=== PATIENT | female | born 1980 | race Two or more races ===

== ENCOUNTER → 2020-05-14 10:15 | Outpatient (BNVA) | payer OTHER, SELFPAY | PROVIDERS: PCP Internal Medicine; Referring Provider Internal Medicine; Visit Provider Internal Medicine Gastroenterology | DX: Z11.0 Encounter for screening for intestinal infectious diseases (principal) | CPT/HCPCS: 99211 ==

== ENCOUNTER 2020-05-15 18:23 | Outpatient (REF) | payer OTHER, SELFPAY ==
[2020-05-18 13:08] LABS: H Pylori Breath Test DETECTED (NOT DETECTED)
== END 2020-05-15 18:24 | disposition home or self-care (01) ==
LOC: HO.LNP 18:23
PROVIDERS: Visit Provider Internal Medicine Gastroenterology
DX: Z11.0 Encounter for screening for intestinal infectious diseases (principal)
CPT/HCPCS: 83013

== ENCOUNTER 2020-06-02 08:08 | Outpatient (REF) | payer OTHER, SELFPAY ==
--- NOTE | 2020-06-02 13:46 | FL_ITS ---
EXAMINATION: XR FLUOROSCOPY WITH IMAGES CLINICAL INFORMATION: M53.3 - Sacrococcygeal disorders, not elsewhere classified COMPARISON: Radiographs sacrum/coccyx 07/29/2019 TECHNIQUE: Fluoroscopy performed by Kaya Galindo NP. Fluoroscopy time: 0.5 minutes DAP: 9.7 Gycm2 Images: 2 FINDINGS: There is a spinal needle overlying lower coccyx with tip just anterior to the lower coccyx. There is contrast in the precoccygeal soft tissues. No visible vascular communication. FL/FL guidance in treatment room IMPRESSION: Fluoroscopy for pain management procedure.
== END 2020-06-02 08:09 | disposition home or self-care (01) ==
LOC: HO.RADIR 08:08
PROVIDERS: Visit Provider Anesthesiology
DX: M53.3 Sacrococcygeal disorders, not elsewhere classified (principal)
CPT/HCPCS: 64999; J3300; Q9967

== ENCOUNTER 2020-06-15 14:04 | Outpatient (REF) | payer OTHER, SELFPAY ==
[2020-06-16 02:30] LABS: CT PCR NOT DETECTED (Not Detect.); NG PCR NOT DETECTED (Not Detect.)
[2020-06-16 09:31] LABS: BV Int Neg Control Negative (Negative); BV Int Pos Control Positive (Positive)
== END 2020-06-15 14:05 | disposition home or self-care (01) ==
LOC: HO.LAB 14:04
PROVIDERS: PCP Internal Medicine; Visit Provider Advanced Practice Midwife
DX: Z01.419 Encounter for gynecological examination (general) (routine) without abnormal findings (principal); Z20.2 Contact with and (suspected) exposure to infections with a predominantly sexual mode of transmission; Z11.3 Encounter for screening for infections with a predominantly sexual mode of transmission; N90.89 Other specified noninflammatory disorders of vulva and perineum; Z00.00 Encounter for general adult medical examination without abnormal findings
CPT/HCPCS: 87480; 87491; 87510; 87591; 87660

== ENCOUNTER 2020-08-26 10:09 | Outpatient (REF) | payer OTHER, SELFPAY ==
--- NOTE | 2020-08-26 10:00 | EMG_ITS ---
HISTORY OF PRESENT ILLNESS: This is a 40-year-old woman with a history of fibromyalgia, who comes in with bilateral upper extremity pain and numbness for 14 years. Recently, she has had some physical therapy and using splints at night, which helped. Her symptoms of pain, numb, and tingling, left more than right. CURRENT MEDICATION: Nabumetone 750, Cymbalta 60 mg, baclofen 10 mg, tizanidine 4 mg p.r.n., and vitamins. PHYSICAL EXAMINATION: On examination, she is alert and oriented with cranial nerves II through XII are normal. Muscle tone and strength are normal in all 4 extremities. Deep tendon reflexes symmetrical. No Tinel or Phalen sign. IMPRESSION: Rule out carpal tunnel syndrome. Nerve conduction EMG study: Early carpal tunnel syndrome on the right, otherwise normal study. Normal EMG of the C5 through T1 innervated muscles bilaterally. MD ALLEN Pina/LAURYN / [phone]
== END 2020-08-26 10:10 | disposition home or self-care (01) ==
LOC: HO.NEURO 10:09
PROVIDERS: Visit Provider Internal Medicine
DX: R20.0 Anesthesia of skin (principal); M25.532 Pain in left wrist; M25.531 Pain in right wrist
CPT/HCPCS: 95886; 95913

== ENCOUNTER → 2020-10-26 15:29 | Outpatient (BNVA) | payer OTHER, SELFPAY | PROVIDERS: Visit Provider Anesthesiology ==

== ENCOUNTER → 2020-11-12 14:46 | Outpatient (BNVA) | payer OTHER, SELFPAY | PROVIDERS: Visit Provider Anesthesiology | DX: M53.3 Sacrococcygeal disorders, not elsewhere classified (principal) | CPT/HCPCS: 99212 ==

== ENCOUNTER 2020-11-24 10:03 | Outpatient (REF) | payer OTHER, SELFPAY ==
--- NOTE | ~2020-11-24 | CT_ITS ---
EXAMINATION: CT PELVIS WITHOUT CONTRAST CLINICAL INFORMATION: Sacrococcygeal disorders. COMPARISON: Sacrum and coccyx radiographs dated 07/29/2019. MR pelvis dated 04/24/2018. TECHNIQUE: Helical scanning was performed with submillimeter collimation through the pelvis. Sagittal and coronal multiplanar 2-D reconstructions were obtained. This CT examination was performed using dose optimization techniques as appropriate, variously including the following: *Automated exposure control *Adjustment of mA and/or kV according to patient size (this includes techniques or standardized protocols for targeted exams where dose is matched to indication/reason for exam; i.e. extremities or head) *Use of iterative reconstruction technique DLP: 409 mGy-cm FINDINGS: PELVIS: No concerning intrapelvic mass or fluid collection. Left adnexal simple cyst measuring 4 cm. Findings are almost certainly benign and no follow-up imaging is recommended. IUD within the uterus. Unremarkable right adnexa. The visualized pelvic bowel loops are unremarkable without wall thickening or associated inflammatory change. No pelvic bowel obstruction. Unremarkable appendix. Nondistended urinary bladder. The distal ureters are unremarkable. OSSEOUS STRUCTURES: Minimal subchondral sclerosis at the right sacroiliac joint inferiorly. Tiny inferior marginal osteophytes at the right and left sacroiliac joint. No osseous erosion. No associated osseous bridging. No concerning lytic or blastic osseous lesion. No acute fracture or dislocation. CT/CT pelvis wo con IMPRESSION: 1. Minimal bilateral sacroiliac degenerative arthritis. 2. Simple left adnexal cyst measuring 4 cm. Findings are almost certainly benign and no follow-up imaging is recommended. IUD in appropriate position.
== END 2020-11-24 10:04 | disposition home or self-care (01) ==
LOC: HO.CT 10:03
PROVIDERS: Visit Provider Anesthesiology
DX: M53.3 Sacrococcygeal disorders, not elsewhere classified (principal)
CPT/HCPCS: 72192

== ENCOUNTER 2020-12-08 06:06 | Outpatient (REF) | payer OTHER, SELFPAY ==
--- NOTE | ~2020-12-08 | FL_ITS ---
EXAMINATION: XR FLUOROSCOPY WITH IMAGES CLINICAL INFORMATION: M53.3 - Sacrococcygeal disorders COMPARISON: CT pelvis 11/24/2020 TECHNIQUE: Fluoroscopy performed by Kyaa Galindo NP. Fluoroscopy time: 1.2 minutes DAP: 17.56 Gycm2 Images: 5 FINDINGS: There is a needle seen with tip overlying the anterior aspect distal coccyx and contrast in the presacral coccygeal soft tissues. There is another spot view with spinal needle ascending the sacral hiatus and epidural contrast present. There is an IUD again noted overlying the mid pelvis. The SI joints and pubis are unremarkable. FL/FL guidance in treatment room IMPRESSION: Fluoroscopy for pain management procedures.
== END 2020-12-08 06:07 | disposition home or self-care (01) ==
LOC: HO.RADIR 06:06
PROVIDERS: Visit Provider Anesthesiology
DX: M53.3 Sacrococcygeal disorders, not elsewhere classified (principal)
CPT/HCPCS: 62323; 64999; J3300; Q9967

== ENCOUNTER 2020-12-26 16:59 | Emergency (ER) | payer OTHER, SELFPAY ==
--- NOTE | ~2020-12-26 | CT_ITS ---
EXAMINATION: CT ABDOMEN AND PELVIS WITHOUT CONTRAST CLINICAL INFORMATION: Right flank pain. Rule out stone COMPARISON: None TECHNIQUE: Multidetector volumetric imaging was performed from the superior aspect of the liver through the pubic symphysis. Sagittal and coronal reformatted images were obtained on the technologist's workstation. This CT examination was performed using dose optimization techniques as appropriate, variously including the following: *Automated exposure control *Adjustment of mA and/or kV according to patient size (this includes techniques or standardized protocols for targeted exams where dose is matched to indication/reason for exam; i.e. extremities or head) *Use of iterative reconstruction technique DLP: 664 mGy-cm FINDINGS: The lack of intravenous contrast limits evaluation of the solid visceral organs including the liver, spleen, pancreas, and kidneys. LUNG BASES: The visualized lung bases are unremarkable. LIVER, GALLBLADDER, AND BILIARY TREE: Limited non-contrast evaluation is normal. No gross focal hepatic lesion. Normal liver size and contour. No gross biliary ductal dilation. The gallbladder is unremarkable with no evidence of radiopaque gallstones, gallbladder wall thickening, or obvious pericholecystic inflammatory changes. PANCREAS: Limited non-contrast evaluation is normal. No marc-pancreatic fluid. SPLEEN: Limited non-contrast evaluation is normal. ADRENAL GLANDS: Normal; no adrenal mass. KIDNEYS AND URETERS: Limited non-contrast evaluation is normal. No hydronephrosis, hydroureter, or calculi seen. No perinephric stranding. GASTROINTESTINAL TRACT: Small bowel and colon are non-dilated. No bowel wall thickening. No pericolonic inflammatory changes to suggest colitis or diverticulitis. ABDOMINAL WALL: No hernia seen. LYMPH NODES: No pathologically enlarged lymph nodes in the abdomen or pelvis. VASCULAR: Normal caliber abdominal aorta. BLADDER: Unremarkable. PELVIC VISCERA: Normal noncontrast appearance of the uterus and ovaries. An IUD is seen centrally in the uterus. OSSEOUS STRUCTURES: No acute or suspicious osseous abnormalities. CT/CT abdomen pelvis wo con IMPRESSION: No acute CT findings. No radiopaque urolithiasis.
[2020-12-26 17:05] VITALS: BP 105/69; PULSE 83; RESP 16; TEMP 36.1; O2SAT 99; BMI 34.6
[2020-12-26 20:00] VITALS: BP 109/70; PULSE 81; RESP 16; TEMP 37.1; O2SAT 100
[2020-12-26 20:19] LABS: MANUAL DIFF FLAG NO
[2020-12-26 20:22] LABS: Basophils Percent Auto 0.2 % (0-2); Eosinophils Absolute Auto 0.1 X10*3/uL (0.0-0.4); Eosinophils Percent Auto 1.4 % (0-4); Hematocrit 38.1 % (37-47); Hemoglobin 12.5 g/dl (12.0-16.0); Imm Gran Abs Auto 0.04 X10*3/uL (0.00-0.03); Imm Gran Pct Auto 0.4 % (0.0-0.4); Lymphocytes Absolute Auto 2.1 X10*3/uL (1.2-4.9); Lymphocytes Percent Auto 21.8 % (20-40); Mean Corpuscular HGB Conc 32.8 g/dl (31.0-35.0); Mean Corpuscular Hemoglobin 29.2 pg (27.0-33.0); Monocytes Absolute Auto 0.7 X10*3/uL (0.1-1.2); Monocytes Percent Auto 7.4 % (2-11); Neutrophils Absolute Auto 6.6 X10*3/uL (2.0-8.3); Neutrophils Percent Auto 68.8 % (45-73); Platelet Count 304 X10*3/uL (160-400); Red Blood Count 4.28 X10*6/uL (4.20-5.50); Red Cell Distribution Width 14.2 % (11.0-16.0); White Blood Count 9.7 X10*3/uL (4.8-10.8)
--- NOTE | 2020-12-26 20:26 | ED_ITS ---
HPI - Abdominal Pain General Chief Complaint: Abdominal Pain Stated Complaint: Flank pain Time Seen by Provider: 12/26/20 17:03 Source: patient Mode of arrival: ambulatory Limitations: no limitations History of Present Illness HPI narrative: R flank pain with spotting and some dysuria MD elicited complaint: abdominal pain and flank pain Onset (ago): day(s) (1) Pain Consistency: constant Location: R flank Severity: moderate Quality: stabbing Radiation: none Migration to: no migration Exacerbating factors: nothing Relieving factors: nothing Associated symptoms: nausea and dysuria Related Data Home Medications Medication Instructions Recorded Confirmed ammonium lactate 12 % topical cream 1 applic TOPICAL BID 06/15/20 11/03/20 ascorbate calcium (vitamin C) 500 500 mg PO DAILY 06/15/20 11/03/20 mg tablet cholecalciferol (vitamin D3) 50 50 mcg PO DAILY 06/15/20 11/03/20 mcg (2,000 unit) capsule levonorgestrel 20 mcg/24 hours (6 INTRAUTERINE 06/15/20 11/03/20 yrs) 52 mg intrauterine device nabumetone 750 mg tablet 750 mg PO BID 06/15/20 11/03/20 tizanidine 4 mg tablet 4 mg PO BEDTIME 06/15/20 11/03/20 vitamin B complex 1 tab PO DAILY 06/15/20 11/03/20 Previous Rx's Medication Instructions Recorded alprazolam 0.5 mg tablet 0.5 mg PO BID PRN 30 Days #45 tab 07/07/20 fluconazole 150 mg tablet 150 mg PO QWEEK 21 Days #3 tab 09/02/20 terbinafine HCl 1 % topical cream 1 appl TOPICAL BID 30 Days #30 g 09/02/20 mupirocin 2 % topical ointment 1 appl TOPICAL BID 14 Days #15 g 10/22/20 folic acid 1 mg tablet 1 mg PO DAILY 90 Days #90 tab 11/03/20 ondansetron HCl 4 mg tablet 4 mg PO Q8H PRN 30 Days #90 tab 11/03/20 duloxetine 30 mg capsule,delayed 30 mg PO DAILY #30 cap 11/15/20 release Allergies Allergy/AdvReac Type Severity Reaction Status Date / Time No Known Allergies Allergy Unknown NONE Verified 12/26/20 17:07 Review of Systems Review of Systems Constitutional : No Weight loss, No Fever, No Chills ENT/Mouth : No sore throat, No Rhinorrhea Eyes: No Swelling, No Redness Cardiovascular : No Chest Pain, No SOB, NoEdema Respiratory : No Cough, No Sputum, No Wheezing Gastrointestinal : Positive Nausea, no Vomiting, no Diarrhea, positive abdominal Pain, No Hematochezia, No Melena Genitourinary : pos Dysuria, No Urinary Frequency, No Hematuria, No Urgency , pos flank pain Musculoskeletal : No joint pain, No Myalgias, No Joint Swelling Skin : No Skin Lesions, No rash Neuro : No Weakness, No Numbness, No Dizziness, No Headache Psych : No Anxiety/Panic, No Depression Heme/Lymph: No Bruising, No Lymphadenopathy Endocrine : No Polyuria, No Polydipsia All other systems reviewed and are negative. Physical Exam Vital Signs: Vital Signs: Last Vital Signs Temp 98.7 F 12/26/20 20:00 Pulse 81 12/26/20 20:00 Resp 16 12/26/20 20:00 BP 109/70 12/26/20 20:00 Pulse Ox 100 12/26/20 20:00 Body Mass Index 34.6 Appearance: Alert. Oriented X3. No acute distress. Eyes: Pupils equal, round and reactive to light. ENT: Pharynx normal. Neck: Normal inspection. Neck supple. CVS: Normal heart rate and rhythm. Pulses normal. Respiratory: No respiratory distress. Breath sounds normal. Abdomen: Soft and non-tender. Flank: mild R CVA ttp Skin: Skin warm and dry. Normal skin color. Normal skin turgor. Extremities: No lower extremity edema. No calf ttp Neuro: Oriented X 3. No motor deficit. No sensory deficit. Course Course Course Narrative: no acute findings, stable for DC MDM - Abdominal Pain MDM Narrative Medical decision making narrative: 40 yo female with dysuria, some spotting, R flank pain at this time will need labs, CT scan for renal colic, UA, dispo per results and findings. Lab Data Result diagrams: 12/26/20 20:16 12/26/20 20:16 Labs: Lab Results 12/26/20 12/26/20 12/26/20 Range/Units 20:16 20:16 20:16 WBC 9.7 (4.8-10.8) X10*3/uL RBC 4.28 (4.20-5.50) X10*6/uL Hgb 12.5 (12.0-16.0) g/dl Hct 38.1 (37-47) % MCV 89.0 (80-98) fL MCH 29.2 (27.0-33.0) pg MCHC 32.8 (31.0-35.0) g/dl RDW 14.2 (11.0-16.0) % Plt Count 304 (160-400) X10*3/uL MPV 9.0 L (9.4-12.3) fL Immature Gran % (Auto) 0.4 (0.0-0.4) % Neut % (Auto) 68.8 (45-73) % Lymph % (Auto) 21.8 (20-40) % [place] % (Auto) 7.4 (2-11) % Eos % (Auto) 1.4 (0-4) % Baso % (Auto) 0.2 (0-2) % Lymph # (Auto) 2.1 (1.2-4.9) X10*3/uL [place] # (Auto) 0.7 (0.1-1.2) X10*3/uL Eos # (Auto) 0.1 (0.0-0.4) X10*3/uL Baso # (Auto) 0.0 (0.0-0.2) X10*3/uL Abs Immat Gran (auto) 0.04 H (0.00-0.03) X10*3/uL Absolute Neuts (auto) 6.6 (2.0-8.3) X10*3/uL Absolute Nucleated RBC 0.000 (0.0-0.012) X10*3/uL Nucleated RBC % (auto) 0.0 (0.0-0.2) /100WBC Hold Blue Top SEE NOTE Sodium 140 (135-145) mmol/L Potassium 3.4 (3.3-5.1) mmol/L Chloride 105 (96-108) mmol/L Carbon Dioxide 28 (22-29) mmol/L Anion Gap 10 L (12-20) BUN 15 (9-16) mg/dL Creatinine 0.79 (0.5-1.4) mg/dL Estim Creat Clear Calc 78.7 Estimated GFR > 60 Random Glucose 94 (60-115) mg/dL Calcium 8.9 (8.4-10.2) mg/dL Magnesium 2.2 (1.6-2.6) mg/dL Total Bilirubin 0.4 (0.0-1.0) mg/dL Direct Bilirubin < 0.2 (0.0-0.5) mg/dL AST 16 (5-31) U/L ALT 21 (0-31) U/L Alkaline Phosphatase 68 (39-117) U/L Total Protein 6.4 L (6.5-8.0) g/dL Albumin 4.0 (3.5-5.0) g/dL Lipase 60 (8-78) U/L Urine Color Urine Appearance Urine pH (5.0-8.0) Ur Specific [place] (1.005-1.025) Urine Protein (NEG-TRACE) MG/DL Urine Glucose (UA) (NEG) MG/DL Urine Ketones (NEG) MG/DL Urine Blood (NEG) Urine Nitrite (NEG) Ur Leukocyte Esterase (NEG) Urine Test (NEGATIVE) 12/26/20 12/26/20 Range/Units 20:47 20:47 WBC (4.8-10.8) X10*3/uL RBC (4.20-5.50) X10*6/uL Hgb (12.0-16.0) g/dl Hct (37-47) % MCV (80-98) fL MCH (27.0-33.0) pg MCHC (31.0-35.0) g/dl RDW (11.0-16.0) % Plt Count (160-400) X10*3/uL MPV (9.4-12.3) fL Immature Gran % (Auto) (0.0-0.4) % Neut % (Auto) (45-73) % Lymph % (Auto) (20-40) % [place] % (Auto) (2-11) % Eos % (Auto) (0-4) % Baso % (Auto) (0-2) % Lymph # (Auto) (1.2-4.9) X10*3/uL [place] # (Auto) (0.1-1.2) X10*3/uL Eos # (Auto) (0.0-0.4) X10*3/uL Baso # (Auto) (0.0-0.2) X10*3/uL Abs Immat Gran (auto) (0.00-0.03) X10*3/uL Absolute Neuts (auto) (2.0-8.3) X10*3/uL Absolute Nucleated RBC (0.0-0.012) X10*3/uL Nucleated RBC % (auto) (0.0-0.2) /100WBC Hold Blue Top Sodium (135-145) mmol/L Potassium (3.3-5.1) mmol/L Chloride (96-108) mmol/L Carbon Dioxide (22-29) mmol/L Anion Gap (12-20) BUN (9-16) mg/dL Creatinine (0.5-1.4) mg/dL Estim Creat Clear Calc Estimated GFR Random Glucose (60-115) mg/dL Calcium (8.4-10.2) mg/dL Magnesium (1.6-2.6) mg/dL Total Bilirubin (0.0-1.0) mg/dL Direct Bilirubin (0.0-0.5) mg/dL AST (5-31) U/L ALT (0-31) U/L Alkaline Phosphatase (39-117) U/L Total Protein (6.5-8.0) g/dL Albumin (3.5-5.0) g/dL Lipase (8-78) U/L Urine Color STRAW Urine Appearance CLEAR Urine pH 7.5 (5.0-8.0) Ur Specific [place] <= 1.005 (1.005-1.025) Urine Protein NEG (NEG-TRACE) MG/DL Urine Glucose (UA) NEG (NEG) MG/DL Urine Ketones NEG (NEG) MG/DL Urine Blood NEG (NEG) Urine Nitrite NEG (NEG) Ur Leukocyte Esterase NEG (NEG) Urine Test NEGATIVE (NEGATIVE) Discharge Plan Discharge Clinical Impression: Acute flank pain Patient Disposition: Home, Self-Care Instructions: Flank Pain (ED) Additional Instructions: return to ED for any worsening symptoms or concerns Prescriptions: No Action duloxetine 30 mg capsule,delayed release(DR/EC) 30 mg PO DAILY Qty: 30 RF: 3 fluconazole [Diflucan] 150 mg tablet 150 mg PO QWEEK 21 Days Qty: 3 RF: 0 terbinafine HCl [Antifungal (terbinafine)] 1 % cream 1 appl topical BID 30 Days Qty: 30 RF: 0 mupirocin 2 % ointment 1 appl topical BID 14 Days Qty: 15 RF: 0 alprazolam 0.5 mg tablet 0.5 mg PO BID PRN (Reason: anxiety) 30 Days Qty: 45 RF: 0 folic acid 1 mg tablet 1 mg PO DAILY 90 Days Qty: 90 RF: 1 ondansetron HCl 4 mg tablet 4 mg PO Q8H PRN (Reason: nausea and vomiting) 30 Days Qty: 90 RF: 1 nabumetone 750 mg tablet 750 mg PO BID RF: 0 ammonium lactate 12 % cream 1 applic topical BID RF: 0 tizanidine 4 mg tablet 4 mg PO BEDTIME RF: 0 cholecalciferol (vitamin D3) 50 mcg (2,000 unit) capsule 50 mcg PO DAILY RF: 0 Mirena 20 mcg/24 hours (6 yrs) 52 mg intrauterine device intrauterine RF: 0 ascorbate calcium (vitamin C) 500 mg tablet 500 mg PO DAILY RF: 0 vitamin B complex [B Complex-Vitamin B12] Tablet 1 tab PO DAILY RF: 0 Referrals: Abi Gardner MD [Primary Care Provider] - 3 days (if not better) [facility] Past Medical History Attestation statement: The following information was validated with the patient. Medical History Coccydynia Depression with anxiety Family history of fibromyalgia Fibromyalgia History of anemia History of PCOS Hx of hearing loss Hx of tension headache Nose disease Obesity Onychomycosis Simple laceration of nose Surgical History Hx of section Hx of wisdom tooth extraction Family History Family History Father CVD (cardiovascular disease) Mother Rheumatoid arthritis Paternal Aunt Uterine cancer Social History Social History Alcohol intake: never Smoking Status: Former smoker Tobacco Type: Cigarette Advance Directives: No Advance Directives Information Provided: No Sexual orientation: Straight/Heterosexual Gender identity: female
[2020-12-26 20:48] LABS: Alanine Aminotransferase 21 U/L (0-31); Alkaline Phosphatase 68 U/L (39-117); Anion Gap 10 (12-20); Aspartate Amino Transferase 16 U/L (5-31); Bilirubin Direct < 0.2 mg/dL (0.0-0.5); Bilirubin Total 0.4 mg/dL (0.0-1.0); Blood Urea Nitrogen 15 mg/dL (9-16); Calcium 8.9 mg/dL (8.4-10.2); Carbon Dioxide 28 mmol/L (22-29); Chloride 105 mmol/L (96-108); Creatinine Clr Calc Pharmacy 78.7; Estimated Glomerular Filt Rate > 60; Glucose Random 94 mg/dL (60-115); Lipase 60 U/L (8-78); Magnesium 2.2 mg/dL (1.6-2.6); Potassium 3.4 mmol/L (3.3-5.1); Sodium 140 mmol/L (135-145); Total Protein 6.4 g/dL (6.5-8.0)
[2020-12-26 21:07] LABS: Glucose Urine UA NEG (NEG); Leukocyte Esterase Urine NEG (NEG); Nitrite Urine NEG (NEG); PH 7.5 (5.0-8.0); Specific Gravity - Urine <= 1.005 (1.005-1.025); Urine Blood NEG (NEG); Urine Ketones NEG (NEG); Urine Protein NEG (NEG-TRACE)
[2020-12-26 21:08] LABS: Appearance Urine CLEAR; Color Urine STRAW
[2020-12-26 21:09] LABS: UPreg QC Valid YES; Urine Pregnancy NEGATIVE (NEGATIVE)
== END 2020-12-27 00:11 | disposition home or self-care (01) ==
PROVIDERS: Emergency Provider Emergency Medicine; PCP Internal Medicine
DX: R10.9 Unspecified abdominal pain (principal)
CPT/HCPCS: 36415; 74176; 80048; 80076; 81003; 81025; 83690; 83735; 85025; 99284

== ENCOUNTER → 2021-02-03 10:13 | Outpatient (BNVA) | payer OTHER, SELFPAY | PROVIDERS: Visit Provider Anesthesiology | DX: M53.3 Sacrococcygeal disorders, not elsewhere classified (principal) | CPT/HCPCS: 99212 ==

== ENCOUNTER 2021-02-16 08:35 | Outpatient (REF) | payer OTHER, SELFPAY ==
[2021-02-16 09:44] LABS: MANUAL DIFF FLAG NO
[2021-02-16 10:08] LABS: Basophils Percent Auto 0.3 % (0-2); Eosinophils Absolute Auto 0.2 X10*3/uL (0.0-0.4); Eosinophils Percent Auto 1.9 % (0-4); Hematocrit 41.6 % (37-47); Hemoglobin 13.4 g/dl (12.0-16.0); Imm Gran Abs Auto 0.05 X10*3/uL (0.00-0.03); Imm Gran Pct Auto 0.6 % (0.0-0.4); Lymphocytes Absolute Auto 1.6 X10*3/uL (1.2-4.9); Lymphocytes Percent Auto 19.6 % (20-40); Mean Corpuscular HGB Conc 32.2 g/dl (31.0-35.0); Mean Corpuscular Hemoglobin 28.3 pg (27.0-33.0); Mean Corpuscular Volume 87.9 fL (80-98); Mean Platelet Volume 9.4 fL (9.4-12.3); Monocytes Absolute Auto 0.7 X10*3/uL (0.1-1.2); Monocytes Percent Auto 8.4 % (2-11); Neutrophils Absolute Auto 5.5 X10*3/uL (2.0-8.3); Neutrophils Percent Auto 69.2 % (45-73); Platelet Count 355 X10*3/uL (160-400); Red Blood Count 4.73 X10*6/uL (4.20-5.50); Red Cell Distribution Width 13.2 % (11.0-16.0); White Blood Count 7.9 X10*3/uL (4.8-10.8)
[2021-02-16 10:19] LABS: Cholesterol 198 mg/dL; HDL Cholesterol 54 mg/dL; LDL Cholesterol Calculated 107 mg/dl; Triglycerides 188 mg/dL
[2021-02-21 13:32] LABS: Vitamin D 25-OH, D2 <4 ng/mL; Vitamin D 25-OH, D3 29 ng/mL; Vitamin D 25-OH, Total 29 ng/mL (30-100)
== END 2021-02-16 08:36 | disposition home or self-care (01) ==
LOC: HO.LAB 08:35
PROVIDERS: PCP Internal Medicine; Visit Provider Internal Medicine
DX: E78.5 Hyperlipidemia, unspecified (principal); D64.9 Anemia, unspecified; E55.9 Vitamin D deficiency, unspecified
CPT/HCPCS: 36415; 80061; 82306; 85025

== ENCOUNTER 2021-02-25 15:22 | Outpatient (REF) | payer OTHER, SELFPAY | END 2021-02-25 15:23 | disposition home or self-care (01) | LOC: HO.LAB 15:22 | PROVIDERS: PCP Internal Medicine; Visit Provider Internal Medicine | DX: Z20.822 Contact with and (suspected) exposure to COVID-19 (principal) | CPT/HCPCS: C9803; U0003; U0005 ==

== ENCOUNTER 2021-03-16 16:58 | Outpatient (REF) | payer OTHER, SELFPAY ==
--- NOTE | ~2021-03-16 | XR_ITS ---
EXAMINATION: XR KNEE, LEFT CLINICAL INFORMATION: Left knee pain COMPARISON: None TECHNIQUE: Four views of the left knee. FINDINGS: Bones have normal alignment and joint spaces are maintained. No fracture, subluxation or joint effusion. Minimal osteophyte formation at the inner aspect of the medial femoral condyle. Also, there is a small osteophyte at the upper pole of the patella. No abnormal soft tissue calcifications. XR/XR knee LT 4V IMPRESSION: Minimal osteoarthrosis of the patellofemoral and medial tibiofemoral compartments.
== END 2021-03-16 16:59 | disposition home or self-care (01) ==
LOC: HO.XRAY 16:58
PROVIDERS: PCP Internal Medicine; Visit Provider Nurse Practitioner Family
DX: M25.562 Pain in left knee (principal)
CPT/HCPCS: 73564

== ENCOUNTER → 2021-03-29 13:11 | Outpatient (BNVA) | payer OTHER, SELFPAY | PROVIDERS: PCP Internal Medicine; Visit Provider Anesthesiology | DX: M53.3 Sacrococcygeal disorders, not elsewhere classified (principal) | CPT/HCPCS: 99212 ==

== ENCOUNTER 2021-05-07 10:00 | Outpatient (RCR) | payer OTHER, SELFPAY ==
--- NOTE | 2021-04-21 16:35 | MHC.PT.EP ---
[facility] Office [place] Office [place] Office [address] Dulce Acosta [address] [phone] F: [phone] F: [phone] F: [phone] F: [phone] Physical Therapy Plan of Care Date of Evaluation: Date of Surgery: n/a Diagnosis: B knee pain Assessment: Pt is a 40/yo F referred to PT for eval/treat of B knee pain. S/S consistent with B knee dysfunction resulting in decreased tolerance for WB activities such as ambulating, squatting, and negotiating stairs as well as decreased ability to participate in household and recreational activities. Functional limitation mentioned above are secondary to decreased strength, hx of knee injury, OA, TTP of B medial tibiofemoral joint, and pain. pt is deemed appropriate to receive skilled PT to address her physical impairment and improve her functional abilities. Frequency and Duration: The patient will be seen 2x/wk for 5wk Short Term Goals: Initiate HEP I w/ evidence of compliance pt will report pain less than 1/10 at rest Audience Development Manager Goals: pt will be able to negotiate stairs w/ little to no difficulty pt will improve her LEFI score by increment of 2 MDC/MCID; initial score 44/80 pt will be able to walk a mile w/ little to no difficulty Treatment Plan: Modalities to reduce pain, spasms and effusion. Manual therapy to restore motion and function. Therapeutic exercise to improve strength and flexibility. Neuromuscular re-education for posture and balance. Therapeutic activities to return to functional activities of daily living. Electronically signed by: Luke Sanches PT Please sign and return to therapist. Thank you for your referral.
== END 2021-05-07 14:37 | disposition home or self-care (01) ==
LOC: HO.PTCHIC 10:00
PROVIDERS: PCP Internal Medicine; Visit Provider Internal Medicine
DX: M25.561 Pain in right knee (principal); M25.562 Pain in left knee
CPT/HCPCS: 97110; 97161; 97530

== ENCOUNTER 2021-05-18 06:17 | Outpatient (REF) | payer OTHER, SELFPAY ==
--- NOTE | ~2021-05-18 | FL_ITS ---
EXAMINATION: XR FLUOROSCOPY WITH IMAGES CLINICAL INFORMATION: Sacrococcygeal disorders, not elsewhere classified. COMPARISON: None. TECHNIQUE: Fluoroscopy performed by Dr. Beauchamp. Fluoroscopy time: 0.3 minutes DAP: 5.49 Gycm2 Images: 2 FL/FL guidance in treatment room FINDINGS/IMPRESSION: Fluoroscopy was performed for procedural guidance. Please refer to the procedure report for more detailed findings.
== END 2021-05-18 06:18 | disposition home or self-care (01) ==
LOC: HO.RADIR 06:17
PROVIDERS: Visit Provider Anesthesiology
DX: M53.3 Sacrococcygeal disorders, not elsewhere classified (principal)
CPT/HCPCS: 62322; 64999; J3300; Q9967

== ENCOUNTER 2021-05-19 12:45 | Outpatient (REF) | payer OTHER, SELFPAY ==
--- NOTE | ~2021-05-19 | XR_ITS ---
EXAMINATION: XR SHOULDER, RIGHT CLINICAL INFORMATION: Enthesopathy. COMPARISON: None TECHNIQUE: AP external rotation, Grashey, scapular Y, and axillary views of the right shoulder. FINDINGS: The bones and soft tissues are normal. No fracture. Glenohumeral and acromioclavicular alignment is anatomic with normal joint space. No abnormal soft tissue calcifications. XR/XR shoulder RT min 2V IMPRESSION: Unremarkable examination.
== END 2021-05-19 12:46 | disposition home or self-care (01) ==
LOC: HO.XRAY 12:45
PROVIDERS: PCP Internal Medicine; Visit Provider Physician Assistant
DX: M77.8 Other enthesopathies, not elsewhere classified (principal)
CPT/HCPCS: 73030

== ENCOUNTER 2021-06-14 11:00 | Outpatient (RCR) | payer OTHER, SELFPAY | END 2021-06-16 09:51 | disposition home or self-care (01) | LOC: HO.PT 11:00 | PROVIDERS: PCP Internal Medicine | DX: M53.3 Sacrococcygeal disorders, not elsewhere classified (principal) | CPT/HCPCS: 97110; 97112; 97140; 97162; 97530 ==

== ENCOUNTER 2021-06-16 09:25 | Outpatient (REF) | payer OTHER, SELFPAY ==
--- NOTE | ~2021-06-16 | XR_ITS ---
EXAMINATION: XR CERVICAL SPINE CLINICAL INFORMATION: Neck pain COMPARISON: Previous x-ray October 2018 TECHNIQUE: 6 views of the cervical spine, inclusive of flexion and extension views, were obtained. FINDINGS: There is mild curvature of the mid cervical spine to the left. Bone alignment is otherwise normal. No fracture or dislocation is seen. There is mild degenerative spondylosis and disc space narrowing at C5-C6. Disc spaces are otherwise normal. Neural foramen are patent. Prevertebral soft tissues are normal. XR/XR cervical spine min 6V IMPRESSION: Mild degenerative changes at C5-C6 similar to previous exam.
== END 2021-06-16 09:26 | disposition home or self-care (01) ==
LOC: HO.XRAY 09:25
PROVIDERS: PCP Internal Medicine; Visit Provider Anesthesiology
DX: M54.2 Cervicalgia (principal); M53.3 Sacrococcygeal disorders, not elsewhere classified
CPT/HCPCS: 72052; 99212

== ENCOUNTER 2021-07-06 10:31 | Outpatient (REF) | payer OTHER, SELFPAY ==
--- NOTE | ~2021-07-06 | MR_ITS ---
EXAMINATION: MR BRAIN WITHOUT CONTRAST CLINICAL INFORMATION: 40-year-old with new daily persistent headaches. COMPARISON: 12/04/2015 MRI. TECHNIQUE: Multiplanar multisequence MR imaging of the brain was done without IV contrast. FINDINGS: Brain Volume: Within normal limits. Structural: No malformations. Brain and Meninges: DWI sequence demonstrates no restricted diffusion. Specifically, there is no evidence for acute or subacute cerebral ischemia. There is a punctate FLAIR/T2 signal hyperintensity in the subcortical white matter of the right parietal lobe stable from previous exam. Remainder of the brain parenchyma is normal in signal intensity. There is no evidence for hemorrhage, hemosiderin staining or abnormal mineral deposition. No extra-axial fluid collections, space-occupying process or mass effect are identified. Ventricles and Subarachnoid Spaces: The ventricular system and subarachnoid spaces are within normal limits without hydrocephalus, stable in appearance. Orbital Structures: The visualized orbital structures are grossly unremarkable within the limitations of the study. Vascular: Signal voids are noted in the visualized major intracranial vessels. Sinuses and Osseous Structures: Unremarkable. MR/MR head/brain wo con IMPRESSION: 1. No acute intracranial process. No evidence for infarct, extra-axial fluid collection, hemorrhage, space-occupying process, mass effect or hydrocephalus. 2. A single 2 mm subcortical white matter T2 hyperintensity in the right parietal lobe, stable from previous exam is nonspecific.
== END 2021-07-06 10:32 | disposition home or self-care (01) ==
LOC: HO.MRI 10:31
PROVIDERS: Visit Provider Internal Medicine
DX: G44.52 New daily persistent headache (NDPH) (principal)
CPT/HCPCS: 70551

== ENCOUNTER 2021-08-18 10:25 | Outpatient (REF) | payer OTHER, SELFPAY ==
[2021-08-18 14:02] LABS: CT PCR NOT DETECTED (Not Detect.); NG PCR NOT DETECTED (Not Detect.)
[2021-08-19 09:12] LABS: BV Int Neg Control Negative (Negative); BV Int Pos Control Positive (Positive)
== END 2021-08-18 10:26 | disposition home or self-care (01) ==
LOC: HO.LAB 10:25
PROVIDERS: Visit Provider Advanced Practice Midwife
DX: Z01.419 Encounter for gynecological examination (general) (routine) without abnormal findings (principal); Z20.2 Contact with and (suspected) exposure to infections with a predominantly sexual mode of transmission
CPT/HCPCS: 87480; 87491; 87510; 87591; 87660

== ENCOUNTER 2021-08-18 11:00 | Outpatient (REF) | payer OTHER, SELFPAY ==
--- NOTE | ~2021-08-18 | US_ITS ---
EXAMINATION: US PELVIS CLINICAL INFORMATION: Pelvic and perineal pain. COMPARISON: CT scan of the abdomen and pelvis dated 12/26/2020 TECHNIQUE: Ultrasound of the pelvis is performed using both transabdominal and transvaginal transducers along with Doppler. Transvaginal imaging is performed due to inadequate visualization transabdominally. FINDINGS: Uterus: Anteverted/anteflexed, 8.7 x 3.4 x 6.0 cm. IUD within the endometrial canal extending to the level the fundus without abnormality. The endometrial stripe measures up to 0.6 cm at the level the fundus with minimal anechoic fluid within the endometrial canal. Color Doppler showed no abnormal vascular flow. The cervix is closed. Minimal anechoic fluid is seen in the cervical canal. No surrounding abnormality is seen. Minimal free fluid is seen in the cul-de-sac. Right ovary: 2.6 x 2.0 x 2.3 cm with a volume of 6.3 mL. Small anechoic follicles. Color Doppler showed no abnormal vascular flow. Left ovary: 3.8 x 2.3 x 2.4 cm with a volume of 11.0 cm. An anechoic dominant follicle measures 2.0 cm. Color Doppler showed no abnormal vascular flow. US/US pelvic and transvaginal IMPRESSION: 1. IUD in place without overt abnormality. Minimal anechoic fluid within the endometrial canal is likely physiologic. No other significant abnormality.
== END 2021-08-18 11:01 | disposition home or self-care (01) ==
LOC: HO.US 11:00
PROVIDERS: PCP Internal Medicine; Visit Provider Internal Medicine
DX: R10.2 Pelvic and perineal pain (principal); N89.8 Other specified noninflammatory disorders of vagina; Z97.5 Presence of (intrauterine) contraceptive device
CPT/HCPCS: 76830; 76856; 99212

== ENCOUNTER → 2021-10-07 09:50 | Outpatient (BNVA) | payer OTHER, SELFPAY | PROVIDERS: PCP Internal Medicine; Visit Provider Anesthesiology | DX: M47.812 Spondylosis without myelopathy or radiculopathy, cervical region (principal); M53.3 Sacrococcygeal disorders, not elsewhere classified | CPT/HCPCS: 99212 ==

== ENCOUNTER 2021-10-21 14:00 | Outpatient (RCR) | payer OTHER, SELFPAY ==
--- NOTE | 2021-09-08 11:40 | MHC.PT.EP ---
[facility] [place] Office [place] Office [place] Office [address] Dulce Acosta [address] [phone] F: [phone] F: [phone] F: [phone] F: [phone] Physical Therapy Plan of Care Date of Evaluation: Date of Surgery: Diagnosis: RIGHT HIP PAIN Assessment: 41 YO FEMALE REF TO PT FOR EXACRBATION OF RIGHT HIP PAIN AND LUMBOSACRAL PAIN OVER THE LAST FEW MONTHS. SHE NOTES HER LIFE SCHEDULE HAS BEEN HECTIC AND SHE HAD STOPPED PERF HER HEP FROM PT IN 06/2021. UPON EXAM SHE DEMONSTRATES DECREASED HIP ROM/ FLEXIBILITY, ALTERED POSTURE AND PELVIC POSITIONING, ALTERED SOFT TISSUE MOBILITY AND INCREASED PAIN W PALPATION SANDHYA HIPS. FUNCTIONAL LIMITATIONS INCLUDE DECREASED ABILITY TO PERFORM STATIC STANDING, AMBULATION GREATER THAN 10 MINS WITHOUT INCREASED PAIN, DECREASED ABILITY TO PERFORM STAIR NAVIGATION, AND RESUMING STANDING AFTER SQUATTING. Pt WOULD BENEFIT FROM BRIEF PT TO REVISE HEP, ADDRESS SOFT TISSUE IRRIT , AND IMPROVE SELF-SX MGMT STRATEGIES. Frequency and Duration: The patient will be seen 2 X wk X 3 wks Short Term Goals: Pt DEMON PROPER SQUAT IN 1 WK Pt'S HIP PAIN DECREASED TO 2-3/10 IN 2 WKS Pt DEMON WFL AROM / FLEXIBILITY IN HIPS AND RE-INTRO LUMBOPELVIC STAB EXER IN 2 WKS Senior Care Goals: Pt INDEP W HEP PROGRESSION AND SELF-SX MGMT STRATEGIES IN 3 WKS Pt RESUME REG ADLs EVIDENT W IMPROVED LEFI SCORE BY 5-8 POINTS (AT EVAL 25/80 ) IN 3 WKS Pt INCR LE STRENGTH BY 1/2 GRADE IN 3 WKS Treatment Plan: Modalities to reduce pain, spasms and effusion. Manual therapy to restore motion and function. Therapeutic exercise to improve strength and flexibility. Neuromuscular re-education for posture and balance. Therapeutic activities to return to functional activities of daily living. Electronically signed by: Ivonne Morgan,PT Please sign and return to therapist. Thank you for your referral.
--- NOTE | 2021-11-25 13:18 | MHC.PT.DC ---
[facility] [place] Office [place] Office [place] Office [address] Dulce Acosta [address] [phone] F: [phone] F: [phone] F: [phone] F: [phone] Physical Therapy Discharge Report Diagnosis: RIGHT HIP PAIN Date of Surgery: Date of Evaluation: 09/08/21 Date of Discharge: 11/25/21 Treatments to Date: 5 Cancellations to Date: 1 No Shows to Date: Discharge Status: Achieved Goals Improved Function Independent with HEP Patient Elected to Stop Discharge Summary: Pt PROGRESSED NICELY IN PT- HER Rt HIP PAIN HAS RESOLVED, HER HEP COMPLIANCE HAS IMPROVED, AND SHE DEMONSTRATES MORE EFFICIENT FUNCTIONAL MOB. Pt IS D/C FROM PT AT THIS TIME. Electronically signed by: Ivonne Morgan,PT Please sign and return to therapist. Thank you for your referral.
== END 2021-11-25 13:19 | disposition home or self-care (01) ==
LOC: HO.PT 14:00
PROVIDERS: PCP Internal Medicine; Visit Provider Internal Medicine
DX: M25.551 Pain in right hip (principal)
CPT/HCPCS: 97110; 97140; 97161; 97530

== ENCOUNTER → 2021-11-15 11:37 | Outpatient (BNVA) | payer OTHER, SELFPAY | PROVIDERS: PCP Internal Medicine; Referring Provider Internal Medicine; Visit Provider Internal Medicine Gastroenterology | DX: K90.49 Malabsorption due to intolerance, not elsewhere classified (principal); K58.9 Irritable bowel syndrome, unspecified | CPT/HCPCS: 99212 ==

== ENCOUNTER 2021-11-15 18:29 | Outpatient (REF) | payer OTHER, SELFPAY ==
[2021-11-16 11:11] LABS: H Pylori Breath Test Positive (Negative)
== END 2021-11-15 18:30 | disposition home or self-care (01) ==
LOC: HO.LNP 18:29
PROVIDERS: Visit Provider Internal Medicine Gastroenterology
DX: R10.9 Unspecified abdominal pain (principal)
CPT/HCPCS: 83013

== ENCOUNTER 2021-11-16 06:05 | Outpatient (REF) | payer OTHER, SELFPAY ==
--- NOTE | ~2021-11-16 | FL_ITS ---
EXAMINATION: XR FLUOROSCOPY WITH IMAGES CLINICAL INFORMATION: M53.3 - Sacrococcygeal disorders, not elsewhere classified COMPARISON: CT pelvis noncontrast 12/26/2020. TECHNIQUE: Fluoroscopy performed by Dr. Jake Beauchamp. Fluoroscopy time: 0.4 minutes DAP: 0.350 mGycm2 Images: 3 FINDINGS: There is a spinal needle in the sacral hiatus with epidural contrast. No visible vascular communication. There is another fluoroscopic spot view with a spinal needle perpendicular to the lower coccyx and contrast overlying the lower anterior coccygeal margin. FL/FL guidance in treatment room IMPRESSION: Fluoroscopy for pain management procedures.
== END 2021-11-16 06:06 | disposition home or self-care (01) ==
LOC: HO.RADIR 06:05
PROVIDERS: Visit Provider Anesthesiology
DX: M53.3 Sacrococcygeal disorders, not elsewhere classified (principal); M79.7 Fibromyalgia; E55.9 Vitamin D deficiency, unspecified; E66.9 Obesity, unspecified; F41.8 Other specified anxiety disorders; Z68.35 Body mass index [BMI] 35.0-35.9, adult
CPT/HCPCS: 62323; 64999; J3300; Q9967

== ENCOUNTER 2021-12-08 10:00 | Outpatient (RCR) | payer OTHER, SELFPAY | END 2022-02-24 08:35 | disposition home or self-care (01) | LOC: HO.PTWFD 10:00 | PROVIDERS: PCP Internal Medicine; Visit Provider Anesthesiology | DX: M47.812 Spondylosis without myelopathy or radiculopathy, cervical region (principal) | CPT/HCPCS: 97110; 97161; 97535 ==

== ENCOUNTER → 2022-02-14 14:04 | Outpatient (BNVA) | payer OTHER, SELFPAY | PROVIDERS: PCP Internal Medicine; Visit Provider Anesthesiology | DX: M53.3 Sacrococcygeal disorders, not elsewhere classified (principal); M47.812 Spondylosis without myelopathy or radiculopathy, cervical region; M79.18 Myalgia, other site | CPT/HCPCS: 99212 ==

== ENCOUNTER 2022-02-21 09:54 | Outpatient (REF) | payer OTHER, SELFPAY ==
[2022-02-21 11:52] LABS: Alanine Aminotransferase 18 U/L (0-31); Albumin Level 4.4 g/dL (3.5-5.0); Alkaline Phosphatase 81 U/L (39-117); Anion Gap 11 (12-20); Aspartate Amino Transferase 16 U/L (5-31); Bilirubin Total 0.6 mg/dL (0.0-1.0); Blood Urea Nitrogen 11 mg/dL (9-16); Calcium 8.9 mg/dL (8.4-10.2); Carbon Dioxide 26 mmol/L (22-29); Chloride 104 mmol/L (96-108); Cholesterol 212 mg/dL; Estimated Glomerular Filt Rate > 60; Glucose Fasting 122 mg/dL (60-99); HDL Cholesterol 45 mg/dL; LDL Cholesterol Calculated 123 mg/dl; Potassium 4.2 mmol/L (3.3-5.1); Sodium 137 mmol/L (135-145); Total Protein 7.1 g/dL (6.5-8.0); Triglycerides 220 mg/dL
[2022-02-21 12:15] LABS: Thyroid Stimulating Hormone 2.04 uIU/mL (0.32-4.0); Vitamin D 25-OH Total 20.3 ng/mL (>30)
== END 2022-02-21 09:55 | disposition home or self-care (01) ==
LOC: HO.LAB 09:54
PROVIDERS: PCP Internal Medicine; Visit Provider Internal Medicine
DX: Z00.00 Encounter for general adult medical examination without abnormal findings (principal); E66.9 Obesity, unspecified; E55.9 Vitamin D deficiency, unspecified
CPT/HCPCS: 36415; 80053; 80061; 82306; 84443

== ENCOUNTER 2022-03-23 14:57 | Outpatient (REF) | payer OTHER, SELFPAY ==
--- NOTE | ~2022-03-23 | MM_ITS ---
EXAMINATION: MM SCREENING DIGITAL BREAST TOMOSYNTHESIS, BILATERAL CLINICAL INFORMATION: Screening. Asymptomatic. Age 41. No prior breast imaging. The lifetime risk of breast cancer based on the Tyrer-Cuzick Model is 9%. COMPARISON: None (current study represents initial baseline exam). TECHNIQUE: Digital breast tomosynthesis is performed in both the craniocaudal and mediolateral oblique views along with computer-aided detection (CAD). Synthesized 2D images are generated from the tomosynthesis. FINDINGS: There are scattered areas of fibroglandular density (ACR BI-RADS breast composition Category b). There are no significant masses, abnormal calcifications, or other abnormalities. The axilla and skin contours are unremarkable. MM/MM tomosynthesis screening BI IMPRESSION: No mammographic evidence of malignancy. ASSESSMENT: BI-RADS 1: Negative RECOMMENDATION: Routine annual mammography screening. This patient's information was entered into a reminder system with a target due date for their next mammogram.
== END 2022-03-23 14:58 | disposition home or self-care (01) ==
LOC: HO.MAMMO 14:57
PROVIDERS: PCP Internal Medicine; Visit Provider Internal Medicine
DX: Z12.31 Encounter for screening mammogram for malignant neoplasm of breast (principal)
CPT/HCPCS: 77063; 77067

== ENCOUNTER 2022-03-24 17:39 | Outpatient (REF) | payer OTHER, SELFPAY ==
--- NOTE | ~2022-03-24 | MR_ITS ---
EXAMINATION: MR LUMBAR SPINE WITHOUT CONTRAST CLINICAL INFORMATION: 41-year-old with low back pain, unspecified. Self-reported history of coccyx fracture, left leg pain and weakness. COMPARISON: 10/04/2008 MRI. TECHNIQUE: MRI of the lumbar spine was obtained using routine sequences without contrast. FINDINGS: Coronal Alignment: Normal. Sagittal Alignment: Normal. Lumbosacral Junction: Normal. Five nonrib-bearing lumbar-type vertebral bodies. Vertebral Bodies: Normal height. Disc Spaces and Endplates: The intervertebral disc space heights and signal are well maintained, stable in appearance. There is a shallow Schmorl's node along the anterior aspect of the superior endplate of L3 on the current study which is a new finding associated with minor anterior marginal endplate spurring. Otherwise, endplates appear grossly intact with no significant spondylosis. There is mild lower thoracic anterior marginal spondylosis at T11-T12 and T10-T11 which has developed since the previous exam. Spinal Canal: No abnormal developmental findings. Bone Marrow: Mild type I degenerative marrow signal changes are seen along the superior endplates of L4 and L3 asymmetric to the right which are new findings. There is type III degenerative marrow signal change seen along the anterior aspect of the superior endplate of L2 asymmetric to the left. No suspicious marrow-replacing process or other bone marrow edema. Conus Medullaris: Terminates at L1. Morphology and signal is normal. Intradural Nerve Roots: Within normal limits. L5-S1: No disc bulge or herniation. No facet arthrosis, canal or neural foraminal stenosis. L4-L5: No disc bulge or herniation. No facet arthrosis, canal or neural foraminal stenosis. L3-L4: Minimal degrees of lateral foraminal/extraforaminal disc protrusion noted bilaterally, more apparent on current study without significant facet arthrosis, canal or neural foraminal stenosis and no evidence for neural impingement. L2-L3: Minimal right lateral foraminal/extraforaminal disc protrusion without neural impingement, stable in appearance. No significant facet arthrosis, canal or neural foraminal stenosis. L1-L2: Normal disc contour. No facet arthrosis, canal or neural foraminal stenosis. Paraspinal/Retroperitoneal: The paravertebral soft tissues appear unremarkable. MR/MR lumbar spine wo con IMPRESSION: 1. Minor degenerative endplate changes noted along the superior endplates of L4 and L3 on the current study and, to a lesser degree, along the superior endplate of L2 on the left. Minor lateral foraminal/extraforaminal disc protrusions at L3-L4 without neural impingement or spinal stenosis on current exam and minimal right lateral foraminal/extraforaminal disc protrusion at L2-L3 without neural impingement, stable in appearance. 2. Lower thoracic spondylosis noted more prominent on current study.
== END 2022-03-24 17:40 | disposition home or self-care (01) ==
LOC: HO.MRI 17:39
PROVIDERS: Visit Provider Student in an Organized Health Care Education/Training Program
DX: M54.50 Low back pain, unspecified (principal)
CPT/HCPCS: 72148

== ENCOUNTER 2022-04-14 10:33 | Outpatient (REF) | payer OTHER, SELFPAY ==
--- NOTE | 2022-04-14 10:34 | EMG_ITS ---
Bilateral median and ulnar motor and sensory studies were performed. Bilateral radial sensory studies were performed, and paraspinal muscles were tested with needle. IMPRESSION: [id number] right and mild left median neuropathy across carpal tunnel. MD PARMINDER Hargrove/LAURYN / [id number]
== END 2022-04-14 10:34 | disposition home or self-care (01) ==
LOC: HO.NEURO 10:33
PROVIDERS: PCP Internal Medicine; Visit Provider Internal Medicine
DX: R20.0 Anesthesia of skin (principal)
CPT/HCPCS: 95886; 95911

== ENCOUNTER 2022-05-31 06:10 | Outpatient (REF) | payer OTHER, SELFPAY ==
--- NOTE | ~2022-05-31 | FL_ITS ---
EXAMINATION: XR FLUOROSCOPY WITH IMAGES CLINICAL INFORMATION: Sacrococcygeal disorder. COMPARISON: 11/16/2021 TECHNIQUE: Fluoroscopy performed by Dr. Jake Beauchamp. Fluoroscopy time: 0.2 minutes. Cumulative Dose: 22.2 mGy. DAP: 6.06 Gy-cm2. Images: 2. FINDINGS: Two lateral C-arm images performed demonstrating placement of needle overlying the posterior coccyx with some epidural contrast as well as a needle overlying the distal coccyx with contrast overlying the anterior coccyx. FL/FL guidance in treatment room IMPRESSION: Intraoperative fluoroscopy for pain management procedure.
== END 2022-05-31 06:11 | disposition home or self-care (01) ==
LOC: CF 06:10
PROVIDERS: Visit Provider Anesthesiology
DX: M51.26 Other intervertebral disc displacement, lumbar region (principal); M53.3 Sacrococcygeal disorders, not elsewhere classified
CPT/HCPCS: 62323; 64999; J3300

== ENCOUNTER → 2022-06-06 11:01 | Outpatient (BNVA) | payer OTHER, SELFPAY | PROVIDERS: PCP Internal Medicine; Visit Provider Anesthesiology | DX: M53.3 Sacrococcygeal disorders, not elsewhere classified (principal); M47.812 Spondylosis without myelopathy or radiculopathy, cervical region; M47.816 Spondylosis without myelopathy or radiculopathy, lumbar region; M79.18 Myalgia, other site; M51.36 Other intervertebral disc degeneration, lumbar region | CPT/HCPCS: 99212 ==

== ENCOUNTER → 2022-06-20 12:18 | Outpatient (BNVA) | payer OTHER, SELFPAY | PROVIDERS: PCP Internal Medicine; Visit Provider Internal Medicine Gastroenterology | DX: K58.9 Irritable bowel syndrome, unspecified (principal) | CPT/HCPCS: 99212 ==

== ENCOUNTER 2022-08-12 13:59 | Outpatient (REF) | payer OTHER, SELFPAY ==
[2022-08-12 15:26] LABS: Influenza A PCR NEGATIVE (Negative); Influenza B PCR NEGATIVE (Negative); Resp Syncy Virus RNA Qual PCR NEGATIVE (Negative); SARS COV2 PCR INHOUSE NEGATIVE (Negative)
== END 2022-08-12 14:00 | disposition home or self-care (01) ==
LOC: HO.LNP 13:59
PROVIDERS: Visit Provider Emergency Medicine
DX: Z20.822 Contact with and (suspected) exposure to COVID-19 (principal); R68.89 Other general symptoms and signs
CPT/HCPCS: 0241U

== ENCOUNTER → 2022-09-12 09:05 | Outpatient (BNVA) | payer OTHER, SELFPAY | PROVIDERS: PCP Internal Medicine; Visit Provider Nurse Practitioner Family | DX: Z13.89 Encounter for screening for other disorder (principal) ==

== ENCOUNTER → 2022-10-26 15:14 | Outpatient (BNVA) | payer OTHER, MEDICAID, SELFPAY | PROVIDERS: PCP Internal Medicine; Visit Provider Anesthesiology | DX: Z13.89 Encounter for screening for other disorder (principal) ==

== ENCOUNTER → 2022-11-10 14:09 | Outpatient (REF) | payer OTHER, MEDICAID, SELFPAY | LOC: HO.SL 14:09 | PROVIDERS: PCP Internal Medicine; Visit Provider Internal Medicine | DX: R06.83 Snoring (principal); R40.0 Somnolence | CPT/HCPCS: 95806 ==

== ENCOUNTER → 2022-11-11 09:39 | Outpatient (BNVA) | payer OTHER, MEDICAID, SELFPAY | PROVIDERS: PCP Internal Medicine; Visit Provider Internal Medicine Gastroenterology | DX: Z13.89 Encounter for screening for other disorder (principal) ==

== ENCOUNTER 2022-11-11 16:20 | Outpatient (REF) | payer OTHER, MEDICAID, SELFPAY ==
[2022-11-12 11:06] LABS: H Pylori Breath Test Positive (Negative)
== END 2022-11-11 16:21 | disposition home or self-care (01) ==
LOC: HO.LNP 16:20
PROVIDERS: Visit Provider Internal Medicine Gastroenterology
DX: E66.9 Obesity, unspecified (principal)
CPT/HCPCS: 83013

== ENCOUNTER → 2022-11-17 10:23 | Outpatient (BNVA) | payer OTHER, MEDICAID, SELFPAY | PROVIDERS: PCP Internal Medicine; Visit Provider Anesthesiology | DX: Z13.89 Encounter for screening for other disorder (principal) ==

== ENCOUNTER → 2022-12-07 13:02 | Outpatient (BNVA) | payer OTHER, MEDICAID, SELFPAY | PROVIDERS: PCP Internal Medicine; Visit Provider Nurse Practitioner Family ==

== ENCOUNTER 2022-12-09 11:36 | Day surgery (SDC) | payer OTHER, MEDICAID, SELFPAY ==
--- NOTE | 2022-12-08 09:59 | P.CONAN_ITS ---
Documented by User: Nickie Baca NP 12/08/22 10:01 HPI - Anesthesia Eval Consult details Narrative: 42yo F for Ganglion Impar and Caudal Epidural Steroid Injection without catheter PMFSH Active Problems Active Problems: All Active Problems (Updated 12/07/22 @ 13:50 by Jacob Garcia CNP) Loud snoring (Acute) Carpal tunnel syndrome of right wrist (Acute) Daytime somnolence (Acute) Shingles (Acute) Lichen amyloidosis (Acute) Mixed hyperlipidemia (Acute) Impaired glucose tolerance (Acute) Disc degeneration, lumbar (Acute) Spondylosis of lumbar spine (Acute) Ingrowing left great toenail (Acute) Protrusion of lumbar intervertebral disc (Acute) Hand numbness (Acute) Obesity (BMI 35.0-39.9 without comorbidity) (Acute) Polyarthralgia (Acute) Myofascial pain syndrome (Acute) PCOS (polycystic ovarian syndrome) (Acute) Spondylosis of cervical spine (Acute) Bloody stools (Acute) Right hip pain (Acute) Presence of 52 mg levonorgestrel-releasing intrauterine device (IUD) (Acute) Vaginal itching (Acute) Abnormal brain MRI (Acute) Hypovitaminosis D (Acute) Mild recurrent major depression (Acute) Pelvic pain in female (Acute) New persistent daily headache (Acute) Cervicalgia (Acute) Right shoulder tendinitis (Acute) Somatic dysfunction of right sacroiliac joint (Acute) Right knee pain (Acute) Knee pain, left (Acute) Coccydynia (Acute) Fibromyalgia (Acute) Simple laceration of nose (Acute) Onychomycosis (Acute) Obesity (Acute) Depression with anxiety (Acute) Coccydynia (Acute) Past Medical History Medical History (Updated 12/09/22 @ 13:14 by Melissa Swanson RN) Abnormal brain MRI Bloody stools Carpal tunnel syndrome on both sides Cervicalgia Coccydynia Depression with anxiety Family history of fibromyalgia Fibromyalgia History of anemia History of PCOS Hx of hearing loss Hx of tension headache Hypovitaminosis D Knee pain, left Mild recurrent major depression New persistent daily headache Nose disease Obesity Onychomycosis PCOS (polycystic ovarian syndrome) Pelvic pain in female Pre-diabetes Right hip pain Right knee pain Simple laceration of nose Spondylosis of cervical spine Family History Family History Father CVD (cardiovascular disease) Mother Rheumatoid arthritis Mental health disorder Substance use disorder Paternal Aunt Uterine cancer Surgical History Surgical History History of esophagogastroduodenoscopy (EGD) Hx of section Hx of colonoscopy Hx of wisdom tooth extraction Social History Social History Housing: Apartment Alcohol intake: current Alcohol intake frequency: holidays/special occasions only Alcohol type: beer and wine Patient Tobacco Use Status: Former Tobacco user Quit Date: >20 yrs ago Tobacco use type: Cigarette e-Cigarette/Vaping Use: Never Used Second Hand Smoke Exposure: No Use of substances other than those prescribed or required for medical reasons: No Are you DNR?: No Advance Directives: No Advance Directives Information Provided: Yes service: No Current occupational status: employed Current occupational exposures/hazards: No Sexual orientation: Straight/Heterosexual Gender identity: Female Cognitive needs: No Hearing needs: No Vision needs: Yes Meds Allergies Allergy/AdvReac Type Severity Reaction Status Date / Time No Known Allergies Allergy Unknown NONE Verified 12/09/22 13:13 Home Medications Medication Instructions Recorded Confirmed Last Taken Type ammonium lactate 12 % topical cream 1 applic topical BID 06/15/20 12/01/22 Unknown History ascorbate calcium (vitamin C) 500 500 mg PO DAILY 06/15/20 12/01/22 Unknown Hist ory mg tablet levonorgestrel 21 mcg/24 hours (8 intrauterine 06/15/20 12/01/22 Unknown History yrs) 52 mg intrauterine device (Mirena) vitamin B complex (B 1 tab PO DAILY 06/15/20 12/01/22 Unknown History Complex-Vitamin B12 tablet) spironolactone 50 mg tablet 50 mg PO BID 11/15/21 12/01/22 Unknown History tretinoin 0.05 % topical cream appl topical BEDTIME PRN 02/21/22 12/01/22 Unknown History hyperpigmentation triamcinolone acetonide 0.1 % topical 02/21/22 12/01/22 Unknown History topical ointment calcipotriene 0.005 % topical topical BID 06/13/22 12/01/22 Unknown History ointment clobetasol 0.05 % topical cream g topical 06/13/22 12/01/22 Unknown History ketoconazole 2 % shampoo topical 09/12/22 12/01/22 Unknown History semaglutide (weight loss) 0.25 0.25 mg subcut QWEEK 11/11/22 12/01/22 Unknown History mg/0.5 mL subcutaneous pen injector (Wegovy) Exam Exam Date and Time: December 08, 2022 0959 Assessment and Plan Assessment Anesthesia Assessment: Chart Reviewed Documented by User: Krista Hassan MD 12/09/22 15:14 [facility] Past Medical History Medical History (Updated 12/09/22 @ 13:14 by Melissa Swanson RN) Abnormal brain MRI Bloody stools Carpal tunnel syndrome on both sides Cervicalgia Coccydynia Depression with anxiety Family history of fibromyalgia Fibromyalgia History of anemia History of PCOS Hx of hearing loss Hx of tension headache Hypovitaminosis D Knee pain, left Mild recurrent major depression New persistent daily headache Nose disease Obesity Onychomycosis PCOS (polycystic ovarian syndrome) Pelvic pain in female Pre-diabetes Right hip pain Right knee pain Simple laceration of nose Spondylosis of cervical spine Family History Family History Father CVD (cardiovascular disease) Mother Rheumatoid arthritis Mental health disorder Substance use disorder Paternal Aunt Uterine cancer Family history of problems with anesthesia: No Surgical History Surgical History History of esophagogastroduodenoscopy (EGD) Hx of section Hx of colonoscopy Hx of wisdom tooth extraction History of Problems with Anesthesia: No Social History Social History Housing: Apartment Alcohol intake: current Alcohol intake frequency: holidays/special occasions only Alcohol type: beer and wine Patient Tobacco Use Status: Former Tobacco user Quit Date: >20 yrs ago Tobacco use type: Cigarette e-Cigarette/Vaping Use: Never Used Second Hand Smoke Exposure: No Use of substances other than those prescribed or required for medical reasons: No Are you DNR?: No Advance Directives: No Advance Directives Information Provided: Yes service: No Current occupational status: employed Current occupational exposures/hazards: No Sexual orientation: Straight/Heterosexual Gender identity: Female Cognitive needs: No Hearing needs: No Vision needs: Yes Meds Allergies Allergy/AdvReac Type Severity Reaction Status Date / Time No Known Allergies Allergy Unknown NONE Verified 12/09/22 13:13 Home Medications Medication Instructions Recorded Confirmed Last Taken Type ammonium lactate 12 % topical cream 1 applic topical BID 06/15/20 12/01/22 Unknown History ascorbate calcium (vitamin C) 500 500 mg PO DAILY 06/15/20 12/01/22 Unknown History mg tablet levonorgestrel 21 mcg/24 hours (8 intrauterine 06/15/20 12/01/22 Unknown History yrs) 52 mg intrauterine device (Mirena) vitamin B complex (B 1 tab PO DAILY 06/15/20 12/01/22 Unknown History Complex-Vitamin B12 tablet) spironolactone 50 mg tablet 50 mg PO BID 11/15/21 12/01/22 Unknown History tretinoin 0.05 % topical cream appl topical BEDTIME PRN 02/21/22 12/01/22 Unknown History hyperpigmentation triamcinolone acetonide 0.1 % topical 02/21/22 12/01/22 Unknown History topical ointment calcipotriene 0.005 % topical topical BID 06/13/22 12/01/22 Unknown History ointment clobetasol 0.05 % topical cream g topical 06/13/22 12/01/22 Unknown History ketoconazole 2 % shampoo topical 09/12/22 12/01/22 Unknown History semaglutide (weight loss) 0.25 0.25 mg subcut QWEEK 11/11/22 12/01/22 Unknown History mg/0.5 mL subcutaneous pen injector (Wegovy) Exam Airway Mallampati Class: II TM Dist: >3cm Neck ROM: Full Heart: rrr Lungs: cta Assessment and Plan Assessment Anesthesia Assessment: Anesthesia Plan Discussed Final Anesthetic Review Family History of Problems with Anesthesia: No History of Problems with Anesthesia: No NPO: Yes ASA Class: III Final Preanesthetic Review: No Changes in Pt Med Stat, Meds/Allgs Chart Reviewed and Consent Obtained/Reviewed Patient Risk: Intermediate Procedure Risk: Intermediate Anesthetic Plan Anesthetic Plan: MAC: Disposition: Standard PACU
--- NOTE | ~2022-12-09 | FL_ITS ---
EXAMINATION: XR FLUOROSCOPY WITH IMAGES CLINICAL INFORMATION: Pain management; Ganglionic impar and caudal epidural steroid injection. COMPARISON: MR lumbar spine 03/24/2022 TECHNIQUE: Fluoroscopy Supervised By: Dr. Jake Beauchamp. Fluoroscopy Time: 0.2 minutes. Cumulative Dose: 14.5 mGy. DAP: 2.54 Gycm2. Images: 2. FINDINGS: There is a spinal needle at the lower sacral hiatus with contrast seen in the epidural space. No visible vascular communication. Other image shows spinal needle perpendicular to the lower coccyx and contrast parallel to the anterior coccyx. No visible vascular communication. FL/FL guidance in OR IMPRESSION: Fluoroscopy for pain management procedures.
[2022-12-09 12:49] LABS: UPreg QC Valid YES; Urine Pregnancy NEGATIVE (NEGATIVE)
[2022-12-09 13:15] VITALS: BMI 36.8
[2022-12-09 13:36] VITALS: BP 125/64; PULSE 83; RESP 15; TEMP 37.1; O2SAT 98
[2022-12-09] MEDS: Lactated Ringers 1,000 ML 100 ML IVCONT (13:38)
--- NOTE | 2022-12-09 14:34 | P.HPSUR_ITS ---
Pre-Procedural Eval Section A Date of Service: 12/09/22 The patient is an INPATIENT: No Changes since office visit: Yes Patient answered all questions Section B Chief Complaint: Sacrococcygeal disorders, not elsewhere classified Details of Present Illness: as above Relevant Family History (Specify if Yes): No Relevant Social History: None Present Medications: see Short Stay Collaborative assessment Medical History: No relevant PMH History of Previous Operations: No relevant previous surgery Allergies: Allergies Allergy/AdvReac Type Severity Reaction Status Date / Time No Known Allergies Allergy Unknown NONE Verified 12/09/22 13:13 Review of Systems Sugical H&P ROS: Negative: Constitution, Cardiovascular, Respiratory, Neurological, Psychiatric, Hem-Onc, Allergic/Immunologic, Gastrointestinal, Genitourinary, Musculoskeletal, Integumentary, Endocrine and Eyes/Ears/Nose/Throat Exam Surgical H&P Exam: Normal: HEENT, Normal: Heart, Normal: Lungs, Normal: Extremities, Normal: Abdomen, Normal: Skin and Normal: Neurological Plan Diagnosis/Plan: Unchanged I have reviewed the history and physical and performed a pertinent physical examination on my patient. No changes have occurred unless specified. Time Spent With Patient Time: Total time managing care of this patient today ____ minutes.
--- NOTE | 2022-12-09 14:36 | P.HPSUR_ITS ---
Pre-Procedural Eval Section A Date of Service: 12/09/22 The patient is an INPATIENT: No Changes since office visit: Yes Patient answered all questions The History & Physical has been completed within 30 days and I have reviewed it.: No Section B Chief Complaint: Sacrococcygeal disorders, not elsewhere classified Details of Present Illness: as above Relevant Family History (Specify if Yes): No Relevant Social History: None Present Medications: see Short Stay Collaborative assessment Medical History: No relevant PMH History of Previous Operations: No relevant previous surgery Allergies: Allergies Allergy/AdvReac Type Severity Reaction Status Date / Time No Known Allergies Allergy Unknown NONE Verified 12/09/22 13:13 Review of Systems Sugical H&P ROS: Negative: Constitution, Cardiovascular, Respiratory, Neurological, Psychiatric, Hem-Onc, Allergic/Immunologic, Gastrointestinal, Genitourinary, Musculoskeletal, Integumentary, Endocrine and Eyes/Ears/Nose/T hroat Exam Surgical H&P Exam: Normal: HEENT, Normal: Heart, Normal: Lungs, Normal: Extremities, Normal: Abdomen, Normal: Skin and Normal: Neurological Plan Diagnosis/Plan: Unchanged I have reviewed the history and physical and performed a pertinent physical examination on my patient. No changes have occurred unless specified. Time Spent With Patient Time: Total time managing care of this patient today ____ minutes.
--- NOTE | 2022-12-09 15:11 | W.PM.OPN ---
Operative Note Operative Note Date of Service: 12/09/22 Narrative: Caudal FARHANA with catheter and ganglion impar injection.? Two separate procedures. After obtaining informed consent the patient was taken to the operating room where she was position on operating table prone.? is say monitors applied and patient was moderately sedated ?Time-out was performed delineating correct site, side, the nature of the procedure, patient's allergy need for antibiotic therapy.? All operating room staff was participating in OR time-out procedure.? Her lower back, bilateral buttocks and intergluteal cleft were thoroughly prepped with DuraPrep and draped with sterile fenestrated clear drape.? Fluoroscopy C-arm was brought over the operating field and picture of midline sacral bone superimposing on symphysis pubis was obtained on the C-arm screen.? After that the position of the C-arm was turned into the lateral.? The position of sacral hiatus was noted on the screen.? 2.5 cm below the sacral hiatus opening local anesthetic lidocaine 2% 3 cc was injected into the skin with 25 gauge 1/2 inch needle.? After that 3-1/2 inch 22 gauge spinal needle was inserted through the skin and advanced the opening of sacral hiatus on intermittent anterior posterior and lateral views.? When needle entered the sacral canal injection of the contrast performed into the needle demonstrating epidural spread of the contrast.? After that injection of the treatment solution containing preservative-free lidocaine 1% 5 cc and Kenalog 40 mg was performed. After that attention was concentrated on the caudal spine the disc image between second and third caudal vertebrae was delineated on the screen.The 22 g 3-1/2 inch needle was inserted through the skin and advanced toward the disc under A/p and lateral intermittent views. When the needle entered the disc the projection of the C-arm was changed into lateral view and needle was slowly advanced into retropelvic space carefully monitoring the position of the tip of the needle. When tip of the needle cleared 3 mm outside of the anterior surface of the caudal spine the injection of the contrast was performed delineates retropelvic spread of the contrast and no intravascular, no intestinal and no vesical spread of the contrast. After that injection of the treatment solution containing lidocaine 1% 4 mls mixed with kenalog 40 mg was performed into the needle. the needle was withdrawn and sterile dressing was applied. The patient tolerated procedure well and recovered uneventfully.?
--- NOTE | 2022-12-09 15:48 | P.BOP_ITS ---
Brief Operative Note Date of Service: 12/09/22 Pre-op diagnosis: coccydynia Post-op diagnosis: same Procedure: ganglion impar and caudal epidural steroid injection without catheter Surgeon: Jake Beauchamp MD Anesthesia: MAC Was an Shotweld Operator used for this Procedure?: No Estimated blood loss (mL): 0 Condition: stable Disposition: PACU
[2022-12-09 15:53] VITALS: BP 123/66; PULSE 85; RESP 18; TEMP 37.2; O2SAT 100
[2022-12-09 16:08] VITALS: BP 115/64; PULSE 80; RESP 16; O2SAT 100
[2022-12-09 16:23] VITALS: BP 130/70; PULSE 87; RESP 16; TEMP 37.2; O2SAT 100
== END 2022-12-09 16:46 | disposition home or self-care (01) ==
PROVIDERS: Nurse Practitioner; PCP Internal Medicine; Visit Provider Anesthesiology
PROC: 3E0R3GC Introduction of Other Therapeutic Substance into Spinal Canal, Percutaneous Approach (ICD-10-PCS; CPT 62322; principal; 2022-12-09 13:00)
DX: M53.3 Sacrococcygeal disorders, not elsewhere classified (principal); M79.18 Myalgia, other site; M47.816 Spondylosis without myelopathy or radiculopathy, lumbar region; M51.36 Other intervertebral disc degeneration, lumbar region; M47.812 Spondylosis without myelopathy or radiculopathy, cervical region
CPT/HCPCS: 62323; 64999; 81025; J2250; J3010; J3301

== ENCOUNTER 2022-12-20 13:16 | Outpatient (RCR) | payer OTHER, MEDICAID, SELFPAY ==
--- NOTE | 2022-12-20 14:30 | MHC.OT.EP ---
[address] [phone] Occupational Therapy Plan of Care Patient Name: Jasmyne Harden Date of Evaluation: 12/20/22 Diagnosis: B/L hand pain Pain Location: Right volar wrist and palm, radiates up arm Pain Score: 3 Pain Scale Used: Numeric (0 - 10) Aggravating Factors: Gripping, sustained positioning, sleeping Alleviating Factors: Ice, rest, sleeping w/ pillow under arm, resting wrist orthosis Assessment: 42 yo right hand dominant female presents w/ persistent pain in numbness in both hands over the past six months. Nerve conduction consistent w/ mild-moderate CTS in right side and mild CTS in left. She states she has had course of OT in the past and found relief, she has now started wearing her night orthoses and has found some relief. On assessment, signs and symptoms are consistent w/ mild CTS. No significant atrophy, loss of strength or sensation, however she mentions her hands fatigue easy w/ daily use and she wakes w/ numbness, pain and tingling in both hands, however right symptoms worse than left. She will benefit from brief course of OT for cont'd joint protection, activity modification, tendon and nerve glides w/ cont'd orthosis wear and soft tissue management. Frequency and Duration: The patient will be seen 2x/wk for 3 weeks Short Term Goals: Ind w/ orthosis wear Ind w/ HEP Ind w/ ice and heat modalities as appropriate Pt to report ease of nighttime symtpoms Pt to demo good use of B/L hands w/ fine motor challenge Hospice Liaison Goals: same as above Treatment Plan: Therapeutic Exercise Therapeutic Activity Home Exercise Program Splinting Neuro Re-ed Patient Education Edema Control ADL Training Ultrasound MHP Cold Packs Joint Mobilization Soft Tissue Mobilization Kinesiotaping Electronically Signed By: Kiah De Dios, OTR/L CHT Please Sign and return to therapist. Thank you once again for your referral.
--- NOTE | 2023-01-17 15:23 | MHC.OT.DC ---
[address] [phone] F: [phone] Occupational Therapy Discharge Note Patient Name: Jasmyne Harden Provider: Jeffrey Nguyen PA-C Diagnosis: B/L hand pain Date of Evaluation: 12/20/22 Date of Discharge: 01/17/23 Treatments to Date: 1 Cancellations to Date: 3 No Shows to Date: 3 Discharge Status: Visit Non-compliance Discharge Summary: Jasmyne was referred to OT about one month ago for B/L hand pain related to carpal tunnel syndrome. She was seen for initial assessment and recommended to wear resting wrist orthoses and educated on home exercises at the time. She has missed six scheduled appointments and has not been seen since initial assessment. We will be discharging from OT at this time due to visit noncompliance. Electronically Signed By: CASANDRA Pardo/Maxx CHT Reviewed/agree with student documentation: Therapist: Please Sign and return to therapist, thank you for your referral.
== END 2023-01-17 15:23 | disposition home or self-care (01) ==
LOC: HO.OT 13:16
PROVIDERS: PCP Internal Medicine; Visit Provider Physician Assistant
DX: G56.01 Carpal tunnel syndrome, right upper limb (principal)
CPT/HCPCS: 97110; 97140; 97165

== ENCOUNTER → 2022-12-22 20:30 | Outpatient (REF) | payer OTHER, MEDICAID, SELFPAY | LOC: HO.SL 20:30 | PROVIDERS: PCP Physician Assistant; Visit Provider Nurse Practitioner Family | DX: Z13.89 Encounter for screening for other disorder (principal) ==

== ENCOUNTER → 2023-01-19 09:42 | Outpatient (BNVA) | payer OTHER, MEDICAID, SELFPAY | PROVIDERS: PCP Physician Assistant; Visit Provider Anesthesiology ==

== ENCOUNTER 2023-02-03 09:28 | Day surgery (SDC) | payer OTHER, MEDICAID, SELFPAY ==
--- NOTE | 2023-02-02 09:42 | HO.ANESPROP2 ---
HPI - Anesthesia Eval Consult details Narrative: 42yo F for Bilateral Diagnostic Sacroiliac Joint Steroid Injection s/p caudal injection 12/2022 with MAC PMFSH Active Problems Active Problems: All Active Problems (Updated 01/16/23 @ 12:08 by Jacob Garcia CNP) STEPH (obstructive sleep apnea) (Acute) Coccydynia (Acute) Somatic dysfunction of right sacroiliac joint (Acute) Right shoulder tendinitis (Acute) Vaginal itching (Acute) Presence of 52 mg levonorgestrel-releasing intrauterine device (IUD) (Acute) Myofascial pain syndrome (Acute) Polyarthralgia (Acute) Obesity (BMI 35.0-39.9 without comorbidity) (Acute) Hand numbness (Acute) Protrusion of lumbar intervertebral disc (Acute) Ingrowing left great toenail (Acute) Spondylosis of lumbar spine (Acute) Disc degeneration, lumbar (Acute) Impaired glucose tolerance (Acute) Mixed hyperlipidemia (Acute) Lichen amyloidosis (Acute) Shingles (Acute) Daytime somnolence (Acute) Carpal tunnel syndrome of right wrist (Acute) Loud snoring (Acute) PCOS (polycystic ovarian syndrome) (Acute) Spondylosis of cervical spine (Acute) Bloody stools (Acute) Right hip pain (Acute) Abnormal brain MRI (Acute) Hypovitaminosis D (Acute) Mild recurrent major depression (Acute) Pelvic pain in female (Acute) New persistent daily headache (Acute) Cervicalgia (Acute) Right knee pain (Acute) Knee pain, left (Acute) Coccydynia (Acute) Fibromyalgia (Acute) Simple laceration of nose (Acute) Onychomycosis (Acute) Obesity (Acute) Depression with anxiety (Acute) Past Medical History Medical History Abnormal brain MRI Bloody stools Carpal tunnel syndrome on both sides Cervicalgia Coccydynia Depression with anxiety Family history of fibromyalgia Fibromyalgia History of anemia History of PCOS Hx of hearing loss Hx of tension headache Hypovitaminosis D Knee pain, left Mild recurrent major depression New persistent daily headache Nose disease Obesity Onychomycosis PCOS (polycystic ovarian syndrome) Pelvic pain in female Pre-diabetes Right hip pain Right knee pain Simple laceration of nose Spondylosis of cervical spine Family History Family History Father CVD (cardiovascular disease) Mother Rheumatoid arthritis Mental health disorder Substance use disorder Paternal Aunt Uterine cancer Family history of problems with anesthesia: No Surgical History Surgical History History of esophagogastroduodenoscopy (EGD) Hx of section Hx of colonoscopy Hx of wisdom tooth extraction History of Problems with Anesthesia: No Social History Social History Housing: Apartment Alcohol intake: current Alcohol intake frequency: holidays/special occasions only Alcohol type: beer and wine Patient Tobacco Use Status: Former Tobacco user Quit Date: 2002 Tobacco use type: Cigarette e-Cigarette/Vaping Use: Never Used Second Hand Smoke Exposure: No Substance Use Type: Marijuana service: No Current occupational status: employed Current occupational exposures/hazards: No Sexual orientation: Straight/Heterosexual Gender identity: Female Cognitive needs: No Hearing needs: No Vision needs: Yes Meds Allergies Allergy/AdvReac Type Severity Reaction Status Date / Time No Known Allergies Allergy Unknown NONE Verified 02/10/23 09:15 Home Medications Medication Instructions Recorded Confirmed Last Taken Type ammonium lactate 12 % topical cream 1 applic topical BID 06/15/20 12/01/22 Unknown History ascorbate calcium (vitamin C) 500 500 mg PO DAILY 06/15/20 12/01/22 Unknown History mg tablet levonorgestrel 21 mcg/24 hours (8 intrauterine 06/15/20 12/01/22 Unknown History yrs) 52 mg intrauterine device (Mirena) vitamin B complex (B 1 tab PO DAILY 06/15/20 12/01/22 Unknown History Complex-Vitamin B12 tablet) spironolactone 50 mg tablet 50 mg PO BID 11/15/21 12/01/22 Unknown History tretinoin 0.05 % topical cream appl topical BEDTIME PRN 02/21/22 12/01/22 Unknown History hyperpigmentation triamcinolone acetonide 0.1 % topical 02/21/22 12/01/22 Unknown History topical ointment ketoconazole 2 % shampoo topical 09/12/22 12/01/22 Unknown History semaglutide (weight loss) 0.25 0.25 mg subcut QWEEK 11/11/22 12/01/22 Unknown History mg/0.5 mL subcutaneous pen injector (Rubio) celecoxib 200 mg capsule 200 mg PO BID PRN 02/08/23 Unknown History Exam Exam Date and Time: February 02, 2023 0990 Assessment and Plan Assessment Anesthesia Assessment: Chart Reviewed Final Anesthetic Review Family History of Problems with Anesthesia: No History of Problems with Anesthesia: No
[2023-02-03 09:51] VITALS: BP 107/61; PULSE 89; RESP 16; TEMP 36.3; O2SAT 99; BMI 37.4
[2023-02-03 09:53] LABS: UPreg QC Valid YES; Urine Pregnancy NEGATIVE (NEGATIVE)
[2023-02-03] MEDS: Lactated Ringers 1,000 ML 100 ML IVCONT (10:10)
--- NOTE | 2023-02-03 10:44 | P.HPSUR_ITS ---
Pre-Procedural Eval Section A Date of Service: 02/03/23 The patient is an INPATIENT: No Changes since office visit: Yes Patient answered all questions The History & Physical has been completed within 30 days and I have reviewed it.: No Section B Chief Complaint: Sacrococcygeal disorders,sacroiliitis Details of Present Illness: as above Relevant Family History (Specify if Yes): No Relevant Social History: None Present Medications: None Medical History: No relevant PMH History of Previous Operations: No relevant previous surgery Allergies: Allergies Allergy/AdvReac Type Severity Reaction Status Date / Time No Known Allergies Allergy Unknown NONE Verified 01/19/23 09:43 Review of Systems Sugical H&P ROS: Negative: Cardiovascular, Respiratory, Neurological, P sychiatric, Hem-Onc, Allergic/Immunologic, Gastrointestinal, Genitourinary, Integumentary, Endocrine and Eyes/Ears/Nose/Throat and Yes, Specify: Constitution (trivial obesity) and Musculoskeletal (low back pain) Exam Surgical H&P Exam: Normal: HEENT, Normal: Heart, Normal: Lungs, Normal: Extremities, Normal: Skin and Normal: Neurological and Significant Findings: Abdomen (enlarged) Plan Diagnosis/Plan: Unchanged I have reviewed the history and physical and performed a pertinent physical examination on my patient. No changes have occurred unless specified. Time Spent With Patient Time: Total time managing care of this patient today _5___ minutes.
--- NOTE | 2023-02-03 11:30 | P.BOP_ITS ---
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
--- NOTE | 2023-02-03 11:32 | W.PM.OPN ---
Operative Note Operative Note Date of Service: 02/03/23 Narrative: Bilateral diagnostic sacroiliac joint injection. Informed consent was explained thoroughly to the patient.? All questions about benefits and risks for the procedure were answered. Patient came to the operating room and was positioned prone on the operating table with the pillow under the pelvis . [place] [employer] monitors were applied and patient was deeply sedated. The lower back and buttocks of the patient were prepped with ChloraPrep prepped and draped with sterile utility towels.? Sterilely draped C-arm was brought over the operating field and sq picture of patient's pelvis was demonstrated on the screen.? For the both joints tilting C-arm contralateral to the site of each joint the most posterior portion of the joints was superimposed with anterior silhouette of the joint.? Skin was injected in the projection of the joint slightly medial to the location of the joint with 25 gauge 1/2 inch needle using local lidocaine 2% . After that 22 gauge 3 and 1/2 inch needle was driven sequentially to the right and after that to the left SI joint in tunnel vision fashion.? When needle entered the joint capsule injection of the contrast was performed demonstrating intra-articular and minimally periarticular spread of the contrast.? After that 4.5 cc. of ropivacaine 0.5% was injected into each? joint.? Upon completion of the injections the needle was removed Sterile dressing was applied.? Upon completion of the injection patient was taken outside of the operating room to the recovery room where recovered uneventfully.
[2023-02-03 11:35] VITALS: BP 101/63; PULSE 71; RESP 13; TEMP 36.3; O2SAT 98
[2023-02-03 11:50] VITALS: BP 102/72; PULSE 74; RESP 12; O2SAT 98
[2023-02-03 12:05] VITALS: BP 130/87; PULSE 82; RESP 17; TEMP 36.4; O2SAT 99
== END 2023-02-03 12:50 | disposition home or self-care (01) ==
PROVIDERS: Nurse Practitioner; PCP Internal Medicine; Visit Provider Anesthesiology
PROC: 3E0U33Z Introduction of Anti-inflammatory into Joints, Percutaneous Approach (ICD-10-PCS; CPT 27096; principal; 2023-02-03 10:50)
DX: M46.1 Sacroiliitis, not elsewhere classified (principal); M53.3 Sacrococcygeal disorders, not elsewhere classified; M47.812 Spondylosis without myelopathy or radiculopathy, cervical region; M79.7 Fibromyalgia; M47.816 Spondylosis without myelopathy or radiculopathy, lumbar region; M51.36 Other intervertebral disc degeneration, lumbar region; G47.33 Obstructive sleep apnea (adult) (pediatric); Z79.899 Other long term (current) drug therapy; Z87.891 Personal history of nicotine dependence
CPT/HCPCS: 27096; 81025; J2795

== ENCOUNTER → 2023-02-08 14:17 | Outpatient (BNVA) | payer OTHER, MEDICAID, SELFPAY | PROVIDERS: PCP Internal Medicine; Visit Provider Nurse Practitioner Family | DX: R40.0 Somnolence (principal); E66.9 Obesity, unspecified; R06.83 Snoring; E78.2 Mixed hyperlipidemia ==

== ENCOUNTER → 2023-02-09 08:34 | Outpatient (BNVA) | payer OTHER, MEDICAID, SELFPAY | PROVIDERS: PCP Physician Assistant; Visit Provider Anesthesiology ==

== ENCOUNTER → 2023-02-10 09:08 | Outpatient (BNVA) | payer OTHER, MEDICAID, SELFPAY | PROVIDERS: PCP Internal Medicine; Visit Provider Internal Medicine Gastroenterology ==

== ENCOUNTER 2023-02-27 15:58 | Outpatient (REF) | payer OTHER, MEDICAID, SELFPAY ==
[2023-02-27 16:16] LABS: MANUAL DIFF FLAG NO
[2023-02-27 17:50] LABS: Basophils Percent Auto 0.3 % (0-2); Eosinophils Absolute Auto 0.1 X10*3/uL (0.0-0.4); Eosinophils Percent Auto 1.4 % (0-4); Hematocrit 42.7 % (37.0-47.0); Hemoglobin 13.5 g/dl (12.0-16.0); Imm Gran Abs Auto 0.07 X10*3/uL (0.00-0.03); Lymphocytes Absolute Auto 1.6 X10*3/uL (1.2-4.9); Lymphocytes Percent Auto 22.5 % (20-40); Mean Corpuscular HGB Conc 31.6 g/dl (31.0-35.0); Mean Corpuscular Hemoglobin 28.4 pg (27.0-33.0); Mean Corpuscular Volume 89.7 fL (80.0-98.0); Mean Platelet Volume 9.7 fL (9.4-12.3); Monocytes Absolute Auto 0.5 X10*3/uL (0.1-1.2); Monocytes Percent Auto 7.6 % (2-11); Neutrophils Absolute Auto 4.8 x10*3/uL (2.0-8.3); Neutrophils Percent Auto 67.2 % (45-73); Platelet Count 405 X10*3/uL (160-400); Red Blood Count 4.76 X10*6/uL (4.20-5.50); Red Cell Distribution Width 13.3 % (11.0-16.0); White Blood Count 7.2 X10*3/uL (4.8-10.8)
[2023-02-27 18:32] LABS: Alanine Aminotransferase 16 U/L (0-31); Albumin Level 4.4 g/dL (3.5-5.0); Alkaline Phosphatase 76 U/L (39-117); Anion Gap 11 (12-20); Aspartate Amino Transferase 14 U/L (5-31); Bilirubin Total 0.2 mg/dL (0.0-1.0); Blood Urea Nitrogen 7 mg/dL (9-16); Calcium 9.6 mg/dL (8.4-10.2); Carbon Dioxide 27 mmol/L (22-29); Chloride 107 mmol/L (96-108); Estimated Glomerular Filt Rate > 60; Glucose Random 82 mg/dL (60-115); Iron 30 mcg/dL (30-160); Percent Iron Saturation 10 % (15-50); Potassium 3.8 mmol/L (3.3-5.1); Sodium 141 mmol/L (135-145); Total Iron Binding Capacity 314 mcg/dL (228-428); Total Protein 7.3 g/dL (6.5-8.0); Unsaturated Iron Binding 284 ug/dL
[2023-02-27 18:38] LABS: Vitamin D 25-OH Total 26.7 ng/mL (>30)
[2023-02-27 18:58] LABS: Folate 13.6 ng/mL (> or = 4.0); Vitamin B12 301 pg/mL (200-900)
[2023-03-02 23:18] LABS: Zinc 66 mcg/dL (60-130)
== END 2023-02-27 15:59 | disposition home or self-care (01) ==
LOC: HO.LAB 15:58
PROVIDERS: PCP Internal Medicine; Visit Provider Internal Medicine
DX: E53.8 Deficiency of other specified B group vitamins (principal); D64.9 Anemia, unspecified; E66.9 Obesity, unspecified; E55.9 Vitamin D deficiency, unspecified; M53.3 Sacrococcygeal disorders, not elsewhere classified
CPT/HCPCS: 36415; 80053; 82306; 82607; 82746; 83540; 84630; 85025

== ENCOUNTER → 2023-04-11 08:30 | Outpatient (BNV) | payer OTHER, MEDICAID, SELFPAY | PROVIDERS: PCP Internal Medicine; Visit Provider Radiology Diagnostic Radiology | DX: Z12.31 Encounter for screening mammogram for malignant neoplasm of breast (principal) | CPT/HCPCS: 77063; 77067 ==

== ENCOUNTER 2023-04-11 08:41 | Outpatient (REF) | payer OTHER, MEDICAID, SELFPAY ==
--- NOTE | ~2023-04-11 | MM_ITS ---
EXAMINATION: MM SCREENING DIGITAL BREAST TOMOSYNTHESIS, BILATERAL CLINICAL INFORMATION: Screening. Asymptomatic. COMPARISON: Mammography: 03/13/2022 Baseline exam. TECHNIQUE: Digital breast tomosynthesis is performed in both the craniocaudal and mediolateral oblique views along with computer-aided detection (CAD). Synthesized 2D images are generated from the tomosynthesis. FINDINGS: There are scattered areas of fibroglandular density (ACR BI-RADS breast composition Category b). There are no suspicious masses, suspicious grouped calcifications, or areas of architectural distortion. The parenchymal pattern is stable from prior exams. MM/MM tomosynthesis screening BI IMPRESSION: No mammographic evidence of malignancy. ASSESSMENT: BI-RADS BI-RADS 1 - Negative RECOMMENDATION: Routine annual mammography screening. 1 year F/U This examination should not preclude the clinical evaluation of a suspicious palpable abnormality. This patient's information was entered into a reminder system with a target due date for their next mammogram.
== END 2023-04-11 08:42 | disposition home or self-care (01) ==
LOC: HO.MAMMO 08:41
PROVIDERS: PCP Internal Medicine; Visit Provider Internal Medicine
DX: Z12.31 Encounter for screening mammogram for malignant neoplasm of breast (principal)
CPT/HCPCS: 77063; 77067

== ENCOUNTER 2023-04-18 06:12 | Outpatient (REF) | payer OTHER, MEDICAID, SELFPAY | END 2023-04-18 06:13 | disposition home or self-care (01) | LOC: CF 06:12 | PROVIDERS: Visit Provider Anesthesiology | DX: M70.61 Trochanteric bursitis, right hip (principal); M70.62 Trochanteric bursitis, left hip | CPT/HCPCS: 20611; J3301 ==

== ENCOUNTER 2023-04-18 14:42 | Outpatient (AMB) | payer OTHER, MEDICAID, SELFPAY ==
--- NOTE | 2023-04-18 14:50 | A.OFFVIS_ITS ---
Intake Vital Signs 04/18/23 15:36 04/18/23 15:37 Height 4 ft 9 in 4 ft 9 in Weight 171 lb 171 lb BMI 37.0 37.0 BP 108/64 104/84 Blood Pressure Location Rt brachial Lt brachial Position Sitting Sitting Respiration 16 16 Pulse 62 85 Pulse Source Pulse Oximeter Pulse Oximeter Pulse Oximetry (%) 98 99 Oxygen Delivery Method Room Air Room Air Comment pre-op post-op Intake Visit Reasons: BILAT TROCH BURSA INJ W/STEROID and US*ATIVAN Allergies No Known Allergies Allergy (Unknown, Verified 04/18/23 15:39) NONE PFSH Medical History Abnormal brain MRI Bloody stools Carpal tunnel syndrome on both sides Cervicalgia Coccydynia Depression with anxiety Family history of fibromyalgia Fibromyalgia History of anemia History of PCOS Hx of hearing loss Hx of tension headache Hypovitaminosis D Knee pain, left Mild recurrent major depression New persistent daily headache Nose disease Obesity Onychomycosis PCOS (polycystic ovarian syndrome) Pelvic pain in female Pre-diabetes Right hip pain Right knee pain Simple laceration of nose Spondylosis of cervical spine Surgical History History of esophagogastroduodenoscopy (EGD) Hx of section Hx of colonoscopy Hx of wisdom tooth extraction Family History Father CVD (cardiovascular disease) Mother Rheumatoid arthritis Mental health disorder Substance use disorder Paternal Aunt Uterine cancer Social History Housing: Apartment Alcohol intake: current Alcohol intake frequency: holidays/special occasions only Alcohol type: beer and wine Patient Tobacco Use Status: Former Tobacco user Quit Date: 2002 Tobacco use type: Cigarette e-Cigarette/Vaping Use: Never Used Second Hand Smoke Exposure: No Substance Use Type: Marijuana service: No Current occupational status: employed Current occupational exposures/hazards: No Sexual orientation: Straight/Heterosexual Gender identity: Female Cognitive needs: No Hearing needs: No Vision needs: Yes Female Reproductive History Menstrual Age of Menarche: 13 Physical Exam Vital Signs: Last Vital Signs Pulse 85 04/18/23 15:37 Resp 16 04/18/23 15:37 BP 104/84 04/18/23 15:37 Pulse Ox 99 04/18/23 15:37 Oxygen Delivery Method Room Air 04/18/23 15:37 BMI result Body Mass Index 37.0 Results Reviewed Results Reviewed: 04/18/23 14:56 LORazepam [Ativan] 1 mg .ROUTE .STK-MED ONE Assessment & Plan Assessment & Plan (1) Trochanteric bursitis of both hips: Code(s): M70.61 - Trochanteric bursitis, right hip; M70.62 - Trochanteric bursitis, left hip Plan Bilateral trochanteric bursa steroid injection Informed consent was explained to the patient. All questions were explained and answered.? The patient was taken in the examination room where she was positioned 1st left lateral decubitus on the bed. Right trochanteric area was exposed and ultrasound probe was applied. The trochanteric bursa was demonstrated on the ultrasound screen. The area below the literature sound probe was prepped with ChloraPrep. After that 25 gauge 1/2 inch needle was inserted through the skin and under direct ultrasound view advanced to the trochanteric bursa. Injection of the 6 cc of ropivacaine mixed with Kenalog 20 mg was performed. After that the patient was transferred to the right lateral decubitus position and procedure was performed on the left trochanteric bursa of the patient in the similar fashion. The needles were withdrawn sterile Band- Aids were applied. The patient tolerated procedure fairly well. Orders: Orders FL guidance in treatment room Today M70.61 - Trochanteric bursitis, right hip, M70.62 - Trochanteric bursitis, left hip FL guidance in treatment room Today M70.61 - Trochanteric bursitis, right hip, M70.62 - Trochanteric bursitis, left hip Coding Level of Care Code Procedure Only Diagnoses Trochanteric bursitis of both hips M70.61; M70.62
[2023-04-18 15:36] VITALS: BP 108/64; PULSE 62; RESP 16; O2SAT 98; BMI 37.0
[2023-04-18 15:37] VITALS: BP 104/84; PULSE 85; RESP 16; O2SAT 99; BMI 37.0
== END 2023-04-18 15:17 | disposition home or self-care (01) ==
LOC: HO.PMCPRC 14:42
PROVIDERS: PCP Internal Medicine; Visit Provider Anesthesiology
DX: M70.61 Trochanteric bursitis, right hip (principal); M70.62 Trochanteric bursitis, left hip
CPT/HCPCS: 20611

== ENCOUNTER 2023-04-28 10:49 | Day surgery (SDC) | payer OTHER, MEDICAID, SELFPAY ==
--- NOTE | 2023-04-27 11:58 | HO.ANESPROP2 ---
Documented by User: Nickie Baca NP 04/27/23 12:00 HPI - Anesthesia Eval Consult details Narrative: 42yo F for Ganglion Impar Block, Epidural Steroid Injection s/p SI injection 01/2023 with MAC PMF Active Problems Active Problems: All Active Problems (Updated 02/10/23 @ 10:24 by Jake Beauchamp MD) Trochanteric bursitis of both hips (Acute) IBS (irritable bowel syndrome) (Acute) H. pylori infection (Acute) STEPH (obstructive sleep apnea) (Acute) Coccydynia (Acute) Somatic dysfunction of right sacroiliac joint (Acute) Right shoulder tendinitis (Acute) Vaginal itching (Acute) Presence of 52 mg levonorgestrel-releasing intrauterine device (IUD) (Acute) Myofascial pain syndrome (Acute) Polyarthralgia (Acute) Obesity (BMI 35.0-39.9 without comorbidity) (Acute) Hand numbness (Acute) Protrusion of lumbar intervertebral disc (Acute) Ingrowing left great toenail (Acute) Spondylosis of lumbar spine (Acute) Disc degeneration, lumbar (Acute) Impaired glucose tolerance (Acute) Mixed hyperlipidemia (Acute) Lichen amyloidosis (Acute) Shingles (Acute) Daytime somnolence (Acute) Carpal tunnel syndrome of right wrist (Acute) Loud snoring (Acute) PCOS (polycystic ovarian syndrome) (Acute) Spondylosis of cervical spine (Acute) Bloody stools (Acute) Right hip pain (Acute) Abnormal brain MRI (Acute) Hypovitaminosis D (Acute) Mild recurrent major depression (Acute) Pelvic pain in female (Acute) New persistent daily headache (Acute) Cervicalgia (Acute) Right knee pain (Acute) Knee pain, left (Acute) Coccydynia (Acute) Fibromyalgia (Acute) Simple laceration of nose (Acute) Onychomycosis (Acute) Obesity (Acute) Depression with anxiety (Acute) Past Medical History Medical History Abnormal brain MRI Bloody stools Carpal tunnel syndrome on both sides Cervicalgia Coccydynia Depression with anxiety Family history of fibromyalgia Fibromyalgia History of anemia History of PCOS Hx of hearing loss Hx of tension headache Hypovitaminosis D Knee pain, left Mild recurrent major depression New persistent daily headache Nose disease Obesity Onychomycosis PCOS (polycystic ovarian syndrome) Pelvic pain in female Pre-diabetes Right hip pain Right knee pain Simple laceration of nose Spondylosis of cervical spine Family History Family History Father CVD (cardiovascular disease) Mother Rheumatoid arthritis Mental health disorder Substance use disorder Paternal Aunt Uterine cancer Family history of problems with anesthesia: No Surgical History Surgical History History of esophagogastroduodenoscopy (EGD) Hx of section Hx of colonoscopy Hx of wisdom tooth extraction History of Problems with Anesthesia: No Social History Social History Housing: Apartment Alcohol intake: current Alcohol intake frequency: holidays/special occasions only Alcohol type: beer and wine Patient Tobacco Use Status: Former Tobacco user Quit Date: 2002 Tobacco use type: Cigarette e-Cigarette/Vaping Use: Never Used Second Hand Smoke Exposure: No Substance Use Type: Marijuana Substance Use Frequency: Occasionally Advance Directives: No Advance Directives Information Provided: Yes Nutrition Risks: No Nutritional Risk FDLMP: urine hcg pending service: No Current occupational status: employed Current occupational exposures/hazards: No Sexual orientation: Straight/Heterosexual Gender identity: Female Cognitive needs: No Hearing needs: No Vision needs: Yes Meds Allergies Allergy/AdvReac Type Severity Reaction Status Date / Time No Known Allergies Allergy Unknown NONE Verified 04/28/23 11:54 Home Medications Medication Instructions Recorded Confirmed Last Taken Type ammonium lactate 12 % topical cream 1 applic topical BID 06/15/20 12/01/22 Unknown History ascorbate calcium (vitamin C) 500 500 mg PO DAILY 06/15/20 12/01/22 Unknown History mg tablet levonorgestrel 21 mcg/24 hours (8 intrauterine 06/15/20 12/01/22 Unknown History yrs) 52 mg intrauterine device (Mirena) vitamin B complex (B 1 tab PO DAILY 06/15/20 12/01/22 Unknown History Complex-Vitamin B12 tablet) spironolactone 50 mg tablet 50 mg PO BID 11/15/21 12/01/22 Unknown History tretinoin 0.05 % topical cream appl topical BEDTIME PRN 02/21/22 12/01/22 Unknown History hyperpigmentation triamcinolone acetonide 0.1 % topical 02/21/22 12/01/22 Unknown History topical ointment ketoconazole 2 % shampoo topical 09/12/22 12/01/22 Unknown History celecoxib 200 mg capsule 200 mg PO BID PRN 02/08/23 Unknown History semaglutide (weight loss) 1.7 mg subcut 04/27/23 03/27/23 History mg/0.75 mL subcutaneous pen injector (Wegovy) Exam Exam Date and Time: April 27, 2023 1158 Pertinent Lab Results Pertinent Lab Results: Laboratory Tests 02/27/23 16:15 WBC 7.2 Hgb 13.5 Hct 42.7 Plt Count 405 H Sodium 141 Potassium 3.8 Chloride 107 Carbon Dioxide 27 BUN 7 L Creatinine 0.68 Assessment and Plan Assessment Anesthesia Assessment: Chart Reviewed Final Anesthetic Review Family History of Problems with Anesthesia: No History of Problems with Anesthesia: No Documented by User: Terrance Tejada MD 04/28/23 12:41 PMFSH Past Medical History Medical History Abnormal brain MRI Bloody stools Carpal tunnel syndrome on both sides Cervicalgia Coccydynia Depression with anxiety Family history of fibromyalgia Fibromyalgia History of anemia History of PCOS Hx of hearing loss Hx of tension headache Hypovitaminosis D Knee pain, left Mild recurrent major depression New persistent daily headache Nose disease Obesity Onychomycosis PCOS (polycystic ovarian syndrome) Pelvic pain in female Pre-diabetes Right hip pain Right knee pain Simple laceration of nose Spondylosis of cervical spine Family History Family History Father CVD (cardiovascular disease) Mother Rheumatoid arthritis Mental health disorder Substance use disorder Paternal Aunt Uterine cancer Surgical History Surgical History History of esophagogastroduodenoscopy (EGD) Hx of section Hx of colonoscopy Hx of wisdom tooth extraction Social History Social History Housing: Apartment Alcohol intake: current Alcohol intake frequency: holidays/special occasions only Alcohol type: beer and wine Patient Tobacco Use Status: Former Tobacco user Quit Date: 2002 Tobacco use type: Cigarette e-Cigarette/Vaping Use: Never Used Second Hand Smoke Exposure: No Substance Use Type: Marijuana Substance Use Frequency: Occasionally Advance Directives: No Advance Directives Information Provided: Yes Nutrition Risks: No Nutritional Risk FDLMP: urine hcg pending service: No Current occupational status: employed Current occupational exposures/hazards: No Sexual orientation: Straight/Heterosexual Gender identity: Female Cognitive needs: No Hearing needs: No Vision needs: Yes Meds Allergies Allergy/AdvReac Type Severity Reaction Status Date / Time No Known Allergies Allergy Unknown NONE Verified 04/28/23 11:54 Home Medications Medication Instructions Recorded Confirmed Last Taken Type ammonium lactate 12 % topical cream 1 applic topical BID 06/15/20 12/01/22 Unknown History ascorbate calcium (vitamin C) 500 500 mg PO DAILY 06/15/20 12/01/22 Unknown History mg tablet levonorgestrel 21 mcg/24 hours (8 intrauterine 06/15/20 12/01/22 Unknown History yrs) 52 mg intrauterine device (Mirena) vitamin B complex (B 1 tab PO DAILY 06/15/20 12/01/22 Unknown History Complex-Vitamin B12 tablet) spironolactone 50 mg tablet 50 mg PO BID 11/15/21 12/01/22 Unknown History tretinoin 0.05 % topical cream appl topical BEDTIME PRN 02/21/22 12/01/22 Unknown History hyperpigmentation triamcinolone acetonide 0.1 % topical 02/21/22 12/01/22 Unknown History topical ointment ketoconazole 2 % shampoo topical 09/12/22 12/01/22 Unknown History celecoxib 200 mg capsule 200 mg PO BID PRN 02/08/23 Unknown History semaglutide (weight loss) 1.7 mg subcut 04/27/23 03/27/23 History mg/0.75 mL subcutaneous pen injector (Wegovy) Exam Airway Mallampati Class: III TM Dist: >3cm Neck ROM: Full Assessment and Plan Assessment Anesthesia Assessment: Anesthesia Plan Discussed Final Anesthetic Review NPO: Yes ASA Class: III Final Preanesthetic Review: No Changes in Pt Med Stat, Meds/Allgs Chart Reviewed, Consent Obtained/Reviewed and Anes Risks/Benef Reviewed Patient Risk: Intermediate Procedure Risk: Low Anesthetic Plan Anesthetic Plan: MAC: Disposition: Standard PACU
--- NOTE | ~2023-04-28 | FL_ITS ---
INDICATION: Intraoperative fluoroscopy. FLUOROSCOPY: Fluoroscopy Time: 0.2 minutes Dose/air kerma: 5.05 mGy Images saved: FINDINGS: Multiple intraoperative fluoroscopic images are submitted during reported epidural steroid injection. Correlation with operative report. Evaluation is limited secondary to fluoroscopic technique. IMPRESSION: Intra-operative fluoroscopic imaging provided by radiology during reported epidural steroid injection. Please refer to operative note for further information.
[2023-04-28 11:38] LABS: UPreg QC Valid YES; Urine Pregnancy NEGATIVE (NEGATIVE)
[2023-04-28] MEDS: Lactated Ringers 1,000 ML 100 ML IVCONT (11:44)
[2023-04-28 11:51] VITALS: BMI 35.3
[2023-04-28 11:54] VITALS: BP 114/77; PULSE 79; RESP 18; TEMP 36.7; O2SAT 99
--- NOTE | 2023-04-28 12:58 | P.HPSUR_ITS ---
Pre-Procedural Eval Section A Date of Service: 04/28/23 The patient is an INPATIENT: No Changes since office visit: Yes Patient answered all questions The History & Physical has been completed within 30 days and I have reviewed it.: No Section B Chief Complaint: Sacrococcygeal disorders, not elsewhere classified Details of Present Illness: As above Relevant Family History (Specify if Yes): No Relevant Social History: None Present Medications: see Short Stay Collaborative assessment Medical History: No relevant PMH History of Previous Operations: No relevant previous surgery Allergies: Allergies Allergy/AdvReac Type Severity Reaction Status Date / Time No Known Allergies Allergy Unknown NONE Verified 04/28/23 11:54 Review of Systems Sugical H&P ROS: Negative: Constitution, Cardiovascular, Respiratory, Neurological, Psychiatric, Hem-Onc, Allergic/Immunologic, Gastrointestinal, Genitourinary, Musculoskeletal, Integumentary, Endocrine and Eyes/Ears/Nose/T hroat Exam Surgical H&P Exam: Normal: HEENT, Normal: Heart, Normal: Lungs, Normal: Extremities, Normal: Abdomen, Normal: Skin and Normal: Neurological Plan Diagnosis/Plan: Unchanged I have reviewed the history and physical and performed a pertinent physical examination on my patient. No changes have occurred unless specified. Time Spent With Patient Time: Total time managing care of this patient today _5___ minutes.
[2023-04-28 13:56] VITALS: BP 126/86; PULSE 77; RESP 14; TEMP 36.4; O2SAT 96
--- NOTE | 2023-04-28 14:06 | PM.OP ---
Brief Operative Note Date of Service: 04/28/23 Pre-op diagnosis: Coccydynia, sacroiliac joint pain. Post-op diagnosis: same Procedure: Ganglion impar injection, caudal epidural steroid injection without catheter Surgeon: Jake Beauchamp MD Anesthesia: MAC Was an [place] Bridge used for this Procedure?: No Estimated blood loss (mL): 0 Condition: stable Disposition: PACU
--- NOTE | 2023-04-28 14:07 | W.PM.OPN ---
Operative Note Operative Note Date of Service: 04/28/23 Narrative: Caudal FARHANA without catheter and ganglion impar injection.? Two separate procedures. After obtaining informed consent the patient was taken to the operating room where she was position on operating table prone.? ASA monitors applied and patient was moderately sedated ?Time-out was performed delineating correct site, side, the nature of the procedure, patient's allergy need for antibiotic therapy.? All operating room staff was participating in OR time-out procedure.? Her lower back, bilateral buttocks and intergluteal cleft were thoroughly prepped with ChloraPrep and draped with sterile fenestrated clear drape.? Fluoroscopy C-arm was brought over the operating field and picture of midline sacral bone superimposing on symphysis pubis was obtained on the C-arm screen.? After that the position of the C-arm was turned into the lateral.? The position of sacral hiatus was noted on the screen.? 2.5 cm below the sacral hiatus opening local anesthetic lidocaine 2% 3 cc was injected into the skin with 25 gauge 1/2 inch needle.? After that 3-1/2 inch 22 gauge spinal needle was inserted through the skin and advanced the opening of sacral hiatus on intermittent anterior posterior and lateral views.? When needle entered the sacral canal injection of the contrast performed into the needle demonstrating epidural spread of the contrast.? After that injection of the treatment solution containing preservative-free lidocaine 1% 5 cc and Kenalog 40 mg was performed. After that attention was concentrated on the caudal spine the disc image between second and third caudal vertebrae was delineated on the screen.The 22 g 3-1/2 inch needle was inserted through the skin and advanced toward the disc under A/p and lateral intermittent views. When the needle entered the disc the projection of the C-arm was changed into lateral view and needle was slowly advanced into retropelvic space carefully monitoring the position of the tip of the needle. When tip of the needle cleared 3 mm outside of the anterior surface of the caudal spine the injection of the contrast was performed delineates retropelvic spread of the contrast and no intravascular, no intestinal and no vesical spread of the contrast. After that injection of the treatment solution containing lidocaine 1% 4 mls mixed with kenalog 40 mg was performed into the needle. the needle was withdrawn and sterile dressing was applied. The patient tolerated procedure well and recovered uneventfully.?
[2023-04-28 14:11] VITALS: BP 128/88; PULSE 84; RESP 16; O2SAT 99
[2023-04-28 14:26] VITALS: BP 136/74; PULSE 73; RESP 16; O2SAT 99
== END 2023-04-28 14:52 | disposition home or self-care (01) ==
PROVIDERS: Nurse Practitioner; PCP Internal Medicine; Visit Provider Anesthesiology
PROC: (CPT 62323; principal; 2023-04-28 12:10)
PROC: 3E0R33Z Introduction of Anti-inflammatory into Spinal Canal, Percutaneous Approach (ICD-10-PCS; CPT 62323; 2023-04-28 12:10)
DX: M53.3 Sacrococcygeal disorders, not elsewhere classified (principal); M79.7 Fibromyalgia; F41.8 Other specified anxiety disorders; E55.9 Vitamin D deficiency, unspecified; R51.9 Headache, unspecified; R73.03 Prediabetes; Z79.899 Other long term (current) drug therapy; Z87.891 Personal history of nicotine dependence
CPT/HCPCS: 62323; 64999; 81025; J2795; J3010; J3301; Q9967

== ENCOUNTER → 2023-04-28 10:49 | Outpatient (BNV) | payer OTHER, MEDICAID, SELFPAY | PROVIDERS: PCP Internal Medicine; Visit Provider Anesthesiology | DX: M53.3 Sacrococcygeal disorders, not elsewhere classified (principal) | CPT/HCPCS: 62323; 64999 ==

== ENCOUNTER 2023-07-13 09:09 | Outpatient (AMB) | payer MEDICAID, SELFPAY ==
--- NOTE | 2023-07-13 09:33 | AM.OFFWIN_ITS ---
Intake Vital Signs 07/13/23 09:42 Height 4 ft 9 in Weight 166 lb 2 oz BMI 35.9 BP 114/68 Blood Pressure Location Lt brachial Position Sitting Pulse 87 Pulse Source Pulse Oximeter Temp 97.8 F Temp Source Temporal Artery Scan Pulse Oximetry (%) 97 Oxygen Delivery Method Room Air Intake Visit Reasons: EST/sore throat (lobby masked) Intake Note: Pt is here c/o sore throat since this morning. Pt states she has also been experiencing some neck pain on the right side. Patient Tobacco Use Status: Former Tobacco user Quit Date: 2002 Allergies No Known Allergies Allergy (Unknown, Verified 07/13/23 09:41) NONE Do you need a note to return to daycare/school/sports/work: No HPI EST/sore throat (lobby masked) HPI Details 42 year old female patient presents toda y with c/o waking up with a sore throat this morning. Denies known exposure to sick contacts. Denies fever/chills, congestion, cough, shortness of breath. Also reports a pain on the right/front side of her neck. She states it feels tight and sore as if she strained it. Denies any inciting event to this. States she has had a lot of stress lately. Denies any radiation of pain or other associated symptoms. [facility] Medical History Carpal tunnel syndrome on both sides Pre-diabetes PCOS (polycystic ovarian syndrome) Spondylosis of cervical spine Bloody stools Right hip pain Abnormal brain MRI Hypovitaminosis D Mild recurrent major depression Pelvic pain in female New persistent daily headache Cervicalgia Right knee pain Knee pain, left Coccydynia Fibromyalgia Simple laceration of nose Nose disease Onychomycosis Obesity Depression with anxiety History of PCOS Hx of tension headache History of anemia Family history of fibromyalgia Hx of hearing loss Surgical History Hx of colonoscopy History of esophagogastroduodenoscopy (EGD) Hx of section Hx of wisdom tooth extraction Family History Father CVD (cardiovascular disease) Mother Rheumatoid arthritis Mental health disorder Substance use disorder Paternal Aunt Uterine cancer Social History Housing: Apartment Alcohol intake: current Alcohol intake frequency: holidays/special occasions o nly Alcohol type: beer and wine Patient Tobacco Use Status: Former Tobacco user Quit Date: 2002 Tobacco use type: Cigarette e-Cigarette/Vaping Use: Never Used Second Hand Smoke Exposure: No Substance Use Type: Marijuana service: No Current occupational status: employed Current occupational exposures/hazards: No Sexual orientation: Straight/Heterosexual Gender identity: Female Cognitive needs: No Hearing needs: No Vision needs: Yes Female Reproductive History Menstrual Age of Menarche: 13 Review of Systems Const All systems reviewed & are unremarkable except as noted in HPI and below Physical Exam Vital Signs: Last Vital Signs Temp 97.8 F 07/13/23 09:42 Pulse 87 07/13/23 09:42 BP 114/68 07/13/23 09:42 Pulse Ox 97 07/13/23 09:42 Oxygen Delivery Method Room Air 07/13/23 09:42 BMI result Body Mass Index 35.9 Const General: cooperative, healthy appearing and no acute distress HEENT Head: Yes normal to inspection Ears: hearing grossly normal bilaterally General nose exam: Normal external nose present, Normal nares present and Normal nasal mucous membranes and turbinates present Face and sinus: Yes normal facial exam and Yes sinuses nontender Mouth: Normal oral and palatal mucosa present and moist mucous membranes Throat: Yes posterior oropharynx abnormal (mild erythema) Neck Other: tenderness/tautness to right sternocleidomastoid and right trapezius. No swelling. Neck: Yes full ROM, Yes no lymphadenopathy, Yes trachea midline and Yes no JVD Thyroid: Thyroid normal Lymphatic: no lymphadenopathy noted Resp Effort & Inspection: normal respiratory effort and able to speak in complete sentences Auscultation: clear to auscultation bilaterally Cardio Jugular venous distension: no JVD Palpation: normal PMI Rate: regular rate Rhythm: regular rhythm Skin General skin exam: no rashes or lesions noted Extrem General: Yes capillary refill normal and Yes no clubbing, cyanosis or edema Psych Appearance: grossly normal Mental Status: mental status grossly normal Speech and movement: Normal speech and movement present Results AMB Rapid Strep AMB Rapid Strep Negative Last Edit by Gaby Barber CMA on 07/13/23 09:47 Results Reviewed Results Reviewed: Laboratory Last Values Strep Scn Rapid Clinic Negative 07/13/23 09:47 Assessment & Plan Assessment & Plan (1) Viral pharyngitis: Code(s): J02.9 - Acute pharyngitis, unspecified Plan: Dicsussed conservative measures with salt water gargles, throat lozenges/spray as needed for symptomatic treatment. On celebrex already so may take tylenol as needed. If symptoms worsen or change she can return to the clinic for further evaluation. (2) Strain of sternocleidomastoid muscle: Code(s): S16.1XXA - Strain of muscle, fascia and tendon at neck level, initial encounter Qualifiers: Encounter type: initial encounter Qualified Code(s): S16.1XXA - Strain of muscle, fascia and tendon at neck level, initial encounter Plan: He symptoms appear consistent with a myofascial strain on that right side. On celebrex and may take tylenol. We discussed heat applications and gentle stretching, and patient is going to see if she can get an appt. with her clinical medical assistant. If these symptoms worsen she can contact PCP or return to the clinic for f/u. She agrees to plan. Orders: Orders AMB Rapid Strep Screen Today Z13.9 - Encounter for screening, unspecified Coding Level of Care Code Est Pt Level 3 (73110) Diagnoses Viral pharyngitis J02.9 Strain of sternocleidomastoid muscle, initial encounter S16.1XXA Encounter type: initial encounter
[2023-07-13 09:42] VITALS: BP 114/68; PULSE 87; TEMP 36.6; O2SAT 97; BMI 35.9
== END 2023-07-13 10:31 | disposition home or self-care (01) ==
PROVIDERS: PCP Internal Medicine; Visit Provider Nurse Practitioner Family
DX: J02.9 Acute pharyngitis, unspecified (principal); S16.1XXA Strain of muscle, fascia and tendon at neck level, initial encounter
CPT/HCPCS: 87880; 99213

== ENCOUNTER 2023-08-02 16:21 | Outpatient (REF) | payer OTHER, MEDICAID, SELFPAY | END 2023-08-02 16:22 | disposition home or self-care (01) | LOC: HO.XRAY 16:21 | PROVIDERS: PCP Internal Medicine; Visit Provider Internal Medicine | DX: M25.551 Pain in right hip (principal) | CPT/HCPCS: 73502 ==

== ENCOUNTER 2023-08-03 10:42 | Outpatient (REF) | payer OTHER, MEDICAID, SELFPAY ==
[2023-08-03 13:05] LABS: Influenza A PCR NEGATIVE (Negative); Influenza B PCR NEGATIVE (Negative); Resp Syncy Virus RNA Qual PCR NEGATIVE (Negative); SARS COV2 PCR INHOUSE POSITIVE (Negative)
== END 2023-08-03 10:43 | disposition home or self-care (01) ==
LOC: HO.LAB 10:42
PROVIDERS: PCP Internal Medicine; Visit Provider Internal Medicine
DX: Z11.52 Encounter for screening for COVID-19 (principal); Z20.822 Contact with and (suspected) exposure to COVID-19; R09.89 Other specified symptoms and signs involving the circulatory and respiratory systems
CPT/HCPCS: 0241U

== ENCOUNTER 2023-09-14 10:09 | Outpatient (AMB) | payer OTHER, MEDICAID, SELFPAY ==
--- NOTE | 2023-09-14 10:10 | A.OFFVIS_ITS ---
Intake Intake Visit Reasons: Per discuss injection Allergies No Known Allergies Allergy (Unknown, Verified 09/14/23 10:10) NONE HPI HPI Comments History of Present Illness Details Jasmyne is on the phone today to discuss the results of previous procedure: Ganglion impar block and caudal epidural steroid injection without catheter. She reported excellent pain relief for full 4 months. She reported better mobility better activities of daily living better social interactions. She reported that about 2 months ago her pain started to come back. She requests me to perform the procedure as soon as possible. She has a new insurance she needs to verify her insurance information with my staff. She also complains on pain in the lateral trochanteric area for which in the past she received trochanteric bursa/trigger-point planned injections. It also was very good in effectiveness. However I can not do all 3 injections at once it will be too much of a dose of the steroid medications. I will invite her for the in-person visit after 1 month of the ganglion impar block and caudal epidural steroid injection without catheter we will discuss her other pain generators and I will be able to perform a trigger point injection into her trochanteric area. COUNTS INCLUDE 234 BEDS AT THE [facility] Medical History Carpal tunnel syndrome on both sides Pre-diabetes PCOS (polycystic ovarian syndrome) Spondylosis of cervical spine Bloody stools Right hip pain Abnormal brain MRI Hypovitaminosis D Mild recurrent major depression Pelvic pain in female New persistent daily headache Cervicalgia Right knee pain Knee pain, left Coccydynia Fibromyalgia Simple laceration of nose Nose disease Onychomycosis Obesity Depression with anxiety History of PCOS Hx of tension headache History of anemia Family history of fibromyalgia Hx of hearing loss Surgical History Hx of colonoscopy History of esophagogastroduodenoscopy (EGD) Hx of section Hx of wisdom tooth extraction Family History Father CVD (cardiovascular disease) Mother Rheumatoid arthritis Mental health disorder Substance use disorder Paternal Aunt Uterine cancer Social History Housing: Apartment Alcohol intake: current Alcohol intake frequency: holidays/special occasions only Alcohol type: beer and wine Patient Tobacco Use Status: Former Tobacco user Quit Date: 2002 Tobacco use type: Cigarette e-Cigarette/Vaping Use: Never Used Second Hand Smoke Exposure: No Substance Use Type: Marijuana service: No Current occupational status: employed Current occupational exposures/hazards: No Sexual orientation: Straight/Heterosexual Gender identity: Female Cognitive needs: No Hearing needs: No Vision needs: Yes Female Reproductive History Menstrual Age of Menarche: 13 Review of Systems Const All systems reviewed & are unremarkable except as noted in HPI and below Results Reviewed Results Reviewed: MRI lumbar spine 03/24/2022. Findings: Coronal alignment normal. Psych it alignment normal. Lumbosacral junction normal 5 non rib-bearing lumbar type vertebral bodies. Vertebral bodies normal height. Disc space and endplates: The intervertebral disc space height and signal are well maintained stable in appearance. There is a shallow Schmorl's node along the anterior aspect of superior endplate of L3 on the current study which is a new finding associated with minor anterior marginal endplate spurring. Otherwise endplates appear grossly intact with no significant spondylosis. There is mild lower thoracic anterior marginal spondylosis at T11-T12 and T10- T11 which has developed since the previous exam. Spinal canal: No abnormal development findings. Bone marrow: Mild type 1 degenerative marrow signal changes are seen along the s uperior endplates of L4 and L3 a symmetric to the right which are new findings. There are type 3 degenerative marrow signal change seen along the anterior aspect of the superior endplate of L2 a symmetric to the left. No suspicious marrow replacing process or other bone marrow edema. Conus medullaris terminates at L1. Morphology and signal is normal. Intradural nerve roots: Within normal limits. L5-S1, L4-5,: No disc bulge or herniation no facet arthrosis canal or neural foraminal stenosis. L3-L4 minimal degrees of lateral foraminal extraforaminal disc protrusion noted bilaterally. More apparent on current study without significant facet arthrosis canal or neural foraminal stenosis and no evidence of neural impingement. L2-L3: Minimal right lateral foraminal extraforaminal disc protrusion without neural impingement stable in appearance. No significant facet arthrosis, central or neural foraminal stenosis. L1-L2 normal disc contour. No facet arthrosis canal or neural foraminal stenosis. Paraspinal retro spinal soft tissue appears unremarkable. Assessment & Plan Assessment & Plan (1) Coccydynia: Code(s): M53.3 - Sacrococcygeal disorders, not elsewhere classified Plan: For a while we manage the pain of this patient with ganglion impar and caudal FARHANA without catheter. The 4th injection happened to be not effective. She requested me to perform 5th injection and it was very effective this time. See the description above. She was also started on Celebrex into management of this patient's pain. Initially she reports very good pain relief. Currently she reports that Celebrex helps her but not as good as the medication was helping her the beginning of the treatment. Last time she was examined and offered diagnostic sacroiliac joint injection, she went for diagnostic sacroiliac joint injection under sedation. Unfortunately because she was sedated during the procedure she slept after sacroiliac joint injection and the results of the procedure are inconclusive. She is requesting me to perform image guided therapeutic bilateral trochanteric bursa injection. I will schedule this procedure in the injections center without sedation. I can offer her only 1 pill of Ativan for minimal sedation. I will perform this procedure ultrasound-guided. After trochanteric bursitis injection we will return to the issue of bilateral sacroiliitis. She also requesting me to obtain the CT scan results of for her lumbar spine recently done and [facility]. We will send the request to the [facility] and after MRI will be here we will discuss the results. In the future I am thinking about employ some neuromodulation devices to treat the pain for this patient. I want her to go for psychological evaluation. She has PT is D she is under care of Dr. Emanuel who prescribes her duloxetine 60 mg q.d.. In the past she was receiving psychological counseling from [facility] in [place]. However after the center was closed for 2 years she is not attending any counseling. She reports that she feels that she is stable and does not want to have psychological treatments anymore. (2) Spondylosis of cervical spine: Code(s): M47.812 - Spondylosis without myelopathy or radiculopathy, cervical region (3) Myofascial pain syndrome: Code(s): M79.18 - Myalgia, other site (4) Spondylosis of lumbar spine: Code(s): M47.816 - Spondylosis without myelopathy or radiculopathy, lumbar region (5) Disc degeneration, lumbar: Code(s): M51.36 - Other intervertebral disc degeneration, lumbar region (6) Trochanteric bursitis of both hips: Code(s): M70.61 - Trochanteric bursitis, right hip; M70.62 - Trochanteric bursitis, left hip Plan For a while we are managing the pain of this patient with ganglion impar and cau archie FARHANA without catheter. The 5th injection appear to be very helpful unlike the injection 4. I decided to continue with this procedures. She is taking Celebrex to manage her pain. She also chronically receives trochanteric bursa injection usually 1 month after the ganglion impar injection. The procedures of ganglion impar usually done under sedation. The trigger point injections in the office are done as bilateral blind trigger point/bursa injections. In the future I am thinking about employ some neuromodulation devices to treat the pain for this patient. I want her to go for psychological evaluation. She has PT is D she is under care of Dr. Emanuel who prescribes her duloxetine 60 mg q.d.. In the past she was receiving psychological counseling from [facility] in [place]. However after the center was closed for 2 years she is not attending any counseling. She reports that she feels that she is stable and does not want to have psychological treatments anymore. Patient Instructions: I here by testify that I spent 32 minutes in conversation with this patient as well as evaluating her prior records prior diagnostic studies planning her care and organizing this note. Telehealth Telehealth Location of provider rendering services: practice address Location of patient: address on file Patient Identification confirmed using: Name, : Yes Telehealth method: voice only Patient verbally consented to treatment: Yes Patient verbally consented to billing insurance company: Yes Patient informed of any privacy concerns related to visit: Yes Coding Level of Care Code Tele Est Pt Level 4 (17435) Diagnoses Coccydynia M53.3 Spondylosis of cervical spine M47.812 Myofascial pain syndrome M79.18 Spondylosis of lumbar spine M47.816 Disc degeneration, lumbar M51.36 Trochanteric bursitis of both hips M70.61; M70.62
== END 2023-09-14 10:15 | disposition home or self-care (01) ==
LOC: HO.PMC 10:09
PROVIDERS: PCP Internal Medicine; Visit Provider Anesthesiology
DX: M53.3 Sacrococcygeal disorders, not elsewhere classified (principal); M47.812 Spondylosis without myelopathy or radiculopathy, cervical region; M79.18 Myalgia, other site; M47.816 Spondylosis without myelopathy or radiculopathy, lumbar region; M51.36 Other intervertebral disc degeneration, lumbar region; M70.61 Trochanteric bursitis, right hip; M70.62 Trochanteric bursitis, left hip
CPT/HCPCS: 99443

== ENCOUNTER → 2023-09-14 10:09 | Outpatient (BNVA) | payer OTHER, MEDICAID, SELFPAY | PROVIDERS: PCP Internal Medicine; Visit Provider Anesthesiology ==

== ENCOUNTER 2023-10-23 14:20 | Outpatient (AMB) | payer OTHER, MEDICAID, SELFPAY ==
[2023-10-23 14:22] VITALS: BP 110/80; PULSE 94; TEMP 36.8; O2SAT 98; BMI 36.1
--- NOTE | 2023-10-23 14:22 | AM.OFFWIN_ITS ---
Intake Vital Signs 10/23/23 14:22 Height 4 ft 9 in Weight 167 lb BMI 36.1 BP 110/80 Blood Pressure Location Lt brachial Position Sitting Pulse 94 Pulse Source Pulse Oximeter Temp 98.3 F Temp Source Temporal Artery Scan Pulse Oximetry (%) 98 Oxygen Delivery Method Room Air Intake Visit Reasons: RT hand cat bite swollen pain (lobby) Intake Note: pt is here today for rt hand swollen started yestreday Patient Tobacco Use Status: Former Tobacco user Quit Date: 2002 Allergies No Known Allergies Allergy (Unknown, Verified 10/23/23 14:24) NONE Do you need a note to return to daycare/school/sports/work: Yes HPI HPI Comments History of Present Illness Details This is a 43-year-old female with a past medical history of fibromyalgia, PCOS, anxiety and depression presenting for evaluation of a cat bite that occurred yesterday, October 22, 2023. Patient was fostering a CT that she was considering adopting. She is unaware of the cats immunization status. Patient was seen at [facility] yesterday where her tetanus immunization was updated and she was placed on azithromycin. Patient woke up this morning with increased pain and swelling in her right hand and comes for re-evaluation. Patient denies having any fevers or chills and has been taking Celebrex for her pain. [facility] Medical History Carpal tunnel syndrome on both sides Pre-diabetes PCOS (polycystic ovarian syndrome) Spondylosis of cervical spine Bloody stools Right hip pain Abnormal brain MRI Hypovitaminosis D Mild recurrent major depression Pelvic pain in female New persistent daily headache Cervicalgia Right knee pain Knee pain, left Coccydynia Fibromyalgia Simple laceration of nose Nose disease Onychomycosis Obesity Depression with anxiety History of PCOS Hx of tension headache History of anemia Family history of fibromyalgia Hx of hearing loss Surgical History Hx of colonoscopy History of esophagogastroduodenoscopy (EGD) Hx of section Hx of wisdom tooth extraction Family History Father CVD (cardiovascular disease) Mother Rheumatoid arthritis Mental health disorder Substance use disorder Paternal Aunt Uterine cancer Social History (Reviewed 07/13/23 @ 10:17 by SANTOSH Salter Housing: Apartment Alcohol intake: current Alcohol intake frequency: holidays/special occasions only Alcohol type: beer and wine Patient Tobacco Use Status: Former Tobacco user Quit Date: 2002 Tobacco use type: Cigarette e-Cigarette/Vaping Use: Never Used Second Hand Smoke Exposure: No Substance Use Type: Marijuana service: No Current occupational status: employed Current occupational exposures/hazards: No Sexual orientation: Straight/Heterosexual Gender identity: Female Cognitive needs: No Hearing needs: No Vision needs: Yes Female Reproductive History Menstrual Age of Menarche: 13 Review of Systems Const All systems reviewed & are unremarkable except as noted in HPI and below Denies chills and Denies fever(s) Musc Reports other (pain dorsal surface right hand) Skin/Breast Details: Redness and swelling dorsal surface of right hand. Neuro Reports no additional complaints Physical Exam Vital Signs: Last Vital Signs Temp 98.3 F 10/23/23 14:22 Pulse 94 10/23/23 14:22 BP 110/80 10/23/23 14:22 Pulse Ox 98 10/23/23 14:22 Oxygen Delivery Method Room Air 10/23/23 14:22 BMI result Body Mass Index 36.1 Patient is afebrile. Const General: cooperative, healthy appearing and no acute distress Nutritional Appearance: well nourished Orientation/consciousness: patient oriented x3 Limitations: no limitations Skin Other: There are 5 puncture wounds on the dorsal surface of the right hand with erythema and edema overlying the 2nd, 3rd, 4th MCPs and metacarpals of the right hand that is warm and tender to examination, dorsal surface with lymphangitis extending to the right dorsal wrist. No exudates or purulent discharge noted. Neuro General: patient oriented x3 Extrem Other: Passive ROM right wrist intact, all digits of the right hand with normal ROM and sensation. Psych Appearance: grossly normal Mental Status: mental status grossly normal Insight: Good insight present (Psych) Judgement: Good judgement present (Psych) Assessment & Plan Assessment & Plan (1) Cat bite of right hand: Code(s): S61.451A - Open bite of right hand, initial encounter; W55.01XA - Bitten by cat, initial encounter Qualifiers: Encounter type: initial encounter Qualified Code(s): S61.451A - Open bite of right hand, initial encounter; W55.01XA - Bitten by cat, initial encounter Plan: Keep clean with soap and water daily; discontinue Azithromycin. (2) Cellulitis with lymphangitis: Comment: Discontinue azithromycin. Code(s): L03.90 - Cellulitis, unspecified Plan: Start Augmentin 875mg BID x 10 days, Tylenol as needed for discomfort. Patient instructed to go to ED if lymphangitis extends more than 3 more cm up right arm. Medications: New amoxicillin-pot clavulanate 875-125 mg 1 tab PO BID 10 days 20 tabs 0RF Coding Level of Care Code Est Pt Level 4 (31248) Diagnoses Cat bite of right hand, initial encounter S61.451A; W55.01XA Encounter type: initial encounter Cellulitis with lymphangitis L03.90 Time Spent (min) 25
== END 2023-10-23 15:07 | disposition home or self-care (01) ==
PROVIDERS: PCP Internal Medicine; Visit Provider Physician Assistant
DX: S61.451A Open bite of right hand, initial encounter (principal); W55.01XA Bitten by cat, initial encounter; L03.90 Cellulitis, unspecified
CPT/HCPCS: 99214

== ENCOUNTER 2023-11-16 15:43 | Outpatient (AMB) | payer OTHER, MEDICAID, SELFPAY ==
[2023-11-16 15:53] VITALS: BP 122/80; BMI 34.8
--- NOTE | 2023-11-16 15:53 | A.OFFPC_ITS ---
Vital Signs 11/16/23 15:53 Height 4 ft 9 in Weight 161 lb BMI 34.8 BP 122/80 Blood Pressure Location Lt brachial Position Sitting Intake Visit Reasons: paperwork Intake Note: Patient here for paperwork Manager Printing Required: No Accompanied by: Significant Other Allergies No Known Allergies Allergy (Unknown, Verified 11/16/23 16:39) NONE Medication List - Last Reconciled 11/16/23 by Abi Thorpe MD ammonium lactate 12% 1 appl topical BID celecoxib 200 mg PO BID PRN cholecalciferol (vitamin D3) 50 mcg PO DAILY 90 days clotrimazole-betamethasone 1-0.05 % 1 appl topical BID 2 weeks duloxetine 60 mg PO DAILY ketoconazole 2% topical levonorgestrel (Mirena) intrauterine spironolactone 50 mg PO BID tizanidine 4 mg PO BEDTIME PRN 7 days tretinoin 0.05% appl topical BEDTIME PRN triamcinolone acetonide 0.1% topical Tobacco use date assessed: 11/16/23 Dental Screening Dental Screen Date: 11/16/23 Did you have a dental visit in the last 12 months?: Yes Did you have a dental problem in the last 6 months where you did not have access to dental care?: No Was dental information given to patient?: Patient has dentist HPI HPI Comments History of Present Illness Details This is a 43-year-old female with mild recurrent major depression, fibromyalgia, PCOS, lichen amyloidosis and lumbar spondylosis that comes today for follow-up on her conditions. Depression and fibromyalgia has been stable with duloxetine. On spironolactone for her PCOS. Lichen amyloidosis is follow by Dermatology and has been stable. Celebrex improves the pain that cause lumbar spondylosis. She is accompanied by significant other and wants to fill out some paperwork regarding a PTSD episode at work while she had to be absent due to it. Papers fill out in this office visit. [facility] Medical History (Updated 11/16/23 @ 16:44 by Abi Thorpe MD) Carpal tunnel syndrome on both sides Pre-diabetes PCOS (polycystic ovarian syndrome) Spondylosis of cervical spine Bloody stools Right hip pain Abnormal brain MRI Hypovitaminosis D Mild recurrent major depression Pelvic pain in female New persistent daily headache Cervicalgia Right knee pain Knee pain, left Coccydynia Fibromyalgia Simple laceration of nose Nose disease Onychomycosis Obesity Depression with anxiety History of PCOS Hx of tension headache History of anemia Family history of fibromyalgia Hx of hearing loss Surgical History Hx of colonoscopy History of esophagogastroduodenoscopy (EGD) Hx of section Hx of wisdom tooth extraction Family History Father CVD (cardiovascular disease) Mother Rheumatoid arthritis Mental health disorder Substance use disorder Paternal Aunt Uterine cancer Social History Housing: Apartment Alcohol intake: current Alcohol intake frequency: holidays/special occasions only Alcohol type: beer and wine Patient Tobacco Use Status: Former Tobacco user Quit Date: 2002 Tobacco use type: Cigarette e-Cigarette/Vaping Use: Never Used Second Hand Smoke Exposure: No Substance Use Type: Marijuana service: No Current occupational status: employed Current occupational exposures/hazards: No Sexual orientation: Straight/Heterosexual Gender identity: Female Cognitive needs: No Hearing needs: No Vision needs: Yes Female Reproductive History Menstrual Age of Menarche: 13 Questionnaire PHQ-9 Over the last 2 weeks, how often have you been bothered by any of the following problems? 1. Little interest or pleasure in doing things: not at all 2. Feeling down, depressed, or hopeless: not at all 3. Trouble falling or staying asleep, or sleeping too much: not at all 4. Feeling tired or having little energy: more than half the days 5. Poor appetite or overeating: not at all 6. Feeling bad about yourself - or that you are a failure or have let yourself or your family down: not at all 7. Trouble concentrating on things, such as reading the newspaper or watching television: not at all 8. Moving or speaking so slowly that other people could have noticed. Or the opposite - being so fidgety or restless that you have been moving around a lot more than usual: not at all 9. Thoughts that you would be better off or of hurting yourself in some way: not at all Total score: 2 Depression Screening Interpretation: Negative Depression Screening Done: Yes 17402 - PHQ-9 Billing: Yes Source: Developed by Drs. Melvin Neal, Lindsey Ochoa, Vito Prabhakar and colleagues, with an educational angie from [employer]. Thrive Questionnaire Date Thrive assessed: 11/16/23 I am a: Patient What is your living situation today?: I have a steady place to live Within the past 12 months, did the food you bought not last and you didn't have the money to get more?: Never true Within the past 12 months, did you worry whether your food would run out before you got money to buy more?: Never true Do you have trouble paying for medicines?: No Do you have trouble getting transportation to medical appointments?: No Do you have trouble paying your heating and electricity bill?: No Do you have trouble taking care of your child, family member or friend?: No Do you have trouble with day-to-day activities such as bathing, preparing meals, shopping, managing finances, etc.?: No Are you currently unemployed and looking for a job?: No Are you interested in more education?: No Please select the resources that you would like help with: None Currently or been in a relationship where the following occur: no concerns reported THRIVE Score: 0 AUDIT C Alcohol Use Questionnaire (AUDIT-C) 1. How often do you have a drink containing alcohol?: Monthly or less 2. How many drinks containing alcohol do you have on a typical day when you are drinking?: 1 or 2 3. How often do you have six or more drinks on one occasion?: Never Total Score: 1 YVONNE-7 AMB Questionnaire YVONNE-7 Date YVONNE - 7 assessed: 11/16/23 Feeling nervous, anxious, or on edge: 2 = More than half the days Not being able to stop or control worryin = Several days Worrying too much about different things: 2 = More than half the days Trouble relaxin = More than half the days Being so restless that it is hard to sit still: 2 = More than half the days Becoming easily annoyed or irritable: 1 = Several days Feeling afraid as if something awful might happen: 1 = Several days Total YVONNE-7 score (0-4 normal; 5-9 mild; 10-14 moderate; 15-21 severe): 11 Source: Developed by Drs. Melvin Neal, LindseyVito Johnson and colleagues, with an educational angie from [employer]. YVONNE-7 Assessment Billing YVONNE-7 Assessment Tool: YVONNE-7 Assessment [id number] Review of Systems Const All systems reviewed & are unremarkable except as noted in HPI and below Eyes Reports no additional complaints, Denies change in vision and Denies other visual disturbances Card Denies chest pain at rest, Denies chest pain with activity, Denies edema, Denies irregular heart rhythm, Denies claudication, Denies dyspnea, Denies dyspnea on exertion, Denies orthopnea, Denies paroxysmal nocturnal dyspnea and Denies slow heart rate Resp Denies cough, Denies dyspnea and Denies dyspnea on exertion Physical exam (Primary Care) Vital Signs: Last Vital Signs BP 122/80 11/16/23 15:53 BMI result Body Mass Index 34.8 Tobacco/Smoking Status: Tobacco use Status Tobacco use date assessed 11/16/23 11/16/23 16:06 Patient Tobacco Use Status Former Tobacco user 11/16/23 16:06 Tobacco use type Cigarette 11/16/23 16:06 e-Cigarette/Vaping Use Never Used 11/16/23 16:06 PHQ-9: PHQ-9 Score PHQ-9: Total score 2 11/16/23 16:41 Depression Screening Interpretation: Negative Thrive Assessment: Date of Thrive Assessment Date Thrive assessed 11/16/23 11/16/23 16:06 Currently or been in a relationship where the following occur: no concerns reported Resp Effort & Inspection: normal respiratory effort Auscultation: clear to auscultation bilaterally Cardio Jugular venous distension: no JVD Rate: regular rate Rhythm: regular rhythm Heart sounds: S1 normal heart sound present and S2 normal heart sound present Extrem General: Yes full ROM Assessment and Plan Assessment & Plan (1) Mild recurrent major depression: Code(s): F33.0 - Major depressive disorder, recurrent, mild Plan: Continue duloxetine. (2) Fibromyalgia: Code(s): M79.7 - Fibromyalgia Plan: Continue duloxetine. (3) PCOS (polycystic ovarian syndrome): Code(s): E28.2 - Polycystic ovarian syndrome Plan: Continue spironolactone. (4) Spondylosis of lumbar spine: Code(s): M47.816 - Spondylosis without myelopathy or radiculopathy, lumbar region Plan: Continue Celebrex. (5) Lichen amyloidosis: Comment: dx via biopsy by derm, follows with Dr Sullivan Code(s): E85.4 - Organ-limited amyloidosis; L99 - Other disorders of skin and subcutaneous tissue in diseases classified elsewhere Plan: Follow-up with dermatology. Orders: Orders Hepatitis B Profile 11/16/23 Z23 - Encounter for immunization Medications: Changed From duloxetine 60 mg PO DAILY 90 days 90 caps 1RF F33.0 - Major depressive disorder, recurrent, mild, M79.7 - Fibromyalgia To duloxetine 60 in the am 30 BT 60 mg PO DAILY F33.0 - Major depressive disorder, recurrent, mild, M79.7 - Fibromyalgia Coding Level of Care Code Est Pt Level 4 (95568) Diagnoses Mild recurrent major depression F33.0 Fibromyalgia M79.7 PCOS (polycystic ovarian syndrome) E28.2 Spondylosis of lumbar spine M47.816 Lichen amyloidosis E85.4; L99 Additional Codes YVONNE-7 Assessment Billing - YVONNE-7 Assessment Tool: YVONNE-7 Assessment [id number] ([id number]) Time Spent (min) 21
== END 2023-11-16 16:46 | disposition home or self-care (01) ==
PROVIDERS: PCP Internal Medicine; Visit Provider Internal Medicine
DX: M79.7 Fibromyalgia (principal); F33.0 Major depressive disorder, recurrent, mild; E85.4 Organ-limited amyloidosis; E28.2 Polycystic ovarian syndrome; M47.816 Spondylosis without myelopathy or radiculopathy, lumbar region; L99 Other disorders of skin and subcutaneous tissue in diseases classified elsewhere
CPT/HCPCS: 99214

== ENCOUNTER 2023-11-29 14:05 | Outpatient (REF) | payer OTHER, MEDICAID, SELFPAY ==
[2023-11-29 15:34] LABS: Influenza A PCR NEGATIVE (Negative); Influenza B PCR NEGATIVE (Negative); Resp Syncy Virus RNA Qual PCR NEGATIVE (Negative); SARS COV2 PCR INHOUSE NEGATIVE (Negative)
[2023-11-29 17:18] LABS: Vitamin D 25-OH Total 25.2 ng/mL (>30)
[2023-11-29 19:53] LABS: Folate 11.4 ng/mL (> or = 4.0); Vitamin B12 315 pg/mL (200-900)
[2023-11-30 05:19] LABS: HBS Num1 13.95 mIU/mL (0-7.99); Hepatitis B Core Antibody Nonreactive (Nonreactive); Hepatitis B Surface Antigen Negative (Negative); ~Hepatitis B Surface Antibody REACTIVE (Nonreactive)
== END 2023-11-29 14:06 | disposition home or self-care (01) ==
LOC: HO.LAB 14:05
PROVIDERS: PCP Internal Medicine; Visit Provider Internal Medicine
DX: E53.8 Deficiency of other specified B group vitamins (principal); R09.89 Other specified symptoms and signs involving the circulatory and respiratory systems; E55.9 Vitamin D deficiency, unspecified
CPT/HCPCS: 0241U; 82306; 82607; 82746; 86704; 86706; 87340

== ENCOUNTER 2023-12-01 07:31 | Day surgery (SDC) | payer OTHER, MEDICAID, SELFPAY ==
--- NOTE | 2023-11-29 15:16 | HO.ANESPROP2 ---
HPI - Anesthesia Eval Consult details Narrative: 43yo F for Caudal Epidural Steroid Injection without Catheter and ganglion Impar Block s/p ganglion Impar Block 04/2023 with MAC PMFSH Active Problems Active Problems: All Active Problems Immunization due (Acute) Cellulitis with lymphangitis (Acute) Cat bite of right hand (Acute) Nasal polyp (Acute) Trochanteric bursitis of both hips (Acute) IBS (irritable bowel syndrome) (Acute) H. pylori infection (Acute) STEPH (obstructive sleep apnea) (Acute) Coccydynia (Acute) Somatic dysfunction of right sacroiliac joint (Acute) Right shoulder tendinitis (Acute) Vaginal itching (Acute) Presence of 52 mg levonorgestrel-releasing intrauterine device (IUD) (Acute) Myofascial pain syndrome (Acute) Polyarthralgia (Acute) Obesity (BMI 35.0-39.9 without comorbidity) (Acute) Hand numbness (Acute) Protrusion of lumbar intervertebral disc (Acute) Ingrowing left great toenail (Acute) Spondylosis of lumbar spine (Acute) Disc degeneration, lumbar (Acute) Impaired glucose tolerance (Acute) Mixed hyperlipidemia (Acute) Lichen amyloidosis (Acute) Shingles (Acute) Daytime somnolence (Acute) Carpal tunnel syndrome of right wrist (Acute) Loud snoring (Acute) PCOS (polycystic ovarian syndrome) (Acute) Spondylosis of cervical spine (Acute) Bloody stools (Acute) Right hip pain (Acute) Abnormal brain MRI (Acute) Hypovitaminosis D (Acute) Mild recurrent major depression (Acute) Pelvic pain in female (Acute) New persistent daily headache (Acute) Cervicalgia (Acute) Right knee pain (Acute) Knee pain, left (Acute) Coccydynia (Acute) Fibromyalgia (Acute) Simple laceration of nose (Acute) Onychomycosis (Acute) Obesity (Acute) Depression with anxiety (Acute) Past Medical History Medical History Carpal tunnel syndrome on both sides Pre-diabetes PCOS (polycystic ovarian syndrome) Spondylosis of cervical spine Bloody stools Right hip pain Abnormal brain MRI Hypovitaminosis D Mild recurrent major depression Pelvic pain in female New persistent daily headache Cervicalgia Right knee pain Knee pain, left Coccydynia Fibromyalgia Simple laceration of nose Nose disease Onychomycosis Obesity Depression with anxiety History of PCOS Hx of tension headache History of anemia Family history of fibromyalgia Hx of hearing loss Family History Family History Father CVD (cardiovascular disease) Mother Rheumatoid arthritis Mental health disorder Substance use disorder Paternal Aunt Uterine cancer Family history of problems with anesthesia: No Surgical History Surgical History Hx of colonoscopy History of esophagogastroduodenoscopy (EGD) Hx of section Hx of wisdom tooth extraction History of Problems with Anesthesia: No Social History Social History Housing: Apartment Alcohol intake: current Alcohol intake frequency: holidays/special occasions only Alcohol type: beer and wine Patient Tobacco Use Status: Former Tobacco user Quit Date: 2002 Tobacco use type: Cigarette e-Cigarette/Vaping Use: Never Used Second Hand Smoke Exposure: No Substance Use Type: Marijuana service: No Current occupational status: employed Current occupational exposures/hazards: No Sexual orientation: Straight/Heterosexual Gender identity: Female Cognitive needs: No Hearing needs: No Vision needs: Yes Meds Allergies Allergy/AdvReac Type Severity Reaction Status Date / Time No Known Allergies Allergy Unknown NONE Verified 12/01/23 08:05 Home Medications ?Medication ?Instructions ?Recorded ?Confirmed ?Last Taken ?Type ammonium lactate 12 % topical cream 1 applic topical BID 06/15/20 11/16/23 Unknown History levonorgestrel 21 mcg/24 hours (8 intrauterine 06/15/20 11/16/23 Unknown History yrs) 52 mg intrauterine device (Mirena) spironolactone 50 mg tablet 50 mg PO BID 11/15/21 12/01/23 11/30/23 History tretinoin 0.05 % topical cream appl topical BEDTIME PRN 02/21/22 11/16/23 Unknown History hyperpigmentation triamcinolone acetonide 0.1 % topical 02/21/22 11/16/23 Unknown History topical ointment ketoconazole 2 % shampoo topical 09/12/22 11/16/23 Unknown History celecoxib 200 mg capsule 200 mg PO BID PRN Pain 02/08/23 11/16/23 Unknown History duloxetine 60 mg capsule,delayed 60 mg PO DAILY 11/16/23 12/01/23 11/30/23 History release Assessment and Plan Assessment Anesthesia Assessment: Chart Reviewed Final Anesthetic Review Family History of Problems with Anesthesia: No History of Problems with Anesthesia: No
--- NOTE | ~2023-12-01 | FL_ITS ---
EXAMINATION: XR FLUOROSCOPY WITH IMAGES CLINICAL INFORMATION: Pain COMPARISON: 04/28/2023 TECHNIQUE: Fluoroscopy Supervised By: Physician. Fluoroscopy Time: 0.3 minutes. Cumulative Dose: 17.1 mGy. DAP: 1.99 Gycm2. Images: 5. FINDINGS: The needle tip overlies the lower sacrum. Some contrast has been injected into the epidural space. FL/FL guidance in OR IMPRESSION: Fluoroscopy as described.
[2023-12-01 07:55] VITALS: BMI 34.8
[2023-12-01 08:25] LABS: UPreg QC Valid YES; Urine Pregnancy NEGATIVE (NEGATIVE)
[2023-12-01 08:36] VITALS: BP 115/78; PULSE 73; RESP 16; TEMP 36.2; O2SAT 100
[2023-12-01] MEDS: Lactated Ringers 1,000 ML 100 ML IVCONT (08:38)
--- NOTE | 2023-12-01 09:56 | HO.ANESPROP2 ---
PMF Active Problems Active Problems: All Active Problems Immunization due (Acute) Cellulitis with lymphangitis (Acute) Cat bite of right hand (Acute) Nasal polyp (Acute) Trochanteric bursitis of both hips (Acute) IBS (irritable bowel syndrome) (Acute) H. pylori infection (Acute) STEPH (obstructive sleep apnea) (Acute) Coccydynia (Acute) Somatic dysfunction of right sacroiliac joint (Acute) Right shoulder tendinitis (Acute) Vaginal itching (Acute) Presence of 52 mg levonorgestrel-releasing intrauterine device (IUD) (Acute) Myofascial pain syndrome (Acute) Polyarthralgia (Acute) Obesity (BMI 35.0-39.9 without comorbidity) (Acute) Hand numbness (Acute) Protrusion of lumbar intervertebral disc (Acute) Ingrowing left great toenail (Acute) Spondylosis of lumbar spine (Acute) Disc degeneration, lumbar (Acute) Impaired glucose tolerance (Acute) Mixed hyperlipidemia (Acute) Lichen amyloidosis (Acute) Shingles (Acute) Daytime somnolence (Acute) Carpal tunnel syndrome of right wrist (Acute) Loud snoring (Acute) PCOS (polycystic ovarian syndrome) (Acute) Spondylosis of cervical spine (Acute) Bloody stools (Acute) Right hip pain (Acute) Abnormal brain MRI (Acute) Hypovitaminosis D (Acute) Mild recurrent major depression (Acute) Pelvic pain in female (Acute) New persistent daily headache (Acute) Cervicalgia (Acute) Right knee pain (Acute) Knee pain, left (Acute) Coccydynia (Acute) Fibromyalgia (Acute) Simple laceration of nose (Acute) Onychomycosis (Acute) Obesity (Acute) Depression with anxiety (Acute) Past Medical History Medical History Carpal tunnel syndrome on both sides Pre-diabetes PCOS (polycystic ovarian syndrome) Spondylosis of cervical spine Bloody stools Right hip pain Abnormal brain MRI Hypovitaminosis D Mild recurrent major depression Pelvic pain in female New persistent daily headache Cervicalgia Right knee pain Knee pain, left Coccydynia Fibromyalgia Simple laceration of nose Nose disease Onychomycosis Obesity Depression with anxiety History of PCOS Hx of tension headache History of anemia Family history of fibromyalgia Hx of hearing loss Family History Family History Father CVD (cardiovascular disease) Mother Rheumatoid arthritis Mental health disorder Substance use disorder Paternal Aunt Uterine cancer Family history of problems with anesthesia: No Surgical History Surgical History Hx of colonoscopy History of esophagogastroduodenoscopy (EGD) Hx of section Hx of wisdom tooth extraction History of Problems with Anesthesia: No Social History Social History Housing: Apartment Alcohol intake: current Alcohol intake frequency: holidays/special occasions only Alcohol type: beer and wine Patient Tobacco Use Status: Former Tobacco user Quit Date: 2002 Tobacco use type: Cigarette e-Cigarette/Vaping Use: Never Used Second Hand Smoke Exposure: No Use of substances other than those prescribed or required for medical reasons: Yes Substance Use Type: Marijuana Substance Use Frequency: Occasionally Are you DNR?: No Advance Directives: No Advance Directives Information Provided: Yes service: No Current occupational status: employed Current occupational exposures/hazards: No Sexual orientation: Straight/Heterosexual Gender identity: Female Cognitive needs: No Hearing needs: No Vision needs: Yes Meds Allergies Allergy/AdvReac Type Severity Reaction Status Date / Time No Known Allergies Allergy Unknown NONE Verified 12/01/23 08:05 Active Medications: Current Medications Lactated Ringer's (Lr) 1,000 mls @ 100 mls/hr IVCONT .Q10H RIAZ Last Admin: 12/01/23 08:38 Dose: 100 mls/hr Home Medications ?Medication ?Instructions ?Recorded ?Confirmed ?Last Taken ?Type ammonium lactate 12 % topical cream 1 applic topical BID 06/15/20 11/16/23 Unknown History levonorgestrel 21 mcg/24 hours (8 intrauterine 06/15/20 11/16/23 Unknown History yrs) 52 mg intrauterine device (Mirena) spironolactone 50 mg tablet 50 mg PO BID 11/15/21 12/01/23 11/30/23 History tretinoin 0.05 % topical cream appl topical BEDTIME PRN 02/21/22 11/16/23 Unknown History hyperpigmentation triamcinolone acetonide 0.1 % topical 02/21/22 11/16/23 Unknown History topical ointment ketoconazole 2 % shampoo topical 09/12/22 11/16/23 Unknown History celecoxib 200 mg capsule 200 mg PO BID PRN Pain 02/08/23 11/16/23 Unknown History duloxetine 60 mg capsule,delayed 60 mg PO DAILY 11/16/23 12/01/23 11/30/23 History release Exam Height,Weight and Vital Signs: Height 4 ft 9 in Weight 73.028 kg Last Vital Signs Temp 97.1 F 12/01/23 08:36 Pulse 73 12/01/23 08:36 Resp 16 12/01/23 08:36 BP 115/78 12/01/23 08:36 Pulse Ox 100 12/01/23 08:36 O2 Del Method Room Air 12/01/23 08:36 Pertinent Lab Results Pertinent Lab Results: Laboratory Tests 12/01/23 08:00 Urine Test NEGATIVE Airway Mallampati Class: II TM Dist: >3cm Neck ROM: Full Loose/Missing/Broken Teeth: No Heart: rrr Lungs: cta Assessment and Plan Assessment Anesthesia Assessment: Anesthesia Plan Discussed and Chart Reviewed Final Anesthetic Review Family History of Problems with Anesthesia: No History of Problems with Anesthesia: No NPO: Yes ASA Class: II Final Preanesthetic Review: No Changes in Pt Med Stat, Meds/Allgs Chart Reviewed, Consent Obtained/Reviewed and Anes Risks/Benef Reviewed Patient Risk: Intermediate Procedure Risk: Low Anesthetic Plan Anesthetic Plan: MAC: Disposition: Standard PACU
--- NOTE | 2023-12-01 10:04 | MHC.SHP ---
Pre-Procedural Eval Section A - 24 Hr Update-Section A only Date of Service: 12/01/23 The patient is an INPATIENT: No Changes since office visit: Yes Patient answered all questions The patient has been examined within 24 hours of the surgical procedure. The History & Physical has been completed within 30 days and I have reviewed it.: No Section B - Complete if H&P > 30 days Chief Complaint: Sacrococcygeal disorders, not elsewhere classified Details of Present Illness: As above Relevant Family History (Specify if Yes): No Relevant Social History: None Present Medications: see Short Stay Collaborative assessment Medical History: No relevant PMH History of Previous Operations: No relevant previous surgery Allergies: Allergies Allergy/AdvReac Type Severity Reaction Status Date / Time No Known Allergies Allergy Unknown NONE Verified 12/01/23 08:05 Review of Systems Sugical H&P ROS: Negative: Constitution, Cardiovascular, Respiratory, Neurological, Psychiatric, Hem-Onc, Allergic/Immunologic, Gastrointestinal, Genitourinary, Musculoskeletal, Integumentary, Endocrine and Eyes/Ears/Nose/Throat Exam Surgical H&P Exam: Normal: HEENT, Normal: Heart, Normal: Lungs, Normal: Extremities, Normal: Abdomen, Normal: Skin and Normal: Neurological Plan Diagnosis/Plan: Unchanged I have reviewed the history and physical and performed a pertinent physical examination on my patient. No changes have occurred unless specified. Time Spent With Patient Time: Total time managing care of this patient today ____ minutes.
--- NOTE | 2023-12-01 10:04 | W.PM.OPN ---
Operative Note Operative Note Date of Service: 04/28/23 Narrative: Caudal FARHANA without catheter and ganglion impar injection.? Two separate procedures. After obtaining informed consent the patient was taken to the operating room where she was position on operating table prone.? ASA monitors applied and patient was moderately sedated ?Time-out was performed delineating correct site, side, the nature of the procedure, patient's allergy need for antibiotic therapy.? All operating room staff was participating in OR time-out procedure.? Her lower back, bilateral buttocks and intergluteal cleft were thoroughly prepped with ChloraPrep and draped with sterile fenestrated clear drape.? Fluoroscopy C-arm was brought over the operating field and picture of midline sacral bone superimposing on symphysis pubis was obtained on the C-arm screen.? After that the position of the C-arm was turned into the lateral.? The position of sacral hiatus was noted on the screen.? 2.5 cm below the sacral hiatus opening local anesthetic lidocaine 2% 3 cc was injected into the skin with 25 gauge 1/2 inch needle.? After that 3-1/2 inch 22 gauge spinal needle was inserted through the skin and advanced the opening of sacral hiatus on intermittent anterior posterior and lateral views.? When needle entered the sacral canal injection of the contrast performed into the needle demonstrating epidural spread of the contrast.? After that injection of the treatment solution containing normal saline preservative-free 10 cc following after that preservative-free lidocaine 1% 5 cc and Kenalog 40 mg was performed. After that attention was concentrated on the caudal spine the disc image between second and third caudal vertebrae was delineated on the screen.The 22 g 3-1/2 inch needle was inserted through the skin and advanced toward the disc under A/p and lateral intermittent views. When the needle entered the disc the projection of the C-arm was changed into lateral view and needle was slowly advanced into retropelvic space carefully monitoring the position of the tip of the needle. When tip of the needle cleared 3 mm outside of the anterior surface of the caudal spine the injection of the contrast was performed delineates retropelvic spread of the contrast and no intravascular, no intestinal and no vesical spread of the contrast. After that injection of the treatment solution containing lidocaine 1% 4 mls mixed with kenalog 40 mg was performed into the needle. the needle was withdrawn and sterile dressing was applied. The patient tolerated procedure well and recovered uneventfully.?
[2023-12-01 10:48] VITALS: BP 107/68; PULSE 77; RESP 12; TEMP 36.4; O2SAT 100
--- NOTE | 2023-12-01 10:58 | P.BOP_ITS ---
Brief Operative Note Date of Service: 12/01/23 Pre-op diagnosis: Coccydynia, radiculopathy lumbar sacral Post-op diagnosis: same Procedure: Ganglion impar, caudal epidural steroid injection without catheter. Surgeon: Jake Beauchamp MD Was an [employer] Teacher used for this Procedure?: No Estimated blood loss (mL): 1 Condition: stable Disposition: PACU
[2023-12-01 11:03] VITALS: BP 110/62; RESP 16; O2SAT 100
[2023-12-01 11:18] VITALS: BP 113/72; PULSE 100; RESP 18; TEMP 36.6; O2SAT 100
== END 2023-12-01 12:10 | disposition home or self-care (01) ==
PROVIDERS: Nurse Practitioner; PCP Internal Medicine; Visit Provider Anesthesiology
PROC: 3E0R3GC Introduction of Other Therapeutic Substance into Spinal Canal, Percutaneous Approach (ICD-10-PCS; CPT 62322; principal; 2023-12-01 10:30)
DX: M53.3 Sacrococcygeal disorders, not elsewhere classified (principal); M54.17 Radiculopathy, lumbosacral region; M79.7 Fibromyalgia; M47.892 Other spondylosis, cervical region; E55.9 Vitamin D deficiency, unspecified; R51.9 Headache, unspecified; R73.03 Prediabetes; E28.2 Polycystic ovarian syndrome; F33.0 Major depressive disorder, recurrent, mild; Z79.899 Other long term (current) drug therapy; Z87.891 Personal history of nicotine dependence
CPT/HCPCS: 62323; 64999; 81025; J2250; J2704; J2795; J3010; J3301; Q9967

== ENCOUNTER → 2023-12-01 07:31 | Outpatient (BNV) | payer OTHER, MEDICAID, SELFPAY | PROVIDERS: PCP Internal Medicine; Visit Provider Anesthesiology | DX: M54.18 Radiculopathy, sacral and sacrococcygeal region (principal); M53.3 Sacrococcygeal disorders, not elsewhere classified | CPT/HCPCS: 62323; 64999 ==

== ENCOUNTER 2023-12-28 15:11 | Outpatient (AMB) | payer OTHER, MEDICAID, SELFPAY ==
--- NOTE | 2023-12-28 15:16 | A.OFFVIS_ITS ---
Vital Signs 12/28/23 15:30 Height 4 ft 9 in Weight 164 lb 2 oz BMI 35.5 BP 138/68 Blood Pressure Location Lt brachial Position Sitting Respiration 16 Pulse 100 Pulse Source Pulse Oximeter Pulse Oximetry (%) 98 Oxygen Delivery Method Room Air Intake Visit Reasons: S/p Caudal FARHANA w/o Cath and Ganglion Impar 12/01/23 Intake Note: Patient comes in for post-op appointment. Reports pain 2/10. Allergies No Known Allergies Allergy (Unknown, Verified 12/28/23 15:29) NONE HPI Comments Details: Jasmyne is in the office today to discuss results of the repeated ganglion impar + caudal epidural steroid injection. She reports excellent pain relief f or the past month since the procedure. This is repetition of the procedure. Last time the results lasted for 4 months. However this time patient reports excellent results on ganglion impar with ability to sit for the long period of time, however she reports that pain in the projection of the sacral spine became little bit better however she still experiences pain in the projection of the sacral bone. We discuss the situation today. She had an MRI 2 years ago of the lumbar spine which was not very indicative for any pathology however the image of the pelvic bones was not very complete. I would like to perform MRI of the pelvis to diagnose possible pathologist of the sacral bone. I would like to lift up the red flags in the area of the sacral bone. Infections and pathological growth are contemplated. We discussed possibility of treatment this pain of the patient with neuromodulation in the future such as [place] scientific caudal canal stimulation. She also complains on pain in the lateral trochanteric area for which in the past she received trochanteric bursa/trigger-point planned injections. It also was very good in effectiveness. However I can not do all 3 injections at once it will be too much of a dose of the steroid medications. I will invite her for the in-person visit after 1 month of the ganglion impar block and caudal epidural steroid injection without catheter we will discuss her other pain generators and I will be able to perform a trigger point injection into her trochanteric area. [facility] Medical History Carpal tunnel syndrome on both sides Pre-diabetes PCOS (polycystic ovarian syndrome) Spondylosis of cervical spine Bloody stools Right hip pain Abnormal brain MRI Hypovitaminosis D Mild recurrent major depression Pelvic pain in female New persistent daily headache Cervicalgia Right knee pain Knee pain, left Coccydynia Fibromyalgia Simple laceration of nose Nose disease Onychomycosis Obesity Depression with anxiety History of PCOS Hx of tension headache History of anemia Family history of fibromyalgia Hx of hearing loss Surgical History Hx of colonoscopy History of esophagogastroduodenoscopy (EGD) Hx of section Hx of wisdom tooth extraction Family History Father CVD (cardiovascular disease) Mother Rheumatoid arthritis Mental health disorder Substance use disorder Paternal Aunt Uterine cancer Social History Housing: Apartment Alcohol intake: current Alcohol intake frequency: holidays/special occasions only Alcohol type: beer and wine Patient Tobacco Use Status: Former Tobacco user Quit Date: 2002 Tobacco use type: Cigarette e-Cigarette/Vaping Use: Never Used Second Hand Smoke Exposure: No Substance Use Type: Marijuana service: No Current occupational status: employed Current occupational exposures/hazards: No Sexual orientation: Straight/Heterosexual Gender identity: Female Cognitive needs: No Hearing needs: No Vision needs: Yes Female Reproductive History Menstrual Age of Menarche: 13 Review of Systems Const All systems reviewed & are unremarkable except as noted in HPI and below Physical Exam Vital Signs: Last Vital Signs Pulse 100 12/28/23 15:30 Resp 16 12/28/23 15:30 BP 138/68 12/28/23 15:30 Pulse Ox 98 12/28/23 15:30 Oxygen Delivery Method Room Air 12/28/23 15:30 BMI result Body Mass Index 35.5 Const General: comfortable, no acute distress, well developed, alert and awake Eyes Pupils: Equal, round and reactive pupils present EOM: EOMs intact bilaterally Chest Chest palpation & inspection: normal inspection of the chest Resp Effort & Inspection: normal respiratory effort, able to speak in complete sentences, normal respiratory pattern, no audible wheezes and no cough Cardio Jugular venous distension: no JVD Back/Spine/Pelvis Other: On physical exam she does not exhibit any signs of the tenderness on the palpation of spinal and paraspinal regions of the lumbar spine. Most of the palpation and tenderness related to the area of the sacral bone. She exhibits remarkable flexibility of the lumbar spine without any difficulty flexing forward or backward. She exhibits no pain with loading test. She exhibits pain with Miguel test. SLR is negative for pain increase. Neuro Cranial nerves: Yes Equal, round and reactive pupils present Extrem Other: Tenderness on palpation on bilateral trochanteric bursa radiating down lateral hips. Psych Speech and movement: Normal speech and movement present Affect: normal affect Attitude: cooperative Assessment & Plan Assessment & Plan (1) Coccydynia: Code(s): M53.3 - Sacrococcygeal disorders, not elsewhere classified Category: Medical (2) Disc degeneration, lumbosacral: Code(s): M51.37 - Other intervertebral disc degeneration, lumbosacral region Category: Medical Plan MRI of the pelvis without contrast will be scheduled rule out trial flex in the projection of the sacral canal. The patient also willing to continue ganglion impar injection since it gives her very good pain relief for coccydynia. She will give us a call when her coccydynia pain will come back. The patient will give me a call after the MRI will be completed and schedule appointment follow-up with me at that time. Orders: Orders MR pelvis wo con Today M51.37 - Other intervertebral disc degeneration, lumbosacral region, M53.3 - Sacrococcygeal disorders, not elsewhere classified Patient Instructions: I here by testify that I spent 32 minutes in conversation with this patient as well as planning her care evaluating her prior records and organizing this note. Coding Level of Care Code Est Pt Level 4 (00715) Diagnoses Coccydynia M53.3 Disc degeneration, lumbosacral M51.37
[2023-12-28 15:30] VITALS: BP 138/68; PULSE 100; RESP 16; O2SAT 98; BMI 35.5
== END 2023-12-28 15:40 | disposition home or self-care (01) ==
PROVIDERS: PCP Internal Medicine; Visit Provider Anesthesiology
DX: M53.3 Sacrococcygeal disorders, not elsewhere classified (principal); M51.37 Other intervertebral disc degeneration, lumbosacral region
CPT/HCPCS: 99214

== ENCOUNTER → 2023-12-28 15:11 | Outpatient (BNVA) | payer OTHER, MEDICAID, SELFPAY | PROVIDERS: PCP Internal Medicine; Visit Provider Anesthesiology ==

== ENCOUNTER 2024-01-16 09:36 | Outpatient (AMB) | payer OTHER, MEDICAID, SELFPAY ==
--- NOTE | 2024-01-16 09:37 | MHC.OFFWIV ---
Intake Vital Signs 01/16/24 10:35 Height 4 ft 9 in Weight 166 lb BMI 35.9 BP 126/72 Blood Pressure Location Lt brachial Position Sitting Pulse 108 H Pulse Source Pulse Oximeter Temp 97.4 F Temp Source Temporal Artery Scan Pulse Oximetry (%) 98 Oxygen Delivery Method Room Air Intake Visit Reasons: Severe Cough/Chest pain Intake Note: Pt is here today for a severe cough and chest pain. Pt also mentioned she has a lot of flem and burning eyes. Started 2 days ago Patient Tobacco Use Status: Former Tobacco user Allergies No Known Allergies Allergy (Unknown, Verified 01/16/24 10:41) NONE Do you need a note to return to daycare/school/sports/work: Yes HPI HPI Comments History of Present Illness Details This is a 43-year-old female with a past medical history of fibromyalgia and depression presenting for evaluation of a cough, postnasal drip, headache and minimal pain when swallowing. Patient states that she also has a burning sensation when she coughs but denies having any fevers, chills, shortness of breath or orthopnea. Patient has taken Tylenol and Mucinex for relief of her symptoms. [facility] Medical History Carpal tunnel syndrome on both sides Pre-diabetes PCOS (polycystic ovarian syndrome) Spondylosis of cervical spine Bloody stools Right hip pain Abnormal brain MRI Hypovitaminosis D Mild recurrent major depression Pelvic pain in female New persistent daily headache Cervicalgia Right knee pain Knee pain, left Coccydynia Fibromyalgia Simple laceration of nose Nose disease Onychomycosis Obesity Depression with anxiety History of PCOS Hx of tension headache History of anemia Family history of fibromyalgia Hx of hearing loss Surgical History Hx of colonoscopy History of esophagogastroduodenoscopy (EGD) Hx of section Hx of wisdom tooth extraction Family History Father CVD (cardiovascular disease) Mother Rheumatoid arthritis Mental health disorder Substance use disorder Paternal Aunt Uterine cancer Social History Housing: Apartment Alcohol intake: current Alcohol intake frequency: holidays/special occasions only Alcohol type: beer and wine Patient Tobacco Use Status: Former Tobacco user Tobacco use type: Cigarette e-Cigarette/Vaping Use: Never Used Second Hand Smoke Exposure: No Substance Use Type: Marijuana service: No Current occupational status: employed Current occupational exposures/hazards: No Sexual orientation: Straight/Heterosexual Gender identity: Female Cognitive needs: No Hearing needs: No Vision needs: Yes Female Reproductive History Menstrual Age of Menarche: 13 Review of Systems Const Denies chills, Denies fever(s) and Denies malaise Eyes Reports no additional complaints ENT Denies otalgia, Denies facial pain, Denies mouth pain, Denies nasal congestion, Denies nasal discharge, Reports post nasal drip and Reports sore throat Card Reports no additional complaints Resp Reports cough, Denies hemoptysis and Denies wheezing GI Reports no additional complaints Reports no additional complaints Skin/Breast Reports system reviewed and no additional complaints, except as documented Neuro Reports no additional complaints Psych Reports no additional complaints Endo Reports no additional complaints Aller/Immun Denies wheezing Physical Exam Vital Signs: Last Vital Signs Temp 97.4 F 01/16/24 10:35 Pulse 108 H 01/16/24 10:35 BP 126/72 01/16/24 10:35 Pulse Ox 98 01/16/24 10:35 Oxygen Delivery Method Room Air 01/16/24 10:35 BMI result Body Mass Index 35.9 Patient is afebrile; HR 92 on examination. Const General: cooperative, healthy appearing, comfortable, no acute distress, well developed, alert and awake; No lethargic Nutritional Appearance: overweight Orientation/consciousness: patient oriented x3 and No lethargic Limitations: no limitations HEENT Head: Yes normal to inspection and Yes normocephalic Ears: hearing grossly normal bilaterally, external ears normal, TM normal on the right, left TM abnormal (TM erythematous, bulging; no fluid level noted) and no periauricular adenopathy General nose exam: Normal external nose present and Normal nares present Face and sinus: Yes normal facial exam, Yes sinuses nontender and Yes face symmetric Mouth: moist mucous membranes Teeth and gingiva: dentition normal Throat: Yes posterior oropharynx normal (There is no edema, erythema or exudates of the posterior oropharynx) and Yes postnasal drainage Eyes General: appearance normal, both eyes and all related structures Visual Lane: normal visual lane by confrontation Alignment and Position: alignment normal Periorbital: periorbital findings normal Eyelids: Yes eyelids normal Conjunctivae: conjunctivae normal Sclerae: sclerae normal Corneas: corneas normal Pupils: Equal, round and reactive pupils present EOM: EOMs intact bilaterally Neck Lymphatic: no lymphadenopathy noted Chest Chest palpation & inspection: no localized rib tenderness and tenderness pectoral muscle bilaterally; no sternal xxx and no xiphoid process xxx Resp Effort & Inspection: normal respiratory effort, able to speak in complete sentences, no audible wheezes, no cough and no respiratory distress Auscultation: clear to auscultation bilaterally Cardio Rate: regular rate Rhythm: regular rhythm Skin General skin exam: no rashes or lesions noted Neuro General: patient oriented x3 Cranial nerves: Yes Equal, round and reactive pupils present Psych Appearance: grossly normal Mental Status: mental status grossly normal Insight: Good insight present (Psych) Judgement: Good judgement present (Psych) Assessment & Plan Assessment & Plan (1) Otitis media of left ear: Code(s): H66.92 - Otitis media, unspecified, left ear Qualifiers: Otitis media type: unspecified Qualified Code(s): H66.92 - Otitis media, unspecified, left ear Plan: Amoxicillin 500 mg t.i.d. x7 days. (2) Costochondritis, acute: Comment: Chest pain is reproducible upon examination; low suspicion for ACS. Code(s): M94.0 - Chondrocostal junction syndrome [[place]] Plan: Patient is instructed to use ibuprofen 600 mg every 6-8 hours as needed for this acute costochondritis. Medications: New amoxicillin 500 mg PO TID 21 caps 0RF Coding Level of Care Code Est Pt Level 3 (47104) Diagnoses Left otitis media, unspecified otitis media type H66.92 Otitis media type: unspecified Costochondritis, acute M94.0 Time Spent (min) 20
[2024-01-16 10:35] VITALS: BP 126/72; PULSE 108; TEMP 36.3; O2SAT 98; BMI 35.9
== END 2024-01-16 11:26 | disposition home or self-care (01) ==
PROVIDERS: PCP Internal Medicine; Visit Provider Physician Assistant
DX: H66.92 Otitis media, unspecified, left ear (principal); M94.0 Chondrocostal junction syndrome [Tietze]
CPT/HCPCS: 99213

== ENCOUNTER 2024-01-17 10:03 | Outpatient (REF) | payer OTHER, MEDICAID, SELFPAY ==
[2024-01-17 10:56] LABS: Influenza A PCR NEGATIVE (Negative); Influenza B PCR NEGATIVE (Negative); Resp Syncy Virus RNA Qual PCR NEGATIVE (Negative); SARS COV2 PCR INHOUSE NEGATIVE (Negative)
== END 2024-01-17 10:04 | disposition home or self-care (01) ==
LOC: HO.LAB 10:03
PROVIDERS: PCP Internal Medicine; Visit Provider Internal Medicine
DX: R09.89 Other specified symptoms and signs involving the circulatory and respiratory systems (principal)
CPT/HCPCS: 0241U

== ENCOUNTER 2024-03-11 14:29 | Outpatient (REF) | payer OTHER, MEDICAID, SELFPAY ==
--- NOTE | ~2024-03-11 | XR_ITS ---
EXAMINATION: Right knee series CLINICAL INFORMATION: Pain in the right knee COMPARISON: None. TECHNIQUE: 2 views of the right knee FINDINGS: There are marginal osteophytes about the medial and lateral compartments. Patellofemoral compartment unremarkable. There is some capsular calcification posteriorly. There is no effusion. XR/XR knee RT 2V IMPRESSION: Mild osteoarthritis of the right knee. Electronically signed by: Elvis Giordano MD 04/08/2024 12:59 PM EDT
--- NOTE | ~2024-03-11 | XR_ITS ---
EXAMINATION: XR SHOULDER, RIGHT CLINICAL INFORMATION: Pain in the right shoulder COMPARISON: X-rays of the right shoulder May 2021 TECHNIQUE: AP external rotation, Grashey, scapular Y, and axillary views of the right shoulder. FINDINGS: The bones and soft tissues are normal. No fracture. Glenohumeral and acromioclavicular alignment is anatomic with normal joint space. No abnormal soft tissue calcifications. XR/XR shoulder RT min 2V IMPRESSION: Normal right shoulder. Electronically signed by: Elvis Giordano MD 04/08/2024 01:00 PM EDT
== END 2024-03-11 14:30 | disposition home or self-care (01) ==
LOC: HO.XRAY 14:29
PROVIDERS: PCP Internal Medicine; Visit Provider Internal Medicine
DX: M25.511 Pain in right shoulder (principal); M25.561 Pain in right knee
CPT/HCPCS: 73030; 73560

== ENCOUNTER 2024-03-19 09:02 | Outpatient (REF) | payer OTHER, MEDICAID, SELFPAY ==
--- NOTE | ~2024-03-19 | MR_ITS ---
EXAMINATION: MR PELVIS WITHOUT CONTRAST CLINICAL INFORMATION: Pelvic and lumbar pain radiating into the bilateral legs. Sacrococcygeal disorder. COMPARISON: Most recent hip radiographs dated 08/02/2023, lumbar spine MRI dated 03/24/2022, and CT abdomen/pelvis dated 12/26/2020. TECHNIQUE: Multisequence MR imaging of the pelvis was obtained without contrast on a high-field strength scanner. FINDINGS: BONE: No marrow edema or evidence of acute osseous injury. No stress reaction, fracture, or femoral head avascular necrosis. No concerning lytic or blastic osseous lesion. Minimal subchondral cystic change of the anterior aspect of the right sacroiliac joint and inferior aspect of the left sacroiliac joint, consistent with minimal degenerative arthritis. No articular erosion, joint effusion, or marrow edema to suggest acute sacroiliitis. Shallow broad-based disc bulge at L5-S1 which appears slightly increased in prominence when compared to the prior MRI. No significant central canal or neural foraminal stenosis within the visualized lower lumbar spine. MUSCLES/TENDONS: Mild right-sided gluteus minimus tendinosis. Mild right-sided proximal hamstring tendinosis. [id number] left-sided proximal hamstring tendinosis with minimal intrasubstance partial tearing. No transverse tendon tear or tendon retraction. INTRAPELVIC STRUCTURES: Unremarkable. SOFT TISSUES: Trace fluid and edema within the greater trochanteric bursae, left greater than right, consistent with mild bursitis. No soft tissue mass or fluid collection. MR/MR pelvis wo con IMPRESSION: 1. Minimal degenerative arthritis at the sacroiliac joints. No evidence of acute sacroiliitis. 2. Shallow broad-based disc bulge at L5-S1 which appears slightly increased in prominence when compared to the prior MRI. No significant central canal or neural foraminal stenosis within the visualized lower lumbar spine. 3. Mild bilateral greater trochanteric bursitis, left greater than right. Mild right-sided gluteus minimus tendinosis. 4. Mild right-sided proximal hamstring tendinosis. [id number] left-sided proximal hamstring tendinosis with minimal intrasubstance partial tearing. Electronically signed by: Marco A Zeng MD 04/22/2024 09:56 AM EDT
== END 2024-03-19 09:03 | disposition home or self-care (01) ==
LOC: HO.MRI 09:02
PROVIDERS: PCP Internal Medicine; Visit Provider Anesthesiology
DX: M53.3 Sacrococcygeal disorders, not elsewhere classified (principal); M51.37 Other intervertebral disc degeneration, lumbosacral region
CPT/HCPCS: 72195

== ENCOUNTER 2024-03-27 13:46 | Outpatient (AMB) | payer OTHER, MEDICAID, SELFPAY ==
--- NOTE | 2024-03-27 13:50 | MHC.PC.OV ---
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: No Accompanied by: Self / Same As Patient Allergies No Known Allergies Allergy (Unknown, Verified 03/27/24 14:05) NONE Medication List - Last Reconciled 03/27/24 by Abi Thorpe MD ammonium lactate 12% 1 appl topical BID celecoxib 200 mg PO BID PRN 30 days cholecalciferol (vitamin D3) 50 mcg PO DAILY 90 days clotrimazole-betamethasone 1-0.05 % 1 appl topical BID 2 weeks duloxetine 60 mg PO DAILY folic acid 1 mg PO DAILY 90 days gabapentin 600 mg PO TID 30 days ketoconazole 2% topical levonorgestrel (Mirena) intrauterine nystatin 1 appl topical DAILY 30 days spironolactone 50 mg PO BID tizanidine 4 mg PO BEDTIME PRN 7 days tretinoin 0.05% appl topical BEDTIME PRN triamcinolone acetonide 0.1% topical Tobacco use date assessed: 11/16/23 Dental Screening Dental Screen Date: 11/16/23 HPI HPI Comments History of Present Illness Details This is a 43-year-old female with mild recurrent major depression that comes for her physical exam. Depression has been stable with duloxetine. Mammogram done 2022 was normal. Pap smear done 2022 was normal as per patient. No chest pain or shortness on breath. [facility] Medical History (Updated 03/27/24 @ 14:24 by Abi Thorpe MD) Carpal tunnel syndrome on both sides Pre-diabetes PCOS (polycystic ovarian syndrome) Spondylosis of cervical spine Bloody stools Right hip pain Abnormal brain MRI Hypovitaminosis D Mild recurrent major depression Pelvic pain in female New persistent daily headache Cervicalgia Right knee pain Knee pain, left Coccydynia Fibromyalgia Simple laceration of nose Nose disease Onychomycosis Obesity Depression with anxiety History of PCOS Hx of tension headache History of anemia Family history of fibromyalgia Hx of hearing loss Surgical History History of carpal tunnel surgery of right wrist Hx of colonoscopy History of esophagogastroduodenoscopy (EGD) Hx of section Hx of wisdom tooth extraction Family History Father CVD (cardiovascular disease) Mother Rheumatoid arthritis Mental health disorder Substance use disorder Paternal Aunt Uterine cancer Social History Housing: Apartment Alcohol intake: current Alcohol intake frequency: holidays/special occasions only Alcohol type: beer and wine Patient Tobacco Use Status: Former Tobacco user Tobacco use type: Cigarette e-Cigarette/Vaping Use: Never Used Second Hand Smoke Exposure: No Substance Use Type: Marijuana service: No Current occupational status: employed Current occupational exposures/hazards: No Sexual orientation: Straight/Heterosexual Gender identity: Female Cognitive needs: No Hearing needs: No Vision needs: Yes Female Reproductive History Menstrual Age of Menarche: 13 Questionnaire Thrive Questionnaire Date Thrive assessed: 11/16/23 YVONNE-7 AMB Questionnaire YVONNE-7 Date YVONNE - 7 assessed: 11/16/23 Source: Developed by Drs. Melvin Neal, Lindsey Ochoa, Vito Prabhakar and colleagues, with an educational angie from [employer]. Review of Systems Const All systems reviewed & are unremarkable except as noted in HPI and below Card Denies chest pain at rest, Denies chest pain with activity, Denies edema, Denies irregular heart rhythm, Denies claudication, Denies dyspnea, Denies dyspnea on exertion, Denies orthopnea, Denies paroxysmal nocturnal dyspnea and Denies slow heart rate Resp Denies cough, Denies dyspnea and Denies dyspnea on exertion GI Denies abdominal pain, Denies change in bowel habits, Denies excessive flatus, Denies nausea and Denies vomiting Denies urinary incontinence, Denies urinary hesitancy and Denies urinary urgency Physical exam (Primary Care) Vital Signs: Last Vital Signs BP 136/82 03/27/24 13:52 BMI result Body Mass Index 35.7 Tobacco/Smoking Status: Tobacco use Status Tobacco use date assessed 11/16/23 03/27/24 13:58 Patient Tobacco Use Status Former Tobacco user 03/27/24 13:58 Tobacco use type Cigarette 03/27/24 13:58 e-Cigarette/Vaping Use Never Used 03/27/24 13:58 Thrive Assessment: Date of Thrive Assessment Date Thrive assessed 11/16/23 03/27/24 13:[address] [facility] Head: Yes normal to inspection, Yes normocephalic and Yes atraumatic Ears: external ears normal Eyes General: appearance normal, both eyes and all related structures Eyelids: Yes eyelids normal Conjunctivae: conjunctivae normal Neck Neck: Yes normal visual inspection and Yes supple Resp Effort & Inspection: normal respiratory effort Auscultation: clear to auscultation bilaterally Cardio Jugular venous distension: no JVD Rate: regular rate Rhythm: regular rhythm Heart sounds: S1 normal heart sound present and S2 normal heart sound present GI Inspection: Yes normal to inspection Palpation (GI): Soft to palpation and nontender Auscultation: normal bowel sounds Skin General skin exam: no rashes or lesions noted Neuro General: no focal motor deficits Extrem General: Yes full ROM Psych Appearance: grossly normal Assessment and Plan Assessment & Plan (1) Physical exam: Code(s): Z00.00 - Encounter for general adult medical examination without abnormal findings Plan: Repeat in a year. (2) Mild recurrent major depression: Code(s): F33.0 - Major depressive disorder, recurrent, mild Plan: Continue duloxetine. Orders: Orders Comprehensive [place]. Panel Fast Today Z00.00 - Encounter for general adult medical examination without abnormal findings Lipid Panel Today Z00.00 - Encounter for general adult medical examination without abnormal findings Coding Level of Care Code Est Pt Prev Care 40-64y(88452) Diagnoses Physical exam Z00.00 Mild recurrent major depression F33.0 Time Spent (min) 30
[2024-03-27 13:52] VITALS: BP 136/82; BMI 35.7
== END 2024-03-27 14:20 | disposition home or self-care (01) ==
PROVIDERS: PCP Internal Medicine; Visit Provider Internal Medicine
DX: Z00.00 Encounter for general adult medical examination without abnormal findings (principal); F33.0 Major depressive disorder, recurrent, mild
CPT/HCPCS: 99396

== ENCOUNTER 2024-03-27 14:27 | Outpatient (REF) | payer OTHER, MEDICAID, SELFPAY | END 2024-03-27 14:28 | disposition home or self-care (01) | LOC: HO.LAB 14:27 | PROVIDERS: PCP Internal Medicine; Visit Provider Internal Medicine | DX: Z13.89 Encounter for screening for other disorder (principal) ==

== ENCOUNTER 2024-03-28 08:26 | Outpatient (REF) | payer OTHER, MEDICAID, SELFPAY ==
[2024-03-28 09:21] LABS: Alanine Aminotransferase 22 U/L (0-31); Albumin Level 4.3 g/dL (3.5-5.0); Alkaline Phosphatase 84 U/L (39-117); Anion Gap 13 (12-20); Aspartate Amino Transferase 17 U/L (5-31); Bilirubin Total 0.7 mg/dL (0.0-1.0); Blood Urea Nitrogen 7 mg/dL (9-16); Calcium 9.5 mg/dL (8.4-10.2); Carbon Dioxide 27 mmol/L (22-29); Chloride 103 mmol/L (96-108); Cholesterol 205 mg/dL (<200); Estimated Glomerular Filt Rate > 60; Glucose Fasting 121 mg/dL (60-99); HDL Cholesterol 50 mg/dL (>40); LDL Cholesterol Calculated 118 mg/dL (<100); Sodium 139 mmol/L (135-145); Total Protein 7.4 g/dL (6.5-8.0); Triglycerides 187 mg/dL (<150)
== END 2024-03-28 08:27 | disposition home or self-care (01) ==
LOC: HO.LAB 08:26
PROVIDERS: PCP Internal Medicine; Visit Provider Internal Medicine
DX: Z00.00 Encounter for general adult medical examination without abnormal findings (principal)
CPT/HCPCS: 36415; 80053; 80061

== ENCOUNTER 2024-04-29 08:13 | Outpatient (REF) | payer OTHER, MEDICAID, SELFPAY ==
[2024-04-29 10:13] LABS: Uric Acid 5.5 mg/dL (2.4-5.7)
== END 2024-04-29 08:14 | disposition home or self-care (01) ==
LOC: HO.LAB 08:13
PROVIDERS: PCP Internal Medicine; Visit Provider Internal Medicine
DX: M10.9 Gout, unspecified (principal)
CPT/HCPCS: 36415; 84550

== ENCOUNTER 2024-05-06 13:05 | Outpatient (AMB) | payer OTHER, MEDICAID, SELFPAY ==
--- NOTE | 2024-05-06 13:06 | MHC.OFFVIS ---
Intake Visit Reasons: MRI FOLLOW UP/RESULTS Allergies No Known Allergies Allergy (Unknown, Verified 03/27/24 14:05) NONE HPI Comments Details: Jasmyne is on the phone today to discuss results of the pelvis MRI. She was complaining on pain me in the area of the lower pelvis. She also was receiving with good results ganglion impar injections. She requested me to schedule her for yet another ganglion impar injection. On the MRI she also had proximal hamstring tendonitis as well as bilateral trochanteric bursitis. I explained to her I will be glad to inject ganglion impar for her and after that 1 month apart I will inject bilateral GTB. As of her hamstring tendinitis it is unlikely we can perform this injection in this office. Neither me know Dr. Muniz I will perform this procedure. Prior: Results of repeated ganglion impar + caudal epidural steroid injection. She reports excellent pain relief for the past month since the procedure. This is repetition of the procedure. Last time the results lasted for 4 months. However this time patient reports excellent results on ganglion impar with ability to sit for the long period of time, however she reports that pain in the projection of the sacral spine became little bit better however she still experiences pain in the projection of the sacral bone. We discuss the situation today. We discussed possibility of treatment this pain of the patient with neuromodulation in the future such as [place] caudal canal stimulation. She also complains on pain in the lateral trochanteric area for which in the past she received trochanteric bursa/trigger-point planned injections. It also was very good in effectiveness. However I can not do all 3 injections at once it will be too much of a dose of the steroid medications. I will invite her for the in-person visit after 1 month of the ganglion impar block and caudal epidural steroid injection without catheter we will discuss her other pain generators and I will be able to perform a trigger point injection into her trochanteric area. [facility] Medical History (Updated 05/06/24 @ 13:17 by Jake Beauchamp MD) Carpal tunnel syndrome on both sides Pre-diabetes PCOS (polycystic ovarian syndrome) Spondylosis of cervical spine Bloody stools Right hip pain Abnormal brain MRI Hypovitaminosis D Mild recurrent major depression Pelvic pain in female New persistent daily headache Cervicalgia Right knee pain Knee pain, left Coccydynia Fibromyalgia Simple laceration of nose Nose disease Onychomycosis Obesity Depression with anxiety History of PCOS Hx of tension headache History of anemia Family history of fibromyalgia Hx of hearing loss Surgical History History of carpal tunnel surgery of right wrist Hx of colonoscopy History of esophagogastroduodenoscopy (EGD) Hx of section Hx of wisdom tooth extraction Family History Father CVD (cardiovascular disease) Mother Rheumatoid arthritis Mental health disorder Substance use disorder Paternal Aunt Uterine cancer Social History Housing: Apartment Alcohol intake: current Alcohol intake frequency: holidays/special occasions only Alcohol type: beer and wine Patient Tobacco Use Status: Former Tobacco user Tobacco use type: Cigarette e-Cigarette/Vaping Use: Never Used Second Hand Smoke Exposure: No Substance Use Type: Marijuana service: No Current occupational status: employed Current occupational exposures/hazards: No Sexual orientation: Straight/Heterosexual Gender identity: Female Cognitive needs: No Hearing needs: No Vision needs: Yes Female Reproductive History Menstrual Age of Menarche: 13 Review of Systems Const All systems reviewed & are unremarkable except as noted in HPI and below Telehealth Telehealth Telehealth Platform: Telephone Location of provider rendering services: practice address Location of patient: address on file Patient Identification confirmed using: Name, : Yes Telehealth method: voice only Patient verbally consented to treatment: Yes Patient verbally consented to billing insurance company: Yes Patient informed of any privacy concerns related to visit: Yes Results Reviewed Results Reviewed: MR PELVIS WITHOUT CONTRAST CLINICAL INFORMATION: Pelvic and lumbar pain radiating into the bilateral legs. Sacrococcygeal disorder. COMPARISON: Most recent hip radiographs dated 08/02/2023, lumbar spine MRI dated 03/24/2022, and CT abdomen/pelvis dated 12/26/2020. TECHNIQUE: Multisequence MR imaging of the pelvis was obtained without contrast on a high-field strength scanner. FINDINGS: BONE: No marrow edema or evidence of acute osseous injury. No stress reaction, fracture, or femoral head avascular necrosis. No concerning lytic or blastic osseous lesion. Minimal subchondral cystic change of the anterior aspect of the right sacroiliac joint and inferior aspect of the left sacroiliac joint, consistent with minimal degenerative arthritis. No articular erosion, joint effusion, or marrow edema to suggest acute sacroiliitis. Shallow broad-based disc bulge at L5-S1 which appears slightly increased in prominence when compared to the prior MRI. No significant central canal or neural foraminal stenosis within the visualized lower lumbar spine. MUSCLES/TENDONS: Mild right-sided gluteus minimus tendinosis. Mild right-sided proximal hamstring tendinosis. Ukja-si-[id number] left-sided proximal hamstring tendinosis with minimal intrasubstance partial tearing. No transverse tendon tear or tendon retraction. INTRAPELVIC STRUCTURES: Unremarkable. SOFT TISSUES: Trace fluid and edema within the greater trochanteric bursae, left greater than right, consistent with mild bursitis. No soft tissue mass or fluid collection. IMPRESSION: 1. Minimal degenerative arthritis at the sacroiliac joints. No evidence of acute sacroiliitis. 2. Shallow broad-based disc bulge at L5-S1 which appears slightly increased in prominence when compared to the prior MRI. No significant central canal or neural foraminal stenosis within the visualized lower lumbar spine. 3. Mild bilateral greater trochanteric bursitis, left greater than right. Mild right-sided gluteus minimus tendinosis. 4. Mild right-sided proximal hamstring tendinosis. [id number] left-sided proximal hamstring tendinosis with minimal intrasubstance partial tearing. Assessment & Plan Assessment & Plan (1) Coccydynia: Code(s): M53.3 - Sacrococcygeal disorders, not elsewhere classified Category: Medical (2) Disc degeneration, lumbosacral: Code(s): M51.37 - Other intervertebral disc degeneration, lumbosacral region Category: Medical (3) Trochanteric bursitis of both hips: Code(s): M70.61 - Trochanteric bursitis, right hip; M70.62 - Trochanteric bursitis, left hip Category: Medical (4) Hamstring tendinitis of left thigh: Code(s): M76.892 - Other specified enthesopathies of left lower limb, excluding foot Category: Medical (5) Hamstring tendinitis of right thigh: Code(s): M76.891 - Other specified enthesopathies of right lower limb, excluding foot Category: Medical Plan Based on results of her MRI today we decided that I will perform ganglion impar injection 1st and after that I will invite her in my office to perform bilateral greater trochanteric injection 1 month apart. As of her bilateral hamstring tendinitis it is very unfortunate but nobody here can perform this kind of injection. Neuromodulation as [place] scientific caudal canal stimulation could be entertained in this patient. Patient Instructions: I here by testify that I spent 15 minutes in conversation with this patient as well as planning her care and organizing this note. Coding Level of Care Code Tele Est Pt Level 3 (92837) Diagnoses Coccydynia M53.3 Disc degeneration, lumbosacral M51.37 Trochanteric bursitis of both hips M70.61; M70.62 Hamstring tendinitis of left thigh M76.892 Hamstring tendinitis of right thigh M76.891
== END 2024-05-06 13:11 | disposition home or self-care (01) ==
LOC: HO.PMC 13:05
PROVIDERS: PCP Internal Medicine; Visit Provider Anesthesiology
DX: M53.3 Sacrococcygeal disorders, not elsewhere classified (principal); M51.37 Other intervertebral disc degeneration, lumbosacral region; M70.61 Trochanteric bursitis, right hip; M70.62 Trochanteric bursitis, left hip; M76.892 Other specified enthesopathies of left lower limb, excluding foot; M76.891 Other specified enthesopathies of right lower limb, excluding foot
CPT/HCPCS: 99442

== ENCOUNTER → 2024-05-06 13:05 | Outpatient (BNVA) | payer OTHER, MEDICAID, SELFPAY | PROVIDERS: PCP Internal Medicine; Visit Provider Anesthesiology ==

== ENCOUNTER 2024-06-22 09:53 | Outpatient (REF) | payer OTHER, MEDICAID, SELFPAY | END 2024-06-22 09:54 | disposition home or self-care (01) | LOC: HO.MRI 09:53 | PROVIDERS: PCP Internal Medicine; Visit Provider Internal Medicine | DX: M51.379 Other intervertebral disc degeneration, lumbosacral region without mention of lumbar back pain or lower extremity pain (principal) | CPT/HCPCS: 72148 ==

== ENCOUNTER 2024-06-28 09:41 | Outpatient (AMB) | payer MEDICAID, SELFPAY ==
--- NOTE | 2024-06-28 09:46 | A.SPINEOV_ITS ---
Intake Visit Reasons: LBP Intake Note: Ms. Harden is here today c/o low back pain. MRI done @ [facility] – [place]. 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 What she describes as pain in the sacral region. She believes that it may have started at 1 point a few years ago when she fell flat onto her tailbone when she was playing with 1 of her children. She also reports having had back pain and lower sacral pain during her pregnancies. She occasionally will get sciatica. She does get nerve blocks from Dr. Beauchamp in the sacral region and this seems to give her good 4-6 months' worth of pain relief. She had an MRI done showing some mild disc degeneration and came in to see us for an evaluation. PMH: Polycystic ovary syndrome, fibromyalgia, PTSD, anxiety, depression, perimenopause, , carpal tunnel release Social hx: She does not smoke, drink use any recreational drugs Medications: Duloxetine, hydroxyzine, Mirena, estradiol patch Allergies: None Physical exam: Strength and reflexes are normal, REED testing shows some mild discomfort in the sacral region. Imaging review: She is a lumbar MRI done here at [place] which essentially looks like normal MRI with just very mild disc bulging at L5-S1. Impression: 43-year-old female self-referred for chronic lower sacral pain that may or may not be related to a fall that she took a few years ago. She also had a during her pregnancies. Her MRI looks essentially normal. There is no surgical targets or anything I can see that was specifically point towards back pain. I explained to her that mild disc degeneration that she has is unlikely to cause intense sacral pain. She does not need surgery and can just follow up with to continue to get her shots. Thank you for allowing us to care for your patient. The total time spent with this visit with this patient was 45 minutes reviewing history, physical exam, lumbar imaging review, and implementation of treatment plan or further diagnostic testing Chester Szymanski MD,PhD [facility] Coding Level of Care Code New Pt Level 4 (06276) Diagnoses Coccydynia M53.3
== END 2024-06-28 10:24 | disposition home or self-care (01) ==
PROVIDERS: PCP Internal Medicine; Visit Provider Physician Assistant
DX: M53.3 Sacrococcygeal disorders, not elsewhere classified (principal)
CPT/HCPCS: 99204

== ENCOUNTER → 2024-06-28 09:41 | Outpatient (BNVA) | payer MEDICAID, SELFPAY | PROVIDERS: PCP Internal Medicine; Visit Provider Physician Assistant | DX: M53.3 Sacrococcygeal disorders, not elsewhere classified (principal) | CPT/HCPCS: 99212 ==

== ENCOUNTER 2024-08-09 12:36 | Day surgery (SDC) | payer OTHER, MEDICAID, SELFPAY ==
--- NOTE | 2024-08-08 09:16 | P.CONAN_ITS ---
Documented by User: Nickie Baca NP 08/08/24 09:18 HPI - Anesthesia Eval Consult details Narrative: 43yo F for Caudal Epidural Steroid Injection, Ganglion Impar Block s/p same 11/2023 with MAC Anesthesia Pre-Procedure Meds Is the patient on any of the following meds?: GLP1/DPP4 PMFSH Active Problems Active Problems: All Active Problems Left foot pain (Acute) Hamstring tendinitis of right thigh (Acute) Hamstring tendinitis of left thigh (Acute) Physical exam (Acute) Right knee pain (Acute) Right shoulder pain (Acute) Costochondritis, acute (Acute) Otitis media of left ear (Acute) Disc degeneration, lumbosacral (Acute) Immunization due (Acute) Cellulitis with lymphangitis (Acute) Cat bite of right hand (Acute) Nasal polyp (Acute) Trochanteric bursitis of both hips (Acute) IBS (irritable bowel syndrome) (Acute) H. pylori infection (Acute) STEPH (obstructive sleep apnea) (Acute) Coccydynia (Acute) Somatic dysfunction of right sacroiliac joint (Acute) Right shoulder tendinitis (Acute) Vaginal itching (Acute) Presence of 52 mg levonorgestrel-releasing intrauterine device (IUD) (Acute) Myofascial pain syndrome (Acute) Polyarthralgia (Acute) Obesity (BMI 35.0-39.9 without comorbidity) (Acute) Hand numbness (Acute) Protrusion of lumbar intervertebral disc (Acute) Ingrowing left great toenail (Acute) Spondylosis of lumbar spine (Acute) Disc degeneration, lumbar (Acute) Impaired glucose tolerance (Acute) Mixed hyperlipidemia (Acute) Lichen amyloidosis (Acute) Shingles (Acute) Daytime somnolence (Acute) Carpal tunnel syndrome of right wrist (Acute) Loud snoring (Acute) PCOS (polycystic ovarian syndrome) (Acute) Spondylosis of cervical spine (Acute) Bloody stools (Acute) Right hip pain (Acute) Abnormal brain MRI (Acute) Hypovitaminosis D (Acute) Mild recurrent major depression (Acute) Pelvic pain in female (Acute) New persistent daily headache (Acute) Cervicalgia (Acute) Right knee pain (Acute) Knee pain, left (Acute) Coccydynia (Acute) Fibromyalgia (Acute) Simple laceration of nose (Acute) Onychomycosis (Acute) Obesity (Acute) Depression with anxiety (Acute) Past Medical History Medical History Carpal tunnel syndrome on both sides Pre-diabetes PCOS (polycystic ovarian syndrome) Spondylosis of cervical spine Bloody stools Right hip pain Abnormal brain MRI Hypovitaminosis D Mild recurrent major depression Pelvic pain in female New persistent daily headache Cervicalgia Right knee pain Knee pain, left Coccydynia Fibromyalgia Simple laceration of nose Nose disease Onychomycosis Obesity Depression with anxiety History of PCOS Hx of tension headache History of anemia Family history of fibromyalgia Hx of hearing loss Family History Family History Father CVD (cardiovascular disease) Mother Rheumatoid arthritis Mental health disorder Substance use disorder Paternal Aunt Uterine cancer Family history of problems with anesthesia: No Surgical History Surgical History History of carpal tunnel surgery of right wrist Hx of colonoscopy History of esophagogastroduodenoscopy (EGD) Hx of section Hx of wisdom tooth extraction History of Problems with Anesthesia: No Social History Social History Housing: Apartment Are you a primary floor care specialist to a significant other at home: No Do you presently have visiting nurse or other home services: No Alcohol intake: current Alcohol intake frequency: holidays/special occasions only Alcohol type: beer and wine Patient Tobacco Use Status: Former Tobacco user Tobacco use type: Cigarette e-Cigarette/Vaping Use: Never Used Second Hand Smoke Exposure: No Substance Use Type: Marijuana Substance Use Frequency: Occasionally Have you been hit, kicked, punched, or otherwise hurt by someone within the past year? If so, by whom?: No Are you DNR?: No Advance Directives: No Advance Directives Information Provided: Yes Recently lost weight without trying: No Nutrition Risks: No Nutritional Risk FDLMP: mirena - don't have service: No Current occupational status: employed Current occupational exposures/hazards: No Sexual orientation: Straight/Heterosexual Gender identity: Female Cognitive needs: No Hearing needs: No Vision needs: Yes Meds Allergies Allergy/AdvReac Type Severity Reaction Status Date / Time No Known Allergies Allergy Unknown NONE Verified 08/09/24 13:03 Home Medications ?Medication ?Instructions ?Recorded ?Confirmed ?Last Taken ?Type ammonium lactate 12 % topical cream 1 applic topical BID 06/15/20 08/09/24 Unknown History levonorgestrel 21 mcg/24 hr (up to intrauterine 06/15/20 03/27/24 Unknown History 8 years) 52 mg intrauterine device (Mirena) spironolactone 50 mg tablet 50 mg PO BID 11/15/21 08/09/24 11/30/23 History tretinoin 0.05 % topical cream appl topical BEDTIME PRN 02/21/22 03/27/24 Unknown History hyperpigmentation triamcinolone acetonide 0.1 % topical 02/21/22 03/27/24 Unknown History topical ointment ketoconazole 2 % shampoo topical 09/12/22 03/27/24 Unknown History estradiol 0.025 mg/24 hr weekly 1 patch topical QWEEK 05/06/24 08/09/24 Unknown History transdermal patch tirzepatide (weight loss) 2.5 mg subcut 05/06/24 Unknown History mg/0.5 mL subcutaneous pen injector (Zepbound) Exam Pertinent Lab Results Pertinent Lab Results: Laboratory Tests 02/27/23 03/28/24 16:15 08:32 WBC 7.2 Hgb 13.5 Hct 42.7 Plt Count 405 H Sodium 139 Potassium 4.0 Chloride 103 Carbon Dioxide 27 BUN 7 L Creatinine 0.77 Assessment and Plan Assessment Anesthesia Assessment: Chart Reviewed Final Anesthetic Review Family History of Problems with Anesthesia: No History of Problems with Anesthesia: No Documented by User: Selene Mayo MD 08/09/24 13:17 ON LICENSE OF [facility] Past Medical History Medical History Carpal tunnel syndrome on both sides Pre-diabetes PCOS (polycystic ovarian syndrome) Spondylosis of cervical spine Bloody stools Right hip pain Abnormal brain MRI Hypovitaminosis D Mild recurrent major depression Pelvic pain in female New persistent daily headache Cervicalgia Right knee pain Knee pain, left Coccydynia Fibromyalgia Simple laceration of nose Nose disease Onychomycosis Obesity Depression with anxiety History of PCOS Hx of tension headache History of anemia Family history of fibromyalgia Hx of hearing loss Family History Family History Father CVD (cardiovascular disease) Mother Rheumatoid arthritis Mental health disorder Substance use disorder Paternal Aunt Uterine cancer Surgical History Surgical History History of carpal tunnel surgery of right wrist Hx of colonoscopy History of esophagogastroduodenoscopy (EGD) Hx of section Hx of wisdom tooth extraction Social History Social History Housing: Apartment Are you a primary floor care specialist to a significant other at home: No Do you presently have visiting nurse or other home services: No Alcohol intake: current Alcohol intake frequency: holidays/special occasions only Alcohol type: beer and wine Patient Tobacco Use Status: Former Tobacco user Tobacco use type: Cigarette e-Cigarette/Vaping Use: Never Used Second Hand Smoke Exposure: No Substance Use Type: Marijuana Substance Use Frequency: Occasionally Have you been hit, kicked, punched, or otherwise hurt by someone within the past year? If so, by whom?: No Are you DNR?: No Advance Directives: No Advance Directives Information Provided: Yes Recently lost weight without trying: No Nutrition Risks: No Nutritional Risk FDLMP: mirena - don't have service: No Current occupational status: employed Current occupational exposures/hazards: No Sexual orientation: Straight/Heterosexual Gender identity: Female Cognitive needs: No Hearing needs: No Vision needs: Yes Meds Allergies Allergy/AdvReac Type Severity Reaction Status Date / Time No Known Allergies Allergy Unknown NONE Verified 08/09/24 13:03 Home Medications ?Medication ?Instructions ?Recorded ?Confirmed ?Last Taken ?Type ammonium lactate 12 % topical cream 1 applic topical BID 06/15/20 08/09/24 Unknown History levonorgestrel 21 mcg/24 hr (up to intrauterine 06/15/20 03/27/24 Unknown History 8 years) 52 mg intrauterine device (Mirena) spironolactone 50 mg tablet 50 mg PO BID 11/15/21 08/09/24 11/30/23 History tretinoin 0.05 % topical cream appl topical BEDTIME PRN 02/21/22 03/27/24 Unknown History hyperpigmentation triamcinolone acetonide 0.1 % topical 02/21/22 03/27/24 Unknown History topical ointment ketoconazole 2 % shampoo topical 09/12/22 03/27/24 Unknown History estradiol 0.025 mg/24 hr weekly 1 patch topical QWEEK 05/06/24 08/09/24 Unknown History transdermal patch tirzepatide (weight loss) 2.5 mg subcut 05/06/24 Unknown History mg/0.5 mL subcutaneous pen injector ([facility]) Exam Airway Mallampati Class: II TM Dist: >3cm Neck ROM: Full Heart: rrr Lungs: cta Assessment and Plan Assessment Anesthesia Assessment: Anesthesia Plan Discussed Final Anesthetic Review NPO: Yes ASA Class: II Final Preanesthetic Review: No Changes in Pt Med Stat, Meds/Allgs Chart Reviewed, Consent Obtained/Reviewed and Anes Risks/Benef Reviewed Patient Risk: Intermediate Procedure Risk: Low Anesthetic Plan Anesthetic Plan: MAC: Disposition: Standard PACU
[2024-08-09 12:47] VITALS: BMI 34.0
[2024-08-09 12:58] LABS: UPreg QC Valid YES; Urine Pregnancy NEGATIVE (NEGATIVE)
[2024-08-09] MEDS: Lactated Ringers 1,000 ML 100 ML IVCONT (13:09)
[2024-08-09 13:19] VITALS: BP 114/70; PULSE 87; RESP 18; TEMP 36.7; O2SAT 98
--- NOTE | 2024-08-09 14:22 | PC.NURSE ---
report given to michael coffman rn. aware that needs to add second procedure description to 24 hour. And that 2 spots on preop record need to be signed after completion.
--- NOTE | 2024-08-09 14:25 | MHC.SHP ---
Pre-Procedural Eval Section A - 24 Hr Update-Section A only Date of Service: 08/09/24 The patient is an INPATIENT: No Changes since office visit: Yes Patient answered all questions The patient has been examined within 24 hours of the surgical procedure. The History & Physical has been completed within 30 days and I have reviewed it.: No Section B - Complete if H&P > 30 days Chief Complaint: Sacrococcygeal disorders, not elsewhere classified Details of Present Illness: as above Relevant Family History (Specify if Yes): No Relevant Social History: None Present Medications: see Short Stay Collaborative assessment Medical History: No relevant PMH History of Previous Operations: No relevant previous surgery Allergies: Allergies Allergy/AdvReac Type Severity Reaction Status Date / Time No Known Allergies Allergy Unknown NONE Verified 08/09/24 13:03 Review of Systems Sugical H&P ROS: Negative: Constitution, Cardiovascular, Respiratory, Neurological, Psychiatric, Hem-Onc, Allergic/Immunologic, Gastrointestinal, Genitourinary, Musculoskeletal, Integumentary, Endocrine and Eyes/Ears/Nose/Throat Exam Surgical H&P Exam: Normal: HEENT, Normal: Heart, Normal: Lungs, Normal: Extremities, Normal: Abdomen, Normal: Skin and Normal: Neurological Plan Diagnosis/Plan: Unchanged I have reviewed the history and physical and performed a pertinent physical examination on my patient. I will perform caudal FARHANA without catheter as well as ganglion impar injection. Time Spent With Patient Time: Total time managing care of this patient today ____ minutes.
--- NOTE | 2024-08-09 15:17 | PM.OP ---
Brief Operative Note Date of Service: 08/09/24 Pre-op diagnosis: Coccydynia, chronic pain syndrome Post-op diagnosis: same Procedure: Caudal epidural steroid injection, ganglion impar injection. Implants: None Surgeon: Jake Beauchamp MD Was an Hvac Sheet Metal Installer used for this Procedure?: No Estimated blood loss (mL): 0 Condition: stable Disposition: PACU
--- NOTE | 2024-08-09 15:18 | P.OP_ITS ---
Operative Note Operative Note Date of Service: 08/09/24 Narrative: Caudal FARHANA without catheter and ganglion impar injection.? Two separate procedures. After obtaining informed consent the patient was taken to the operating room where she was position on operating table prone.? ASA monitors applied and patient was moderately sedated ?Time-out was performed delineating correct site, side, the nature of the procedure, patient's allergy need for antibiotic therapy.? All operating room staff was participating in OR time-out procedure.? Her lower back, bilateral buttocks and intergluteal cleft were thoroughly prepped with ChloraPrep and draped with sterile fenestrated clear drape.? Fluoroscopy C-arm was brought over the operating field and picture of midline sacral bone superimposing on symphysis pubis was obtained on the C-arm screen.? After that the position of the C-arm was turned into the lateral.? The position of sacral hiatus was noted on the screen.? 2.5 cm below the sacral hiatus opening local anesthetic lidocaine 2% 3 cc was injected into the skin with 25 gauge 1/2 inch needle.? After that 10 cm 18 gauge Touhy needle was inserted through the skin and advanced the opening of sacral hiatus on intermittent anterior posterior and lateral views.? When needle entered the sacral canal injection of the contrast performed into the needle demonstrating epidural spread of the contrast.? After that injection of the treatment solution contai randy preservative-free lidocaine 1% 5 cc and Kenalog 40 mg was performed. After that attention was concentrated on the caudal spine the disc image between second and third caudal vertebrae was delineated on the screen.The 22 g 3-1/2 inch needle was inserted through the skin and advanced toward the disc under A/p and lateral intermittent views. When the needle entered the disc the projection of the C-arm was changed into lateral view and needle was slowly advanced into retropelvic space carefully monitoring the position of the tip of the needle. When tip of the needle cleared 2 mm outside of the anterior surface of the caudal spine the injection of the contrast was performed delineates retropelvic spread of the contrast and no intravascular, no intestinal and no vesical spread of the contrast. After that injection of the treatment solution containing lidocaine 1% 4 mls mixed with kenalog 40 mg was performed into the needle. the needle was withdrawn and sterile dressing 4x4s with bacitracin was applied. The patient tolerated procedure well and recovered uneventfully.?
[2024-08-09 15:25] VITALS: BP 106/64; PULSE 70; RESP 16; TEMP 36.1; O2SAT 100
[2024-08-09 15:40] VITALS: BP 119/71; PULSE 75; RESP 16; O2SAT 100
[2024-08-09 15:55] VITALS: BP 114/75; PULSE 75; RESP 16; O2SAT 100
[2024-08-09 16:05] VITALS: BP 123/83; PULSE 74; RESP 16; TEMP 36.1; O2SAT 100
[2024-08-09] MEDS: diphenhydrAMINE HCL 25 MG CAPSULE PO (16:22)
== END 2024-08-09 16:29 | disposition home or self-care (01) ==
PROVIDERS: Nurse Practitioner; PCP Internal Medicine; Visit Provider Anesthesiology
PROC: 3E0R3GC Introduction of Other Therapeutic Substance into Spinal Canal, Percutaneous Approach (ICD-10-PCS; CPT 62322; principal; 2024-08-09 14:10)
PROC: (CPT 62323; 2024-08-09 14:10)
DX: M53.3 Sacrococcygeal disorders, not elsewhere classified (principal); G89.4 Chronic pain syndrome; M47.898 Other spondylosis, sacral and sacrococcygeal region; M47.816 Spondylosis without myelopathy or radiculopathy, lumbar region; M76.892 Other specified enthesopathies of left lower limb, excluding foot; M76.891 Other specified enthesopathies of right lower limb, excluding foot; M79.7 Fibromyalgia; M70.61 Trochanteric bursitis, right hip; M25.551 Pain in right hip; M25.562 Pain in left knee; M25.561 Pain in right knee; R10.2 Pelvic and perineal pain; R51.9 Headache, unspecified; F33.0 Major depressive disorder, recurrent, mild; R73.03 Prediabetes; E28.2 Polycystic ovarian syndrome; E55.9 Vitamin D deficiency, unspecified; Z98.890 Other specified postprocedural states; Z87.891 Personal history of nicotine dependence; Z79.899 Other long term (current) drug therapy
CPT/HCPCS: 62323; 64999; 81025; J0665; J2003; J2704; J3301; Q9967

== ENCOUNTER → 2024-08-09 12:36 | Outpatient (BNV) | payer OTHER, MEDICAID, SELFPAY | PROVIDERS: PCP Internal Medicine; Visit Provider Anesthesiology | DX: M53.3 Sacrococcygeal disorders, not elsewhere classified (principal); G89.4 Chronic pain syndrome | CPT/HCPCS: 62323; 64999 ==

== ENCOUNTER 2024-08-15 16:25 | Outpatient (REF) | payer MEDICAID, SELFPAY ==
--- NOTE | ~2024-08-15 | XR_ITS ---
CLINICAL HISTORY: M79.672 - Pain in left foot Radiographs of the left foot, 3 views Comparison: 11/09/18 Findings: 1 mm ossific fragment at the 1st interphalangeal joint at the medial/plantar aspect, new since the prior studies. No dislocation. Small calcaneal spur. [id number] degenerative change of the 1st metatarsophalangeal joint, unchanged. The other joint spaces are preserved without osteophytosis. Bone mineralization is normal. Soft tissue swelling. Impression: 1 mm ossific fragment at the 1st interphalangeal joint, age indeterminate. Correlate with location of pain. [id number] degenerative change of the 1st metatarsophalangeal joint, unchanged. This document has been electronically signed by: Fawn Tarango MD on 08/15/2024 17:03:11
== END 2024-08-15 16:26 | disposition home or self-care (01) ==
LOC: HO.XRAY 16:25
PROVIDERS: PCP Internal Medicine; Visit Provider Internal Medicine
DX: M79.672 Pain in left foot (principal)
CPT/HCPCS: 73630

== ENCOUNTER → 2024-08-15 16:29 | Outpatient (BNV) | payer MEDICAID, SELFPAY | PROVIDERS: PCP Internal Medicine; Visit Provider Radiology Diagnostic Radiology | DX: M79.672 Pain in left foot (principal) | CPT/HCPCS: 73630 ==

== ENCOUNTER 2024-08-29 09:13 | Outpatient (AMB) | payer MEDICAID, SELFPAY ==
[2024-08-29 10:39] VITALS: BP 120/76; PULSE 68; O2SAT 97
--- NOTE | 2024-08-29 10:39 | AM.OFFWIN_ITS ---
Intake Vital Signs 08/29/24 10:39 Weight 168 lb BP 120/76 Blood Pressure Location Rt brachial Position Sitting Pulse 68 Pulse Source Pulse Oximeter Pulse Oximetry (%) 97 Oxygen Delivery Method Room Air Intake Visit Reasons: EP LT foot pain Intake Note: Patient here for severe left foot pain that started yesterday. Patient Tobacco Use Status: Former Tobacco user Allergies No Known Allergies Allergy (Unknown, Verified 08/29/24 10:40) NONE Do you need a note to return to daycare/school/sports/work: No HPI HPI Comments History of Present Illness Details History of Present Illness - The patient is a 44-year-old female pr esenting with intermittent left foot pain. - Initially assessed for gout; current d iagnosis includes a bone spur at the first metatarsophalangeal joint and a 1 mm ossific fragment. Her PCP sent podiatry referral. - Pain varies in severity, typically wor se in the morning, and improved with ibuprofen. - Reports difficulty in walking, particu larly when the left foot is weight- bearing. - Currently recovering from carpal tunne l release surgery, using NSAIDs for dual management of hand and foot discomfort. - patient also asking for a rapid strep test as her kids recently had strep. She denies any sore throat, fevers but does say she has some left ear pain that is mild and seems to be getting better. Physical Exam General: Cooperative, healthy appearing, comfortable, no acute distress and well developed Orientation: Patient oriented x3 Limitations: No limitations Head: Normal to inspection Ears: Hearing grossly normal bilaterally Nose: Normal external nose present Face and sinus: Normal facial exam Mouth: posterior oropharynx mild erythema with no exudates Eyes: Appearance normal, both eyes and all related structures Neck: Normal visual inspection and Yes full ROM Respiratory: Normal respiratory effort and able to speak in complete sentences. Skin: No rashes or lesions noted Neuro: Patient oriented x3 Extremities: as below [facility] Medical History Carpal tunnel syndrome on both sides Pre-diabetes PCOS (polycystic ovarian syndrome) Spondylosis of cervical spine Bloody stools Right hip pain Abnormal brain MRI Hypovitaminosis D Mild recurrent major depression Pelvic pain in female New persistent daily headache Cervicalgia Right knee pain Knee pain, left Coccydynia Fibromyalgia Simple laceration of nose Nose disease Onychomycosis Obesity Depression with anxiety History of PCOS Hx of tension headache History of anemia Family history of fibromyalgia Hx of hearing loss Surgical History History of carpal tunnel surgery of right wrist Hx of colonoscopy History of esophagogastroduodenoscopy (EGD) Hx of section Hx of wisdom tooth extraction Family History Father CVD (cardiovascular disease) Mother Rheumatoid arthritis Mental health disorder Substance use disorder Paternal Aunt Uterine cancer Social History Housing: Apartment Are you a primary palliative care coordinator to a significant other at home: No Do you presently have visiting nurse or other home services: No Alcohol intake: current Alcohol intake frequency: holidays/special occasions only Alcohol type: beer and wine Patient Tobacco Use Status: Former Tobacco user Tobacco use type: Cigarette e-Cigarette/Vaping Use: Never Used Second Hand Smoke Exposure: No Substance Use Type: Marijuana service: No Current occupational status: employed Current occupational exposures/hazards: No Sexual orientation: Straight/Heterosexual Gender identity: Female Cognitive needs: No Hearing needs: No Vision needs: Yes Female Reproductive History Menstrual Age of Menarche: 13 Review of Systems Const All systems reviewed & are unremarkable except as noted in HPI and below Physical Exam Vital Signs: Last Vital Signs Pulse 68 08/29/24 10:39 BP 120/76 08/29/24 10:39 Pulse Ox 97 08/29/24 10:39 Oxygen Delivery Method Room Air 08/29/24 10:39 Extrem Right lower extremity: normal to inspection and full ROM Left lower extremity: normal to inspection, full ROM and foot Details: normal capillary refill, normal to inspection, tenderness Location: of the calcaneus, toes with normal ROM, no edema, tendon exam Details: active flexion normal and active extension normal and motor-sensory exam Details: light-touch normal; no unusual warmth, no abrasions, no lacerations and no ecchymosis Results AMB Rapid Strep AMB Rapid Strep Negative Last Edit by MING Tolbert on 08/29/24 11:32 Results Reviewed Results Reviewed: Laboratory Last Values Strep Scn Rapid Clinic Negative 08/29/24 11:32 Assessment & Plan Assessment & Plan (1) Plantar fasciitis of left foot: Code(s): M72.2 - Plantar fascial fibromatosis Plan: Patient's PCP has already sent a referral to a motor grader rough grade, patient should address this issue if it continues while she is meeting with a motor grader rough grade. The management for the patient's intermittent left foot pain centers around addressing both the identified bone spur and possible plantar fasciitis symptoms. I have advised to continue using ibuprofen for inflammation reduction, and recommend shoe inserts for plantar fasciitis. Additionally, implementing a regimen of rolling a frozen water bottle under the foot is suggested to alleviate discomfort. The patient is also guided to minimize activities that exacerbate the pain. A referral to a motor grader rough grade is in place for further evaluation and additional management options, if needed. Follow-up actions will be guided based on podiatry recommendations post-consultation. Should the symptoms escalate, detailed changes in the treatment plan may be required. Patient was informed and verbally consented to the use of an ambient scribe for clinic note documentation during this visit. (2) Exposure to Streptococcal pharyngitis: Code(s): Z20.818 - Contact with and (suspected) exposure to other bacterial communicable diseases Plan: Patient completely asymptomatic and besides having a very mild posterior oropharynx, rapid strep in office is negative. If symptoms for strep throat should develop, patient should return for further testing and exam. Orders: Orders AMB Rapid Strep Screen Today Z13.9 - Encounter for screening, unspecified Coding Level of Care Code Est Pt Level 4 (21497) Diagnoses Plantar fasciitis of left foot M72.2 Exposure to Streptococcal pharyngitis Z20.818
== END 2024-08-29 11:35 | disposition home or self-care (01) ==
PROVIDERS: PCP Internal Medicine; Visit Provider Physician Assistant
DX: M72.2 Plantar fascial fibromatosis (principal); Z20.818 Contact with and (suspected) exposure to other bacterial communicable diseases; Z13.9 Encounter for screening, unspecified

== ENCOUNTER → 2024-08-29 09:13 | Outpatient (BNVA) | payer MEDICAID, SELFPAY | PROVIDERS: PCP Internal Medicine; Visit Provider Physician Assistant | DX: M72.2 Plantar fascial fibromatosis (principal); Z20.818 Contact with and (suspected) exposure to other bacterial communicable diseases | CPT/HCPCS: 87880; 99212 ==

== ENCOUNTER 2024-10-09 12:43 | Outpatient (REF) | payer OTHER, SELFPAY ==
--- NOTE | ~2024-10-09 | XR_ITS ---
CLINICAL HISTORY: M54.2 - Cervicalgia 3 views cervical spine Comparison: None Findings: Mild reversal of the cervical lordosis. No significant listhesis. Normal vertebral heights from C3-C6. Craniocervical junction and cervicothoracic junction are partly obscured. Ligament calcifications noted including anterior longitudinal ligament of the C5-C6. Small disc osteophyte complexes with likely mild spinal stenosis including C5-C6. Lower facet arthropathy is partially imaged by radiographs. No consolidation of the imaged lung apices. IMPRESSION: 1. Degenerative changes include disc osteophyte complex with mild spinal stenosis at C5-C6. 2. Mild reversal of the cervical lordosis. 3. Lower cervical facet arthropathy. This document has been electronically signed by: Eric Reddy MD on 10/10/2024 00:43:39
--- NOTE | ~2024-10-09 | XR_ITS ---
CLINICAL HISTORY: M25.511 - Pain in right shoulder 4 view right shoulder Comparison: X-rays of the right shoulder from 03/11/2024 Findings: No displaced fractures or dislocations. Likely small effusion of the right glenohumeral joint. Mild osteoarthritis of the right acromioclavicular joint and right glenohumeral joint, including osteophytes. Mild atelectasis in the [id number] IMPRESSION: 1. No acute fracture or dislocation. 2. Mild degenerative changes of the right shoulder. This document has been electronically signed by: Eric Reddy MD on 10/10/2024 00:39:03
--- NOTE | ~2024-10-09 | XR_ITS ---
CLINICAL HISTORY: M79.672 - Pain in left foot 3 view left foot Comparison: None Findings: No displaced fracture. No dislocation. Redemonstration of the partial fusion of the distal interphalangeal joint of the 4th digit and fusion of the distal interphalangeal joint of the 5th digit. Partial obscuration of the imaged midfoot with mild osteoarthritis. Accessory ossicle dorsal to the talus [id number] effusion of the imaged ankle. No radiopaque retained foreign body. Soft tissue swelling is nonspecific, including imaged midfoot. IMPRESSION: 1. No acute fracture or dislocation. 2. Variant fusion of the 4th and 5th digits. 3. Small effusion of the ankle This document has been electronically signed by: Eric Reddy MD on 10/10/2024 00:45:03
== END 2024-10-09 12:44 | disposition home or self-care (01) ==
LOC: HO.XRAY 12:43
PROVIDERS: PCP Internal Medicine; Visit Provider Internal Medicine
DX: M79.672 Pain in left foot (principal); G47.33 Obstructive sleep apnea (adult) (pediatric); E85.4 Organ-limited amyloidosis; L99 Other disorders of skin and subcutaneous tissue in diseases classified elsewhere; F33.0 Major depressive disorder, recurrent, mild; E66.09 Other obesity due to excess calories; Z68.34 Body mass index [BMI] 34.0-34.9, adult; M54.2 Cervicalgia; M25.511 Pain in right shoulder
CPT/HCPCS: 72040; 73030; 73630; 96127; 99212

== ENCOUNTER 2024-10-09 12:43 | Outpatient (AMB) | payer OTHER, SELFPAY ==
--- NOTE | 2024-10-09 12:45 | MHC.PC.OV ---
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: No Accompanied by: Self / Same As Patient Allergies No Known Allergies Allergy (Unknown, Verified 10/09/24 13:05) NONE Medication List - Last Reconciled 10/09/24 by Abi Thorep MD ammonium lactate 12% 1 appl topical BID cholecalciferol (vitamin D3) 50 mcg PO DAILY 90 days clotrimazole-betamethasone 1-0.05 % 1 appl topical BID 2 weeks duloxetine 60 mg PO DAILY 30 days estradiol 1 patch topical QWEEK folic acid 1 mg PO DAILY 90 days ketoconazole 2% topical levonorgestrel (Mirena) intrauterine tirzepatide (weight loss) (Zepbound) mg subcut tizanidine 4 mg PO BEDTIME PRN 7 days tretinoin 0.05% appl topical BEDTIME PRN triamcinolone acetonide 0.1% topical Tobacco use date assessed: 10/09/24 Dental Screening Dental Screen Date: 10/09/24 Did you have a dental visit in the last 12 months?: Yes Did you have a dental problem in the last 6 months where you did not have access to dental care?: No Was dental information given to patient?: Patient has dentist HPI HPI Comments History of Present Illness Details The patient is a 44-year-old female presenting with foot pain primarily on the left side linked to a history of degenerative arthritis. Symptoms began in 2021 after significant physical exertion during travel and have persisted with episodes of debilitating pain affecting ambulation. Imaging has indicated arthritis at the first metatarsal joint with associated osseous fragments causing increased symptoms upon inflammation. Despite negative gout testing, pain associated with the joint persists. The patient manages comorbidities including sleep apnea and anxiety and seeks to address obesity, which contributes to her medical challenges. Pending podiatry consultation is essential for further management of her condition. 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 [facility] Medical History Carpal tunnel syndrome on both sides Pre-diabetes PCOS (polycystic ovarian syndrome) Spondylosis of cervical spine Bloody stools Right hip pain Abnormal brain MRI Hypovitaminosis D Mild recurrent major depression Pelvic pain in female New persistent daily headache Cervicalgia Right knee pain Knee pain, left Coccydynia Fibromyalgia Simple laceration of nose Nose disease Onychomycosis Obesity Depression with anxiety History of PCOS Hx of tension headache History of anemia Family history of fibromyalgia Hx of hearing loss Surgical History History of carpal tunnel surgery of right wrist Hx of colonoscopy History of esophagogastroduodenoscopy (EGD) Hx of section Hx of wisdom tooth extraction Family History Father CVD (cardiovascular disease) Mother Rheumatoid arthritis Mental health disorder Substance use disorder Paternal Aunt Uterine cancer Social History Housing: Apartment Are you a primary personal care aide to a significant other at home: No Do you presently have visiting nurse or other home services: No Alcohol intake: current Alcohol intake frequency: holidays/special occasions only Alcohol type: beer and wine Patient Tobacco Use Status: Former Tobacco user Tobacco use type: Cigarette e-Cigarette/Vaping Use: Never Used Second Hand Smoke Exposure: No Substance Use Type: Marijuana service: No Current occupational status: employed Current occupational exposures/hazards: No Sexual orientation: Straight/Heterosexual Gender identity: Female Cognitive needs: No Hearing needs: No Vision needs: Yes Female Reproductive History Menstrual Age of Menarche: 13 Questionnaire PHQ-9 Over the last 2 weeks, how often have you been bothered by any of the following problems? 1. Little interest or pleasure in doing things: not at all 2. Feeling down, depressed, or hopeless: not at all 3. Trouble falling or staying asleep, or sleeping too much: not at all 4. Feeling tired or having little energy: not at all 5. Poor appetite or overeating: not at all 6. Feeling bad about yourself - or that you are a failure or have let yourself or your family down: not at all 7. Trouble concentrating on things, such as reading the newspaper or watching television: not at all 8. Moving or speaking so slowly that other people could have noticed. Or the opposite - being so fidgety or restless that you have been moving around a lot more than usual: not at all 9. Thoughts that you would be better off or of hurting yourself in some way: not at all Total score: 0 Depression Screening Interpretation: Negative Depression Screening Done: Yes 61075 - PHQ-9 Billing: Yes Source: Developed by Drs. Melvin Neal, Lindsey Ochoa, Vito Prabhakar and colleagues, with an educational angie from [employer]. Thrive Questionnaire Date Thrive assessed: 10/09/24 I am a: Patient What is your living situation today?: I have a steady place to live Within the past 12 months, did the food you bought not last and you didn't have the money to get more?: Never true Within the past 12 months, did you worry whether your food would run out before you got money to buy more?: Never true Do you have trouble paying for medicines?: No Do you have trouble getting transportation to medical appointments?: No Do you have trouble paying your heating and electricity bill?: No Do you have trouble taking care of your child, family member or friend?: No Do you have trouble with day-to-day activities such as bathing, preparing meals, shopping, managing finances, etc.?: No Are you currently unemployed and looking for a job?: No Are you interested in more education?: No Please select the resources that you would like help with: None Currently or been in a relationship where the following occur: No concerns reported THRIVE Score: 0 AUDIT C Alcohol Use Questionnaire (AUDIT-C) 1. How often do you have a drink containing alcohol?: Monthly or less 2. How many drinks containing alcohol do you have on a typical day when you are drinking?: 1 or 2 3. How often do you have six or more drinks on one occasion?: Never Total Score: 1 YVONNE-7 AMB Questionnaire YVONNE-7 Date YVONNE - 7 assessed: 10/09/24 Feeling nervous, anxious, or on edge: 1 = Several days Not being able to stop or control worryin = Not at all Worrying too much about different things: 1 = Several days Trouble relaxin = Not at all Being so restless that it is hard to sit still: 0 = Not at all Becoming easily annoyed or irritable: 0 = Not at all Feeling afraid as if something awful might happen: 0 = Not at all Total YVONNE-7 score (0-4 normal; 5-9 mild; 10-14 moderate; 15-21 severe): 2 Source: Developed by Drs. Melvin Neal, Lindsey Ochoa, Vito Prabhakar and colleagues, with an educational angie from [employer]. Review of Systems Const All systems reviewed & are unremarkable except as noted in HPI and below Card Denies chest pain at rest, Denies chest pain with activity, Denies edema, Denies irregular heart rhythm, Denies claudication, Denies dyspnea, Denies dyspnea on exertion, Denies orthopnea, Denies paroxysmal nocturnal dyspnea and Denies slow heart rate Resp Denies cough, Denies dyspnea and Denies dyspnea on exertion GI Denies abdominal pain, Denies change in bowel habits, Denies excessive flatus, Denies nausea and Denies vomiting Denies urinary incontinence, Denies urinary hesitancy and Denies urinary urgency Musc Denies atrophy, Denies deformity, Reports arthralgias and Denies limited range of motion Skin/Breast Denies bleeding lesions, Denies changing lesions and Denies rash Physical exam (Primary Care) Vital Signs: Last Vital Signs BP 122/84 10/09/24 12:50 BMI result Body Mass Index 34.8 BMI Assessment/Plan discussion: High BMI High, discussed plan: lifestyle, weight reduction, dietary and physical activity Tobacco/Smoking Status: Tobacco use Status Tobacco use date assessed 11/16/23 10/09/24 12:57 Patient Tobacco Use Status Former Tobacco user 10/09/24 12:57 Tobacco use type Cigarette 10/09/24 12:57 e-Cigarette/Vaping Use Never Used 10/09/24 12:57 Depression Screening Interpretation: Negative Thrive Assessment: Date of Thrive Assessment Date Thrive assessed 11/16/23 10/09/24 12:57 Currently or been in a relationship where the following occur: No concerns reported Resp Effort & Inspection: normal respiratory effort Auscultation: clear to auscultation bilaterally Cardio Jugular venous distension: no JVD Rate: regular rate Rhythm: regular rhythm Heart sounds: S1 normal heart sound present and S2 normal heart sound present Extrem General: Yes full ROM Left lower extremity: foot (tenderness) Coding Level of Care Code Est Pt Level 4 (53149) Complex EM visit Add On G2211 Diagnoses Left foot pain M79.672 STEPH (obstructive sleep apnea) G47.33 Lichen amyloidosis E85.4; L99 Mild recurrent major depression F33.0 Class 1 obesity due to excess calories without serious comorbidity with body mass index (BMI) of 34.0 to 34.9 in adult E66.09; Z68.34 Obesity type: due to excess calories Obesity classification: adult class 1 (BMI 30 - 34.9) Serious obesity comorbidity presence: without serious comorbidity Body mass index: BMI 34.0-34.9 Additional Codes PHQ-9 - 95344 - PHQ-9 Billing: Yes ([id number]) Time Spent (min) 21 Assessment & Plan Assessment & Plan (1) Left foot pain: Code(s): M79.672 - Pain in left foot Category: Medical (2) STEPH (obstructive sleep apnea): Comment: Mild degree of sleep apnea with increased severity in REM. Code(s): G47.33 - Obstructive sleep apnea (adult) (pediatric) Category: Medical (3) Lichen amyloidosis: Comment: dx via biopsy by derm, follows with Dr Sullivan Code(s): E85.4 - Organ-limited amyloidosis; L99 - Other disorders of skin and subcutaneous tissue in diseases classified elsewhere Category: Medical (4) Mild recurrent major depression: Code(s): F33.0 - Major depressive disorder, recurrent, mild Category: Medical (5) Obesity: Code(s): E66.9 - Obesity, unspecified Category: Medical Qualifiers: Obesity type: due to excess calories Obesity classification: adult class 1 (BMI 30 - 34.9) Serious obesity comorbidity presence: without serious comorbidity Body mass index: BMI 34.0-34.9 Qualified Code(s): E66.09 - Other obesity due to excess calories; Z68.34 - Body mass index [BMI] 34.0-34.9, adult Plan I discussed the utilization of topical analgesics for foot pain management, primarily targeting degenerative arthritis in the left metatarsal region. An urgent podiatry appointment is vital for ongoing care. For weight management considering sleep apnea, I reviewed the potential of initiating phentermine therapy with careful monitoring, reflecting the need to address obesity impact on broader health concerns. Further integration with endocrinology was recommended post-phentermine evaluation. Managing the patient's anxiety regarding medications was part of the broader management strategy, ensuring comprehensive care across her multiple diagnoses. Patient was informed and verbally consented to the use of an ambient scribe for clinic note documentation during this visit. I provided a detailed explanation about the probable efficacy of diclofenac gel for local pain relief linked to the arthritic condition affecting her foot. I emphasized the need for prompt podiatric evaluation to confirm the diagnosis and potentially perform interventions. Addressing obesity was highlighted as significant, particularly in combination with comorbid sleep apnea and any resultant fatigue impacts. I assured the patient of the phased approach regarding phentermine introduction to balance her concerns about side effects while assisting in weight management, pending follow-up actions regarding endocrinological guidance. Discussion included the necessity for vigilant monitoring and regular reviews to gauge treatment tolerability and effects. Medications: New diclofenac sodium 1% (Arthritis Pain (diclofenac)) apply to single elbow, wrist or hand; for hand includes palm/fingers/back of hand 2 grams topical QID 30 days 100 grams 1RF Patient Instructions: - Apply diclofenac gel to the affected area as instructed for localized pain management. - Follow up urgently with the podiatry specialist as scheduled to evaluate foot pain in detail. - Consider the initiation of phentermine therapy under guidance, starting with a low dose to monitor side effects. - Maintain regular contact with your healthcare providers to discuss any changes in symptoms or treatment efficacy. - Continue addressing weight management with appropriate lifestyle modifications, as recommended. - Report any adverse reactions or significant changes to symptoms promptly.
[2024-10-09 12:50] VITALS: BP 122/84; BMI 34.8
== END 2024-10-09 13:17 | disposition home or self-care (01) ==
PROVIDERS: PCP Internal Medicine; Visit Provider Internal Medicine
DX: M79.672 Pain in left foot (principal); E85.4 Organ-limited amyloidosis; F33.0 Major depressive disorder, recurrent, mild; E66.09 Other obesity due to excess calories; Z68.34 Body mass index [BMI] 34.0-34.9, adult; G47.33 Obstructive sleep apnea (adult) (pediatric); L99 Other disorders of skin and subcutaneous tissue in diseases classified elsewhere

== ENCOUNTER → 2024-10-09 13:40 | Outpatient (BNV) | payer OTHER, SELFPAY | PROVIDERS: PCP Internal Medicine; Visit Provider Radiology Neuroradiology | DX: Q70.22 Fused toes, left foot (principal); M25.475 Effusion, left foot; M25.511 Pain in right shoulder; M48.02 Spinal stenosis, cervical region; M25.78 Osteophyte, vertebrae; M50.322 Other cervical disc degeneration at C5-C6 level | CPT/HCPCS: 72040; 73030; 73630 ==

== ENCOUNTER 2024-10-24 12:05 | Outpatient (REF) | payer OTHER, SELFPAY ==
--- NOTE | ~2024-10-24 | XR_ITS ---
CLINICAL HISTORY: M25.552 - Pain in left hip 4 view, pelvis and bilateral hips Comparison: None Findings: No acute fracture or dislocation. No significant arthritic change. The soft tissues are unremarkable. There is an IUD in the mid pelvis. IMPRESSION: No acute findings. This document has been electronically signed by: Obed Alicia MD on 10/26/2024 08:06:23
== END 2024-10-24 12:06 | disposition home or self-care (01) ==
LOC: HO.XRAY 12:05
PROVIDERS: PCP Internal Medicine; Visit Provider Internal Medicine
DX: M25.552 Pain in left hip (principal); M25.551 Pain in right hip
CPT/HCPCS: 73522

== ENCOUNTER → 2024-10-24 12:11 | Outpatient (BNV) | payer OTHER, SELFPAY | PROVIDERS: PCP Internal Medicine; Visit Provider Specialist | DX: M25.552 Pain in left hip (principal) | CPT/HCPCS: 73522 ==

== ENCOUNTER 2024-11-20 10:13 | Outpatient (AMB) | payer OTHER, SELFPAY ==
[2024-11-20 10:20] VITALS: BP 123/65; PULSE 89; O2SAT 96; BMI 31.6
--- NOTE | 2024-11-20 10:20 | MHC.OFFVIS ---
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: No Allergies No Known Allergies Allergy (Unknown, Verified 11/20/24 10:21) NONE Medication List - Last Reconciled 11/20/24 by Kyung Dietz, SPOUT POSITIONER ammonium lactate 12% 1 appl topical BID cholecalciferol (vitamin D3) 50 mcg PO DAILY 90 days clotrimazole-betamethasone 1-0.05 % 1 appl topical BID 2 weeks diclofenac sodium 1% (Arthritis Pain (diclofenac)) 2 grams topical QID 30 days duloxetine 60 mg PO DAILY 30 days estradiol 1 patch topical QWEEK folic acid 1 mg PO DAILY 90 days ketoconazole 2% topical levonorgestrel (Mirena) intrauterine [phentermine 37.5 mg PO] tizanidine 4 mg PO BEDTIME PRN 7 days tretinoin 0.05% appl topical BEDTIME PRN triamcinolone acetonide 0.1% topical HPI Comments Details: Jasmyne is on the phone today to discuss results of the pelvis MRI. She was complaining on pain me in the area of the lower pelvis. She also was receiving with good results ganglion impar injections. She requested me to schedule her for yet another ganglion impar injection. I will schedule her for the procedure. Results of repeated ganglion impar + caudal epidural steroid injection. She reported excellent pain relief for the past month since the procedure. This is repetition of the procedure. Last time the results lasted for 4 months. However this time patient reports excellent results on ganglion impar with ability to sit for the long period of time, however she reports that pain in the projection of the sacral spine became little bit better however she still experiences pain in the projection of the sacral bone. The pain in her hip areas are better today. We decided against performing bilateral trochanteric bursa injection. She complains on more pain on the left side. I told her when they pain in the trochanteric bursa will get exacerbated the procedure of trochanteric bursa injection could be performed however she needs to understand that it will not be scheduled with the 1 month before 1 month after ganglion impar and caudal epidural steroid injection. She also complains on pain in the left wrist where she had carpal tunnel release surgery. She had only 6 sessions of physical therapy. I recommended her to have at least 12 sessions and extensive home exercise program. I also recommended her to have occupational therapy for for the wrist. She will get into contact with the surgeon who did the procedure and request the extension of the physical therapy. [facility] Medical History Carpal tunnel syndrome on both sides Pre-diabetes PCOS (polycystic ovarian syndrome) Spondylosis of cervical spine Bloody stools Right hip pain Abnormal brain MRI Hypovitaminosis D Mild recurrent major depression Pelvic pain in female New persistent daily headache Cervicalgia Right knee pain Knee pain, left Coccydynia Fibromyalgia Simple laceration of nose Nose disease Onychomycosis Obesity Depression with anxiety History of PCOS Hx of tension headache History of anemia Family history of fibromyalgia Hx of hearing loss Surgical History History of carpal tunnel surgery of right wrist Hx of colonoscopy History of esophagogastroduodenoscopy (EGD) Hx of section Hx of wisdom tooth extraction Family History Father CVD (cardiovascular disease) Mother Rheumatoid arthritis Mental health disorder Substance use disorder Paternal Aunt Uterine cancer Social History Housing: Apartment Are you a primary personal care service provider to a significant other at home: No Do you presently have visiting nurse or other home services: No Alcohol intake: current Alcohol intake frequency: holidays/special occasions only Alcohol type: beer and wine Patient Tobacco Use Status: Former Tobacco user Tobacco use type: Cigarette e-Cigarette/Vaping Use: Never Used Second Hand Smoke Exposure: No Substance Use Type: Marijuana service: No Current occupational status: employed Current occupational exposures/hazards: No Sexual orientation: Straight/Heterosexual Gender identity: Female Cognitive needs: No Hearing needs: No Vision needs: Yes Female Reproductive History Menstrual Age of Menarche: 13 Review of Systems Const All systems reviewed & are unremarkable except as noted in HPI and below Physical Exam Vital Signs: Last Vital Signs Pulse 89 11/20/24 10:20 BP 123/65 11/20/24 10:20 Pulse Ox 96 11/20/24 10:20 Oxygen Delivery Method Room Air 11/20/24 10:20 BMI result Body Mass Index 31.6 Const General: comfortable, no acute distress, well developed, alert and awake Eyes Pupils: Equal, round and reactive pupils present EOM: EOMs intact bilaterally Chest Chest palpation & inspection: normal inspection of the chest Resp Effort & Inspection: normal respiratory effort, able to speak in complete sentences, normal respiratory pattern, no audible wheezes and no cough Cardio Jugular venous distension: no JVD Back/Spine/Pelvis Other: On physical exam she does not exhibit any signs of the tenderness on the palpation of spinal and paraspinal regions of the lumbar spine. Most of the palpation and tenderness related to the area of the sacral bone. She exhibits remarkable flexibility of the lumbar spine without any difficulty flexing forward or backward. She exhibits no pain with loading test. She exhibits pain with Miguel test. SLR is negative for pain increase. Neuro Cranial nerves: Yes Equal, round and reactive pupils present Extrem Other: Tenderness on palpation on bilateral trochanteric bursa radiating down lateral hips. Left wrist inspection there is very well-healed scar in the projection of the carpal tunnel typical surgery. There is no swelling no redness no pathological discharge. Psych Speech and movement: Normal speech and movement present Affect: normal affect Attitude: cooperative Results Reviewed Results Reviewed: MR PELVIS WITHOUT CONTRAST CLINICAL INFORMATION: Pelvic and lumbar pain radiating into the bilateral legs. Sacrococcygeal disorder. COMPARISON: Most recent hip radiographs dated 08/02/2023, lumbar spine MRI dated 03/24/2022, and CT abdomen/pelvis dated 12/26/2020. TECHNIQUE: Multisequence MR imaging of the pelvis was obtained without contrast on a high-field strength scanner. FINDINGS: BONE: No marrow edema or evidence of acute osseous injury. No stress reaction, fracture, or femoral head avascular necrosis. No concerning lytic or blastic osseous lesion. Minimal subchondral cystic change of the anterior aspect of the right sacroiliac joint and inferior aspect of the left sacroiliac joint, consistent with minimal degenerative arthritis. No articular erosion, joint effusion, or marrow edema to suggest acute sacroiliitis. Shallow broad-based disc bulge at L5-S1 which appears slightly increased in prominence when compared to the prior MRI. No significant central canal or neural foraminal stenosis within the visualized lower lumbar spine. MUSCLES/TENDONS: Mild right-sided gluteus minimus tendinosis. Mild right-sided proximal hamstring tendinosis. [id number] left-sided proximal hamstring tendinosis with minimal intrasubstance partial tearing. No transverse tendon tear or tendon retraction. INTRAPELVIC STRUCTURES: Unremarkable. SOFT TISSUES: Trace fluid and edema within the greater trochanteric bursae, left greater than right, consistent with mild bursitis. No soft tissue mass or fluid collection. IMPRESSION: 1. Minimal degenerative arthritis at the sacroiliac joints. No evidence of acute sacroiliitis. 2. Shallow broad-based disc bulge at L5-S1 which appears slightly increased in prominence when compared to the prior MRI. No significant central canal or neural foraminal stenosis within the visualized lower lumbar spine. 3. Mild bilateral greater trochanteric bursitis, left greater than right. Mild right-sided gluteus minimus tendinosis. 4. Mild right-sided proximal hamstring tendinosis. Qgek-[id number] left-sided proximal hamstring tendinosis with minimal intrasubstance partial tearing. Assessment & Plan Assessment & Plan (1) Coccydynia: Code(s): M53.3 - Sacrococcygeal disorders, not elsewhere classified Category: Medical (2) Disc degeneration, lumbosacral: Code(s): M51.37 - Other intervertebral disc degeneration, lumbosacral region Category: Medical (3) Trochanteric bursitis of both hips: Code(s): M70.61 - Trochanteric bursitis, right hip; M70.62 - Trochanteric bursitis, left hip Category: Medical (4) Hamstring tendinitis of left thigh: Code(s): M76.892 - Other specified enthesopathies of left lower limb, excluding foot Category: Medical (5) Hamstring tendinitis of right thigh: Code(s): M76.891 - Other specified enthesopathies of right lower limb, excluding foot Category: Medical Plan I will schedule this patient for ganglion impar and caudal epidural steroid injection without catheter as it was planned in the past. She has degenerative changes in bilateral sacroiliac joints on MRI which could be yet another source of pain generations for this patient. As of her bilateral hamstring tendinitis it is very unfortunate but nobody here can perform this kind of injection. Her trochanteric bursa pain is very low. She reports pain 3/10. We decided not to perform the steroid trigger point injection today. Neuromodulation as [employer] scientific caudal canal stimulation could be entertained in this patient. Coding Level of Care Code Est Pt Level 3 (82999) Diagnoses Coccydynia M53.3 Disc degeneration, lumbosacral M51.37 Trochanteric bursitis of both hips M70.61; M70.62 Hamstring tendinitis of left thigh M76.892 Hamstring tendinitis of right thigh M76.891
== END 2024-11-20 10:33 | disposition home or self-care (01) ==
LOC: HO.PMC 10:14
PROVIDERS: PCP Internal Medicine; Visit Provider Anesthesiology
DX: M53.3 Sacrococcygeal disorders, not elsewhere classified (principal); M51.379 Other intervertebral disc degeneration, lumbosacral region without mention of lumbar back pain or lower extremity pain; M70.61 Trochanteric bursitis, right hip; M70.62 Trochanteric bursitis, left hip; M76.892 Other specified enthesopathies of left lower limb, excluding foot; M76.891 Other specified enthesopathies of right lower limb, excluding foot
CPT/HCPCS: 99213

== ENCOUNTER → 2024-11-20 10:13 | Outpatient (BNVA) | payer OTHER, SELFPAY | PROVIDERS: PCP Internal Medicine; Visit Provider Anesthesiology | DX: M53.3 Sacrococcygeal disorders, not elsewhere classified (principal); M51.379 Other intervertebral disc degeneration, lumbosacral region without mention of lumbar back pain or lower extremity pain; M70.61 Trochanteric bursitis, right hip; M70.62 Trochanteric bursitis, left hip; M76.892 Other specified enthesopathies of left lower limb, excluding foot; M76.891 Other specified enthesopathies of right lower limb, excluding foot | CPT/HCPCS: 99212 ==

== ENCOUNTER 2024-12-19 11:32 | Outpatient (AMB) | payer OTHER, SELFPAY ==
[2024-12-19 11:46] VITALS: BP 120/63; PULSE 80; O2SAT 100; BMI 34.6
--- NOTE | 2024-12-19 11:46 | A.OFFVIS_ITS ---
Vital Signs 12/19/24 11:46 Height 4 ft 9 in Weight 160 lb BMI 34.6 BP 120/63 Blood Pressure Location Rt brachial Position Sitting Pulse 80 Pulse Source Pulse Oximeter Pulse Oximetry (%) 100 Oxygen Delivery Method Room Air Intake Visit Reasons: Pain coming back/fu to repeat block inj Intake Note: Pain today 10/14 Area Attendant Required: No Accompanied by: Mother Allergies No Known Allergies Allergy (Unknown, Verified 12/19/24 11:47) NONE HPI Comments Details: Jasmyne is in my office today to discuss her options. Unfortunately her new insurance Medicaid subsidiary did not approve the injections we used to do for this patient for years. She reported that ganglion impar in caudal epidural steroid injection alleviated her pain in the significant extent I gave her pain relief for 9-12 months each time after the procedure with pain improvement at least 75%. I did 2. peer to peer reviews with 2 doctor's from her insurance company now we are waiting for a pill letter about this procedure. I honestly recommended the patient to consider dropping this insurance in May and enroll herself into traditional Medicaid. Results of repeated ganglion impar + caudal epidural steroid injection. She reported excellent pain relief for the past month since the procedure. This is repetition of the procedure. Last time the results lasted for 4 months. However this time patient reports excellent results on ganglion impar with ability to sit for the long period of time, however she reports that pain in the projection of the sacral spine became little bit better however she still experiences pain in the projection of the sacral bone. The pain in her hip areas are better today. We decided against performing bilateral trochanteric bursa injection. She complains on more pain on the left side. I told her when they pain in the trochanteric bursa will get exacerbated the procedure of trochanteric bursa injection could be performed however she needs to understand that it will not be scheduled with the 1 month before 1 month after ganglion impar and caudal epidural steroid injection. She also complains on pain in the left wrist where she had carpal tunnel release surgery. She had only 6 sessions of physical therapy. I recommended her to have at least 12 sessions and extensive home exercise program. I also recommended her to have occupational therapy for for the wrist. She will get into contact with the surgeon who did the procedure and request the extension of the physical therapy. [facility] Medical History Carpal tunnel syndrome on both sides Pre-diabetes PCOS (polycystic ovarian syndrome) Spondylosis of cervical spine Bloody stools Right hip pain Abnormal brain MRI Hypovitaminosis D Mild recurrent major depression Pelvic pain in female New persistent daily headache Cervicalgia Right knee pain Knee pain, left Coccydynia Fibromyalgia Simple laceration of nose Nose disease Onychomycosis Obesity Depression with anxiety History of PCOS Hx of tension headache History of anemia Family history of fibromyalgia Hx of hearing loss Surgical History History of carpal tunnel surgery of right wrist Hx of colonoscopy History of esophagogastroduodenoscopy (EGD) Hx of section Hx of wisdom tooth extraction Family History Father CVD (cardiovascular disease) Mother Rheumatoid arthritis Mental health disorder Substance use disorder Paternal Aunt Uterine cancer Social History Housing: Apartment Are you a primary child care center assistant director to a significant other at home: No Do you presently have visiting nurse or other home services: No Alcohol intake: current Alcohol intake frequency: holidays/special occasions only Alcohol type: beer and wine Patient Tobacco Use Status: Former Tobacco user Tobacco use type: Cigarette e-Cigarette/Vaping Use: Never Used Second Hand Smoke Exposure: No Substance Use Type: Marijuana service: No Current occupational status: employed Current occupational exposures/hazards: No Sexual orientation: Straight/Heterosexual Gender identity: Female Cognitive needs: No Hearing needs: No Vision needs: Yes Female Reproductive History Menstrual Age of Menarche: 13 Review of Systems Const All systems reviewed & are unremarkable except as noted in HPI and below Physical Exam Vital Signs: Last Vital Signs Pulse 80 12/19/24 11:46 BP 120/63 12/19/24 11:46 Pulse Ox 100 12/19/24 11:46 Oxygen Delivery Method Room Air 12/19/24 11:46 BMI result Body Mass Index 34.6 Const General: comfortable, no acute distress, well developed, alert and awake Eyes Pupils: Equal, round and reactive pupils present EOM: EOMs intact bilaterally Chest Chest palpation & inspection: normal inspection of the chest Resp Effort & Inspection: normal respiratory effort, able to speak in complete sentences, normal respiratory pattern, no audible wheezes and no cough Cardio Jugular venous distension: no JVD Back/Spine/Pelvis Other: On physical exam she does not exhibit any signs of the tenderness on the palpation of spinal and paraspinal regions of the lumbar spine. Most of the palpation and tenderness related to the area of the sacral bone. She exhibits remarkable flexibility of the lumbar spine without any difficulty flexing forward or backward. She exhibits no pain with loading test. She exhibits pain with Miguel test. SLR is negative for pain increase. Neuro Cranial nerves: Yes Equal, round and reactive pupils present Extrem Other: Tenderness on palpation on bilateral trochanteric bursa radiating down lateral hips. Left wrist inspection there is very well-healed scar in the projection of the carpal tunnel typical surgery. There is no swelling no redness no pathological discharge. Psych Speech and movement: Normal speech and movement present Affect: normal affect Attitude: cooperative Results Reviewed Results Reviewed: MR PELVIS WITHOUT CONTRAST CLINICAL INFORMATION: Pelvic and lumbar pain radiating into the bilateral legs. Sacrococcygeal disorder. COMPARISON: Most recent hip radiographs dated 08/02/2023, lumbar spine MRI dated 03/24/2022, and CT abdomen/pelvis dated 12/26/2020. TECHNIQUE: Multisequence MR imaging of the pelvis was obtained without contrast on a high-field strength scanner. FINDINGS: BONE: No marrow edema or evidence of acute osseous injury. No stress reaction, fracture, or femoral head avascular necrosis. No concerning lytic or blastic osseous lesion. Minimal subchondral cystic change of the anterior aspect of the right sacroiliac joint and inferior aspect of the left sacroiliac joint, consistent with minimal degenerative arthritis. No articular erosion, joint effusion, or marrow edema to suggest acute sacroiliitis. Shallow broad-based disc bulge at L5-S1 which appears slightly increased in prominence when compared to the prior MRI. No significant central canal or neural foraminal stenosis within the visualized lower lumbar spine. MUSCLES/TENDONS: Mild right-sided gluteus minimus tendinosis. Mild right-sided proximal hamstring tendinosis. Kjsl-zt-fjserbdu left-sided proximal hamstring tendinosis with minimal intrasubstance partial tearing. No transverse tendon tear or tendon retraction. INTRAPELVIC STRUCTURES: Unremarkable. SOFT TISSUES: Trace fluid and edema within the greater trochanteric bursae, left greater than right, consistent with mild bursitis. No soft tissue mass or fluid collection. IMPRESSION: 1. Minimal degenerative arthritis at the sacroiliac joints. No evidence of acute sacroiliitis. 2. Shallow broad-based disc bulge at L5-S1 which appears slightly increased in prominence when compared to the prior MRI. No significant central canal or neural foraminal stenosis within the visualized lower lumbar spine. 3. Mild bilateral greater trochanteric bursitis, left greater than right. Mild right-sided gluteus minimus tendinosis. 4. Mild right-sided proximal hamstring tendinosis. Uzwr-kh-ekkctkhv left-sided proximal hamstring tendinosis with minimal intrasubstance partial tearing. Assessment & Plan Assessment & Plan (1) Coccydynia: Code(s): M53.3 - Sacrococcygeal disorders, not elsewhere classified Category: Medical (2) Disc degeneration, lumbosacral: Code(s): M51.37 - Other intervertebral disc degeneration, lumbosacral region Category: Medical (3) Trochanteric bursitis of both hips: Code(s): M70.61 - Trochanteric bursitis, right hip; M70.62 - Trochanteric bursitis, left hip Category: Medical (4) Hamstring tendinitis of left thigh: Code(s): M76.892 - Other specified enthesopathies of left lower limb, excluding foot Category: Medical (5) Hamstring tendinitis of right thigh: Code(s): M76.891 - Other specified enthesopathies of right lower limb, excluding foot Category: Medical Plan Denial of the ganglion impar and caudal epidural steroid injection without catheter . We are waiting for the results of the last a pill. If the results of the opioids will be negative the only option I can offer to the patient is to switch to traditional Medicaid/[facility] in May when there will be open enrollment period. She also has degenerative changes in bilateral sacroiliac joints we could address this with injections. Coding Level of Care Code Est Pt Level 3 (33281) Diagnoses Coccydynia M53.3 Disc degeneration, lumbosacral M51.37 Trochanteric bursitis of both hips M70.61; M70.62 Hamstring tendinitis of left thigh M76.892 Hamstring tendinitis of right thigh M76.891
--- OUTSIDE RECORDS SUMMARY | 2024-12-19 12:40 | XMS_ITS | Clinical Summary ---
Author Organization Patient Business Ser [facility] Address [address] [place] [address] Care Team Providers Care Pet Resort Concierge Name Role Phone Abi Thorpe MD Primary Care Provider [phone] Social History Tobacco Use Types Packs/Day Years Used Date Smoking Tobacco: Never Assessed Comments Unknown Sex and Gender Information Value Date Recorded Sex Assigned at Female 10/24/2024 11:09 AM EDT Legal Sex Female 10:44 AM EDT Gender Identity Female 10/24/2024 11:09 AM EDT Sexual Orientation Straight 10/24/2024 11 :09 AM EDT Plan of Treatment Upcoming Encounters Date Type Department Care Team (Late st Contact Info) Description 02/11/2025 1:30 PM EDT Consult Orthopedic Surgery - [place] [address] [phone] Jordy Garza, DPAve [address] [address] Health Maintenance Due Date Last Done Comments Breast Cancer Screening 1981 DTaP,Tdap,and Td Vaccines (1 - Tdap) 2000 Hepatitis B Vaccines (1 of 3 - 19+ 3-dose series) 2000 Cervical Cancer Screening: P ap Smear 2002 COVID-19 Vaccine ( - 2023-2 5 season) 2024 Depression Screening 10/24/2024 HIV Screening 10/24/2024 Hepatitis C Screening 10/24/2024 Social Influencers of Health Screening 10/24/2024 Influenza Vaccine (Season Ended) 2025 HIB Vaccines Aged Out No longer eligi ble based on patient's age to complete this topic HPV Vaccines Aged Out No longer eligi ble based on patient's age to complete this topic Hepatitis A Vaccines Aged Out No long er eligible based on patient's age to complete this topic IPV Vaccines Aged Out No longer eligi ble based on patient's age to complete this topic MMR Vaccines Aged Out No longer eligi ble based on patient's age to complete this topic Meningococcal ACWY Vaccine Aged Out N o longer eligible based on patient's age to complete this topic Meningococcal B Vaccine Aged Out No l onger eligible based on patient's age to complete this topic Pneumococcal Vaccine: Pediat rics (0 to 5 Years) and At-Risk Patients (6 to 64 Years) Aged Out No longer eligible b ased on patient's age to complete this topic RSV Immunization Patients Un oziel 20 months Aged Out No longer eligible b ased on patient's age to complete this topic Varicella Vaccines Aged Out No longer eligible based on patient's age to complete this topic Insurance [facility] Care Teams Pet Resort Concierge Relationship Specialty Start Date End Date Abi Thorpe MD [address] [place] [address] , [address] [facility] D/B/A: Sarah Riveraatityra In Internal Medicine JAJA Smith PCP - General Internal Medicine 11/19/24
== END 2024-12-19 11:58 | disposition home or self-care (01) ==
LOC: HO.PMC 11:33
PROVIDERS: PCP Internal Medicine; Visit Provider Anesthesiology
DX: M53.3 Sacrococcygeal disorders, not elsewhere classified (principal); M51.37 Other intervertebral disc degeneration, lumbosacral region; M70.61 Trochanteric bursitis, right hip; M70.62 Trochanteric bursitis, left hip; M76.892 Other specified enthesopathies of left lower limb, excluding foot; M76.891 Other specified enthesopathies of right lower limb, excluding foot
CPT/HCPCS: 99213

== ENCOUNTER → 2024-12-19 11:32 | Outpatient (BNVA) | payer OTHER, SELFPAY | PROVIDERS: PCP Internal Medicine; Visit Provider Anesthesiology | DX: M53.3 Sacrococcygeal disorders, not elsewhere classified (principal); M51.379 Other intervertebral disc degeneration, lumbosacral region without mention of lumbar back pain or lower extremity pain; M70.61 Trochanteric bursitis, right hip; M70.62 Trochanteric bursitis, left hip; M76.892 Other specified enthesopathies of left lower limb, excluding foot; M76.891 Other specified enthesopathies of right lower limb, excluding foot | CPT/HCPCS: 99212 ==

== ENCOUNTER 2025-01-14 12:29 | Outpatient (REF) | payer OTHER, SELFPAY ==
[2025-01-14 13:33] LABS: Leukocytes Stool Qualitative NEGATIVE (NEGATIVE)
--- OUTSIDE RECORDS SUMMARY | 2025-01-14 14:42 | XMS_ITS | Clinical Summary ---
Author Organization Patient Business Ser [facility] Address [address] [place] [address] Care Team Providers Care Carpet Cleaning Technician Name Role Phone Abi Thorpe MD Primary Care Provider [phone] Social History Tobacco Use Types Packs/Day Years [...] 1:30 PM EDT Consult Orthopedic Surgery - [place] [address] [phone] Jordy Garza, DPAve [address] [address] Health Maintenance Due Date Last Done Comments [...] patient's age to complete this topic Insurance [facility] [address] Care Teams Carpet Cleaning Technician Relationship Specialty Start Date End Date Abi Thorpe MD [address] [place] [address] , [address] [facility] D/B/A: Sarah Riveraatityra In Internal Medicine JAJA Smith PCP - General Internal Medicine 11/19/24
== END 2025-01-14 12:30 | disposition home or self-care (01) ==
LOC: HO.LNP 12:29
PROVIDERS: Visit Provider Internal Medicine
DX: R19.7 Diarrhea, unspecified (principal)
CPT/HCPCS: 87338; 89055

== ENCOUNTER 2025-01-22 10:50 | Outpatient (REF) | payer OTHER, SELFPAY ==
[2025-01-23 11:20] LABS: H Pylori Breath Test Positive (Negative)
== END 2025-01-22 10:51 | disposition home or self-care (01) ==
LOC: HO.LNP 10:50
PROVIDERS: PCP Internal Medicine; Visit Provider Internal Medicine Gastroenterology
DX: R19.7 Diarrhea, unspecified (principal)
CPT/HCPCS: 83013; 99211

== ENCOUNTER 2025-01-22 10:50 | Outpatient (AMB) | payer OTHER, SELFPAY ==
--- NOTE | 2025-01-22 11:26 | AM.OFFVISNUR ---
Intake Visit Reasons: H Pylori Re-Test Allergies No Known Allergies Allergy (Unknown, Verified 12/19/24 11:47) NONE Nursing Note Patient presents for collection of H Pylori breath test. Patient has been fasting for 1 hour (nothing to eat, drink, no chewing gum or smoking) has not taken any antacid medication for at least 2 weeks and has no allergies to artificial sweeteners.?? Assessment & Plan Assessment & Plan (1) H. pylori infection: Code(s): A04.8 - Other specified bacterial intestinal infections Category: Medical Plan Patient presents for collection of H Pylori breath test. Patient has been fasting for 1 hour (nothing to eat, drink, no chewing gum or smoking) has not taken any antacid medication for at least 2 weeks and has no allergies to artificial sweeteners.???This test checks for an overgrowth of bacteria in your stomach. We all have bacteria but some may have more than others. It is treatable. if the test comes back negative there is nothing else to do. If the test result is positive we will treat you with 2 antibiotics and a medication to decrease the acid in your stomach (PPI) for 2 weeks. Two weeks after you have completed the treatment we will retest you to make sure the overgrowth has resolved. Patient Instructions: Process for specimen collection and reason for testing was explained to the patient. Specimen collection. Patient instructed to take a deep breath and then exhale into the blue bag, filling it up as much as possible. Patient instructed to drink a mixture of water and the artificial sweetener with a straw. A 15 minute wait period was observed. Patient instructed to take a deep breath and then exhale into the pink bag, filling it up as much as possible.?? Coding Level of Care Code Established Pt Est Pt Level 1 (63752) Patient Type Established Medical Decision Making Straight Forward Diagnoses H. pylori infection A04.8
--- OUTSIDE RECORDS SUMMARY | 2025-01-22 12:28 | XMS_ITS | Clinical Summary ---
Author Organization Patient Business Ser [facility] Address [address] [place] [address] Care Team Providers Care Neuropsychology Service Director Name Role Phone Abi Thorpe MD Primary Care Provider Social History Tobacco Use Types Packs/Day Years [...] 1:30 PM EDT Consult Orthopedic Surgery - [place] [address] [phone] Jordy Garza, DPAve [address] [id number] Health Maintenance Due Date Last Done Comments [...] patient's age to complete this topic Insurance [facility] Care Teams Neuropsychology Service Director Relationship Specialty Start Date End Date Abi Thorpe MD [address] [place] [address] , [address] [facility] D/B/A: [facility] JAJA Smith PCP - General Internal Medicine 11/19/24
== END 2025-01-22 11:40 | disposition home or self-care (01) ==
LOC: HO.HGI 10:50
PROVIDERS: PCP Internal Medicine; Visit Provider Internal Medicine Gastroenterology
DX: A04.8 Other specified bacterial intestinal infections (principal)

== ENCOUNTER 2025-02-05 17:09 | Outpatient (AMB) | payer OTHER, SELFPAY ==
--- NOTE | 2025-02-05 17:06 | MHC.PC.OV ---
Intake Visit Reasons: Depression Photograph Mounter Required: No Accompanied by: Self / Same As Patient Allergies No Known Allergies Allergy (Unknown, Verified 02/05/25 20:45) NONE Medication List - Last Reconciled 02/05/25 by Abi Thorpe MD ammonium lactate 12% 1 appl topical BID bismuth subsalicylate 525 mg PO .four times a day 14 days bupropion HCl XL (Wellbutrin XL) 150 mg PO QAM 90 days cholecalciferol (vitamin D3) 50 mcg PO DAILY 90 days clotrimazole-betamethasone 1-0.05 % 1 appl topical BID 2 weeks diclofenac sodium 1% (Arthritis Pain (diclofenac)) 2 grams topical QID 30 days duloxetine 60 mg PO DAILY 30 days estradiol 1 patch topical QWEEK folic acid 1 mg PO DAILY 90 days heating pads ([employer]ating [employer]) As directed ketoconazole 2% topical levonorgestrel (Mirena) intrauterine metronidazole 500 mg PO Q8H 14 days omeprazole 20 mg PO BID 14 days [phentermine 37.5 mg PO] sucralfate (Carafate) 10 mL PO QIDACHS tetracycline 500 mg PO Q6H 14 days tizanidine 4 mg PO BEDTIME PRN 7 days tretinoin 0.05% appl topical BEDTIME PRN triamcinolone acetonide 0.1% topical Tobacco use date assessed: 10/09/24 Dental Screening Dental Screen Date: 10/09/24 HPI HPI Comments History of Present Illness Details The patient is a 44-year-old female presenting with a follow-up on mild major depression, fibromyalgia, and other chronic conditions. She has mild major depression, with a PHQ-9 score of 6 today, and is currently on duloxetine for fibromyalgia. Bupropion will be initiated to manage her depression symptoms. The patient has fibromyalgia, managed with duloxetine, and chronic low back pain, for which she is seeking a second opinion in March. Her GERD is well controlled with omeprazole. She recently had surgery on her left foot for bone removal and is currently on crutches. She denies any chest pain or dyspnea. The patient has a history of amyloidosis and vitamin D deficiency, for which she is on supplements. [facility] Medical History (Updated 01/25/25 @ 11:57 by Abi Thorpe MD) Carpal tunnel syndrome on both sides Pre-diabetes PCOS (polycystic ovarian syndrome) Spondylosis of cervical spine Bloody stools Right hip pain Abnormal brain MRI Hypovitaminosis D Mild recurrent major depression Pelvic pain in female New persistent daily headache Cervicalgia Right knee pain Knee pain, left Coccydynia Fibromyalgia Simple laceration of nose Nose disease Onychomycosis Obesity Depression with anxiety History of PCOS Hx of tension headache History of anemia Family history of fibromyalgia Hx of hearing loss Surgical History (Updated 02/05/25 @ 20:40 by Abi Thorpe MD) History of surgery History of carpal tunnel surgery of right wrist Hx of colonoscopy History of esophagogastroduodenoscopy (EGD) Hx of section Hx of wisdom tooth extraction Family History Father CVD (cardiovascular disease) Mother Rheumatoid arthritis Mental health disorder Substance use disorder Paternal Aunt Uterine cancer Social History Housing: Apartment Are you a primary field care manager to a significant other at home: No Do you presently have visiting nurse or other home services: No Alcohol intake: current Alcohol intake frequency: holidays/special occasions only Alcohol type: beer and wine Patient Tobacco Use Status: Former Tobacco user Tobacco use type: Cigarette e-Cigarette/Vaping Use: Never Used Second Hand Smoke Exposure: No Substance Use Type: Marijuana service: No Current occupational status: employed Current occupational exposures/hazards: No Sexual orientation: Straight/Heterosexual Gender identity: Female Cognitive needs: No Hearing needs: No Vision needs: Yes Female Reproductive History Menstrual Age of Menarche: 13 Questionnaire PHQ-9 Over the last 2 weeks, how often have you been bothered by any of the following problems? 1. Little interest or pleasure in doing things: several days 2. Feeling down, depressed, or hopeless: more than half the days 3. Trouble falling or staying asleep, or sleeping too much: more than half the days 4. Feeling tired or having little energy: several days 5. Poor appetite or overeating: not at all 6. Feeling bad about yourself - or that you are a failure or have let yourself or your family down: not at all 7. Trouble concentrating on things, such as reading the newspaper or watching television: not at all 8. Moving or speaking so slowly that other people could have noticed. Or the opposite - being so fidgety or restless that you have been moving around a lot more than usual: not at all 9. Thoughts that you would be better off or of hurting yourself in some way: not at all Total score: 6 Depression Screening Interpretation: Positive Depression Screening Follow-up: Existing condition, In treatment, New Medication prescribed and Follow-up Visit Requested Depression Screening Done: Yes Source: Developed by Drs. Melvin Neal, Lindsey Ochoa, Vito Prabhakar and colleagues, with an educational angie from [employer]. Thrive Questionnaire Date Thrive assessed: 02/05/25 I am a: Patient What is your living situation today?: I have a steady place to live Within the past 12 months, did the food you bought not last and you didn't have the money to get more?: Never true Within the past 12 months, did you worry whether your food would run out before you got money to buy more?: Never true Do you have trouble paying for medicines?: No Do you have trouble getting transportation to medical appointments?: No Do you have trouble paying your heating and electricity bill?: No Do you have trouble taking care of your child, family member or friend?: No Do you have trouble with day-to-day activities such as bathing, preparing meals, shopping, managing finances, etc.?: No Are you currently unemployed and looking for a job?: No Are you interested in more education?: No Please select the resources that you would like help with: None Currently or been in a relationship where the following occur: No concerns reported THRIVE Score: 0 AUDIT C Alcohol Use Questionnaire (AUDIT-C) 1. How often do you have a drink containing alcohol?: Monthly or less 2. How many drinks containing alcohol do you have on a typical day when you are drinking?: 1 or 2 3. How often do you have six or more drinks on one occasion?: Never Total Score: 1 YVONNE-7 AMB Questionnaire YVONNE-7 Date YVONNE - 7 assessed: 02/05/25 Feeling nervous, anxious, or on edge: 1 = Several days Not being able to stop or control worryin = Not at all Worrying too much about different things: 1 = Several days Trouble relaxin = Not at all Being so restless that it is hard to sit still: 0 = Not at all Becoming easily annoyed or irritable: 0 = Not at all Feeling afraid as if something awful might happen: 0 = Not at all Total YVONNE-7 score (0-4 normal; 5-9 mild; 10-14 moderate; 15-21 severe): 2 Source: Developed by Drs. Melvin Neal, Lindsey Ochoa, Vito Prabhakar and colleagues, with an educational angie from [employer]. Review of Systems Const All systems reviewed & are unremarkable except as noted in HPI and below Eyes Reports no additional complaints, Denies change in vision and Denies other visual disturbances ENT Denies change in voice, Denies nasal discharge and Denies sinus pain Card Denies chest pain at rest, Denies chest pain with activity, Denies edema, Denies irregular heart rhythm, Denies claudication, Denies dyspnea, Denies dyspnea on exertion, Denies orthopnea, Denies paroxysmal nocturnal dyspnea and Denies slow heart rate Resp Denies cough, Denies dyspnea and Denies dyspnea on exertion GI Denies abdominal pain, Denies change in bowel habits, Denies excessive flatus, Denies nausea and Denies vomiting Denies urinary incontinence, Denies urinary hesitancy and Denies urinary urgency Musc Denies atrophy, Denies deformity and Denies limited range of motion Skin/Breast Denies bleeding lesions, Denies changing lesions and Denies rash Physical exam (Primary Care) Tobacco/Smoking Status: Tobacco use Status Tobacco use date assessed 10/09/24 02/05/25 17:08 Patient Tobacco Use Status Former Tobacco user 02/05/25 17:08 Tobacco use type Cigarette 02/05/25 17:08 e-Cigarette/Vaping Use Never Used 02/05/25 17:08 PHQ-9: PHQ-9 Score PHQ-9: Total score 6 02/05/25 18:05 Depression Screening Interpretation: Positive Depression Screening Follow-up: Existing condition, In treatment, New Medication prescribed and Follow-up Visit Requested Thrive Assessment: Date of Thrive Assessment Date Thrive assessed 02/05/25 02/05/25 17:08 Currently or been in a relationship where the following occur: No concerns reported HENMT Head: Yes normal to inspection, Yes normocephalic and Yes atraumatic Ears: external ears normal General nose exam: Normal external nose present and No nasal discharge present Face and sinus: Yes sinuses nontender Mouth: lip normal Eyes General: appearance normal, both eyes and all related structures Eyelids: Yes eyelids normal Conjunctivae: conjunctivae normal Neck Neck: Yes normal visual inspection and Yes supple Psych Appearance: grossly normal Telehealth Telehealth Telehealth Platform: Telephone Location of provider rendering services: practice address Location of patient: address on file Patient Identification confirmed using: Name, : Yes Telehealth method: video Patient verbally consented to treatment: Yes Patient verbally consented to billing insurance company: Yes Patient informed of any privacy concerns related to visit: Yes Minutes spent on Phone/Video with Pt.: 15 Coding Level of Care Code Tele Est Pt Level 4 (10515) Complex EM visit Add On G2211 Diagnoses Mild recurrent major depression 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; 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 Fibromyalgia M79.7 Disc degeneration, lumbosacral M51.37 Status post left foot surgery Z98.890 Time Spent (min) 15 Assessment & Plan Assessment & Plan (1) Mild recurrent major depression: Code(s): F33.0 - Major depressive disorder, recurrent, mild Category: Medical (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, follows with Dr Sullivan Code(s): E85.4 - Organ-limited amyloidosis; L99 - Other disorders of skin and subcutaneous tissue in diseases classified elsewhere Category: Medical (3) Fibromyalgia: Code(s): M79.7 - Fibromyalgia Category: Medical (4) Disc degeneration, lumbosacral: Code(s): M51.37 - Other intervertebral disc degeneration, lumbosacral region Category: Medical (5) Status post left foot surgery: Code(s): Z98.890 - Other specified postprocedural states Category: Surgical Plan The patient will begin bupropion to address her mild major depression, complementing her current duloxetine therapy for fibromyalgia. She has an appointment for a second opinion on her chronic low back pain in March. Her GERD is effectively managed with omeprazole, which she will continue. Following her left foot surgery, she is advised to use crutches and monitor her recovery, with follow-up as necessary. Patient was informed and verbally consented to the use of an ambient scribe for clinic note documentation during this visit. Medications: New bupropion HCl XL (Wellbutrin XL) 150 mg PO QAM 90 tabs 1RF 90 days Refilled cholecalciferol (vitamin D3) 50 mcg PO DAILY 90 caps 3RF 90 days
== END 2025-02-05 18:55 | disposition home or self-care (01) ==
LOC: HO.HMCH 17:09
PROVIDERS: PCP Internal Medicine; Visit Provider Internal Medicine
DX: E85.4 Organ-limited amyloidosis (principal); F33.0 Major depressive disorder, recurrent, mild; L99 Other disorders of skin and subcutaneous tissue in diseases classified elsewhere; M79.7 Fibromyalgia; M51.37 Other intervertebral disc degeneration, lumbosacral region; Z98.890 Other specified postprocedural states

== ENCOUNTER 2025-04-04 14:32 | Outpatient (AMB) | payer OTHER, SELFPAY ==
--- OUTSIDE RECORDS SUMMARY | 2025-04-04 14:34 | XMS_ITS | Clinical Summary ---
Author Organization [facility] Address [facility] [employer] [address] [address] Phone Care Team Providers Care Insurance Account Manager Name Role Phone Stevenson Ayoub MD Unavailable Suha Coronado MD Unavailable [phone] Meenakshi Felix MD Unavailable Boris Martinez MD Unavailable [phone] Abi Gardner MD Primary Care Provid er Allergies No known active allergies Medications ammonium lactate (AMLACTIN) 12 % cream APPLY TO AFFECTED AREA TWICE A DAY 11 9 Active DULoxetine (CYMBALTA) 30 MG capsule Take by mouth daily. 1 Active folic acid (FOLVITE) 1 MG tablet 1 Active cholecalciferol (VITAMIN D3) 2,000 unit capsule Take by mouth daily. 1 Active celecoxib (CELEBREX) 200 MG capsule 3 Active calcipotriene (CALCITRENE) 0.005 % ointment 3 Active clobetasol (TEMOVATE) 0.05 % cream APPLY TO THE AFFECTED LEG TWICE DAILY FOR TWO WEEKS BREAK ONE WEEK REPEAT NEEDED. 3 Active tretinoin (RETIN-A) 0.05 % cream 3 Active triamcinolone acetonide 0.1 % ointment 3 Active ibuprofen-glyceri n 600 mg Kit Take 600 mg by mouth. 3 Active lidocaine 4 % Apply topically. 3 Active spironolactone (ALDACTONE) 50 MG tablet take 1 tablet by mouth twice a day 180 tablet 2 3 Active liraglutide, weight loss, (SAXENDA) 3 mg/0.5 mL (18 mg/3 mL) subcutaneous injection Inject 0.6 mg under the skin. 4 Active clotrimazole-beta methasone (LOTRISONE) cream APPLY TO AFFECTED AREA TOPICALLY TWICE A DAY FOR 2 WEEKS 4 Active DULoxetine (CYMBALTA) 60 MG capsule Take 1 capsule by mouth every morning. 4 Active BD ULTRA-FINE MINI PEN NEEDLE 31 gauge x 3/16 Ndle USE DIRECTED WITH SAXENDA INJECTIONS 4 Active cloNIDine HCL (CATAPRES) 0.1 MG tablet Take 0.1 mg by mouth nightly at bedtime as needed. Active gabapentin (NEURONTIN) 600 MG tablet Take 600 mg by mouth as needed. 4 Active fluconazole (DIFLUCAN) 150 MG tabletIndications :Vaginal irritation Take 1 tablet (150 mg total) by mouth daily. 2 tablet 4 Active estradioL (CLIMARA) 0.025 mg/24 hrIndications:Vag inal dryness, menopausal Place 1 patch onto the skin every 7 days. 12 patch 3 5 Active phentermine (ADIPEX-P) 37.5 mg tablet Take 18.75 mg by mouth daily before breakfast. 5 04/15/20 25 Active fluconazole (DIFLUCAN) 150 MG tablet Take one dose now and repeat in 3 days 2 tablet 1 5 Active Hospital, Clinic, or Other Facility Administered Medication Ordered Dose Route Frequency Start Date End Date Status levonorgestrel (MIRENA) 20 mcg/24 hours (5 yrs) 52 mg intrauterine device 1 eachIndications:Encounter for insertion of intrauterine contraceptive device 1 each Utrn Every 5 years 06/06/2019 A ctive Active Problems Problem Noted Date Diagnosed Date Suprapubic pain 07/12/2024 Overview (07/12/2024): Infrequent episodes, exam neg for hernia Assessment & Plan (07/12/2024 2:47 PM EST): Recommend she kep track of inciting factors, associated sxs; not part of the pelvic floor issue, may be related to exercise, fibromylagia Class 2 obesity 05/30/2023 05/30/2023 Menstrual disorder 05/30/2023 05/30/2023 Stress incontinence 01/27/2022 Primary osteoarthritis involving multiple joints 01/24/2019 Assessment & Plan (12/18/2020 10:56 AM EDT): Continue Cymbalta 20 mg once dailiy. Continue Glucosamine and Chondroitin. Assessment & Plan (10/20/2020 1:25 PM EDT): Continue Cymbalta 20 mg Take one pill PO daily. Medication helping with hip, low back, knee, and ankle pain relief. Primary osteoarthritis of both hips 12/04/2018 Assessment & Plan (12/18/2020 10:56 AM EDT): Continue Cymbalta 20 mg once dailiy. Continue Glucosamine and Chondroitin. Degenerative disc disease, lumbar 11/15/2018 Assessment & Plan (12/18/2020 10:58 AM EDT): Continue Cymbalta 20 mg once dailiy. Continue Zanaflex 4 mg PO qhs. Continue heating pad, Salon Pas as needed. Assessment & Plan (10/20/2020 1:20 PM EDT): Continue Cymbalta 20 mg PO daily. Continue Heating pad, Salon Pas as needed. Primary osteoarthritis of both knees 11/15/2018 Assessment & Plan (10/20/2020 1:19 PM EDT): Continue Cymbalta 20 mg PO Daily. Medication has helped with Hip, knee, ankle pain relief. Continue Salon Pas, heating pad for additional hip pain relief as needed. Fibromyalgia 10/18/2018 Assessment & Plan (12/18/2020 10:57 AM EDT): Continue Cymbalta 20 mg PO daily. Continue Zanaflex 4 mg PO qhs for sleep aid. Assessment & Plan (10/20/2020 1:22 PM EDT): Continue Cymbalta 20 mg PO daily for Fibromyalgia muscle tenderness relief. Medication is helping to control symptoms. Continue Tizanidine 4 mg PO qhs for sleep aid. Recurrent candidiasis of vagina 10/01/2018 Overview (10/01/2018): Pt states she has >5 yeast infections a year Assessment & Plan (07/12/2024 2:45 PM EST): No sxs today, neg JAYDEN. Recommend RTO with next sxs, confirm yeast, consider weekly boric acid capsules (I advised her these are poison if swalloed) Assessment & Plan (10/01/2018 4:22 PM EST): We discussed treatment for recurrent yeast infection including option for 6 months- She would like to try it Diflucan 150 mg q 72 hrs x 3 doses, then 150 mg weekly x 6 months Genital culture sent to speciate yeast Follow up in 3 months or prn PCOS (polycystic ovarian syndrome) Overview (01/27/2022): Polycystic ovaries on ultrasound Facial cystic acne and chin hair growth Insulin resistance IUD (intrauterine device) in place Overview (07/20/2020): 06/06/2019 (Mirena for bleeding control) Assessment & Plan (01/27/2022 3:18 PM EDT): amenorrheic Resolved Problems Problem Noted Date Diagnosed Date Resolved Date Vulval lesion 05/19/2021 05/27/2022 Overview (05/19/2021): 4 lesions along outer l. Labium majorum, 3-4 mm, sl raised, flat Assessment & Plan (05/19/2021 4:55 PM EDT): Lowest one excised per request to r/o condyloma, care of area reviewed If HPV related, plans to return for TCA for the others Ingrown hair 05/19/2021 05/27/2022 Overview (05/19/2021): Right mons area, small, recommend no more poking at it Vulvar lesion 02/25/2021 01/27/2022 Assessment & Plan (02/25/2021 2:46 PM EDT): Reassured patient that findings on left labia look most consistent with multiple small epithelial polyp/skin tags or prominence of the normal papillae. Skin finding is causing patient no discomfort or irritation at this time suggested expectant management and to avoid the frequent checking of the area. Reassured her of benign finding. Vaginal candidiasis 10/15/2020 05/27/20 Assessment & Plan (10/19/2020 10:01 AM EDT): Jasmyne came in for question skin tags or vaginal warts on the outside of her vaginal opening. She states they are little but that she noticed them approximately a couple of weeks ago. She denies any pain/itching/bleeding. She also complained of vaginal discharge that started yesterday w/ slight odor and itching. -Pt advised to avoid douching, wear cotton underwear, decrease tub baths, and wear loose fitting pants. Change soaps and laundry detergents to odorless/colorless/sensitive skin formulations. -Pt advised on Rx was sent to the pharmacy Skin tags, multiple acquired 10/15/2020 05/27/2022 Assessment & Plan (10/19/2020 10:09 AM EDT): -Area looks like skin tags not warts no ulceration seen or lesions. No bleeding noted at this time. -Pt denies any hx of genital warts and normal pap smears. -Pt advised that skin tags are small and they dont appear irritated. Cosmetically she can have them removed and advised on healing time and possible complications. Also advised that they may grow back over time. -At this time pt opts to wait and see if they get any bigger and eventually might want to get them removed. Pain in both hands 01/24/2019 Acute pain of right knee 10/18/2018 Acute bilateral low back pain 10/18/2018 05/27/2022 Immunizations Immunization Administration Dates Next Due COVID-19 (Pre-05/29) Moderna Vaccine, mRNA, PF 11/15/2020,10/18/2020 DTaP 11/05/2012 Influenza Quadrivalent Prese rvative Free IM 07/27/2022,06/17/2021,07/16/2020,2019,10/18/2019 Tdap 07/27/2022 Family History Medical History Relation Comments No Known Problems Father Anxiety disorder Mother Depression Mother Diabetes Mother Osteoarthritis Mother Osteoporosis Mother Psoriasis Mother Rheumatoid arthritis Mother Stroke Mother Relation Status Comments Father Alive Mother Alive Social History Tobacco Use Types Packs/Day Years Used Date Smoking Tobacco: Former Cigarettes Q uit: 2001 Passive Smoke Exposure: Past Smokeless Tobacco: Never Tobacco Cessation:Counseling Given: Not Answered Alcohol Use Standard Drinks/Week Comments Yes 0 (1 standard drink = 0.6 oz pur e alcohol) rarely Education Answer Date Recorded Are you interested in more education? Not on maría elena e 12/02/2022 Are you concerned about learning? Not on file 12/02/2022 No 12/02/2022 No 12/02/2022 Digital Access Answer Date Recorded No 12/29/2022 No 12/29/2022 Reliable internet access at home? Not on file 12/29/2022 Device with a working camera? 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 on file Not on file Not on maría elena e Last Filed Vital Signs Vital Sign Reading Time Taken Comments Blood Pressure 116/74 11/07/2024 3:56 PM EDT Pulse - - Temperature 37.6 C (99.7 F) 10/20/2020 12:39 PM EDT Respiratory Rate - - Oxygen Saturation - - Inhaled Oxygen Concentration - - Weight 73.5 kg (162 lb) 11/07/2024 3:56 PM EDT Height 144.8 cm (4' 9 ) 11/07/2024 3:56 PM EDT Body Mass Index 35.06 11/07/2024 3:56 PM EDT Plan of Treatment Health Maintenance Due Date Last Done Comments DEPRESSION SCREENING 1993 SMOKING Hx and SMOKELESS TOBACCO SCREENING 1994 HEPATITIS C SCREENING 1999 HIV ONE-TIME SCREENING (18-65 YEARS) 1999 POTASSIUM LEVEL 07/21/2021 07/21/2020, 02/05, 07/26/2019, Additional history exists MAMMOGRAM 2021 SCREENING FOR DIABETES 07/21/2023 07/21/2020 PAP SMEAR 07/20/2025 07/20/2020 IUD 06/06/2027 06/06/2019 Adult Td,Tdap Booster 10/21/2033 10/22/2023, 022 COVID-19 VACCINE Completed 07/26/2024, , 07/10/2021, Additional history exists HEPATITIS A VACCINES Aged Out No long er eligible based on patient's age to complete this topic HIB VACCINES Aged Out No longer eligi ble based on patient's age to complete this topic MENINGOCOCCAL VACCINES (ACWY) Aged Out No longer eligible based on patient's age to complete this topic MENINGOCOCCAL VACCINES (B) Aged Out N o longer eligible based on patient's age to complete this topic PNEUMOCOCCAL VACCINES (0-49 years) Aged Out No longer eligible based on patient's age to complete this topic Medical Devices Not on file Procedures Procedure Name Priority Date/Time Associated Diagnosis Comments COMPREHENSIVE METABOLIC PANEL Routine 07/21/2020 1:42 PM EST Degenerative disc disease, lumbar Primary osteoarthritis involving multiple joints Fibromyalgia PAP TEST Routine 07/20/2020 12:00 AM EST from Last 3 Months or Most Recently Relevant to Health Maintenance Results * Comprehensive metabolic panel (07/21/2020 1:42 PM EST) SODIUM 137 133 - 146 mmol/L [facility] POTASSIUM 4.1 3.3 - 5.1 mmol/L [facility] CHLORIDE 102 96 - 108 mmol/L [facility] CO2 25 21 - 35 mmol/L [facility] BUN 11 6 - 19 mg/dL [facility] CREATININE 0.60 0.5 - 1.5 mg/dL [facility] GLUCOSE 86 70 - 99 mg/dL [facility] ALBUMIN 4.4 3.9 - 4.8 g/dL [facility] TOTAL PROTEIN 7.5 6.5 - 8.0 g/dL [facility] CALCIUM 9.2 8.4 - 10.3 mg/dL [facility] ALKALINE PHOSPHATASE 81 39 - 117 U/L [facility] TOTAL BILIRUBIN 0.3 0.0 - 1.2 mg/dL [facility] AST 21 0 - 37 U/L [facility] ALT 15 0 - 40 U/L [facility] GLOBULIN 3.1 1 - 4.8 g/dL [facility] EGFR 116 >59 mL/min/1.7 3m2 [facility] Comment:Estimated glomerular filtration rate calculated using the CKD-EPI equation. ANION GAP 14 10 - 20 mmol/L [facility] Blood 07/21/2020 1:42 PM EST 07/21/2020 1:48 PM EST John SAEED LAB BLOOD ORDERABLES [facility] Result Performing Organization Address City/State/[facility] Co de Phone Number [address] [address] * Pap Smear (07/20/2020 12:00 AM EST) 07/20/2020 07/21/2020 8:5 9 AM EST Narrative SEE NARRATIVE - 07/24/2020 11:04 AM EST [address] [address] [place] Professor: Awa Lord MD BRICK EXTRUDER OPERATOR Cytology Report FINAL DIAGNOSIS A. PAP SMEAR (SUREPATH) CE: SPECIMEN ADEQUACY: Satisfactory for evaluation; transformation zone present. INTERPRETATION: NEGATIVE FOR INTRAEPITHELIAL LESION OR MALIGNANCY. Electronically Signed Out By: KATIA Rivera(ASCP) The Pap test is a screening test primarily for squamous cancers and precursors and has associated false-negative and false-positive results. New technologies such as liquid-based preparations may decrease but will not eliminate all false-negative results. Regular sampling and follow-up of unexplained clinical signs and symptoms are recommended to minimize false negative results. PROCEDURES/ADDENDA HPV Testing (Requested) Ordered Date: 07/21/2020 A. PAP SMEAR (SUREPATH) CE: Human Papilloma Virus Test Negative for high-risk human papillomavirus types 16, 18, 45 and the Other high risk probe set (Includes 31, 33, 35, 39, 51, 52, 56, 58, 59, 66, 68) by DialedIN Onclarity HR-HPV analysis. Clinical correlation is advised. This HPV test was performed at [facility], [address] [place] [address]. This test has been FDA approved for SurePath cervical cytology specimens. The accuracy and precision of this test for all other specimen sources has been verified in the Cytopathology Laboratory of the [facility] and has not been cleared or approved by the U.S. Food and Drug Administration. Clinical correlation is advised. CLINICAL HISTORY Date of Last Menstrual Period: 06-22-2020 Other Clinical Conditions: Screening Pap SPECIMEN SOURCE A: PAP SMEAR (SUREPATH) CE Patient Name: JASMYNE HARDEN : 1980 (Age: 39) Sex: F Institution: [facility] Location: [facility] Date of Collection: 07/20/2020 Date of Reported: 07/22/2020 14:14 Results to: Suha Coronado MD us Suha Coronado MD CYTOLOGY ORDERABLES Edited Re sult - Final SEE NARRATIVE from Last 3 Months or Most Recently Relevant to Health Maintenance Insurance [facility] [place] [address] [place] [address] [place] [address] [place] [address] [place] [address] [place] [address] [place] [address] [address] [place] [address] [place] [address] [place] [address] [place] [address] [place] [address] [place] [address] [place] [address] ACO Care Teams Insurance Account Manager Relationship Specialty Start Date End Date Abi Gardner MD [address] [place] [address] PCP - General Internal Medicine 10/12/18 Stevenson Ayoub MD [address] [place] [phone] [email or web address] Historical LMR Provider 05/24/17 Suha Coronado MD [address] [place] [email or web address] Historical LMR Provider 05/24/17 Meenakshi Felix MD [address] [place] [phone] [email or web address] Historical LMR Provider 05/24/17 Boris Martinez MD [address] [place] [phone] Historical LMR Provider 05/24/17 Additional Source Comments The information contained in this document represents components of the legal health record. It is not the complete legal health record.[facility]
--- OUTSIDE RECORDS SUMMARY | 2025-04-04 14:34 | XMS_ITS | Encounter Summary ---
Author Organization [employer] [facility] Address [facility] [place] [address] [address] Phone Care Team Providers Care Holter Scanning Technician Name Role Phone Stevenson Ayoub MD Unavailable Suha Coronado MD Unavailable [phone] Meenakshi Felix MD Unavailable Boris Martinez MD Unavailable [phone] Abi Gardner MD Primary Care Provid er Reason for Referral * Physical Therapy (Routine) - Closed Specialty Diagnoses / Procedures Referred By Contsoo trevino Referred To Contact Physical Therapy Diagnoses Encounter for rehabilitation Abi Gardner MD Phone: tel: fax: [address] [address] Phone: tel: Referral ID Status Reason Start Date Expiration Date Visits Re quested Visits Authorized [id number] Closed 02/05/2024 08/06/2024 60 60 Encounter Details Date Type Department Care Team (Latest Contact Info) Description 02/05/2024 Transcribe Orders [facility] [address] [place] [phone] Abi Gardner MD [address] [place] [address] Encounter for rehabilitation (Primary Dx) Social History Tobacco Use Types Packs/Day Years Used Date Smoking Tobacco: Former Cigarettes Q uit: 2001 Passive Smoke Exposure: Past Smokeless Tobacco: Never Alcohol Use Standard Drinks/Week Comments Yes 0 [...] 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 Not on file Not on maría elena e documented as of this encounter Plan of Treatment Scheduled Referrals Name Type Priority Associated Diagnoses Orde r Schedule Ambulatory referral to [facility] Physical Therapy Outpatient Referral Routine Encounter for rehabilitation Ordered: 02/05/2024 documented as of this encounter Visit Diagnoses Diagnosis Encounter for rehabilitation- Primary documented in this encounter Care Teams Holter Scanning Technician Relationship Specialty Start Date End Date Abi Gardner MD [address] [place] [address] PCP - General Internal Medicine 10/12/18 Stevenson Ayoub MD [address] [place] [phone] [email or web address] Historical LMR Provider 05/24/17 Suha Coronado MD [address] [place] [phone] [email or web address] Historical LMR Provider 05/24/17 Meenakshi Felix MD [address] [place] [id number] Historical LMR Provider 05/24/17 Boris Martinez MD [address] [place] [phone] Historical LMR Provider 05/24/17 documented as of this encounter Additional Source Comments The information contained in this document represents components of the legal health record. It is not the complete legal health record.[facility]
[2025-04-04 14:49] VITALS: BP 100/62; PULSE 91; O2SAT 98; BMI 35.1
--- NOTE | 2025-04-04 14:49 | A.OFFVIS_ITS ---
Vital Signs 04/04/25 14:49 Height 4 ft 9 in Weight 162 lb BMI 35.1 BP 100/62 Blood Pressure Location Rt brachial Position Sitting Pulse 91 Pulse Source Pulse Oximeter Pulse Oximetry (%) 98 Oxygen Delivery Method Room Air Intake Visit Reasons: 2022 patient - sleep problems, RLS Intake Note: Patient presents follow up Sleep/RLS(last seen 2022) No Compliance. Not using CPAP(returned) will be starting zepbound. looking into more about RLS(if its anxiety) Accompanied by: Self / Same As Patient Allergies No Known Allergies Allergy (Unknown, Verified 04/04/25 14:52) NONE HPI Comments Details: 44 y/o female patient presents for follow up of sleep study. The PSG sleep study result was significant for mild degree of sleep apnea with increased severity in REM sleep. The AHI was 8/hr and REM AHI was 26/hr with oxygen [place] was 79%. She goes to bed at 10pm and wakes up at 6am, with 1 to none bathroom breaks. She continues to be fatigued. We reviewed her PSG in detail today. Patient is interested in inspire, however we discussed the comorbidites related to STEPH and she is amenable to cpap use first to see if she is tolerating it will. She had a negative experience in the past with the mask on her face and is skeptical, however will to try it. Her insurance is going to improve zepbound and she is awaiting a trial as she is uncomfortable with her weight. She denies RLS symptoms. Mood, diet and memory are stable. Pt is willing to try cpap therapy once again. [facility] Medical History Carpal tunnel syndrome on both sides Pre-diabetes PCOS (polycystic ovarian syndrome) Spondylosis of cervical spine Bloody stools Right hip pain Abnormal brain MRI Hypovitaminosis D Mild recurrent major depression Pelvic pain in female New persistent daily headache Cervicalgia Right knee pain Knee pain, left Coccydynia Fibromyalgia Simple laceration of nose Nose disease Onychomycosis Obesity Depression with anxiety History of PCOS Hx of tension headache History of anemia Family history of fibromyalgia Hx of hearing loss Surgical History History of surgery History of carpal tunnel surgery of right wrist Hx of colonoscopy History of esophagogastroduodenoscopy (EGD) Hx of section Hx of wisdom tooth extraction Family History Father CVD (cardiovascular disease) Mother Rheumatoid arthritis Mental health disorder Substance use disorder Paternal Aunt Uterine cancer Social History Housing: Apartment Are you a primary home care physical therapist to a significant other at home: No Do you presently have visiting nurse or other home services: No Alcohol intake: current Alcohol intake frequency: holidays/special occasions only Alcohol type: beer and wine Patient Tobacco Use Status: Former Tobacco user Tobacco use type: Cigarette e-Cigarette/Vaping Use: Never Used Second Hand Smoke Exposure: No Substance Use Type: Marijuana service: No Current occupational status: employed Current occupational exposures/hazards: No Sexual orientation: Straight/Heterosexual Gender identity: Female Cognitive needs: No Hearing needs: No Vision needs: Yes Female Reproductive History Menstrual Age of Menarche: 13 Physical Exam Vital Signs: Last Vital Signs Pulse 91 04/04/25 14:49 BP 100/62 04/04/25 14:49 Pulse Ox 98 04/04/25 14:49 Oxygen Delivery Method Room Air 04/04/25 14:49 BMI result Body Mass Index 35.1 Const General: cooperative Nutritional Appearance: obese Orientation/consciousness: patient oriented x3 Limitations: no limitations Neck Neck: Yes full ROM and Yes supple Resp Effort & Inspection: normal respiratory effort and able to speak in complete sentences Neuro General: patient oriented x3 and gait normal Gait exam (Neuro): Normal gait present Motor exam (neuro): 5/5 motor strength present throughout, Pronator motor function not present and no tremor noted Psych Appearance: grossly normal Mental Status: mental status grossly normal Speech and movement: Normal speech and movement present Affect: normal affect Attitude: cooperative Assessment & Plan Assessment & Plan (1) STEPH (obstructive sleep apnea): Comment: Mild degree of sleep apnea with increased severity in REM. Code(s): G47.33 - Obstructive sleep apnea (adult) (pediatric) Category: Medical (2) Fatigue due to sleep pattern disturbance: Code(s): R53.83 - Other fatigue; G47.9 - Sleep disorder, unspecified Category: Medical Plan Mild steph Start APAP [id number]. Advised patient undergo mask fitting when she picks up the CPAP, reviewed compliance, use CPAP nighlty and more than 4 hours. Continue to practice good sleep hygiene. Sleep titration study and pulse oximetry x1 night, but her insurance did not approved for titration study, will consider in the future. Pt is amenable to starting cpap use, will consider inspire in the future if intolerable. labs to r/o fatigue f/u in 3 months Patient Instructions: Sleep Hygiene provided: set a scheduled bedtime and wake time to help regulate the circadian rhythm and balance the release of pituitary hormones. Sleep in a dark room, temperatures below 68 degrees, and no devices n bed. Limit caffeinated products 6 hours prior to bed, and limit fluids 2-4 hours prior to bed. Gentle night yoga, diffusing essential oils, and playing soft music can be relaxing. Coding Level of Care Code Est Pt Level 4 (47911) Diagnoses STEPH (obstructive sleep apnea) G47.33 Fatigue due to sleep pattern disturbance R53.83; G47.9
== END 2025-04-04 15:27 | disposition home or self-care (01) ==
LOC: HO.HSMS 14:32
PROVIDERS: PCP Internal Medicine; Visit Provider Physician Assistant Medical
DX: G47.33 Obstructive sleep apnea (adult) (pediatric) (principal); R53.83 Other fatigue; G47.9 Sleep disorder, unspecified
CPT/HCPCS: 99214

== ENCOUNTER → 2025-04-04 14:32 | Outpatient (BNVA) | payer OTHER, SELFPAY | PROVIDERS: PCP Internal Medicine; Visit Provider Physician Assistant Medical | DX: G47.33 Obstructive sleep apnea (adult) (pediatric) (principal); G25.81 Restless legs syndrome; R53.83 Other fatigue; G47.9 Sleep disorder, unspecified | CPT/HCPCS: 99212 ==

== ENCOUNTER 2025-04-10 16:01 | Outpatient (AMB) | payer OTHER, SELFPAY ==
--- NOTE | 2025-04-10 16:09 | A.OFFPC_ITS ---
Vital Signs 04/10/25 16:11 Height 4 ft 9 in Weight 159 lb BMI 34.4 BP 120/70 Blood Pressure Location Lt brachial Position Sitting Pulse 93 Pulse Source Pulse Oximeter Temp 97.7 F Temp Source Temporal Artery Scan Pulse Oximetry (%) 98 Oxygen Delivery Method Room Air Intake Visit Reasons: Annual Exam Intake Note: Patient is here today for a physical. Electrical Contacts Adjuster Required: No Senior Reactor Operator: Not Required per policy Accompanied by: Self / Same As Patient Allergies estradiol Allergy (Intermediate, Verified 04/10/25 16:23) Rash Medication List - Last Reconciled 04/10/25 by Abi Thorpe MD ammonium lactate 12% 1 appl topical BID cholecalciferol (vitamin D3) 50 mcg PO DAILY 90 days clotrimazole-betamethasone 1-0.05 % 1 appl topical BID 2 weeks diclofenac sodium 1% (Arthritis Pain (diclofenac)) 2 grams topical QID 30 days duloxetine 60 mg PO DAILY 30 days estradiol 0.5 mg PO DAILY folic acid 1 mg PO DAILY 90 days heating pads ([employer] Heating Pad) As directed levonorgestrel (Mirena) intrauterine omeprazole 20 mg PO BID 14 days [seat cushion As directed] tretinoin 0.05% appl topical BEDTIME PRN Tobacco use date assessed: 04/10/25 Dental Screening Dental Screen Date: 10/09/24 HPI HPI Comments History of Present Illness Details Patient is here for her physical exam. Mammogram done this year and was normal. Pap smear done this year and was abnormal and has a biopsy pending for this month. Denies any acute complaints. Tdap vaccine up-to-date. Complains of skin lesions and would like a referral to Dermatology. Mild major depression has been stable. [facility] Medical History Carpal tunnel syndrome on both sides Pre-diabetes PCOS (polycystic ovarian syndrome) Spondylosis of cervical spine Bloody stools Right hip pain Abnormal brain MRI Hypovitaminosis D Mild recurrent major depression Pelvic pain in female New persistent daily headache Cervicalgia Right knee pain Knee pain, left Coccydynia Fibromyalgia Simple laceration of nose Nose disease Onychomycosis Obesity Depression with anxiety History of PCOS Hx of tension headache History of anemia Family history of fibromyalgia Hx of hearing loss Surgical History History of surgery History of carpal tunnel surgery of right wrist Hx of colonoscopy History of esophagogastroduodenoscopy (EGD) Hx of section Hx of wisdom tooth extraction Family History Father CVD (cardiovascular disease) Mother Rheumatoid arthritis Mental health disorder Substance use disorder Paternal Aunt Uterine cancer Social History Housing: Apartment Are you a primary neonatal intensive care nurse to a significant other at home: No Do you presently have visiting nurse or other home services: No Alcohol intake: current Alcohol intake frequency: holidays/special occasions only Alcohol type: beer and wine Patient Tobacco Use Status: Former Tobacco user Tobacco use type: Cigarette e-Cigarette/Vaping Use: Never Used Second Hand Smoke Exposure: Yes Substance Use Type: Marijuana service: No Current occupational status: employed Current occupational exposures/hazards: No Sexual orientation: Straight/Heterosexual Gender identity: Female Cognitive needs: No Hearing needs: No Vision needs: Yes Female Reproductive History Menstrual Age of Menarche: 13 Questionnaire PHQ-9 Over the last 2 weeks, how often have you been bothered by any of the following problems? 1. Little interest or pleasure in doing things: not at all 2. Feeling down, depressed, or hopeless: not at all 3. Trouble falling or staying asleep, or sleeping too much: several days 4. Feeling tired or having little energy: several days 5. Poor appetite or overeating: not at all 6. Feeling bad about yourself - or that you are a failure or have let yourself or your family down: not at all 7. Trouble concentrating on things, such as reading the newspaper or watching television: not at all 8. Moving or speaking so slowly that other people could have noticed. Or the opposite - being so fidgety or restless that you have been moving around a lot more than usual: not at all 9. Thoughts that you would be better off or of hurting yourself in some way: not at all Total score: 2 Depression Screening Interpretation: Positive Depression Screening Follow-up: Existing condition and Follow-up Visit Requested Depression Screening Done: Yes 38671 - PHQ-9 Billing: Yes Source: Developed by Drs. Melvin Neal, Lindsey Ochoa, Vito Prabhakar and colleagues, with an educational angie from [employer]. Thrive Questionnaire Date Thrive assessed: 04/03/25 I am a: Patient What is your living situation today?: I have a steady place to live Within the past 12 months, did the food you bought not last and you didn't have the money to get more?: Sometimes True Within the past 12 months, did you worry whether your food would run out before you got money to buy more?: Sometimes True Do you have trouble paying for medicines?: No Do you have trouble getting transportation to medical appointments?: No Do you have trouble paying your heating and electricity bill?: Yes Do you have trouble taking care of your child, family member or friend?: No Do you have trouble with day-to-day activities such as bathing, preparing meals, shopping, managing finances, etc.?: No Are you currently unemployed and looking for a job?: Yes Are you interested in more education?: Yes Please select the resources that you would like help with: Daily support, Job search/training and Education Currently or been in a relationship where the following occur: No concerns reported THRIVE Score: 3 AUDIT C Alcohol Use Questionnaire (AUDIT-C) 1. How often do you have a drink containing alcohol?: Monthly or less Total Score: 1 Score Reviewed/Action Taken: No YVONNE-7 AMB Questionnaire YVONNE-7 Date YVONNE - 7 assessed: 02/05/25 Feeling nervous, anxious, or on edge: 1 = Several days Not being able to stop or control worryin = More than half the days Worrying too much about different things: 1 = Several days Trouble relaxin = Several days Being so restless that it is hard to sit still: 1 = Several days Becoming easily annoyed or irritable: 0 = Not at all Feeling afraid as if something awful might happen: 1 = Several days Total YVONNE-7 score (0-4 normal; 5-9 mild; 10-14 moderate; 15-21 severe): 7 Source: Developed by Drs. Melvin Neal, Lindsey Ochoa, Vito Prabhakar and colleagues, with an educational angie from [employer]. YVONNE-7 Assessment Billing YVONNE-7 Assessment Tool: YVONNE-7 Assessment 42516 Review of Systems Const All systems reviewed & are unremarkable except as noted in HPI and below Card Denies chest pain at rest, Denies chest pain with activity, Denies edema, Denies irregular heart rhythm, Denies claudication, Denies dyspnea, Denies dyspnea on exertion, Denies orthopnea, Denies paroxysmal nocturnal dyspnea and Denies slow heart rate Resp Denies cough, Denies dyspnea and Denies dyspnea on exertion GI Denies abdominal pain, Denies change in bowel habits, Denies excessive flatus, Denies nausea and Denies vomiting Physical exam (Primary Care) Vital Signs: Last Vital Signs Temp 97.7 F 04/10/25 16:11 Pulse 93 04/10/25 16:11 BP 120/70 04/10/25 16:11 Pulse Ox 98 04/10/25 16:11 Oxygen Delivery Method Room Air 04/10/25 16:11 BMI result Body Mass Index 34.4 Tobacco/Smoking Status: Tobacco use Status Tobacco use date assessed 04/10/25 04/10/25 16:15 Patient Tobacco Use Status Former Tobacco user 04/10/25 16:15 Tobacco use type Cigarette 04/10/25 16:15 e-Cigarette/Vaping Use Never Used 04/10/25 16:15 PHQ-9: PHQ-9 Score PHQ-9: Total score 2 04/10/25 16:22 Depression Screening Interpretation: Positive Depression Screening Follow-up: Existing condition and Follow-up Visit Requested Thrive Assessment: Date of Thrive Assessment Date Thrive assessed 04/03/25 04/10/25 16:15 Currently or been in a relationship where the following occur: No concerns reported [facility] Head: Yes normal to inspection, Yes normocephalic and Yes atraumatic Ears: external ears normal Eyes General: appearance normal, both eyes and all related structures Eyelids: Yes eyelids normal Conjunctivae: conjunctivae normal Neck Neck: Yes normal visual inspection and Yes supple Resp Effort & Inspection: normal respiratory effort Auscultation: clear to auscultation bilaterally Cardio Jugular venous distension: no JVD Rate: regular rate Rhythm: regular rhythm Heart sounds: S1 normal heart sound present and S2 normal heart sound present GI Inspection: Yes normal to inspection Palpation (GI): Soft to palpation and nontender Auscultation: normal bowel sounds Skin General skin exam: no rashes or lesions noted Neuro General: no focal motor deficits Extrem General: Yes full ROM Psych Appearance: grossly normal Coding Level of Care Code Est Pt Level 3 (67752) Est Pt Prev Care 40-64y(04277) Diagnoses Physical exam Z00.00 Mild recurrent major depression F33.0 Skin lesion L98.9 Additional Codes PHQ-9 - 66862 - PHQ-9 Billing: Yes ([id number]) YVONNE-7 Assessment Billing - YVONNE-7 Assessment Tool: YVONNE-7 Assessment 45363 ([id number]) Time Spent (min) 31 Assessment & Plan Assessment & Plan (1) Physical exam: Code(s): Z00.00 - Encounter for general adult medical examination without abnormal findings Category: Medical (2) Mild recurrent major depression: Code(s): F33.0 - Major depressive disorder, recurrent, mild Category: Medical (3) Skin lesion: Code(s): L98.9 - Disorder of the skin and subcutaneous tissue, unspecified Category: Medical Plan Repeat physical exam in a year. Referred to dermatology. Orders: Orders Lipid Panel Today E78.5 - Hyperlipidemia, unspecified Comprehensive [place]. Panel Fast Today Z00.00 - Encounter for general adult medical examination without abnormal findings Referrals Dermatology Referral L98.9 - Disorder of the skin and subcutaneous tissue, unspecified Medications: Refilled folic acid 1 mg PO DAILY 90 tabs 1RF 90 days
[2025-04-10 16:11] VITALS: BP 120/70; PULSE 93; TEMP 36.5; O2SAT 98; BMI 34.4
--- OUTSIDE RECORDS SUMMARY | 2025-04-10 16:38 | XMS_ITS | Clinical Summary ---
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 Not on file Not [...] MAMMOGRAM 2021 SCREENING FOR DIABETES 07/21/2023 07/21/2020 INFLUENZA VACCINE (#1) 2025 , 07/26/2024, 07/27/2022, Additional history exists PAP SMEAR 07/20/2025 07/20/2020 IUD 06/06/2027 06/06/2019 [...] EST) SODIUM 137 133 - 146 mmol/L [facility] POTASSIUM 4.1 3.3 - 5.1 mmol/L [facility] CHLORIDE 102 96 - 108 mmol/L [facility] CO2 25 21 - 35 mmol/L [facility] BUN 11 6 - 19 mg/dL [facility] CREATININE 0.60 0.5 - 1.5 mg/dL [facility] GLUCOSE 86 70 - 99 mg/dL [facility] ALBUMIN 4.4 3.9 - 4.8 g/dL [facility] TOTAL PROTEIN 7.5 6.5 - 8.0 g/dL [facility] CALCIUM 9.2 8.4 - 10.3 mg/dL [facility] ALKALINE PHOSPHATASE 81 39 - 117 U/L [facility] TOTAL BILIRUBIN 0.3 0.0 - 1.2 mg/dL [facility] AST 21 0 - 37 U/L [facility] ALT 15 0 - 40 U/L [facility] GLOBULIN 3.1 1 - 4.8 g/dL [facility] EGFR 116 >59 mL/min/1.7 3m2 [facility] Comment:Estimated glomerular filtration rate calculated using the CKD-EPI equation. ANION GAP 14 10 - 20 mmol/L [facility] Blood 07/21/2020 1:42 PM EST 07/21/2020 1:48 PM EST John [facility] BLOOD ORDERABLES Fi nal Result Performing Organization Address City/State/[facility] Co de Phone Number [address] [address] * Pap Smear (07/20/2020 12:00 AM EST) 07/20/2020 07/21/2020 8:5 9 AM EST Narrative SEE NARRATIVE - 07/24/2020 11:04 AM EST [address] [address] Environmental Technology Professor: Awa Lord MD PSYCHIATRY TEACHER Cytology Report FINAL DIAGNOSIS A. PAP SMEAR [...] 52, 56, 58, 59, 66, 68) by [employer] HR-HPV analysis. Clinical correlation is advised. This HPV test was performed at [facility], [address] [place] [address]. This test has been FDA approved for [facility] cervical cytology specimens. The accuracy and precision of this test for all other specimen sources has been verified in the Cytopathology Laboratory of the [facility] and has not been cleared or approved by the U.S. Food and Drug Administration. Clinical correlation is advised. CLINICAL HISTORY Date of Last Menstrual Period: 06-22-2020 Other Clinical Conditions: Screening Pap SPECIMEN SOURCE A: PAP SMEAR (SUREPATH) CE Patient Name: JASMYNE HARDEN : 1980 (Age: 39) Sex: F Institution: [facility] Location: [facility] Date of Collection: 07/20/2020 Date of Reported: 07/22/2020 14:14 Results to: Suha Coronado MD us Suha Coronado MD CYTOLOGY ORDERABLES Edited Re sult - Final SEE NARRATIVE from Last 3 Months or Most Recently Relevant to Health Maintenance Insurance [employer] [place] [address] [place] [address] [place] [address] [place] [address] [place] [address] [place] [address] [place] [address] [place] [address] [place] [place] [address] [place] [address] [place] [address] ACO [facility] Care Teams Electric Stove Installer Relationship Specialty Start Date End Date Abi Gardner MD [address] [place] [address] PCP - General Internal Medicine 10/12/18 Stevenson Ayoub MD [address] [place] [address], [facility] [place] [address] [place] [address] [email or web address] Historical LMR Provider 05/24/17 Suha Coronado MD [address] [place] [id number] [email or web address] Historical LMR Provider 05/24/17 Meenakshi Felix MD [address] [place] [phone] [email or web address] Historical LMR Provider 05/24/17 Boris Martinez MD [address] [place] [address] [email or web address] Historical LMR Provider 05/24/17 Additional Source Comments The information contained in this document represents components of the legal health record. It is not the complete legal health record.[facility]
--- OUTSIDE RECORDS SUMMARY | 2025-04-10 16:38 | XMS_ITS | Encounter Summary ---
Author Organization [employer] [facility] Address [facility] [address] [address] Phone Care Team Providers Care Multimedia Educational Specialist Name Role Phone Stevenson Ayoub MD Unavailable Suha Coronado MD Unavailable [phone] Meenakshi Felix MD Unavailable Boris Martinez MD Unavailable [phone] Abi Gardner MD Primary Care Provid er Reason for Referral * Physical Therapy (Routine) - Closed Specialty Diagnoses / Procedures Referred By Contsoo trevino Referred To Contact Physical Therapy Diagnoses Encounter for rehabilitation Abi Gardner MD Phone: tel: fax: [address] [address] Phone: tel: Referral ID Status Reason Start Date Expiration Date Visits Re quested Visits Authorized [id number] Closed 02/05/2024 08/06/2024 60 60 Encounter Details Date Type Department Care Team (Latest Contact Info) Description 02/05/2024 Transcribe Orders [facility] [address] [place] [phone] Abi Gardner MD [address] [place] [address] Encounter for rehabilitation (Primary Dx) Social History [...] 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 Not on file Not on maría elena e documented as of this encounter Plan of Treatment Scheduled Referrals Name Type Priority Associated Diagnoses Orde r Schedule Ambulatory referral to [facility] Physical Therapy Outpatient Referral Routine Encounter for rehabilitation Ordered: 02/05/2024 documented as of this encounter Visit Diagnoses Diagnosis Encounter for rehabilitation- Primary documented in this encounter Care Teams Multimedia Educational Specialist Relationship Specialty Start Date End Date Abi Gardner MD [address] [place] [address] PCP - General Internal Medicine 10/12/18 Stevenson Ayoub MD [address] [place] [phone] [email or web address] Historical LMR Provider 05/24/17 Suha Coronado MD [address] [place] [phone] [email or web address] Historical LMR Provider 05/24/17 Meenakshi Felix MD [address] [place] [address] Historical LMR Provider 05/24/17 Boris Martinez MD [address] [place] [address] Historical LMR Provider 05/24/17 documented as of this encounter Additional Source Comments The information contained in this document represents components of the legal health record. It is not the complete legal health record.[facility]
== END 2025-04-10 16:40 | disposition home or self-care (01) ==
LOC: HO.HMCH 16:02
PROVIDERS: PCP Internal Medicine; Visit Provider Internal Medicine
DX: Z00.00 Encounter for general adult medical examination without abnormal findings (principal); F33.0 Major depressive disorder, recurrent, mild; L98.9 Disorder of the skin and subcutaneous tissue, unspecified

== ENCOUNTER → 2025-04-10 16:01 | Outpatient (BNVA) | payer OTHER, SELFPAY | PROVIDERS: PCP Internal Medicine; Visit Provider Internal Medicine | DX: Z00.00 Encounter for general adult medical examination without abnormal findings (principal); F33.0 Major depressive disorder, recurrent, mild; E78.5 Hyperlipidemia, unspecified | CPT/HCPCS: 96127; 99396 ==

== ENCOUNTER 2025-04-16 09:04 | Outpatient (REF) | payer OTHER, SELFPAY ==
--- OUTSIDE RECORDS SUMMARY | 2025-04-16 10:43 | XMS_ITS | Encounter Summary ---
Author Organization [facility] Address [facility] [employer] [address] [address] Phone Care Team Providers Care Checker Cashier Name Role Phone Stevenson Ayoub MD Unavailable Suha Coronado MD Unavailable [phone] Meenakshi Felix MD Unavailable Boris Martinez MD Unavailable [phone] Abi Gardner MD Primary Care Provid er Reason for Referral * Physical Therapy (Routine) - Closed Specialty Diagnoses / Procedures Referred By Contsoo trevino Referred To Contact Physical Therapy Diagnoses Encounter for rehabilitation Abi Gardner MD Phone: tel: fax: [address] [address] Phone: tel: Referral ID Status Reason Start Date Expiration Date Visits Re quested Visits Authorized [id number] Closed 02/05/2024 08/06/2024 60 60 Encounter Details Date Type Department Care Team (Latest Contact Info) Description 02/05/2024 Transcribe Orders [facility] [address] [place] [phone] Abi Gardner MD [address] [place] [address] Encounter for rehabilitation (Primary Dx) Social History [...] 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 on file Not on maría elena e documented as of this encounter Plan of Treatment Scheduled Referrals Name Type Priority Associated Diagnoses Orde r Schedule Ambulatory referral to [facility] Physical Therapy Outpatient Referral Routine Encounter for rehabilitation Ordered: 02/05/2024 documented as of this encounter Visit Diagnoses Diagnosis Encounter for rehabilitation- Primary documented in this encounter Care Teams Checker Cashier Relationship Specialty Start Date End Date Abi Gardner MD [address] [place] [address] PCP - General Internal Medicine 10/12/18 Stevenson Ayoub MD [address] [place] [phone] [email or web address] Historical LMR Provider 05/24/17 Suha Coronado MD [address] [place] [phone] [email or web address] Historical LMR Provider 05/24/17 Meenakshi Felix MD [address] [place] [phone] Historical LMR Provider 05/24/17 Boris Martinez MD [address] [place] [address] Historical LMR Provider 05/24/17 documented as of this encounter Additional Source Comments The information contained in this document represents components of the legal health record. It is not the complete legal health record.[facility]
--- OUTSIDE RECORDS SUMMARY | 2025-04-16 10:43 | XMS_ITS | Clinical Summary ---
Author Organization [facility] Address [facility] [address] [address] Phone Care Team Providers Care Rail Setter Name Role Phone Stevenson Ayoub MD Unavailable Suha Coronado MD Unavailable [phone] Meenakshi Felix MD Unavailable Boris Martinez MD Unavailable [phone] Abi Gardner MD Primary Care Provid er [...] mg by mouth daily before breakfast. 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 Not [...] (18-65 YEARS) 1999 POTASSIUM LEVEL 07/21/2021 07/21/2020, 0708/2019, 07/26/2019, Additional history exists MAMMOGRAM 2021 SCREENING [...] EST) SODIUM 137 133 - 146 mmol/L [facility] POTASSIUM 4.1 3.3 - 5.1 mmol/L [facility] CHLORIDE 102 96 - 108 mmol/L [facility] CO2 25 21 - 35 mmol/L [facility] BUN 11 6 - 19 mg/dL [facility] CREATININE 0.60 0.5 - 1.5 mg/dL [facility] GLUCOSE 86 70 - 99 mg/dL [facility] ALBUMIN 4.4 3.9 - 4.8 g/dL [facility] TOTAL PROTEIN 7.5 6.5 - 8.0 g/dL [facility] CALCIUM 9.2 8.4 - 10.3 mg/dL [facility] ALKALINE PHOSPHATASE 81 39 - 117 U/L [facility] TOTAL BILIRUBIN 0.3 0.0 - 1.2 mg/dL [facility] AST 21 0 - 37 U/L [facility] ALT 15 0 - 40 U/L [facility] GLOBULIN 3.1 1 - 4.8 g/dL [facility] EGFR 116 >59 mL/min/1.7 3m2 [facility] Comment:Estimated glomerular filtration rate calculated using the CKD-EPI equation. ANION GAP 14 10 - 20 mmol/L [facility] Blood 07/21/2020 1:42 PM EST 07/21/2020 1:48 PM EST John [facility] BLOOD ORDERABLES Fi nal Result Performing Organization Address City/State/[facility] Co de Phone Number [address] [address] * Pap Smear (07/20/2020 12:00 AM EST) 07/20/2020 07/21/2020 8:5 9 AM EST Narrative SEE NARRATIVE - 07/24/2020 11:04 AM EST [address] [address] Duty Manager: Awa Lord MD [employer] Cytology Report FINAL DIAGNOSIS A. PAP SMEAR [...] 52, 56, 58, 59, 66, 68) by [employer] Onclarity HR-HPV analysis. Clinical correlation is advised. This HPV test was performed at [facility], [address] [place] [address]. This test has been FDA approved for SurePath cervical cytology specimens. The accuracy and precision of this test for all other specimen sources has been verified in the Cytopathology Laboratory of the [facility] and has not been cleared or approved by the U.S. Food and Drug Administration. Clinical correlation is advised. CLINICAL HISTORY Date of Last Menstrual Period: 06-22-2020 Other Clinical Conditions: Screening Pap SPECIMEN SOURCE A: PAP SMEAR (SUREPATH) CE Patient Name: JASMYNE HARDEN : 1980 (Age: 39) Sex: F Institution: [facility] Location: [facility] Date of Collection: 07/20/2020 Date of Reported: 07/22/2020 14:14 Results to: Suha Coronado MD us Suha Coronado MD CYTOLOGY ORDERABLES Edited Re sult - Final SEE NARRATIVE from Last 3 Months or Most Recently Relevant to Health Maintenance [place] [address] [place] [address] [place] [address] [place] [address] [place] [address] [place] [address] [place] [address] [place] [address] [place] [address] [place] [address] [place] [address] [place] [address] [place] [address] [place] [address] [place] [address] [place] [address] [place] [address] [place] [address] ACO Care Teams Rail Setter Relationship Specialty Start Date End Date Abi Gardner MD [address] [place] [address] PCP - General Internal Medicine 10/12/18 Stevenson Ayoub MD [address] [place] [address], [address] [address] [email or web address] Historical LMR Provider 05/24/17 Suha Coronado MD [address] [place] [address] [email or web address] Historical LMR Provider 05/24/17 Meenakshi Felix MD [address] [place] [address] [email or web address] Historical LMR Provider 05/24/17 Boris Martinez MD [address] [place] [address] [email or web address] Historical LMR Provider 05/24/17 Additional Source Comments The information contained in this document represents components of the legal health record. It is not the complete legal health record.[facility]
[2025-04-16 11:20] LABS: Alanine Aminotransferase 20 U/L (0-31); Albumin Level 4.4 g/dL (3.5-5.0); Alkaline Phosphatase 93 U/L (39-117); Anion Gap 12 (12-20); Aspartate Amino Transferase 21 U/L (5-31); Blood Urea Nitrogen 8 mg/dL (9-16); Calcium 9.1 mg/dL (8.4-10.2); Carbon Dioxide 24 mmol/L (22-29); Chloride 107 mmol/L (96-108); Cholesterol 186 mg/dL (<200); Estimated Glomerular Filt Rate > 60; HDL Cholesterol 38 mg/dL (>40); Potassium 3.8 mmol/L (3.3-5.1); Sodium 139 mmol/L (135-145); Total Protein 7.3 g/dL (6.5-8.0); Triglycerides 173 mg/dL (<150)
== END 2025-04-16 09:05 | disposition home or self-care (01) ==
LOC: HO.LAB 09:04
PROVIDERS: PCP Internal Medicine; Visit Provider Internal Medicine
DX: Z00.00 Encounter for general adult medical examination without abnormal findings (principal); E78.5 Hyperlipidemia, unspecified
CPT/HCPCS: 36415; 80053; 80061

== ENCOUNTER 2025-04-30 09:05 | Outpatient (AMB) | payer OTHER, SELFPAY ==
[2025-04-30 09:18] VITALS: BP 130/75; PULSE 88; RESP 18; O2SAT 99
--- NOTE | 2025-04-30 09:18 | MHC.OFFVIS ---
Vital Signs 04/30/25 09:18 Weight 158 lb BP 130/75 Blood Pressure Location Lt brachial Position Sitting Respiration 18 Pulse 88 Pulse Source Pulse Oximeter Pulse Oximetry (%) 99 Oxygen Delivery Method Room Air Intake Visit Reasons: Discuss procedure Extension Service Supervisor Required: No Allergies estradiol Allergy (Intermediate, Verified 04/30/25 09:14) Rash HPI Comments Details: Jasmyne is in my office today to discuss her options. She insists on trying to approve this ganglion impar and caudal epidural steroid injection without catheter. We were doing this procedures for years, it was helping her pain significantly reducing it from 8-9 out of 10 to 1 to 2/10 for the interval of 4-5 sometimes 6 months. She was very happy about this procedure, however recently she change the insurance and that new insurance denied the procedure. We were trying to appeal this decision. This procedure prove to be very effective for patient's pain. I will schedule her for the ganglion impar and caudal epidural steroid injection without catheter as soon as it will be approved by her insurance company. Results of repeated ganglion impar + caudal epidural steroid injection. She reported excellent pain relief for the past month since the procedure. This is repetition of the procedure. Last time the results lasted for 4 months. However this time patient reports excellent results on ganglion impar with ability to sit for the long period of time, however she reports that pain in the projection of the sacral spine became little bit better however she still experiences pain in the projection of the sacral bone. The pain in her hip areas are better today. We decided against performing bilateral trochanteric bursa injection. She complains on more pain on the left side. I told her when they pain in the trochanteric bursa will get exacerbated the procedure of trochanteric bursa injection could be performed however she needs to understand that it will not be scheduled with the 1 month before 1 month after ganglion impar and caudal epidural steroid injection. She also complains on pain in the left wrist where she had carpal tunnel release surgery. She had only 6 sessions of physical therapy. I recommended her to have at least 12 sessions and extensive home exercise program. I also recommended her to have occupational therapy for for the wrist. She will get into contact with the surgeon who did the procedure and request the extension of the physical therapy. [facility] Medical History Carpal tunnel syndrome on both sides Pre-diabetes PCOS (polycystic ovarian syndrome) Spondylosis of cervical spine Bloody stools Right hip pain Abnormal brain MRI Hypovitaminosis D Mild recurrent major depression Pelvic pain in female New persistent daily headache Cervicalgia Right knee pain Knee pain, left Coccydynia Fibromyalgia Simple laceration of nose Nose disease Onychomycosis Obesity Depression with anxiety History of PCOS Hx of tension headache History of anemia Family history of fibromyalgia Hx of hearing loss Surgical History History of surgery History of carpal tunnel surgery of right wrist Hx of colonoscopy History of esophagogastroduodenoscopy (EGD) Hx of section Hx of wisdom tooth extraction Family History Father CVD (cardiovascular disease) Mother Rheumatoid arthritis Mental health disorder Substance use disorder Paternal Aunt Uterine cancer Social History Housing: Apartment Are you a primary health care liaison to a significant other at home: No Do you presently have visiting nurse or other home services: No Alcohol intake: current Alcohol intake frequency: holidays/special occasions only Alcohol type: beer and wine Patient Tobacco Use Status: Former Tobacco user Tobacco use type: Cigarette e-Cigarette/Vaping Use: Never Used Second Hand Smoke Exposure: Yes Substance Use Type: Marijuana service: No Current occupational status: employed Current occupational exposures/hazards: No Sexual orientation: Straight/Heterosexual Gender identity: Female Cognitive needs: No Hearing needs: No Vision needs: Yes Female Reproductive History Menstrual Age of Menarche: 13 Review of Systems Const All systems reviewed & are unremarkable except as noted in HPI and below Physical Exam Vital Signs: Last Vital Signs Pulse 88 04/30/25 09:18 Resp 18 04/30/25 09:18 BP 130/75 04/30/25 09:18 Pulse Ox 99 04/30/25 09:18 Oxygen Delivery Method Room Air 04/30/25 09:18 Const General: comfortable, no acute distress, well developed, alert and awake Eyes Pupils: Equal, round and reactive pupils present EOM: EOMs intact bilaterally Chest Chest palpation & inspection: normal inspection of the chest Resp Effort & Inspection: normal respiratory effort, able to speak in complete sentences, normal respiratory pattern, no audible wheezes and no cough Cardio Jugular venous distension: no JVD Back/Spine/Pelvis Other: On physical exam she does not exhibit any signs of the tenderness on the palpation of spinal and paraspinal regions of the lumbar spine. Most of the palpation and tenderness related to the area of the sacral bone. She exhibits remarkable flexibility of the lumbar spine without any difficulty flexing forward or backward. She exhibits no pain with loading test. She exhibits pain with Miguel test. SLR is negative for pain increase. Neuro Cranial nerves: Yes Equal, round and reactive pupils present Extrem Other: Tenderness on palpation on bilateral trochanteric bursa radiating down lateral hips. Left wrist inspection there is very well-healed scar in the projection of the carpal tunnel typical surgery. There is no swelling no redness no pathological discharge. Psych Speech and movement: Normal speech and movement present Affect: normal affect Attitude: cooperative Assessment & Plan Assessment & Plan (1) Coccydynia: Code(s): M53.3 - Sacrococcygeal disorders, not elsewhere classified Category: Medical (2) Disc degeneration, lumbosacral: Code(s): M51.37 - Other intervertebral disc degeneration, lumbosacral region Category: Medical (3) Trochanteric bursitis of both hips: Code(s): M70.61 - Trochanteric bursitis, right hip; M70.62 - Trochanteric bursitis, left hip Category: Medical (4) Hamstring tendinitis of left thigh: Code(s): M76.892 - Other specified enthesopathies of left lower limb, excluding foot Category: Medical (5) Hamstring tendinitis of right thigh: Code(s): M76.891 - Other specified enthesopathies of right lower limb, excluding foot Category: Medical Plan We still are waiting for the appeal l to go through. After that we will be able to schedule the patient if approved for ganglion impar steroid injection and caudal epidural steroid injection without catheter. She also has degenerative changes in bilateral sacroiliac joints we could address this with injections. Coding Level of Care Code Est Pt Level 3 (97352) Diagnoses Coccydynia M53.3 Disc degeneration, lumbosacral M51.37 Trochanteric bursitis of both hips M70.61; M70.62 Hamstring tendinitis of left thigh M76.892 Hamstring tendinitis of right thigh M76.891
--- OUTSIDE RECORDS SUMMARY | 2025-04-30 10:40 | XMS_ITS | Encounter Summary ---
Author Organization [email or web address] Address [facility] [address] [address] Phone Care Team Providers Care Hris Developer Name Role Phone Stevenson Ayoub MD Unavailable Suha Coronado MD Unavailable [phone] Meenakshi Felix MD Unavailable Boris Martinez MD Unavailable [phone] Abi Gardner MD Primary Care Provid er Reason for Referral * Physical Therapy (Routine) - Closed Specialty Diagnoses / Procedures Referred By Contsoo trevino Referred To Contact Physical Therapy Diagnoses Encounter for rehabilitation Abi Gardner MD Phone: tel: fax: [address] [address] Phone: tel: Referral ID Status Reason Start Date Expiration Date Visits Re quested Visits Authorized [id number] Closed 02/05/2024 08/06/2024 60 60 Encounter Details Date Type Department Care Team (Latest Contact Info) Description 02/05/2024 Transcribe Orders [facility] [address] [place] [phone] Abi Gardner MD [address] [place] [address] Encounter for rehabilitation (Primary Dx) Social History [...] 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 Not on file Not on maría elena e documented as of this encounter Plan of Treatment Upcoming Encounters Date Type Department Care Team (Late st Contact Info) Description 05/05/2025 11:40 AM EDT [facility] [address] [place] [address] [place] [address] Meenakshi Felix MD [address] [place] [address], [address] [place] [address] [email or web address] Scheduled Referrals Name Type Priority Associated Diagnoses Orde r Schedule Ambulatory referral to [facility] Physical Therapy Outpatient Referral Routine Encounter for rehabilitation Ordered: 02/05/2024 documented as of this encounter Visit Diagnoses Diagnosis Encounter for rehabilitation- Primary documented in this encounter Care Teams Hris Developer Relationship Specialty Start Date End Date Abi Gardner MD [address] [place] [address] PCP - General Internal Medicine 10/12/18 Stevenson Ayoub MD [address] [place] [address] Historical LMR Provider 05/24/17 Suha Coronado MD [address] [place] [address] Historical LMR Provider 05/24/17 Meenakshi Felix MD [address] [place] [address] Historical LMR Provider 05/24/17 Boris Martinez MD [address] [place] [address] Historical LMR Provider 05/24/17 documented as of this encounter Additional Source Comments The information contained in this document represents components of the legal health record. It is not the complete legal health record.[facility]
--- OUTSIDE RECORDS SUMMARY | 2025-04-30 10:41 | XMS_ITS | Clinical Summary ---
Author Organization [facility] Address [facility] [address] [address] Phone Care Team Providers Care Police Worker Name Role Phone Stevenson Ayoub MD Unavailable Suha Coronado MD Unavailable [phone] Meenakshi Felix MD Unavailable Boris Martinez MD Unavailable [phone] Abi Gardner MD Primary Care Provid er [...] 3 days 2 tablet 1 5 Active fluconazole (DIFLUCAN) 150 MG tablet TAKE ONE DOSE NOW AND REPEAT IN 3 DAYS 2 tablet 5 Active Hospital, Clinic, or Other Facility [...] Acute bilateral low back pain 10/18/2018 05/27/2022 Encounters Date Type Department Care Team Description 04/18/2025 Telephone [facility] [address] [place] [address] Aliya Pulido MD 04/18/2025 Refill [facility] [address] [place] [address] Aliya Pulido MD Medication Refill from Last 3 Months Immunizations Immunization Administration Dates Next Due COVID-19 [...] 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 Not on file Not [...] 11/07/2024 3:56 PM EDT Plan of Treatment Upcoming Encounters Date Type Department Care Team (Late st Contact Info) Description 05/05/2025 11:40 AM EDT Telemedicine [facility] [address] [place] [address] Meenakshi Felix MD [address] [facility], [address] [place] [address] [email or web address] Health Maintenance Due Date Last Done Comments DEPRESSION SCREENING 1993 SMOKING Hx and SMOKELESS TOBACCO SCREENING 1994 HEPATITIS C SCREENING 1999 HIV ONE-TIME SCREENING (18-65 YEARS) 1999 POTASSIUM LEVEL 07/21/2021 07/21/2020, 07/2 08/2019, 07/26/2019, Additional history exists MAMMOGRAM 2021 SCREENING FOR DIABETES 07/21/2023 07/21/2020 INFLUENZA VACCINE (#1) 2025 4, 07/26/2024, 07/27/2022, Additional history exists PAP SMEAR [...] EST) SODIUM 137 133 - 146 mmol/L [facility] POTASSIUM 4.1 3.3 - 5.1 mmol/L [facility] CHLORIDE 102 96 - 108 mmol/L [facility] CO2 25 21 - 35 mmol/L [facility] BUN 11 6 - 19 mg/dL [facility] CREATININE 0.60 0.5 - 1.5 mg/dL [facility] GLUCOSE 86 70 - 99 mg/dL [facility] ALBUMIN 4.4 3.9 - 4.8 g/dL [facility] TOTAL PROTEIN 7.5 6.5 - 8.0 g/dL [facility] CALCIUM 9.2 8.4 - 10.3 mg/dL [facility] ALKALINE PHOSPHATASE 81 39 - 117 U/L [facility] TOTAL BILIRUBIN 0.3 0.0 - 1.2 mg/dL [facility] AST 21 0 - 37 U/L [facility] ALT 15 0 - 40 U/L [facility] GLOBULIN 3.1 1 - 4.8 g/dL [facility] EGFR 116 >59 mL/min/1.7 3m2 [facility] Comment:Estimated glomerular filtration rate calculated using the CKD-EPI equation. ANION GAP 14 10 - 20 mmol/L [facility] Blood 07/21/2020 1:42 PM EST 07/21/2020 1:48 PM EST John [facility] BLOOD ORDERABLES Fi nal Result [address] [address] * Pap Smear (07/20/2020 12:00 AM EST) 07/20/2020 07/21/2020 8:5 9 AM EST Narrative SEE NARRATIVE - 07/24/2020 11:04 AM EST [address] [address] Director Digital Communications: Awa Lord MD CONTINGENTS SUPERVISOR Cytology Report FINAL DIAGNOSIS A. PAP SMEAR [...] 52, 56, 58, 59, 66, 68) by [employer] Onclarity HR-HPV analysis. Clinical correlation is advised. This HPV test was performed at [facility], [address] [place] [address]. This test has been FDA approved for SurePath cervical cytology specimens. The accuracy and precision of this test for all other specimen sources has been verified in the Cytopathology Laboratory of the [facility] and has not been cleared or approved by the U.S. Food and Drug Administration. Clinical correlation is advised. CLINICAL HISTORY Date of Last Menstrual Period: 06-22-2020 Other Clinical Conditions: Screening Pap SPECIMEN SOURCE A: PAP SMEAR (SUREPATH) CE Patient Name: JASMYNE HARDEN : 1980 (Age: 39) Sex: F Institution: [facility] Location: [facility] Date of Collection: 07/20/2020 Date of Reported: 07/22/2020 14:14 Results to: Suha Coronado MD us Suha Coronado MD CYTOLOGY ORDERABLES Edited Re sult - Final SEE NARRATIVE from Last 3 Months or Most Recently Relevant to Health Maintenance Insurance [place] [address] [place] [address] [place] [address] [address] [place] [address] [place] [address] [address] [place] [address] [place] [address] [place] [address] [place] [address] [place] [address] [place] [address] ACO Care Teams Police Worker Relationship Specialty Start Date End Date Abi Gardner MD [address] [place] [address] PCP - General Internal Medicine 10/12/18 Stevenson Ayoub MD [address] [address] Historical LMR Provider 05/24/17 Suha Coronado MD [address] [place] [address] Historical LMR Provider 05/24/17 Meenakshi Felix MD [address] [place] [address] Historical LMR Provider 05/24/17 Boris Martinez MD [address] [address] Historical LMR Provider 05/24/17 Additional Source Comments The information contained in this document represents components of the legal health record. It is not the complete legal health record.[facility]
== END 2025-04-30 09:32 | disposition home or self-care (01) ==
LOC: HO.PMC 09:06
PROVIDERS: PCP Internal Medicine; Visit Provider Anesthesiology
DX: M53.3 Sacrococcygeal disorders, not elsewhere classified (principal); M51.372 Other intervertebral disc degeneration, lumbosacral region with discogenic back pain and lower extremity pain; M70.61 Trochanteric bursitis, right hip; M70.62 Trochanteric bursitis, left hip; M76.892 Other specified enthesopathies of left lower limb, excluding foot; M76.891 Other specified enthesopathies of right lower limb, excluding foot
CPT/HCPCS: 99213

== ENCOUNTER → 2025-04-30 09:05 | Outpatient (BNVA) | payer OTHER, SELFPAY | PROVIDERS: PCP Internal Medicine; Visit Provider Anesthesiology | DX: M70.61 Trochanteric bursitis, right hip (principal); M70.62 Trochanteric bursitis, left hip; G56.03 Carpal tunnel syndrome, bilateral upper limbs; M53.3 Sacrococcygeal disorders, not elsewhere classified; M51.379 Other intervertebral disc degeneration, lumbosacral region without mention of lumbar back pain or lower extremity pain; M76.892 Other specified enthesopathies of left lower limb, excluding foot; M76.891 Other specified enthesopathies of right lower limb, excluding foot | CPT/HCPCS: 99212 ==

== ENCOUNTER 2025-05-16 09:35 | Day surgery (SDC) | payer OTHER, SELFPAY ==
--- OUTSIDE RECORDS SUMMARY | 2025-05-08 16:33 | XMS_ITS | Encounter Summary ---
Author Organization [employer] [facility] Address [facility] [employer] [address] [address] Phone Care Team Providers Care Spot Man Name Role Phone Stevenson Ayoub MD Unavailable Suha Coronado MD Unavailable [phone] Meenakshi Felix MD Unavailable Boris Martinez MD Unavailable [phone] Abi Gardner MD Primary Care Provid er Reason for Referral * Physical Therapy (Routine) - Closed Specialty Diagnoses / Procedures Referred By Contsoo trevino Referred To Contact Physical Therapy Diagnoses Encounter for rehabilitation Abi Gardner MD Phone: tel: fax: [address] [address] Phone: tel: Referral ID Status Reason Start Date Expiration Date Visits Re quested Visits Authorized [id number] Closed 02/05/2024 08/06/2024 60 60 Encounter Details Date Type Department Care Team (Latest Contact Info) Description 02/05/2024 Transcribe Orders [facility] [address] [place] [address] Abi Gardner MD [address] [place] [address] Encounter for rehabilitation (Primary Dx) Social History [...] 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 on file Not on maría elena e documented as of this encounter Plan of Treatment Scheduled Referrals Name Type Priority Associated Diagnoses Orde r Schedule Ambulatory referral to [facility] Physical Therapy Outpatient Referral Routine Encounter for rehabilitation Ordered: 02/05/2024 documented as of this encounter Visit Diagnoses Diagnosis Encounter for rehabilitation- Primary documented in this encounter Care Teams Spot Man Relationship Specialty Start Date End Date Abi Gardner MD [address] [place] [address] PCP - General Internal Medicine 10/12/18 Stevenson Ayoub MD [address] [place] [address] [email or web address] Historical LMR Provider 05/24/17 Suha Coronado MD [address] [place] [address] [email or web address] Historical LMR Provider 05/24/17 Meenakshi Felix MD [address] [place] [address] Historical LMR Provider 05/24/17 Boris Martinez MD [address] [place] [address] Historical LMR Provider 05/24/17 documented as of this encounter Additional Source Comments The information contained in this document represents components of the legal health record. It is not the complete legal health record.[facility]
--- OUTSIDE RECORDS SUMMARY | 2025-05-08 16:33 | XMS_ITS | Clinical Summary ---
Author Organization [facility] Address [facility] [employer] [address] [address] Phone Care Team Providers Care Subeditor Name Role Phone Stevenson Ayoub MD Unavailable Suha Coronado MD Unavailable [phone] Meenakshi Felix MD Unavailable Boris Martinez MD Unavailable [phone] Abi Gardner MD Primary Care Provid er [...] Department Care Team Description 04/18/2025 Telephone [facility] [address] [place] [address] Aliya Pulido MD 04/18/2025 Refill [facility] [address] [place] [address] Aliya Pulido MD Medication Refill from Last [...] 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 on file Not [...] EST) SODIUM 137 133 - 146 mmol/L [facility] POTASSIUM 4.1 3.3 - 5.1 mmol/L [facility] CHLORIDE 102 96 - 108 mmol/L [facility] CO2 25 21 - 35 mmol/L [facility] BUN 11 6 - 19 mg/dL [facility] CREATININE 0.60 0.5 - 1.5 mg/dL [facility] GLUCOSE 86 70 - 99 mg/dL [facility] ALBUMIN 4.4 3.9 - 4.8 g/dL [facility] TOTAL PROTEIN 7.5 6.5 - 8.0 g/dL [facility] CALCIUM 9.2 8.4 - 10.3 mg/dL [facility] ALKALINE PHOSPHATASE 81 39 - 117 U/L [facility] TOTAL BILIRUBIN 0.3 0.0 - 1.2 mg/dL [facility] AST 21 0 - 37 U/L [facility] ALT 15 0 - 40 U/L [facility] GLOBULIN 3.1 1 - 4.8 g/dL [facility] EGFR 116 >59 mL/min/1.7 3m2 [facility] Comment:Estimated glomerular filtration rate calculated using the CKD-EPI equation. ANION GAP 14 10 - 20 mmol/L [facility] Blood 07/21/2020 1:42 PM EST 07/21/2020 1:48 PM EST us John [facility] BLOOD ORDERABLES Fi nal Result [facility] [address] [place] [address] * Pap Smear (07/20/2020 12:00 AM EST) 07/20/2020 07/21/2020 8:5 9 AM EST Narrative SEE NARRATIVE - 07/24/2020 11:04 AM EST [address] [address] Environmental Safety Specialist: Awa Lord MD FIELD COORDINATOR Cytology Report FINAL DIAGNOSIS A. PAP SMEAR [...] 52, 56, 58, 59, 66, 68) by [employer] Onclarity HR-HPV analysis. Clinical correlation is advised. This HPV test was performed at [facility], [address] [place] [address]. This test has been FDA approved for SurePath cervical cytology specimens. The accuracy and precision of this test for all other specimen sources has been verified in the Cytopathology Laboratory of the [facility] and has not been cleared or approved by the U.S. Food and Drug Administration. Clinical correlation is advised. CLINICAL HISTORY Date of Last Menstrual Period: 06-22-2020 Other Clinical Conditions: Screening Pap SPECIMEN SOURCE A: PAP SMEAR (SUREPATH) CE Patient Name: JASMYNE HARDEN : 1980 (Age: 39) Sex: F [facility] Location[facility] Date of Collection: 07/20/2020 Date of Reported: 07/22/2020 14:14 Results to: Suha Coronado MD us Suha Coronado MD CYTOLOGY ORDERABLES Edited Re sult - Final SEE NARRATIVE from Last 3 Months or Most Recently Relevant to Health Maintenance [place] [address] [place] [address] [facility] [facility] [place] [address] [place] [address] [place] [address] [address] [place] [address] [address] [place] [address] [place] [place] [address] [place] [address] [place] [address] [place] [place] [address] ACO Care Teams Subeditor Relationship Specialty Start Date End Date Abi Gardner MD [address] [place] [address] PCP - General Internal Medicine 10/12/18 Stevenson Ayoub MD [address] [place] [id number] Historical LMR Provider 05/24/17 Suha Coronado MD [address] [place] [id number] Historical LMR Provider 05/24/17 Meenakshi Felix MD [address] [place] [phone] Historical LMR Provider 05/24/17 Boris Martinez MD [address] [place] [id number] Historical LMR Provider 05/24/17 Additional Source Comments The information contained in this document represents components of the legal health record. It is not the complete legal health record.[facility]
[2025-05-14 15:02] VITALS: BMI 34.4
--- NOTE | 2025-05-15 09:33 | HO.ANESPROP2 ---
HPI - Anesthesia Eval Consult details Narrative: 44yo F for Caudal Epidural Steroid Injection with Catheter s/p same 08/2024 with TIVA Anesthesia Pre-Procedure Meds Is the patient on any of the following meds?: GLP1/DPP4 PMFSH Active Problems Active Problems: All Active Problems Excessive daytime sleepiness (Acute) Skin lesion (Acute) Fatigue due to sleep pattern disturbance (Acute) Status post left foot surgery (Acute) H. pylori infection (Acute) Polyarthralgia (Acute) Diarrhea (Acute) Hair loss (Acute) Right hip pain (Acute) Left hip pain (Acute) Neck pain (Acute) Right shoulder pain (Acute) Exposure to Streptococcal pharyngitis (Acute) Plantar fasciitis of left foot (Acute) Left foot pain (Acute) Hamstring tendinitis of right thigh (Acute) Hamstring tendinitis of left thigh (Acute) Physical exam (Acute) Right knee pain (Acute) Right shoulder pain (Acute) Costochondritis, acute (Acute) Otitis media of left ear (Acute) Disc degeneration, lumbosacral (Acute) Immunization due (Acute) Cellulitis with lymphangitis (Acute) Cat bite of right hand (Acute) Nasal polyp (Acute) Trochanteric bursitis of both hips (Acute) IBS (irritable bowel syndrome) (Acute) H. pylori infection (Acute) STEPH (obstructive sleep apnea) (Acute) Coccydynia (Acute) Somatic dysfunction of right sacroiliac joint (Acute) Right shoulder tendinitis (Acute) Vaginal itching (Acute) Presence of 52 mg levonorgestrel-releasing intrauterine device (IUD) (Acute) Myofascial pain syndrome (Acute) Polyarthralgia (Acute) Obesity (BMI 35.0-39.9 without comorbidity) (Acute) Hand numbness (Acute) Protrusion of lumbar intervertebral disc (Acute) Ingrowing left great toenail (Acute) Spondylosis of lumbar spine (Acute) Disc degeneration, lumbar (Acute) Impaired glucose tolerance (Acute) Mixed hyperlipidemia (Acute) Lichen amyloidosis (Acute) Shingles (Acute) Daytime somnolence (Acute) Carpal tunnel syndrome of right wrist (Acute) Loud snoring (Acute) PCOS (polycystic ovarian syndrome) (Acute) Spondylosis of cervical spine (Acute) Bloody stools (Acute) Right hip pain (Acute) Abnormal brain MRI (Acute) Hypovitaminosis D (Acute) Mild recurrent major depression (Acute) Pelvic pain in female (Acute) New persistent daily headache (Acute) Cervicalgia (Acute) Right knee pain (Acute) Knee pain, left (Acute) Coccydynia (Acute) Fibromyalgia (Acute) Simple laceration of nose (Acute) Onychomycosis (Acute) Obesity (Acute) Depression with anxiety (Acute) Past Medical History Medical History Carpal tunnel syndrome on both sides Pre-diabetes PCOS (polycystic ovarian syndrome) Spondylosis of cervical spine Bloody stools Right hip pain Abnormal brain MRI Hypovitaminosis D Mild recurrent major depression Pelvic pain in female New persistent daily headache Cervicalgia Right knee pain Knee pain, left Coccydynia Fibromyalgia Simple laceration of nose Nose disease Onychomycosis Obesity Depression with anxiety History of PCOS Hx of tension headache History of anemia Family history of fibromyalgia Hx of hearing loss Family History Family History Father CVD (cardiovascular disease) Mother Rheumatoid arthritis Mental health disorder Substance use disorder Paternal Aunt Uterine cancer Family history of problems with anesthesia: No Surgical History Surgical History History of surgery History of carpal tunnel surgery of right wrist Hx of colonoscopy History of esophagogastroduodenoscopy (EGD) Hx of section Hx of wisdom tooth extraction History of Problems with Anesthesia: No Social History Social History Housing: Apartment Are you a primary customer care coordinator to a significant other at home: No Do you presently have visiting nurse or other home services: No Alcohol intake: current Alcohol intake frequency: holidays/special occasions only Alcohol type: beer and wine Patient Tobacco Use Status: Former Tobacco user Tobacco use type: Cigarette e-Cigarette/Vaping Use: Never Used Second Hand Smoke Exposure: Yes Substance Use Type: Marijuana service: No Current occupational status: employed Current occupational exposures/hazards: No Sexual orientation: Straight/Heterosexual Gender identity: Female Cognitive needs: No Hearing needs: No Vision needs: Yes Meds Allergies Allergy/AdvReac Type Severity Reaction Status Date / Time estradiol Allergy Intermediate Rash Verified 04/30/25 09:14 Home Medications ?Medication ?Instructions ?Recorded ?Confirmed ?Last Taken ?Type ammonium lactate 12 % topical cream 1 applic topical BID 06/15/20 05/14/25 Unknown History levonorgestrel (Mirena) intrauterine 06/15/20 04/10/25 Unknown History tretinoin 0.05 % topical cream appl topical BEDTIME PRN 02/21/22 04/10/25 Unknown History hyperpigmentation estradiol 0.5 mg tablet 0.5 mg PO DAILY 04/10/25 05/14/25 Unknown History tirzepatide (weight loss) 2.5 2.5 mg subcut QWEEK 04/30/25 05/14/25 Unknown History mg/0.5 mL subcutaneous pen injector ([employer]) Exam Height,Weight and Vital Signs: Height 4 ft 9 in Weight 72.121 kg Assessment and Plan Assessment Anesthesia Assessment: Chart Reviewed Final Anesthetic Review Family History of Problems with Anesthesia: No History of Problems with Anesthesia: No
--- NOTE | ~2025-05-16 | FL_ITS ---
EXAMINATION: FL GUIDANCE ONLY HISTORY: caudal epidural steroid injection COMPARISON: None available. TECHNIQUE: Fluoroscopy time: 14.7 seconds. Cumulative Dose: 13.143 mGy. DAP: 4.5590 Gycm2 Images: 3. FINDINGS: Fluoroscopic spot films of the sacrum demonstrate a needle and contrast material in place. FL/FL guidance in OR IMPRESSION: Fluoroscopy during procedure. Please see procedure report for additional information. Electronically signed by: Melvin Alarcon MD 05/16/2025 12:09 PM EDT
--- NOTE | 2025-05-16 10:22 | MHC.SHP ---
Pre-Procedural Eval Section A - 24 Hr Update-Section A only Date of Service: 05/16/25 The patient is an INPATIENT: No Changes since office visit: Yes Patient answered all questions The patient has been examined within 24 hours of the surgical procedure. The History & Physical has been completed within 30 days and I have reviewed it.: No Section B - Complete if H&P > 30 days Chief Complaint: Other intervertebral disc degeneration,sacrococcyg Details of Present Illness: as above Relevant Family History (Specify if Yes): No Relevant Social History: None Present Medications: see Short Stay Collaborative assessment Medical History: No relevant PMH History of Previous Operations: No relevant previous surgery Allergies: Allergies Allergy/AdvReac Type Severity Reaction Status Date / Time estradiol Allergy Intermediate Rash Verified 04/30/25 09:14 Review of Systems Sugical H&P ROS: Negative: Constitution, Cardiovascular, Respiratory, Neurological, Psychiatric, Hem-Onc, Allergic/Immunologic, Gastrointestinal, Genitourinary, Musculoskeletal, Integumentary, Endocrine and Eyes/Ears/Nose/Throat Exam Surgical H&P Exam: Normal: HEENT, Normal: Heart, Normal: Lungs, Normal: Extremities, Normal: Abdomen, Normal: Skin and Normal: Neurological Plan Diagnosis/Plan: Unchanged I have reviewed the history and physical and performed a pertinent physical examination on my patient. No changes have occurred unless specified.I will perform caudal epidural steroid injection without catheter as well as ganglion impar injection. Time Spent With Patient Time: Total time managing care of this patient today ____ minutes.
[2025-05-16 10:29] LABS: UPreg QC Valid YES
[2025-05-16 10:35] VITALS: BP 111/63; PULSE 70; RESP 12; TEMP 36.9; O2SAT 100; BMI 34.4
[2025-05-16] MEDS: Lactated Ringers 1,000 ML 100 ML IVCONT (10:39)
--- NOTE | 2025-05-16 11:48 | PM.OP ---
Brief Operative Note Date of Service: 05/16/25 Pre-op diagnosis: Coccydynia, chronic pain syndrome. Radiculopathy lumbosacral. Procedure: Ganglion impar injection and caudal epidural steroid injection without catheter Surgeon: Jake Beauchamp MD Anesthesia: MAC Was an Plunger Machine Operator used for this Procedure?: No Estimated blood loss (mL): 0 Condition: stable Disposition: PACU
--- NOTE | 2025-05-16 11:49 | W.PM.OPN ---
Operative Note Operative Note Date of Service: 08/09/24 Narrative: Caudal AFRHANA without catheter and ganglion impar injection.? Two separate procedures. After obtaining informed consent the patient was taken to the operating room where she was position on operating table prone.? ASA monitors applied and patient was moderately sedated ?Time-out was performed delineating correct site, side, the nature of the procedure, patient's allergy need for antibiotic therapy.? All operating room staff was participating in OR time-out procedure.? Her lower back, bilateral buttocks and intergluteal cleft were thoroughly prepped with ChloraPrep and draped with sterile fenestrated clear drape.? Fluoroscopy C-arm was brought over the operating field and picture of midline sacral bone superimposing on symphysis pubis was obtained on the C-arm screen.? After that the position of the C-arm was turned into the lateral.? The position of sacral hiatus was noted on the screen.? 2.5 cm below the sacral hiatus opening local anesthetic lidocaine 2% 3 cc was injected into the skin with 25 gauge 1/2 inch needle.? After that 3-1/2 inch spinal needle 22 gauge was inserted through the skin and advanced the opening of sacral hiatus on intermittent anterior posterior and lateral views.? When needle entered the sacral canal injection of the contrast performed into the needle demonstrating epidural spread of the contrast.? After that injection of the treatment solution containing preservative-free lidocaine 1% 5 cc and Kenalog 40 mg was performed. After that attention was concentrated on the caudal spine the disc image between second and third caudal vertebrae was delineated on the screen.The 22 g 3-1/2 inch needle was inserted through the skin and advanced toward the disc under A/p and lateral intermittent views. When the needle entered the disc the projection of the C-arm was changed into lateral view and needle was slowly advanced into retropelvic space carefully monitoring the position of the tip of the needle. When tip of the needle cleared 2 mm outside of the anterior surface of the caudal spine the injection of the contrast was performed delineates retropelvic spread of the contrast and no intravascular, no intestinal and no vesical spread of the contrast. After that injection of the treatment solution containing lidocaine 1% 4 mls mixed with kenalog 40 mg was performed into the needle. the needle was withdrawn and sterile dressing 4x4s with bacitracin was applied. The patient tolerated procedure well and recovered uneventfully.?
[2025-05-16 11:54] VITALS: BP 119/72; PULSE 83; RESP 16; TEMP 36.1; O2SAT 100
[2025-05-16 12:05] VITALS: BP 121/75; PULSE 85; RESP 16; O2SAT 100
[2025-05-16 12:20] VITALS: BP 131/59; PULSE 83; RESP 16; O2SAT 100
[2025-05-16 12:35] VITALS: BP 118/64; PULSE 78; RESP 16; O2SAT 100
[2025-05-16 12:50] VITALS: BP 118/64; PULSE 78; RESP 16; TEMP 36.1; O2SAT 100
== END 2025-05-16 13:39 | disposition home or self-care (01) ==
PROVIDERS: Nurse Practitioner; PCP Internal Medicine; Visit Provider Anesthesiology
PROC: 3E0R3GC Introduction of Other Therapeutic Substance into Spinal Canal, Percutaneous Approach (ICD-10-PCS; CPT 62322; principal; 2025-05-16 13:10)
DX: M51.370 Other intervertebral disc degeneration, lumbosacral region with discogenic back pain only (principal); G89.4 Chronic pain syndrome; M54.17 Radiculopathy, lumbosacral region; M53.3 Sacrococcygeal disorders, not elsewhere classified; M70.61 Trochanteric bursitis, right hip; M70.62 Trochanteric bursitis, left hip; M79.7 Fibromyalgia; M76.892 Other specified enthesopathies of left lower limb, excluding foot; M76.891 Other specified enthesopathies of right lower limb, excluding foot; M47.812 Spondylosis without myelopathy or radiculopathy, cervical region; F41.8 Other specified anxiety disorders; Z98.890 Other specified postprocedural states; Z87.891 Personal history of nicotine dependence
CPT/HCPCS: 62323; 64451; 81025; J1200; J2003; J2250; J3010; J3301; Q9967

== ENCOUNTER → 2025-05-16 09:35 | Outpatient (BNV) | payer OTHER, SELFPAY | PROVIDERS: PCP Internal Medicine; Visit Provider Anesthesiology | DX: M54.17 Radiculopathy, lumbosacral region (principal); G89.4 Chronic pain syndrome; M53.3 Sacrococcygeal disorders, not elsewhere classified | CPT/HCPCS: 62323; 64999 ==

== ENCOUNTER 2025-06-16 11:52 | Outpatient (AMB) | payer OTHER, SELFPAY ==
--- NOTE | 2025-06-16 11:56 | MHC.OFFVIS ---
Vital Signs 06/16/25 12:33 Height 4 ft 9 in Weight 156 lb 8.451 oz BMI 33.9 BP 102/76 Blood Pressure Location Lt brachial Position Sitting Pulse 79 Intake Visit Reasons: f/u Intake Note: Ciaran presents in the office as a follow up. CC: states that she is wondering if she has H Pylori. Mail Forwarding System Markup Clerk Required: No Allergies estradiol Allergy (Intermediate, Verified 06/16/25 12:34) Rash HPI HPI f/u: Details: 44 yr old f here for f/u RECAP: Index visit--telehealth 11/2019 had problems for years sensitive stomach, depending on foods she can have diarrhea, cramps other times she can have constipation diarrhea is predominant occ sees blood in stool, on and off last time saw blood was 2 months when wiping thinks she has hemorrhoids she had EGD/colonoscopy 03/2020--random colon, TI bx neg, and stomach pos for h pylori she was given Rx with levo, amoxil and PPI for 2 weeks h pylori breath test was pos 05/2020 was given another round of rx but unable to tolerate due to nausea and vomiting she wa still pos 11/2021 her partner was also found ot be positive and he was given H pylori rx INTERIM: she is still HP pos, no epigastric pain her partner got treatment from me and was more compliant thna her! he is in [place] right now as mother is dying she has some mild epigastric pain EXAM: GENERAL: The patient is well developed and nontoxic. VITAL SIGNS:see workflow HEENT: Nonicteric sclerae, PERRLA, EOMI. Oropharynx clear. Moist mucous membranes. Conjunctivae appear well perfused. No thyroid mass. CHEST: Chest wall is nontender. HEART: Regular rate and rhythm without murmurs. LUNGS: Clear to auscultation bilaterally. ABDOMEN: Soft, positive bowel sounds, nontender, no organomegaly.no flank tenderness SKIN: No rash, no excessive bruising, petechiae, or purpura. NEUROLOGIC: Cranial nerves II-XII intact without motor/sensory deficit. A/P: 1/ h pylori, recurrent PLAN: 1/ try voquenza and recommended on compliance [facility] Medical History Carpal tunnel syndrome on both sides Pre-diabetes PCOS (polycystic ovarian syndrome) Spondylosis of cervical spine Bloody stools Right hip pain Abnormal brain MRI Hypovitaminosis D Mild recurrent major depression Pelvic pain in female New persistent daily headache Cervicalgia Right knee pain Knee pain, left Coccydynia Fibromyalgia Simple laceration of nose Nose disease Onychomycosis Obesity Depression with anxiety History of PCOS Hx of tension headache History of anemia Family history of fibromyalgia Hx of hearing loss Surgical History History of surgery History of carpal tunnel surgery of right wrist Hx of colonoscopy History of esophagogastroduodenoscopy (EGD) Hx of section Hx of wisdom tooth extraction Family History Father CVD (cardiovascular disease) Mother Rheumatoid arthritis Mental health disorder Substance use disorder Paternal Aunt Uterine cancer Social History Housing: Apartment Are you a primary ambulatory care to a significant other at home: No Do you presently have visiting nurse or other home services: No Alcohol intake: current Alcohol intake frequency: holidays/special occasions only Alcohol type: beer and wine Patient Tobacco Use Status: Former Tobacco user Tobacco use type: Cigarette e-Cigarette/Vaping Use: Never Used Second Hand Smoke Exposure: Yes Substance Use Type: Marijuana service: No Current occupational status: employed Current occupational exposures/hazards: No Sexual orientation: Straight/Heterosexual Gender identity: Female Cognitive needs: No Hearing needs: No Vision needs: Yes Female Reproductive History Menstrual Age of Menarche: 13 Physical Exam Vital Signs: Last Vital Signs Pulse 79 06/16/25 12:33 BP 102/76 06/16/25 12:33 BMI result Body Mass Index 33.9 Assessment & Plan Assessment & Plan (1) H. pylori infection: Code(s): A04.8 - Other specified bacterial intestinal infections Category: Medical Plan: as above Medications: New otobqthcul-ednzxcuwmeo-fdchpoe 20-500-500 mg (Voquezna Triple Yayo) PO PER PKG DIR 1 kit 0RF Coding Level of Care Code Est Pt Level 3 (23922) Diagnoses H. pylori infection A04.8
[2025-06-16 12:33] VITALS: BP 102/76; PULSE 79; BMI 33.9
--- OUTSIDE RECORDS SUMMARY | 2025-06-16 14:15 | XMS_ITS | Encounter Summary ---
Author Organization [employer] [facility] Address [facility] [employer] [address] [address] Phone Care Team Providers Care Javascript Developer Name Role Phone Stevenson Ayoub MD Unavailable Suha Coronado MD Unavailable [phone] Meenakshi Felix MD Unavailable Boris Martinez MD Unavailable [phone] Abi Gardner MD Primary Care Provid er Reason for Referral * Physical Therapy (Routine) - Closed Specialty Diagnoses / Procedures Referred By Contsoo trevino Referred To Contact Physical Therapy Diagnoses Encounter for rehabilitation Abi Gardner MD Phone: tel: fax: [address] [address] Phone: tel: Referral ID Status Reason Start Date Expiration Date Visits Re quested Visits Authorized [id number] Closed 02/05/2024 08/06/2024 60 60 Encounter Details Date Type Department Care Team (Latest Contact Info) Description 02/05/2024 Transcribe Orders [facility] [address] [place] [phone] Abi Gardner MD [address] [place] [address] Encounter for rehabilitation (Primary Dx) Social History [...] 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 Not on file Not on maría elena e documented as of this encounter Plan of Treatment Scheduled Referrals Name Type Priority Associated Diagnoses Orde r Schedule Ambulatory referral to [facility] Physical Therapy Outpatient Referral Routine Encounter for rehabilitation Ordered: 02/05/2024 documented as of this encounter Visit Diagnoses Diagnosis Encounter for rehabilitation- Primary documented in this encounter Care Teams Javascript Developer Relationship Specialty Start Date End Date Abi Gardner MD [address] [place] [address] PCP - General Internal Medicine 10/12/18 Stevenson Ayoub MD [address] [place] [phone] [email or web address] Historical LMR Provider 05/24/17 Suha Coronado MD [address] [place] [id number] [email or web address] Historical LMR Provider 05/24/17 Meenakshi Felix MD [address] [place] [id number] Historical LMR Provider 05/24/17 Boris Martinez MD [address] [place] [id number] Historical LMR Provider 05/24/17 documented as of this encounter Additional Source Comments The information contained in this document represents components of the legal health record. It is not the complete legal health record.[facility]
--- OUTSIDE RECORDS SUMMARY | 2025-06-16 14:15 | XMS_ITS | Clinical Summary ---
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 Not on file Not [...] 2025 , 07/26/2024, 07/27/2022, Additional history exists COVID-19 VACCINE ( season) 2025 07/26/2024, 07/01/2022, 07/10/2021, Additional history exists PAP SMEAR 07/20/2025 07/20/2020 IUD 06/06/2027 06/06/2019 Adult Td,Tdap Booster 10/21/2033 10/22/2023, 022 HEPATITIS A VACCINES Aged Out No long [...] Date/Time Associated Diagnosis Comments COMPREHENSIVE METABOLIC PANEL (CMP) Routine 07/21/2020 1:42 PM EST Degenerative disc disease, lumbar Primary osteoarthritis involving multiple joints Fibromyalgia PAP TEST Routine 07/20/2020 12:00 AM EST from Last 3 Months or Most Recently Relevant to Health Maintenance Results * Comprehensive metabolic panel (07/21/2020 1:42 PM EST) SODIUM 137 133 - 146 mmol/L [facility] POTASSIUM 4.1 3.3 - 5.1 mmol/L [facility] CHLORIDE 102 96 - 108 mmol/L [facility] CO2 25 21 - 35 mmol/L [facility] BUN 11 6 - 19 mg/dL [facility] CREATININE 0.60 0.5 - 1.5 mg/dL [facility] GLUCOSE 86 70 - 99 mg/dL [facility] ALBUMIN 4.4 3.9 - 4.8 g/dL [facility] TOTAL PROTEIN 7.5 6.5 - 8.0 g/dL [facility] CALCIUM 9.2 8.4 - 10.3 mg/dL [facility] ALKALINE PHOSPHATASE 81 39 - 117 U/L [facility] TOTAL BILIRUBIN 0.3 0.0 - 1.2 mg/dL [facility] AST 21 0 - 37 U/L [facility] ALT 15 0 - 40 U/L [facility] GLOBULIN 3.1 1 - 4.8 g/dL [facility] EGFR 116 >59 mL/min/1.7 3m2 [facility] Comment:Estimated glomerular filtration rate calculated using the CKD-EPI equation. ANION GAP 14 10 - 20 mmol/L [facility] Blood 07/21/2020 1:42 PM EST 07/21/2020 1:48 PM EST us John SAEED LAB BLOOD BKR ORDERABLE S Final Result [address] [address] * Pap Smear (07/20/2020 12:00 AM EST) 07/20/2020 07/21/2020 8:5 9 AM EST Narrative SEE NARRATIVE - 07/24/2020 11:04 AM EST [address] [address] Filtering Machine Tender: Awa Lord MD HEAVY FORGING MACHINE OPERATOR Cytology Report FINAL DIAGNOSIS A. PAP [...] 52, 56, 58, 59, 66, 68) by [employer] Onclarity HR-HPV analysis. Clinical correlation is advised. This HPV test was performed at [facility], [address] [place] [address]. This test has been FDA approved for SurePath cervical cytology specimens. The accuracy and precision of this test for all other specimen sources has been verified in the Cytopathology Laboratory of the [facility] and has not been cleared or approved by the U.S. Food and Drug Administration. Clinical correlation is advised. CLINICAL HISTORY Date of Last Menstrual Period: 06-22-2020 Other Clinical Conditions: Screening Pap SPECIMEN SOURCE A: PAP SMEAR (SUREPATH) CE Patient Name: JASMYNE HARDEN : 1980 (Age: 39) Sex: F Institution: [facility] Location: [facility] Date of Collection: 07/20/2020 Date of Reported: 07/22/2020 14:14 Results to: Suha Coronado MD us Suha Coronado MD CYTOLOGY ORDERABLES Edited Re sult - Final SEE NARRATIVE from Last 3 Months or Most Recently Relevant to Health Maintenance [place] [address] [place] [address] [place] [address] [place] [address] [place] [address] [place] [address] [address] [place] [address] [place] [address] [address] [place] [address] [address] [place] [address] [place] [place] [address] [place] [place] [address] ACO Care Teams Cardiology Specialist Relationship Specialty Start Date End Date Abi Gardner MD [address] [place] [address] PCP - General Internal Medicine 10/12/18 Stevenson Ayoub MD [address] [address] Historical LMR Provider 05/24/17 Suha Coronado MD [address] [place] [address] Historical LMR Provider 05/24/17 Meenakshi Felix MD [address] [place] [address] Historical LMR Provider 05/24/17 Boris Martinez MD [address] [place] [address] Historical LMR Provider 05/24/17 Additional Source Comments The information contained in this document represents components of the legal health record. It is not the complete legal health record.[facility]
== END 2025-06-16 13:41 | disposition home or self-care (01) ==
PROVIDERS: PCP Internal Medicine; Visit Provider Internal Medicine Gastroenterology
DX: A04.8 Other specified bacterial intestinal infections (principal)
CPT/HCPCS: 99213

== ENCOUNTER → 2025-06-16 11:52 | Outpatient (BNVA) | payer OTHER, SELFPAY | PROVIDERS: PCP Internal Medicine; Visit Provider Internal Medicine Gastroenterology | DX: R10.13 Epigastric pain (principal); A04.8 Other specified bacterial intestinal infections | CPT/HCPCS: 99212 ==

== ENCOUNTER 2025-06-19 11:11 | Outpatient (AMB) | payer OTHER, SELFPAY ==
--- NOTE | 2025-06-19 11:14 | A.OFFVIS_ITS ---
Vital Signs 06/19/25 11:21 Height 4 ft 9 in Weight 159 lb BMI 34.4 BP 111/66 Blood Pressure Location Lt brachial Position Sitting Respiration 16 Pulse 81 Pulse Source Pulse Oximeter Pulse Oximetry (%) 100 Oxygen Delivery Method Room Air Intake Visit Reasons: S/p Caudal FARHANA w/ Catheter 05/16/25 Business Development Associate Required: No Accompanied by: Self / Same As Patient Allergies estradiol Allergy (Intermediate, Verified 06/19/25 11:15) Rash HPI Comments Details: Jasmyne is back in my office after I performed ganglion impar and caudal epidural steroid injection. This procedure resulted in excellent pain improvement for the patient. One month after the procedure she reports 100% pain alleviation. She reports excellent mobility good activities of daily living significantly improved social interactions. We will continue observation. When her pain will start to come back I will schedule her for yet another procedure of caudal epidural steroid injection and ganglion impar injection. This procedure prove to be very effective for patient's pain. Prior: Results of repeated ganglion impar + caudal epidural steroid injection. She reported excellent pain relief for the past month since the procedure. This is repetition of the procedure. Last time the results lasted for 4 months. However this time patient reports excellent results on ganglion impar with ability to sit for the long period of time, however she reports that pain in the projection of the sacral spine became little bit better however she still experiences pain in the projection of the sacral bone. The pain in her hip areas are better today. We decided against performing bilateral trochanteric bursa injection. She complains on more pain on the left side. I told her when they pain in the trochanteric bursa will get exacerbated the procedure of trochanteric bursa injection could be performed however she needs to understand that it will not be scheduled with the 1 month before 1 month after ganglion impar and caudal epidural steroid injection. She also complains on pain in the left wrist where she had carpal tunnel release surgery. She had only 6 sessions of physical therapy. I recommended her to have at least 12 sessions and extensive home exercise program. I also recommended her to have occupational therapy for for the wrist. She will get into contact with the surgeon who did the procedure and request the extension of the physical therapy. [facility] Medical History Carpal tunnel syndrome on both sides Pre-diabetes PCOS (polycystic ovarian syndrome) Spondylosis of cervical spine Bloody stools Right hip pain Abnormal brain MRI Hypovitaminosis D Mild recurrent major depression Pelvic pain in female New persistent daily headache Cervicalgia Right knee pain Knee pain, left Coccydynia Fibromyalgia Simple laceration of nose Nose disease Onychomycosis Obesity Depression with anxiety History of PCOS Hx of tension headache History of anemia Family history of fibromyalgia Hx of hearing loss Surgical History History of surgery History of carpal tunnel surgery of right wrist Hx of colonoscopy History of esophagogastroduodenoscopy (EGD) Hx of section Hx of wisdom tooth extraction Family History Father CVD (cardiovascular disease) Mother Rheumatoid arthritis Mental health disorder Substance use disorder Paternal Aunt Uterine cancer Social History Housing: Apartment Are you a primary care management associate to a significant other at home: No Do you presently have visiting nurse or other home services: No Alcohol intake: current Alcohol intake frequency: holidays/special occasions only Alcohol type: beer and wine Patient Tobacco Use Status: Former Tobacco user Tobacco use type: Cigarette e-Cigarette/Vaping Use: Never Used Second Hand Smoke Exposure: Yes Substance Use Type: Marijuana service: No Current occupational status: employed Current occupational exposures/hazards: No Sexual orientation: Straight/Heterosexual Gender identity: Female Cognitive needs: No Hearing needs: No Vision needs: Yes Female Reproductive History Menstrual Age of Menarche: 13 Review of Systems Const All systems reviewed & are unremarkable except as noted in HPI and below Physical Exam Vital Signs: Last Vital Signs Pulse 81 06/19/25 11:21 Resp 16 06/19/25 11:21 BP 111/66 06/19/25 11:21 Pulse Ox 100 06/19/25 11:21 Oxygen Delivery Method Room Air 06/19/25 11:21 BMI result Body Mass Index 34.4 Const General: comfortable, no acute distress, well developed, alert and awake Eyes Pupils: Equal, round and reactive pupils present EOM: EOMs intact bilaterally Chest Chest palpation & inspection: normal inspection of the chest Resp Effort & Inspection: normal respiratory effort, able to speak in complete sentences, normal respiratory pattern, no audible wheezes and no cough Cardio Jugular venous distension: no JVD Back/Spine/Pelvis Other: On physical exam she does not exhibit any signs of the tenderness on the palpation of spinal and paraspinal regions of the lumbar spine. Most of the palpation and tenderness related to the area of the sacral bone. She exhibits remarkable flexibility of the lumbar spine without any difficulty flexing forward or backward. She exhibits no pain with loading test. She exhibits pain with Miguel test. SLR is negative for pain increase. Neuro Cranial nerves: Yes Equal, round and reactive pupils present Extrem Other: Tenderness on palpation on bilateral trochanteric bursa radiating down lateral hips. Left wrist inspection there is very well-healed scar in the projection of the carpal tunnel typical surgery. There is no swelling no redness no pathological discharge. Psych Speech and movement: Normal speech and movement present Affect: normal affect Attitude: cooperative Assessment & Plan Assessment & Plan (1) Coccydynia: Code(s): M53.3 - Sacrococcygeal disorders, not elsewhere classified Category: Medical (2) Disc degeneration, lumbosacral: Code(s): M51.37 - Other intervertebral disc degeneration, lumbosacral region Category: Medical (3) Trochanteric bursitis of both hips: Code(s): M70.61 - Trochanteric bursitis, right hip; M70.62 - Trochanteric bursitis, left hip Category: Medical (4) Hamstring tendinitis of left thigh: Code(s): M76.892 - Other specified enthesopathies of left lower limb, excluding foot Category: Medical (5) Hamstring tendinitis of right thigh: Code(s): M76.891 - Other specified enthesopathies of right lower limb, excluding foot Category: Medical Plan Again the injection of caudal epidural steroids and ganglion impar block resulted in excellent pain improvement. She reports 100% pain elimination. She reports improved activities of daily living. See discussion as above. When her pain will come back we will consider to repeat this procedure. Coding Level of Care Code Est Pt Level 3 (65500) Diagnoses Coccydynia M53.3 Disc degeneration, lumbosacral M51.37 Trochanteric bursitis of both hips M70.61; M70.62 Hamstring tendinitis of left thigh M76.892 Hamstring tendinitis of right thigh M76.891
[2025-06-19 11:21] VITALS: BP 111/66; PULSE 81; RESP 16; O2SAT 100; BMI 34.4
--- OUTSIDE RECORDS SUMMARY | 2025-06-19 14:07 | XMS_ITS | Encounter Summary ---
Author Organization [facility] Address [facility] [address] [address] Phone Care Team Providers Care Sofa Inspector Name Role Phone Stevenson Ayoub MD Unavailable Suha Coronado MD Unavailable [phone] Meenakshi Felix MD Unavailable Boris Martinez MD Unavailable [phone] Abi Gardner MD Primary Care Provid er Reason for Referral * Physical Therapy (Routine) - Closed Specialty Diagnoses / Procedures Referred By Contsoo trevino Referred To Contact Physical Therapy Diagnoses Encounter for rehabilitation Abi Gardner MD Phone: tel: fax: [address] [address] Phone: tel: Referral ID Status Reason Start Date Expiration Date Visits Re quested Visits Authorized [id number] Closed 02/05/2024 08/06/2024 60 60 Encounter Details Date Type Department Care Team (Latest Contact Info) Description 02/05/2024 Transcribe Orders [facility] [address] [place] [phone] Abi Gardner MD [address] [place] [address] Encounter for rehabilitation (Primary Dx) Social History [...] 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 Not on file Not on file Not on maría elena e documented as of this encounter Plan of Treatment Scheduled Referrals Name Type Priority Associated Diagnoses Orde r Schedule Ambulatory referral to [facility] Physical Therapy Outpatient Referral Routine Encounter for rehabilitation Ordered: 02/05/2024 documented as of this encounter Visit Diagnoses Diagnosis Encounter for rehabilitation- Primary documented in this encounter Care Teams Sofa Inspector Relationship Specialty Start Date End Date Abi Gardner MD [address] [place] [address] PCP - General Internal Medicine 10/12/18 Stevenson Ayoub MD [address] [place] [address] [email or web address] Historical LMR Provider 05/24/17 Suha Coronado MD [address] [place] [address] [email or web address] Historical LMR Provider 05/24/17 Meenakshi Felix MD [address] [place] [address] Historical LMR Provider 05/24/17 Boris Martinez MD [address] [place] [address] Historical LMR Provider 05/24/17 documented as of this encounter Additional Source Comments The information contained in this document represents components of the legal health record. It is not the complete legal health record.[facility]
--- OUTSIDE RECORDS SUMMARY | 2025-06-19 14:07 | XMS_ITS | Clinical Summary ---
Author Organization [facility] Address [facility] [employer] [address] [address] Phone Care Team Providers Care Beef Grader Name Role Phone Stevenson Ayoub MD Unavailable Suha Coronado MD Unavailable [phone] Meenakshi Felix MD Unavailable Boris Martinez MD Unavailable [phone] Abi Gardner MD Primary Care Provid er [...] Telephone [facility] [address] [place] [address] Aliya Pulido MD 04/18/2025 Refill [facility] [address] [place] [address] Aliya Pulido MD Medication Refill from Last [...] 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 PAP SMEAR [...] 52, 56, 58, 59, 66, 68) by [facility] [employer] Onclarity HR-HPV analysis. Clinical correlation is advised. This HPV test was performed at [facility], [address] [place] [address]. This test has been FDA approved for SurePath cervical cytology specimens. The accuracy and precision of this test for all other specimen sources has been verified in the Cytopathology Laboratory of the [facility] and has not been cleared or approved by the U.S. Food and Drug Administration. Clinical correlation is advised. CLINICAL HISTORY Date of Last Menstrual Period: 06-22-2020 Other Clinical Conditions: Screening Pap SPECIMEN SOURCE A: PAP SMEAR (SUREPATH) CE Patient Name: JASMYNE HARDEN : 1980 (Age: 39) Sex: F Institution: [facility] Location: [facility] Date of Collection: 07/20/2020 Date of Reported: 07/22/2020 14:14 Results to: Suha Coronado MD Suha Coronado MD CYTOLOGY ORDERABLES Edited Re sult - Final SEE NARRATIVE from Last 3 Months or Most Recently Relevant to Health Maintenance Insurance [place] [address] [address] [place] [address] [place] [address] [place] [address] [place] [address] [place] [address] [place] [address] [place] [address] [place] [address] ACO Care Teams Beef Grader Relationship Specialty Start Date End Date Abi Gardner MD [address] [place] [address] PCP - General Internal Medicine 10/12/18 Stevenson Ayoub MD [address] [place] [address] Historical LMR Provider 05/24/17 Suha Coronado MD [address] [place] [address] Historical LMR Provider 05/24/17 Meenakshi Felix MD [address] [place] [address] Historical LMR Provider 05/24/17 Boris Martinez MD [address] [place] [address] Historical LMR Provider 05/24/17 Additional Source Comments The information contained in this document represents components of the legal health record. It is not the complete legal health record.[facility]
== END 2025-06-19 11:26 | disposition home or self-care (01) ==
LOC: HO.PMC 11:12
PROVIDERS: PCP Internal Medicine; Visit Provider Anesthesiology
DX: M53.3 Sacrococcygeal disorders, not elsewhere classified (principal); M51.379 Other intervertebral disc degeneration, lumbosacral region without mention of lumbar back pain or lower extremity pain; M70.61 Trochanteric bursitis, right hip; M70.62 Trochanteric bursitis, left hip; M76.892 Other specified enthesopathies of left lower limb, excluding foot; M76.891 Other specified enthesopathies of right lower limb, excluding foot
CPT/HCPCS: 99213

== ENCOUNTER → 2025-06-19 11:11 | Outpatient (BNVA) | payer OTHER, SELFPAY | PROVIDERS: PCP Internal Medicine; Visit Provider Anesthesiology | DX: M53.3 Sacrococcygeal disorders, not elsewhere classified (principal); M70.61 Trochanteric bursitis, right hip; M70.62 Trochanteric bursitis, left hip; M76.892 Other specified enthesopathies of left lower limb, excluding foot; M76.891 Other specified enthesopathies of right lower limb, excluding foot; M51.370 Other intervertebral disc degeneration, lumbosacral region with discogenic back pain only | CPT/HCPCS: 99212 ==

== ENCOUNTER 2025-07-16 09:57 | Outpatient (AMB) | payer OTHER, SELFPAY ==
[2025-07-16 10:00] VITALS: BP 114/73; PULSE 98; RESP 16; O2SAT 100; BMI 34.4
--- NOTE | 2025-07-16 10:00 | MHC.OFFVIS ---
Vital Signs 07/16/25 10:00 Height 4 ft 9 in Weight 159 lb BMI 34.4 BP 114/73 Blood Pressure Location Lt brachial Position Sitting Respiration 16 Pulse 98 Pulse Source Pulse Oximeter Pulse Oximetry (%) 100 Oxygen Delivery Method Room Air Intake Visit Reasons: Follow Up after Fall Hitcher Required: No Accompanied by: Self / Same As Patient Allergies estradiol Allergy (Intermediate, Verified 07/16/25 10:02) Rash HPI Comments Details: Jasmyne is back in my office 7 weeks after I performed ganglion impar and caudal epidural steroid injection. The results of the procedure were very impressive. However few days ago patient on the [employer] parking lot fell her coccyx. Now she reports severe pain in projection of the coccyx. She went for x-ray of the pelvis and it did not demonstrate any acute changes or fractures. Unfortunately I can not repeat the injection of ganglion impar for her sooner than another 2-1/2 month. I have meanwhile decided to send her for physical therapy. Upon completion of the physical therapy she will be scheduled for the ganglion impar injection. Prior: Results of repeated ganglion impar + caudal epidural steroid injection. She reported excellent pain relief for the past month since the procedure. This is repetition of the procedure. Last time the results lasted for 4 months. However this time patient reports excellent results on ganglion impar with ability to sit for the long period of time, however she reports that pain in the projection of the sacral spine became little bit better however she still experiences pain in the projection of the sacral bone. The pain in her hip areas are better today. We decided against performing bilateral trochanteric bursa injection. She complains on more pain on the left side. I told her when they pain in the trochanteric bursa will get exacerbated the procedure of trochanteric bursa injection could be performed however she needs to understand that it will not be scheduled with the 1 month before 1 month after ganglion impar and caudal epidural steroid injection. She also complains on pain in the left wrist where she had carpal tunnel release surgery. She had only 6 sessions of physical therapy. I recommended her to have at least 12 sessions and extensive home exercise program. I also recommended her to have occupational therapy for for the wrist. She will get into contact with the surgeon who did the procedure and request the extension of the physical therapy. [facility] Medical History Carpal tunnel syndrome on both sides Pre-diabetes PCOS (polycystic ovarian syndrome) Spondylosis of cervical spine Bloody stools Right hip pain Abnormal brain MRI Hypovitaminosis D Mild recurrent major depression Pelvic pain in female New persistent daily headache Cervicalgia Right knee pain Knee pain, left Coccydynia Fibromyalgia Simple laceration of nose Nose disease Onychomycosis Obesity Depression with anxiety History of PCOS Hx of tension headache History of anemia Family history of fibromyalgia Hx of hearing loss Surgical History History of surgery History of carpal tunnel surgery of right wrist Hx of colonoscopy History of esophagogastroduodenoscopy (EGD) Hx of section Hx of wisdom tooth extraction Family History Father CVD (cardiovascular disease) Mother Rheumatoid arthritis Mental health disorder Substance use disorder Paternal Aunt Uterine cancer Social History Housing: Apartment Are you a primary animal care attendant to a significant other at home: No Do you presently have visiting nurse or other home services: No Alcohol intake: current Alcohol intake frequency: holidays/special occasions only Alcohol type: beer and wine Patient Tobacco Use Status: Former Tobacco user Tobacco use type: Cigarette e-Cigarette/Vaping Use: Never Used Second Hand Smoke Exposure: Yes Substance Use Type: Marijuana service: No Current occupational status: employed Current occupational exposures/hazards: No Sexual orientation: Straight/Heterosexual Gender identity: Female Cognitive needs: No Hearing needs: No Vision needs: Yes Female Reproductive History Menstrual Age of Menarche: 13 Review of Systems Const All systems reviewed & are unremarkable except as noted in HPI and below Physical Exam Vital Signs: Last Vital Signs Pulse 98 07/16/25 10:00 Resp 16 07/16/25 10:00 BP 114/73 07/16/25 10:00 Pulse Ox 100 07/16/25 10:00 Oxygen Delivery Method Room Air 07/16/25 10:00 BMI result Body Mass Index 34.4 Const General: comfortable, no acute distress, well developed, alert and awake Eyes Pupils: Equal, round and reactive pupils present EOM: EOMs intact bilaterally Chest Chest palpation & inspection: normal inspection of the chest Resp Effort & Inspection: normal respiratory effort, able to speak in complete sentences, normal respiratory pattern, no audible wheezes and no cough Cardio Jugular venous distension: no JVD Back/Spine/Pelvis Other: On physical exam she does not exhibit any signs of the tenderness on the palpation of spinal and paraspinal regions of the lumbar spine. Most of the palpation and tenderness related to the area of the sacral bone. She exhibits remarkable flexibility of the lumbar spine without any difficulty flexing forward or backward. She exhibits no pain with loading test. She exhibits pain with Miguel test. SLR is negative for pain increase. Neuro Cranial nerves: Yes Equal, round and reactive pupils present Extrem Other: Tenderness on palpation on bilateral trochanteric bursa radiating down lateral hips. Left wrist inspection there is very well-healed scar in the projection of the carpal tunnel typical surgery. There is no swelling no redness no pathological discharge. Psych Speech and movement: Normal speech and movement present Affect: normal affect Attitude: cooperative Results Reviewed Results Reviewed: X-ray sacrum and coccyx 07/09/2025. Findings no bone lesions or fractures. No arthritic changes of the SI joints. Normal alignment of the sacrum and coccyx. Normal soft tissues. IUD in pelvis. Impression no acute abnormalities. Assessment & Plan Assessment & Plan (1) Coccydynia: Code(s): M53.3 - Sacrococcygeal disorders, not elsewhere classified Category: Medical (2) Disc degeneration, lumbosacral: Code(s): M51.37 - Other intervertebral disc degeneration, lumbosacral region Category: Medical (3) Trochanteric bursitis of both hips: Code(s): M70.61 - Trochanteric bursitis, right hip; M70.62 - Trochanteric bursitis, left hip Category: Medical (4) Hamstring tendinitis of left thigh: Code(s): M76.892 - Other specified enthesopathies of left lower limb, excluding foot Category: Medical (5) Hamstring tendinitis of right thigh: Code(s): M76.891 - Other specified enthesopathies of right lower limb, excluding foot Category: Medical Plan Excellent results of caudal epidural steroid injections and ganglion impar block 7 weeks ago. Unfortunately few days ago patient fell on her coccyx. See discussion as above. I will send her to physical therapy. I will see the patient after she will complete physical therapy and we will perform yet another caudal epidural steroid injection without catheter and ganglion impar injection. Orders: Orders PT Evaluation and Treatment Today M53.3 - Sacrococcygeal disorders, not elsewhere classified Coding Level of Care Code Est Pt Level 3 (52722) Diagnoses Coccydynia M53.3 Disc degeneration, lumbosacral M51.37 Trochanteric bursitis of both hips M70.61; M70.62 Hamstring tendinitis of left thigh M76.892 Hamstring tendinitis of right thigh M76.891
== END 2025-07-16 10:10 | disposition home or self-care (01) ==
LOC: HO.PMC 09:57
PROVIDERS: PCP Internal Medicine; Visit Provider Anesthesiology
DX: M53.3 Sacrococcygeal disorders, not elsewhere classified (principal); M51.379 Other intervertebral disc degeneration, lumbosacral region without mention of lumbar back pain or lower extremity pain; M70.61 Trochanteric bursitis, right hip; M70.62 Trochanteric bursitis, left hip; M76.892 Other specified enthesopathies of left lower limb, excluding foot; M76.891 Other specified enthesopathies of right lower limb, excluding foot
CPT/HCPCS: 99213

== ENCOUNTER → 2025-07-16 09:57 | Outpatient (BNVA) | payer OTHER, SELFPAY | PROVIDERS: PCP Internal Medicine; Visit Provider Anesthesiology | DX: M70.61 Trochanteric bursitis, right hip (principal); M70.62 Trochanteric bursitis, left hip; M53.3 Sacrococcygeal disorders, not elsewhere classified; M76.892 Other specified enthesopathies of left lower limb, excluding foot; M76.891 Other specified enthesopathies of right lower limb, excluding foot | CPT/HCPCS: 99212 ==

== ENCOUNTER 2025-07-22 09:58 | Outpatient (AMB) | payer OTHER, SELFPAY ==
[2025-07-22 10:03] VITALS: BP 124/78; PULSE 84; O2SAT 99; BMI 35.1
--- NOTE | 2025-07-22 10:03 | A.OFFVIS_ITS ---
Vital Signs 07/22/25 10:03 Height 4 ft 9 in Weight 162 lb BMI 35.1 BP 124/78 Blood Pressure Location Rt brachial Position Sitting Pulse 84 Pulse Source Pulse Oximeter Pulse Oximetry (%) 99 Oxygen Delivery Method Room Air Intake Visit Reasons: 3 mo follow up Intake Note: Patient presents follow up Sleep/RLS. Patient states she has been getting migraines(4 in last month). States feels like wakes up with it. stays all day. States using mouth guard. PSG booked 07/25. Accompanied by: Spouse Allergies estradiol Allergy (Intermediate, Verified 07/22/25 10:05) Rash HPI Comments Details: 44 y/o female patient presents for follow up of sleep study. The PSG sleep study result was significant for mild degree of sleep apnea with increased severity in REM sleep. The AHI was 8/hr and REM AHI was 26/hr with oxygen elgin was 79%. titration in lab for pressures this Monday. Oral appliance use since 2023, and is compliant with sleep dentistry. Daily mild headaches lasting for hours every other day, with pressure on the side of her head 10/10 with [facility] douglas CTscan normal. Denies vision changes, auras, floaters, spots, dizziness, n/v vertigo and balance or gait disturbances. This month, has been very stressful her daughter had surgery, mother in law passed. She had a fall on the ice, re-injured her coccyx, xray at ER [facility], no fractures, though pain is unbearable. She starts PT in Aug 2024, currently taking muscle relaxers.She has shooting pain r. side leg, sees Dr. Rodriguez in pain management. She goes to bed at 10pm and wakes up at 6am and 1 to zero bathroom breaks. She continues to be chronically fatigued. Patient is interested in inspire, however we discussed the comorbidites related to STEPH and she is amenable to cpap use first to see if she can possibly tolerate the minimalist nasal pillow, as she understand positive airway pressure is the gold standard for STEPH. She had a negative experience in the past with the mask on her face and is skeptical, however will retrial her. Her insurance will approve zepbound and she is awaiting a trial as she is uncomfortable with her weight, plans to start walking daily. She denies RLS symptoms and does move her feet as it soothes her to sleep. Mood, is poor, diet is okay. STM is worse, she has brain fog, and is more forgetful since covid. [facility] Medical History Carpal tunnel syndrome on both sides Pre-diabetes PCOS (polycystic ovarian syndrome) Spondylosis of cervical spine Bloody stools Right hip pain Abnormal brain MRI Hypovitaminosis D Mild recurrent major depression Pelvic pain in female New persistent daily headache Cervicalgia Right knee pain Knee pain, left Coccydynia Fibromyalgia Simple laceration of nose Nose disease Onychomycosis Obesity Depression with anxiety History of PCOS Hx of tension headache History of anemia Family history of fibromyalgia Hx of hearing loss Surgical History History of surgery History of carpal tunnel surgery of right wrist Hx of colonoscopy History of esophagogastroduodenoscopy (EGD) Hx of section Hx of wisdom tooth extraction Family History Father CVD (cardiovascular disease) Mother Rheumatoid arthritis Mental health disorder Substance use disorder Paternal Aunt Uterine cancer Social History Housing: Apartment Are you a primary health care specialist to a significant other at home: No Do you presently have visiting nurse or other home services: No Alcohol intake: current Alcohol intake frequency: holidays/special occasions only Alcohol type: beer and wine Patient Tobacco Use Status: Former Tobacco user Tobacco use type: Cigarette e-Cigarette/Vaping Use: Never Used Second Hand Smoke Exposure: Yes Substance Use Type: Marijuana service: No Current occupational status: employed Current occupational exposures/hazards: No Sexual orientation: Straight/Heterosexual Gender identity: Female Cognitive needs: No Hearing needs: No Vision needs: Yes Female Reproductive History Menstrual Age of Menarche: 13 Physical Exam Vital Signs: Last Vital Signs Pulse 84 07/22/25 10:03 BP 124/78 07/22/25 10:03 Pulse Ox 99 07/22/25 10:03 Oxygen Delivery Method Room Air 07/22/25 10:03 BMI result Body Mass Index 35.1 Const General: cooperative Nutritional Appearance: obese Orientation/consciousness: patient oriented x3 Limitations: no limitations Neck Neck: Yes full ROM and Yes supple Resp Effort & Inspection: normal respiratory effort and able to speak in complete sentences Neuro General: patient oriented x3 and gait normal Gait exam (Neuro): Normal gait present Motor exam (neuro): 5/5 motor strength present throughout, Pronator motor function not present and no tremor noted Psych Appearance: grossly normal Mental Status: mental status grossly normal Speech and movement: Normal speech and movement present Affect: normal affect Attitude: cooperative Results Reviewed Results Reviewed: The AHI was 8/hr and REM AHI was 26/hr with oxygen elgin was 79%. titration in l ab for pressures this Monday. Assessment & Plan Assessment & Plan (1) STEPH (obstructive sleep apnea): Comment: Mild degree of sleep apnea with increased severity in REM. Code(s): G47.33 - Obstructive sleep apnea (adult) (pediatric) Category: Medical (2) Fatigue due to sleep pattern disturbance: Code(s): R53.83 - Other fatigue; G47.9 - Sleep disorder, unspecified Category: Medical (3) Chronic headaches: Code(s): R51.9 - Headache, unspecified; G89.29 - Other chronic pain Category: Medical Qualifiers: Headache type: unspecified Intractability: intractable Qualified Code(s): R51.9 - Headache, unspecified; G89.29 - Other chronic pain (4) Bruxism, sleep-related: Code(s): G47.63 - Sleep related bruxism Category: Medical Plan Mild STEPH, Start APAP [id number] and f/u for compliance will send her the nasal pillows minimalist, use Apap qpm and > than 4 hours. Continue to practice good sleep hygiene. Sleep titration if possible during PSG on Wednesday 07/25. Pt is amenable to starting cpap use, will consider inspire, though she has mild steph, with severity in REM sleep. Labs reviewed with pt on her michael /EMR portal, she is anemic. Ferrrous sulftate- 325 iron and with OJ at lunch time to avoid gi upset and increase absorption. Daily migraines Sumatriptan 25mg po at the onset of headache and may take one additional tablet w/in 2 hours if headache does not abort. Do not exceed more than 100mg po in a 24hour period. Migraine cap as needed, start magnesium 200- 400mg po qpm. Continue Vitamin D3 for mood irritability. f/u in 3 months Medications: New sumatriptan succinate take 1 tab at onset of headache; if no relief may repeat 1 tab after at least 2 hrs; max = 4 tabs/24 hr PO 14 tabs 0RF Patient Instructions: Sleep Hygiene provided: set a scheduled bedtime and wake time to help regulate the circadian rhythm and balance the release of pituitary hormones. Sleep in a dark room, temperatures below 68 degrees, and no devices n bed. Limit caffeinated products 6 hours prior to bed, and limit fluids 2-4 hours prior to bed. Gentle night yoga, diffusing essential oils, and playing soft music can be relaxing. Coding Level of Care Code Est Pt Level 4 (10852) Diagnoses STEPH (obstructive sleep apnea) G47.33 Fatigue due to sleep pattern disturbance R53.83; G47.9 Chronic intractable headache, unspecified headache type R51.9; G89.29 Headache type: unspecified Intractability: intractable Bruxism, sleep-related G47.63
--- OUTSIDE RECORDS SUMMARY | 2025-07-22 12:07 | XMS_ITS | Encounter Summary ---
Author Organization [facility] Address [facility] Code[address] [address] Phone Care Team Providers Care Baseball Winder Name Role Phone Stevenson Ayoub MD Unavailable Suha Coronado MD Unavailable [phone] Meenakshi Felix MD Unavailable Boris Martinez MD Unavailable [phone] Abi Gardner MD Primary Care Provid er Reason for Referral * Physical Therapy (Routine) - Closed Specialty Diagnoses / Procedures Referred By Contsoo trevino Referred To Contact Physical Therapy Diagnoses Encounter for rehabilitation Abi Gardner MD Phone: tel: fax: [address] [address] Phone: tel: Referral ID Status Reason Start Date Expiration Date Visits Re quested Visits Authorized [id number] Closed 02/05/2024 08/06/2024 60 60 Encounter Details Date Type Department Care Team (Latest Contact Info) Description 02/05/2024 Transcribe Orders [facility] [address] [place] [phone] Abi Gardner MD [address] [place] [address] Encounter for rehabilitation (Primary Dx) Social History [...] 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 Not on file Not on maría elena e documented as of this encounter Plan of Treatment Scheduled Referrals Name Type Priority Associated Diagnoses Orde r Schedule Ambulatory referral to [facility] Physical Therapy Outpatient Referral Routine Encounter for rehabilitation Ordered: 02/05/2024 documented as of this encounter Visit Diagnoses Diagnosis Encounter for rehabilitation- Primary documented in this encounter Care Teams Baseball Winder Relationship Specialty Start Date End Date Abi Gardner MD [address] [place] [address] PCP - General Internal Medicine 10/12/18 Stevenson Ayoub MD [address] [place] [phone] [email or web address] Historical LMR Provider 05/24/17 Suha Coronado MD [address] [place] [id number] [email or web address] Historical LMR Provider 05/24/17 Meenakshi Felix MD [address] [place] [id number] Historical LMR Provider 05/24/17 Boris Martinez MD [address] [place] [phone] Historical LMR Provider 05/24/17 documented as of this encounter Additional Source Comments The information contained in this document represents components of the legal health record. It is not the complete legal health record.[facility]
--- OUTSIDE RECORDS SUMMARY | 2025-07-22 12:08 | XMS_ITS | Clinical Summary ---
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 Not on file [...] 07/26/2024, 07/27/2022, Additional history exists COVID-19 VACCINE (2024- season) 2025 07/26/2024, 07/01/2022, 07/10/2021, Additional history [...] EST) SODIUM 137 133 - 146 mmol/L [facility] POTASSIUM 4.1 3.3 - 5.1 mmol/L [facility] CHLORIDE 102 96 - 108 mmol/L [facility] CO2 25 21 - 35 mmol/L [facility] BUN 11 6 - 19 mg/dL [facility] CREATININE 0.60 0.5 - 1.5 mg/dL [facility] GLUCOSE 86 70 - 99 mg/dL [facility] ALBUMIN 4.4 3.9 - 4.8 g/dL [facility] TOTAL PROTEIN 7.5 6.5 - 8.0 g/dL [facility] CALCIUM 9.2 8.4 - 10.3 mg/dL [facility] ALKALINE PHOSPHATASE 81 39 - 117 U/L [facility] TOTAL BILIRUBIN 0.3 0.0 - 1.2 mg/dL [facility] AST 21 0 - 37 U/L [facility] ALT 15 0 - 40 U/L [facility] GLOBULIN 3.1 1 - 4.8 g/dL [facility] EGFR 116 >59 mL/min/1.7 3m2 [facility] Comment:Estimated glomerular filtration rate calculated using the CKD-EPI equation. ANION GAP 14 10 - 20 mmol/L [facility] Blood 07/21/2020 1:42 PM EST 07/21/2020 1:48 PM EST John [facility] BLOOD BKR ORDERABLE S Final Result [address] [address] * Pap Smear (07/20/2020 12:00 AM EST) 07/20/2020 07/21/2020 8:5 9 AM EST Narrative SEE NARRATIVE - 07/24/2020 11:04 AM EST [address] [address] Cosmetic Assembler: Awa Lord MD ENGINE DESIGNER Cytology Report FINAL DIAGNOSIS A. PAP SMEAR [...] 52, 56, 58, 59, 66, 68) by [employer] Onclarity HR-HPV analysis. Clinical correlation is advised. This HPV test was performed at [facility], [address] [place] [address]. This test has been FDA approved for [facility] cervical cytology specimens. The accuracy and precision of this test for all other specimen sources has been verified in the Cytopathology Laboratory of the [facility] and has not been cleared or approved by the U.S. Food and Drug Administration. Clinical correlation is advised. CLINICAL HISTORY Date of Last Menstrual Period: 06-22-2020 Other Clinical Conditions: Screening Pap SPECIMEN SOURCE A: PAP SMEAR (SUREPATH) CE Patient Name: JASMYNE HARDEN : 1980 (Age: 39) Sex: F Institution: [facility] Location: [facility] Date of Collection: 07/20/2020 Date of Reported: 07/22/2020 14:14 Results to: Suha Coronado MD us Suha Coronado MD CYTOLOGY ORDERABLES Edited Re sult - Final SEE NARRATIVE from Last 3 Months or Most Recently Relevant to Health Maintenance [place] [address] [place] [address] [place] [address] [place] [address] [place] [address] [place] [address] [place] [address] [place] [address] [address] [address] [place] [address] [place] [address] [place] [address] [place] [place] [address] ACO Care Teams Sole Filler Relationship Specialty Start Date End Date Abi Gardner MD [address] [place] [address] [phone] PCP - General Internal Medicine 10/12/18 Stevenson Ayoub MD [address] [place] [phone] Historical LMR Provider 05/24/17 Suha Coronado MD [address] [place] [address] Historical LMR Provider 05/24/17 Meenakshi Felix MD [address] [place] [phone] Historical LMR Provider 05/24/17 Boris Martinez MD [address] [place] [id number] Historical LMR Provider 05/24/17 Additional Source Comments The information contained in this document represents components of the legal health record. It is not the complete legal health record.[facility]
== END 2025-07-22 10:50 | disposition home or self-care (01) ==
LOC: HO.HSMS 09:58
PROVIDERS: PCP Internal Medicine; Visit Provider Physician Assistant Medical
DX: G47.33 Obstructive sleep apnea (adult) (pediatric) (principal); R53.83 Other fatigue; G47.9 Sleep disorder, unspecified; R51.9 Headache, unspecified; G89.29 Other chronic pain; G47.63 Sleep related bruxism
CPT/HCPCS: 99214

== ENCOUNTER → 2025-07-22 09:58 | Outpatient (BNVA) | payer OTHER, SELFPAY | PROVIDERS: PCP Internal Medicine; Visit Provider Physician Assistant Medical | DX: G47.33 Obstructive sleep apnea (adult) (pediatric) (principal); G47.63 Sleep related bruxism; G89.29 Other chronic pain; R53.83 Other fatigue; D64.9 Anemia, unspecified; G43.909 Migraine, unspecified, not intractable, without status migrainosus; Z79.899 Other long term (current) drug therapy | CPT/HCPCS: 99212 ==

== ENCOUNTER → 2025-07-25 20:30 | Outpatient (REF) | payer OTHER, SELFPAY ==
--- OUTSIDE RECORDS SUMMARY | 2025-07-25 22:24 | XMS_ITS | Encounter Summary ---
Author Organization [facility] Address [facility] [address] [address] Phone Care Team Providers Care Warp Dyeing Tender Name Role Phone Stevenson Ayoub MD Unavailable Suha Coronado MD Unavailable [phone] Meenakshi Felix MD Unavailable Boris Martinez MD Unavailable [phone] Abi Gardner MD Primary Care Provid er Reason for Referral * Physical Therapy (Routine) - Closed Specialty Diagnoses / Procedures Referred By Albert trevino Referred To Contact Physical Therapy Diagnoses Encounter for rehabilitation Abi Gardner MD Phone: tel: fax: [address] [address] Phone: tel: Referral ID Status Reason Start Date Expiration Date Visits Re quested Visits Authorized [id number] Closed 02/05/2024 08/06/2024 60 60 Encounter Details Date Type Department Care Team (Latest Contact Info) Description 02/05/2024 Transcribe Orders [facility] [address] [place] [id number] Abi Gardner MD [address] [place] [address] Encounter for rehabilitation (Primary Dx) Social History [...] 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 on file Not on maría elena e documented as of this encounter Plan of Treatment Scheduled Referrals Name Type Priority Associated Diagnoses Orde r Schedule Ambulatory referral to [facility] Physical Therapy Outpatient Referral Routine Encounter for rehabilitation Ordered: 02/05/2024 documented as of this encounter Visit Diagnoses Diagnosis Encounter for rehabilitation- Primary documented in this encounter Care Teams Warp Dyeing Tender Relationship Specialty Start Date End Date Abi Gardner MD [address] [place] [address] PCP - General Internal Medicine 10/12/18 Stevenson Ayoub MD [address] [place] [phone] [email or web address] Historical LMR Provider 05/24/17 Suha Coronado MD [address] [place] [address] [email or web address] Historical LMR Provider 05/24/17 Meenakshi Felix MD [address] [place] [address] Historical LMR Provider 05/24/17 Boris Martinez MD [address] [place] [phone] Historical LMR Provider 05/24/17 documented as of this encounter Additional Source Comments The information contained in this document represents components of the legal health record. It is not the complete legal health record.[facility]
--- OUTSIDE RECORDS SUMMARY | 2025-07-25 22:25 | XMS_ITS | Clinical Summary ---
Author Organization 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 Not on file Not [...] EST) SODIUM 137 133 - 146 mmol/L [facility] POTASSIUM 4.1 3.3 - 5.1 mmol/L [facility] CHLORIDE 102 96 - 108 mmol/L [facility] CO2 25 21 - 35 mmol/L [facility] BUN 11 6 - 19 mg/dL [facility] CREATININE 0.60 0.5 - 1.5 mg/dL [facility] GLUCOSE 86 70 - 99 mg/dL [facility] ALBUMIN 4.4 3.9 - 4.8 g/dL [facility] TOTAL PROTEIN 7.5 6.5 - 8.0 g/dL [facility] CALCIUM 9.2 8.4 - 10.3 mg/dL [facility] ALKALINE PHOSPHATASE 81 39 - 117 U/L [facility] TOTAL BILIRUBIN 0.3 0.0 - 1.2 mg/dL [facility] AST 21 0 - 37 U/L [facility] ALT 15 0 - 40 U/L [facility] GLOBULIN 3.1 1 - 4.8 g/dL [facility] EGFR 116 >59 mL/min/1.7 3m2 [facility] Comment:Estimated glomerular filtration rate calculated using the CKD-EPI equation. ANION GAP 14 10 - 20 mmol/L [facility] Blood 07/21/2020 1:42 PM EST 07/21/2020 1:48 PM EST John [facility] BLOOD BKR ORDERABLE S Final Result [address] [address] * Pap Smear (07/20/2020 12:00 AM EST) 07/20/2020 07/21/2020 8:5 9 AM EST Narrative SEE NARRATIVE - 07/24/2020 11:04 AM EST [address] [address] Methane Gas Collection System Operator: Awa Lord MD VICE PRESIDENT FIXED INCOME Cytology Report FINAL DIAGNOSIS A. PAP SMEAR [...] 52, 56, 58, 59, 66, 68) by [employer] On[employer]arity HR-HPV analysis. Clinical correlation is advised. This HPV test was performed at [facility], [address] [place] [address]. This test has been FDA approved for [facility] cervical cytology specimens. The accuracy and precision of this test for all other specimen sources has been verified in the Cytopathology Laboratory of the [facility] and has not been cleared or approved by the U.S. Food and Drug Administration. Clinical correlation is advised. CLINICAL HISTORY Date of Last Menstrual Period: 06-22-2020 Other Clinical Conditions: Screening Pap SPECIMEN SOURCE A: PAP SMEAR (SUREPATH) CE Patient Name: JASMYNE HARDEN : 1980 (Age: 39) Sex: F Institution: [facility] Location: [facility] Date of Collection: 07/20/2020 Date of Reported: 07/22/2020 14:14 Results to: Suha Coronado MD us Suha Coronado MD CYTOLOGY ORDERABLES Edited Re sult - Final SEE NARRATIVE from Last 3 Months or Most Recently Relevant to Health Maintenance Insurance [address] [id number] [place] [address] [place] [address] [place] [address] [place] [address] [place] [address] [place] [address] [address] [address] [address] [place] [place] [address] [employer] Care Teams Spa Supervisor Relationship Specialty Start Date End Date Abi Gardner MD [address] [place] [phone] PCP - General Internal Medicine 10/12/18 Stevenson Ayoub MD [address] [place] [phone] Historical LMR Provider 05/24/17 Suha Coronado MD [address] [place] [address] Historical LMR Provider 05/24/17 Meenakshi Felix MD [address] [place] [address] Historical LMR Provider 05/24/17 Boris Martinez MD [address] [place] [phone] Historical LMR Provider 05/24/17 Additional Source Comments The information contained in this document represents components of the legal health record. It is not the complete legal health record.[facility]
== END ==
LOC: HO.SL 20:30
PROVIDERS: PCP Internal Medicine; Visit Provider Physician Assistant Medical
DX: G47.19 Other hypersomnia (principal); R53.83 Other fatigue; G47.9 Sleep disorder, unspecified
CPT/HCPCS: 95810